=== PATIENT | female | born 1950 | race Caucasian/White ===

== ENCOUNTER 2018-05-17 13:05 | Inpatient (IN) | payer MEDICARE, MEDICAID, SELFPAY ==
[2018-05-17] VITALS (19 sets, daily range): BP systolic 72–125; BP diastolic 55–76; PULSE 45–69; RESP 13–17; TEMP 35.9–36.4; O2SAT 95–100; BMI 25.7; BMI 68.3
--- NOTE | 2018-05-17 13:42 | EKG12_ITS ---
Test Reason : OVERDOSE Blood Pressure : / mmHG Vent. Rate : 052 BPM Atrial Rate : 052 BPM P-R Int : 196 ms QRS Dur : 108 ms QT Int : 476 ms P-R-T Axes : 064 -17 008 degrees QTc Int : 442 ms Sinus bradycardia Otherwise normal ECG Confirmed by SHARMAINE ROBLES, KANDIS ([id number]), restaurant expeditor OPAL VILLEGAS ([id number]) on 05/19/2018 2:12:55 PM Referred By: Abner Gooden Confirmed By:KANDIS SCHMID MD
--- NOTE | 2018-05-17 13:52 | RAD_ITS ---
STUDY: X-RAY CHEST REASON FOR EXAM: Female, 68 years old. Overdose. Unresponsive. TECHNIQUE: Single AP portable view of the chest. COMPARISON: None. FINDINGS: There are monitoring devices. The lungs are clear and expanded. There is no demonstrated pleural abnormality. Normal size heart. Normal mediastinum and kat. Normal visualized pulmonary arteries. Normal visualized aortic arch and descending thoracic aorta. Normal visualized thoracic spine. There is right shoulder replacement. There is postoperative change in the upper abdomen. RAD/Chest 1 View (Portable) IMPRESSION: No acute cardiopulmonary disease. Electronically Signed: Narayan Zhong MD at 14:46 EST , Service support ,
[2018-05-17] MEDS: 0.9% Normal Saline 1,000 ML 1000 ML IV (13:55)
--- NOTE | 2018-05-17 13:58 | NURSING ---
NO OLD EKGS
[2018-05-17 14:00] LABS: Mucous, Urine 0 SEEN /hpf (<or=2+); Red Blood Cells-Urine 0 SEEN /hpf (0-5)
[2018-05-17] MEDS: Naloxone 2 MG/2 ML Syringe IV (14:02)
[2018-05-17 14:03] LABS: Color, Urine Yellow (Yellow); Glucose, Dipstick Normal (Normal); Ketone-Dipstick Negative (Negative); Leukocyte Esterase-Dipstick 25 /ul (Negative); Nitrite-Dipstick Positive (Negative); Occult Blood-Urine Negative /ul (Negative); Protein-Dipstick Negative (Negative); Specific Gravity, Urine 1.015 (1.002-1.030); Urine Bilirubin Dipstick Negative (Negative); Urine Clarity Sl. Cloudy (Clear); Urine Urobilinogen Normal (Normal)
[2018-05-17 14:04] LABS: Absolute Lymphocyte Count 2.69 X10^3/ul (0.83-4.51); Absolute Neutrophil Count 3.4 X10^3/uL (2.0-7.7); Basophil# 0.02 X10^3/uL; Basophil% 0.3 % (0-1); Eosinophil# 0.07 X10^3/uL; Eosinophils% 1.1 % (0-5); Hematocrit 36.7 % (37-47); Hemoglobin 11.5 g/dl (12.0-15.0); Lymphocyte # 2.69 X10^3/ul (4.0); Lymphocyte % 41.6 % (19-41); Mean Corp Hgb Conc 31.3 g/gl (32-36); Mean Corpuscular Hgb 28.9 pg (27.0-32.0); Mean Corpuscular Volume 92.2 fL (81-99); Mean Platelet Vol. 10.4 fl (6.2-12.0); Monocyte# 0.29 X10^3/uL; Monocyte% 4.5 % (0-10); Neutrophil # 3.39 X10^3/uL (2.7-7.7); Neutrophil % 52.3 % (47-70); Platelet Count 205 K/mm3 (150-450); RBC Distribution Width SD 50.8 fl (35.1-43.9); Red Blood Count 3.98 M/mm3 (4.2-5.4); White Blood Count 6.5 K/mm3 (4.4-11.0)
--- NOTE | 2018-05-17 14:04 | ED.RN ---
Addendum entered by Christine Flores 05/17/18 14:22: PT CONFIRMED SUICIDAL IDEATION UPON ARRIVAL IN ER. PT CURRENTLY DIFFICULT TO RESPOND TO PAINFUL STIMULI BUT RESPIRATORY IS INTACT. NURSING STAFF REMAINS AT BEDSIDE TO MONITOR IF PT WILL NEED TO BE INTUBATED. Original Note: PT CONFIRMED SUICIDAL IDEATION. PT IS DIFFICULT TO RESPOND TO PAINFUL STIMULI. MONITOR IS IN PLACE. PT IS BEING CLOSELY MONITORED IN THE EVENT SHE NEEDS TO BE INTUBATED. A SITTER IS NOT AT THE BEDSIDE AT THIS TIME D/T PTS LACK OF ABILITY TO HARM HERSELF.
[2018-05-17 14:06] LABS: POSITIVE COUNT NO; POSITIVE DIFFERENTIAL NO; POSITIVE MORPHOLOGY NO
[2018-05-17 14:11] LABS: Alcohol, Blood (Medical)-Serum < 3.0 mg/dL
[2018-05-17 14:16] LABS: Amphetamine Urine VISTA NEGATIVE (<1000 ng/mL); Barbiturate Urine VISTA NEGATIVE (< 200 ng/mL); Benzodiazepine Urine VISTA NEGATIVE (< 200 ng/mL); Cocaine Urine VISTA NEGATIVE (< 300 ng/mL); Ecstacy Urine VISTA NEGATIVE (< 500 ng/mL); Methadone Urine VISTA NEGATIVE (< 300 ng/mL); PCP Urine VISTA NEGATIVE (< 25 ng/mL); THC Urine VISTA NEGATIVE (< 50 ng/mL); Vista UDS pH Range 5
[2018-05-17 14:18] LABS: Bacteria 2+ /hpf (None Seen); Squamous Epithelial Cells - UA 0-5 SEEN /hpf (5-10); White Blood Cells 0-5 SEEN /hpf (0-5)
[2018-05-17 14:19] LABS: Anion Gap 6 (5-15); BUN 18 mg/dL (7-18); BUN/Creat Ratio 20.2 RATIO (10-20); Calcium,Total 8.3 mg/dL (8.5-10.1); Chloride 102 mmol/L (98-107); Creatinine, Serum 0.89 mg/dL (0.55-1.02); EST Glomerular Filtration Rate 67 mL/min (>60); Est Glom Filt Rate - Afr Amer 81 mL/min (>60); Estimated Creatinine Clearance 52.97 ml/min; Glucose 90 mg/dL (74-106); Potassium 2.7 mmol/L (3.5-5.1); Sodium Level 140 mmol/L (136-145)
--- NOTE | 2018-05-17 14:23 | ED.RN ---
Pt moved from room 20 to room 1 at 1315 due to lethargic response and concern of potential intubation. Christine Randolph in room with pt until decision to intubate determined by Dr Ross
--- NOTE | 2018-05-17 14:27 | ED.RN ---
PHYSICIAN AT BEDSIDE. DECISION TO INTUBATE. SITTER REQUIREMENT IS DISCONTINUED.
--- NOTE | 2018-05-17 14:33 | ED.RN ---
Suicide precautions d/c'd. Pt intubated.
[2018-05-17] MEDS: fentaNYL 100 MCG/2 ML Ampul 50 MCG IV (14:36)
--- NOTE | 2018-05-17 15:05 | RAD_ITS ---
STUDY: X-RAY CHEST REASON FOR EXAM: Female, 68 years old. Tube placement. TECHNIQUE: Single AP portable view of the chest. COMPARISON: Earlier the same day FINDINGS: Endotracheal tube, 4 cm above the niyah. The lungs are clear and expanded. There is no demonstrated pleural abnormality. Normal size heart. Normal mediastinum and kat. Normal visualized pulmonary arteries. Normal visualized aortic arch and descending thoracic aorta. Normal visualized thoracic spine. Stable right shoulder replacement. Postoperative changes in the upper abdomen. RAD/Chest 1 View (Portable) IMPRESSION: Endotracheal tube placement. No focal infiltrate. Electronically Signed: Narayan Zhong MD at 15:53 EST , Service support ,
--- NOTE | 2018-05-17 15:31 | ED.DCSUM_ITS ---
- ER Visit Summary Date of Service: 05/17/18 Chief Complaint: Overdose History of Present Illness: The patient is a 68 F who overdosed on Lyrica and her Klonopin. When she arrived via EMS she was somnolent but arousable and she told me she wanted to end her life. She told me she took the medication when it was dark outside and currently it is 1 in the afternoon. Her daughter apparently called EMS for a well check since she had not heard for him her mother in a while. Physical Examination: Patient is somnolent, initially she is arousable. When she is arousable she tells me that she took a handful of Lyrica and Klonopin. Slightly dry mucous membranes, no obvious facial deformity Pupils are 3-4 mm and reactive No C-spine tenderness supple neck. Regular rate and rhythm without any obvious murmurs Course lungs bilaterally speaking in full sentences without any obvious resp iratory distress Abdomen soft and nontender no guarding or rebound Moves all extremities without any difficulty or pain. Skin does not show any obvious rashes or lesions, no trauma. GCS is 11 initially. Emergency Department Course and Treatment: Patient did receive Narcan with no improvement. I am reluctant to give her flumazenil due to multi-substance ingestion and the possibility of withdrawal seizure. After an observation. Patient decompensated to where she had a GCS of 7. At that time I intubated her. She had no gag reflex and I did not need to use any sedation. Repeat x-rays unremarkable. She was hypokalemic which I started treatment in the emergency department. I called the hospitalist for admission to the intensive care unit. She will need psychiatric evaluation when she is extubated Disposition: Admit to hospital in critical condition Impression: Overdose multidrug Respiratory arrest Critical care time 30 minutes This note was generated with Dial2[employer] dictation software. It may contain incorrect words, spelling, and punctuation that were not noted in review of the chart bozenao r to signing ED Disposition - Plan for ED Patient: Chief Complaint: Overdose Referrals: Reynaldo Styles,Out of [Primary Care Provider] -
--- NOTE | 2018-05-17 15:49 | NURSING ---
ICU 8 DRUG OVERDOSE JODY
--- NOTE | 2018-05-17 15:51 | PCM.HP.STD ---
Problem List (1) Multiple drug overdose Status: Acute (2) Hypokalemia Status: Acute History of Present Illness Date of Admission: 05/17/18 Chief Complaint: Overdose on Lyrica, Klonopin. The patient is a 68 year old F who presents to the Emergency Room due to overdosing on Lyrica and Klonopin. Patient intubated at time of assessment and HPI provided by ER staff. Patient initially able to speak with staff and stated she wanted to end her life, overdosing on Lyrica and Klonopin. Her daughter was reported to call the squad when she had not heard from her mother. Patient intubated in the ER due to decreased responsiveness. Past Medical History Allergies No Known Allergies Allergy (Verified 05/17/18 13:15) Surgical History: hysterectomy, tonsillectomy, - - Bilateral total knee replacement, right rotator cuff repair, lysis of adhesions, hernia repair, gastric bypass, cholecystectomy, cardiac ablation, C5-C6 back fusion, C5/C6 neck fusion. Psychiatric History: Depression Smoking Status: Never smoker - *Family History Maternal History Items: - - Patient intubated, unable to obtain family history. Paternal History Items: - - Patient intubated, unable to obtain family history. Review of Systems Unable to obtain accurate/complete ROS d/t: Patient intubated. Unable to complete ROS. VTE Information - Inpt Only VTE Present on Admission: No VTE Mechan Device Prophylaxis: None VTE Pharm Prophylaxis ordered?: Yes Patient Problems: Active and Suspected Problems Multiple drug overdose (Acute) Hypokalemia (Acute) - Physical Exam General: - - Patient intubated. HEENT: Atraumatic, PERRLA, EOMI, Normocephalic Neck: Supple, No JVD, Negative Carotid Bruits Lungs: Clear to auscultation, Normal air movement Cardiovascular: Regular rate, Regular Rhythm, Normal S1, Normal S2, No murmurs Abdomen: Bowel Sounds Present, Soft, Non Tender, Non-Distended Extremities: No clubbing, No cyanosis, No edema, Capillary Refill Less than 3 Seconds Skin: No rashes, No breakdown Musculoskeletal: No Tenderness to Palpation of Joints or Extremities Neurological: Cranial nerves II-XII grossly intact Psych/Mental Status: - - Unable to assess. Vital Signs Temp Pulse Resp BP Pulse Ox 97.5 F L 46 L 14 95/69 100 05/17/18 13:07 05/17/18 15:41 05/17/18 15:41 05/17/18 15:41 05/17/18 15:41 Oxygen Delivery Method Mechanical Ventilator Weight: 150 lb Body Mass Index (BMI) 25.7 Laboratory Tests Past 24 Hrs 05/17/18 05/17/18 05/17/18 13:25 13:25 13:25 WBC 6.5 RBC 3.98 L Hgb 11.5 L Hct 36.7 L MCV 92.2 MCH 28.9 MCHC 31.3 L RDW 15.0 H RDW Differential 50.8 H Plt Count 205 MPV 10.4 Immature Gran % (Auto) 0.200 Neut % (Auto) 52.3 Lymph % (Auto) 41.6 H [place] % (Auto) 4.5 Eos % (Auto) 1.1 Baso % (Auto) 0.3 Absolute Neuts (auto) 3.4 Absolute Lymphs (auto) 2.69 Total Counted Not Reportable Sodium 140 Potassium 2.7 L* Chloride 102 Carbon Dioxide 32.0 Anion Gap 6 BUN 18 Creatinine 0.89 Estim Creat Clear Calc 52.97 Est GFR (MDRD) Af Amer 81 Est GFR (MDRD) Non-Af 67 BUN/Creatinine Ratio 20.2 H Glucose 90 Calcium 8.3 L Urine Color Urine Clarity Urine pH Ur Specific [place] Urine Protein Urine Glucose (UA) Urine Ketones Urine Occult Blood Urine Nitrite Urine Bilirubin Urine Urobilinogen Ur Leukocyte Esterase Urine RBC Urine WBC Ur Squamous Epith Cells Urine Bacteria Urine Mucus Urine Opiates Screen Urine Methadone Screen Ur Barbiturates Screen Ur Phencyclidine Scrn Ur Amphetamines Screen U Methamphetamin-MDMA U Benzodiazepines Scrn Urine Cocaine Screen U Cannabinoids Screen Ur Drug Screen Comment Ethyl Alcohol < 3.0 05/17/18 05/17/18 13:35 13:35 WBC RBC Hgb Hct MCV MCH MCHC RDW RDW Differential Plt Count MPV Immature Gran % (Auto) Neut % (Auto) Lymph % (Auto) [place] % (Auto) Eos % (Auto) Baso % (Auto) Absolute Neuts (auto) Absolute Lymphs (auto) Total Counted Sodium Potassium Chloride Carbon Dioxide Anion Gap BUN Creatinine Estim Creat Clear Calc Est GFR (MDRD) Af Amer Est GFR (MDRD) Non-Af BUN/Creatinine Ratio Glucose Calcium Urine Color Yellow Urine Clarity Sl. Cloudy Urine pH 5.0 Ur Specific [place] 1.015 Urine Protein Negative Urine Glucose (UA) Normal Urine Ketones Negative Urine Occult Blood Negative Urine Nitrite Positive H Urine Bilirubin Negative Urine Urobilinogen Normal Ur Leukocyte Esterase 25 H Urine RBC 0 SEEN Urine WBC 0-5 SEEN Ur Squamous Epith Cells 0-5 SEEN Urine Bacteria 2+ Urine Mucus 0 SEEN Urine Opiates Screen NEGATIVE Urine Methadone Screen NEGATIVE Ur Barbiturates Screen NEGATIVE Ur Phencyclidine Scrn NEGATIVE Ur Amphetamines Screen NEGATIVE U Methamphetamin-MDMA NEGATIVE U Benzodiazepines Scrn NEGATIVE Urine Cocaine Screen NEGATIVE U Cannabinoids Screen NEGATIVE Ur Drug Screen Comment Ethyl Alcohol Assessment/Plan All Active Problems Multiple drug overdose (Acute) Hypokalemia (Acute) 1. Acute respiratory failure due to multidrug overdose-tox screen negative. Patient admitted to overdosing on Lyrica and Klonopin on admission. Psychiatric/crisis consult when patient is stable. Chest x-ray without infiltrate. Patient currently intubated, stable at this time, on ketamine. 2. Hypokalemia-replaced per protocol. Trend BMP. 3. Hypotension, secondary to #1-stable at this time. Continue to monitor. 4. Hypertension 5. Chronic diastolic CHF-prior EF 54%. 6. Paroxysmal atrial fibrillation-status post ablation. 7. Depression/personality disorder-follows with counseling center. 8. Fibromyalgia 9. GERD 10. Hyperlipidemia 11. PAPA Past medical history of chronic medical conditions obtained from [facility], outside facility report. Patient's current medication list is unknown. DVT prophylaxis- Lovenox SC. This patient was seen by TAMMY Hayes under the supervision of Dr. Gooden.
--- NOTE | 2018-05-17 16:35 | ED.RN ---
cental line placed, pt to get xray and then to the floor.
--- NOTE | 2018-05-17 16:45 | RAD_ITS ---
STUDY: X-RAY CHEST REASON FOR EXAM: Female, 68 years old. Line placement TECHNIQUE: Single AP portable view of the chest. COMPARISON: 05/17/2018, 2:57 PM. FINDINGS: There is a new right IJ line that terminates in the upper SVC. No pneumothorax. Endotracheal tube is stable terminating approximately 5 cm above the niyah. No other changes or abnormalities since earlier today. Electronically Signed: Blake Jason MD at 17:30 EST , Service support , RAD/CXR for Line Placement
--- NOTE | 2018-05-17 17:45 | RAD_ITS ---
STUDY: X-RAY - ABDOMEN/PELVIS REASON FOR EXAM: Female, 68 years old. A NG tube placement. TECHNIQUE: Portable supine view. COMPARISON: None. FINDINGS: Normal visualized lung bases. Orogastric tube terminates in the left upper quadrant consistent with gastric placement. Side port is at the level of the GE junction. There is a nonobstructive bowel gas pattern. There is a rotatory scoliosis of the lumbar spine. Soft tissues and bony structures are otherwise unremarkable. RAD/Abdomen Single View (Portable) IMPRESSION: Orogastric tube in the stomach with side port at the GE junction. If this is to be used for feeding, tube should be advanced at least 5 cm. Electronically Signed: Fouzia Metz MD at 18:41 EST Tel , Service support ,
[2018-05-17] MEDS: 0.9% Normal Saline 1,000 ML 100 ML IV (17:46)
[2018-05-17 18:58] LABS: CPK Total, Creatine Kinase 67 U/L (26-192); Triglycerides 110 mg/dL
[2018-05-17] MEDS: 0.9% Normal Saline 1,000 ML 999 ML IV (19:00)
[2018-05-17 20:40] LABS: Magnesium 1.9 mg/dL (1.6-2.6); Phosphorus 5.3 mg/dL (2.5-4.9)
[2018-05-17] MEDS: Heparin Injection (Vial) 5,000 UNIT/ML VIAL 5000 UNIT SC (21:41)
[2018-05-17] MEDS: Chlorhexidine 15 ML PO (22:13)
[2018-05-18] VITALS (46 sets, daily range): BP systolic 78–140; BP diastolic 60–88; PULSE 52–68; RESP 13–18; TEMP 36.2–36.8; O2SAT 98–100
--- NOTE | 2018-05-18 00:03 | RAD_ITS ---
STUDY: X-RAY - ABDOMEN/PELVIS REASON FOR EXAM: Female, 68 years old. Repositioned orogastric tube. TECHNIQUE: Single AP view of the abdomen / pelvis. COMPARISON: Radiograph of the abdomen dated May 17, 2018. FINDINGS: Normal visualized lung bases. There is an unremarkable bowel gas pattern. The enteric tube tip is now pointing toward the gastroesophageal junction having been advanced since the previous study. An electronic device is visible overlying the right lower quadrant probably representing a neural stimulator. There is no obvious visceromegaly, mass, dilated bowel or pathologic calcifications. There are calcified phleboliths in the pelvis. There are degenerative changes of the lumbar spine. There are large enthesophytes arising from the anterior superior iliac crests. RAD/Abdomen Single View IMPRESSION: Repositioning of enteric tube with the tip pointing towards the gastroesophageal junction. This probably should be repositioned prior to feeding. Electronically Signed: Mariama Stern MD at 0:56 EST , Service support ,
--- NOTE | 2018-05-18 00:51 | NURSING ---
Spoke to poison control about intentional od and medications consumed. Poison control suggests to repeat EKG, add tylenol and ASA level and correct electrolytes as needed. Dr. Morin aware, orders received.
[2018-05-18 01:11] LABS: Bedside Glucose 59 mg/dL (70-110)
[2018-05-18 01:19] LABS: Acetaminophen (Tylenol) Level < 2.0 ug/mL (10.0-30.0); Salicylate < 1.7 mg/dL (2.8-20.0)
[2018-05-18] MEDS: 0.9% Normal Saline 1,000 ML 100 ML IV (01:32)
[2018-05-18] MEDS: 0.9% NaCl Peripheral Flush Adult/Peds IV ×2 (01:44→16:09)
[2018-05-18] MEDS: Dextrose 50%-Water 25 GM/50 ML DISP.SYRIN IV ×2 (01:45→06:28)
[2018-05-18 04:30] LABS: Absolute Lymphocyte Count 1.45 X10^3/ul (0.83-4.51); Basophil# 0.02 X10^3/uL; Basophil% 0.4 % (0-1); Eosinophil# 0.08 X10^3/uL; Eosinophils% 1.7 % (0-5); Hematocrit 32.1 % (37-47); Hemoglobin 10.5 g/dl (12.0-15.0); Lymphocyte # 1.45 X10^3/ul (4.0); Lymphocyte % 30.4 % (19-41); Mean Corp Hgb Conc 32.7 g/gl (32-36); Mean Corpuscular Hgb 29.9 pg (27.0-32.0); Mean Corpuscular Volume 91.5 fL (81-99); Monocyte# 0.22 X10^3/uL; Monocyte% 4.6 % (0-10); Neutrophil # 2.99 X10^3/uL (2.7-7.7); Neutrophil % 62.7 % (47-70); Platelet Count 163 K/mm3 (150-450); RBC Distribution Width CV 14.7 % (11.6-14.6); RBC Distribution Width SD 47.9 fl (35.1-43.9); Red Blood Count 3.51 M/mm3 (4.2-5.4); White Blood Count 4.8 K/mm3 (4.4-11.0)
[2018-05-18 04:37] LABS: POSITIVE COUNT NO; POSITIVE DIFFERENTIAL NO; POSITIVE MORPHOLOGY NO
[2018-05-18 04:47] LABS: Anion Gap 8 (5-15); BUN 12 mg/dL (7-18); BUN/Creat Ratio 19.7 RATIO (10-20); Calcium,Total 7.7 mg/dL (8.5-10.1); Chloride 110 mmol/L (98-107); Creatinine, Serum 0.61 mg/dL (0.55-1.02); EST Glomerular Filtration Rate 104 mL/min (>60); Est Glom Filt Rate - Afr Amer 126 mL/min (>60); Estimated Creatinine Clearance 47.14 ml/min; Glucose 68 mg/dL (74-106); Potassium 2.9 mmol/L (3.5-5.1); Sodium Level 145 mmol/L (136-145)
--- NOTE | 2018-05-18 05:55 | EKG12_ITS ---
Test Reason : AM EKG Blood Pressure : / mmHG Vent. Rate : 058 BPM Atrial Rate : 058 BPM P-R Int : 188 ms QRS Dur : 098 ms QT Int : 428 ms P-R-T Axes : 067 -05 046 degrees QTc Int : 420 ms Sinus bradycardia Otherwise normal ECG When compared with ECG of 17-MAY-2018 13:55, MANUAL COMPARISON REQUIRED, DATA IS UNCONFIRMED Confirmed by SHARMAINE ROBLES, KANDIS ([id number]), marketing editor OPAL VILLEGAS ([id number]) on 05/20/2018 4:12:11 PM Referred By: Abner Gooden Confirmed By:KANDIS SCHMID MD
[2018-05-18 06:11] LABS: Bedside Glucose 63 mg/dL (70-110)
--- NOTE | 2018-05-18 07:17 | PN_ITS ---
Patient Problems: Active and Suspected Problems Multiple drug overdose (Acute) Hypokalemia (Acute) Hypoglycemia (Acute) Subjective: Pt is a 68 YO female admitted with intentional OD of Lyrica and Klonopin. Intubated in the ER due to inability to protect the airway. Admitted to the ICU. All events of the past 24 hours have been reviewed. Ventilator - day #2, on Fentanyl and Propofol for sedation....became agitated this AM but she is still having apneic episodes Afebrile, BP stable, she is bradycardic but the HR is stable, 100% saturation on a 30% FIO2 LAB: no leukocytosis, HGB is 10.5 with a normal MCV, Potassium is still low at 2.9 despite supplementation UA is unremarkable CXR with R IJ in good position and no infiltrates, effusions or PVC Objective: General: Sedated and on mechanical ventilation HEENT: PERRLA, Atraumatic, normocephalic, no scleral icterus, no carotid bruits, no JVD Lungs: CTA, symmetric chest expansion, Heart: RRR, no MM, no gallop, no rub, normal S1, normal S2 Abdomen: Soft, nontender, nondistended, bowel sounds present, no guarding with palpation, no masses, no hepatosplenomegaly Extremities: No edema, no clubbing, no cyanosis, peripheral pulses normal Neuro: Moving all extremities, very somnolent but does arouse with stimulation Skin: Warm and dry, no wounds, no rashes, no jaundice Psych: she is chronically of Klonopin and Paxil for depression/anxiety Telemetry: NSR/SB - Physical Exam Vital Signs Temp Pulse Resp BP Pulse Ox 97.3 F L 56 L 14 96/71 100 05/18/18 02:00 05/18/18 06:15 05/18/18 06:15 05/18/18 06:00 05/18/18 06:15 Oxygen Delivery Method Mechanical Ventilator Weight: 150 lb 9.211 oz Body Mass Index (BMI) 25.7 Intake and Output for Last 24 Hours 05/16/18 05/17/18 05/18/18 23:59 23:59 23:59 Intake Total 1000 / 1000 1855 / 1855 Output Total 1200 / 1200 Balance 1000 / 1000 655 / 655 Laboratory Tests Past 24 Hrs 05/17/18 05/17/18 05/17/18 13:25 13:25 13:25 WBC 6.5 RBC 3.98 L Hgb 11.5 L Hct 36.7 L MCV 92.2 MCH 28.9 MCHC 31.3 L RDW 15.0 H RDW Differential 50.8 H Plt Count 205 MPV 10.4 Immature Gran % (Auto) 0.200 Neut % (Auto) 52.3 Lymph % (Auto) 41.6 H [place] % (Auto) 4.5 Eos % (Auto) 1.1 Baso % (Auto) 0.3 Absolute Neuts (auto) 3.4 Absolute Lymphs (auto) 2.69 Total Counted Not Reportable Sodium 140 Potassium 2.7 L* Chloride 102 Carbon Dioxide 32.0 Anion Gap 6 BUN 18 Creatinine 0.89 Estim Creat Clear Calc 52.97 Est GFR (MDRD) Af Amer 81 Est GFR (MDRD) Non-Af 67 BUN/Creatinine Ratio 20.2 H Glucose 90 Calcium 8.3 L Phosphorus Magnesium Total Creatine Kinase Triglycerides Urine Color Urine Clarity Urine pH Ur Specific [place] Urine Protein Urine Glucose (UA) Urine Ketones Urine Occult Blood Urine Nitrite Urine Bilirubin Urine Urobilinogen Ur Leukocyte Esterase Urine RBC Urine WBC Ur Squamous Epith Cells Urine Bacteria Urine Mucus Salicylates Urine Opiates Screen Urine Methadone Screen Acetaminophen Ur Barbiturates Screen Ur Phencyclidine Scrn Ur Amphetamines Screen U Methamphetamin-MDMA U Benzodiazepines Scrn Urine Cocaine Screen U Cannabinoids Screen Ur Drug Screen Comment Ethyl Alcohol < 3.0 05/17/18 05/17/18 05/17/18 13:25 13:35 13:35 WBC RBC Hgb Hct MCV MCH MCHC RDW RDW Differential Plt Count MPV Immature Gran % (Auto) Neut % (Auto) Lymph % (Auto) [place] % (Auto) Eos % (Auto) Baso % (Auto) Absolute Neuts (auto) Absolute Lymphs (auto) Total Counted Sodium Potassium Chloride Carbon Dioxide Anion Gap BUN Creatinine Estim Creat Clear Calc Est GFR (MDRD) Af Amer Est GFR (MDRD) Non-Af BUN/Creatinine Ratio Glucose Calcium Phosphorus 5.3 H Magnesium 1.9 Total Creatine Kinase Triglycerides Urine Color Yellow Urine Clarity Sl. Cloudy Urine pH 5.0 Ur Specific [place] 1.015 Urine Protein Negative Urine Glucose (UA) Normal Urine Ketones Negative Urine Occult Blood Negative Urine Nitrite Positive H Urine Bilirubin Negative Urine Urobilinogen Normal Ur Leukocyte Esterase 25 H Urine RBC 0 SEEN Urine WBC 0-5 SEEN Ur Squamous Epith Cells 0-5 SEEN Urine Bacteria 2+ Urine Mucus 0 SEEN Salicylates Urine Opiates Screen NEGATIVE Urine Methadone Screen NEGATIVE Acetaminophen Ur Barbiturates Screen NEGATIVE Ur Phencyclidine Scrn NEGATIVE Ur Amphetamines Screen NEGATIVE U Methamphetamin-MDMA NEGATIVE U Benzodiazepines Scrn NEGATIVE Urine Cocaine Screen NEGATIVE U Cannabinoids Screen NEGATIVE Ur Drug Screen Comment Ethyl Alcohol 05/17/18 05/17/18 05/18/18 13:42 13:56 04:18 WBC 4.8 RBC 3.51 L Hgb 10.5 L Hct 32.1 L MCV 91.5 MCH 29.9 MCHC 32.7 RDW 14.7 H RDW Differential 47.9 H Plt Count 163 MPV 10.0 Immature Gran % (Auto) 0.200 Neut % (Auto) 62.7 Lymph % (Auto) 30.4 [place] % (Auto) 4.6 Eos % (Auto) 1.7 Baso % (Auto) 0.4 Absolute Neuts (auto) 3.0 Absolute Lymphs (auto) 1.45 Total Counted Not Reportable Sodium Potassium Chloride Carbon Dioxide Anion Gap BUN Creatinine Estim Creat Clear Calc Est GFR (MDRD) Af Amer Est GFR (MDRD) Non-Af BUN/Creatinine Ratio Glucose Calcium Phosphorus Magnesium Total Creatine Kinase 67 Triglycerides 110 Urine Color Urine Clarity Urine pH Ur Specific [place] Urine Protein Urine Glucose (UA) Urine Ketones Urine Occult Blood Urine Nitrite Urine Bilirubin Urine Urobilinogen Ur Leukocyte Esterase Urine RBC Urine WBC Ur Squamous Epith Cells Urine Bacteria Urine Mucus Salicylates < 1.7 L Urine Opiates Screen Urine Methadone Screen Acetaminophen < 2.0 L Ur Barbiturates Screen Ur Phencyclidine Scrn Ur Amphetamines Screen U Methamphetamin-MDMA U Benzodiazepines Scrn Urine Cocaine Screen U Cannabinoids Screen Ur Drug Screen Comment Ethyl Alcohol 05/18/18 04:18 WBC RBC Hgb Hct MCV MCH MCHC RDW RDW Differential Plt Count MPV Immature Gran % (Auto) Neut % (Auto) Lymph % (Auto) [place] % (Auto) Eos % (Auto) Baso % (Auto) Absolute Neuts (auto) Absolute Lymphs (auto) Total Counted Sodium 145 Potassium 2.9 L Chloride 110 H Carbon Dioxide 27.0 Anion Gap 8 BUN 12 Creatinine 0.61 Estim Creat Clear Calc 47.14 Est GFR (MDRD) Af Amer 126 Est GFR (MDRD) Non-Af 104 BUN/Creatinine Ratio 19.7 Glucose 68 L Calcium 7.7 L Phosphorus Magnesium Total Creatine Kinase Triglycerides Urine Color Urine Clarity Urine pH Ur Specific [place] Urine Protein Urine Glucose (UA) Urine Ketones Urine Occult Blood Urine Nitrite Urine Bilirubin Urine Urobilinogen Ur Leukocyte Esterase Urine RBC Urine WBC Ur Squamous Epith Cells Urine Bacteria Urine Mucus Salicylates Urine Opiates Screen Urine Methadone Screen Acetaminophen Ur Barbiturates Screen Ur Phencyclidine Scrn Ur Amphetamines Screen U Methamphetamin-MDMA U Benzodiazepines Scrn Urine Cocaine Screen U Cannabinoids Screen Ur Drug Screen Comment Ethyl Alcohol POC Glucose 05/18/18 05/18/18 06:06 01:03 POC Glucose 63 L 59 L Medical Necessity - Tobacco Use Smoking Status: Never smoker Assessment/Plan All Active Problems Multiple drug overdose (Acute) Hypokalemia (Acute) Hypoglycemia (Acute) Impressions 1. Intentional overdose with Klonopin and Lyrica in a suicidal attempt 2. Acute respiratory failure secondary to drug overdose 3. Hypokalemia 4. History of anxiety/depression with suicide attempts in the past 5. Normochromic/normocytic anemia of unknown etiology 6. Hypoglycemia-unknown etiology Start Jevity tube feeds and continue to monitor blood sugars Supplement potassium and recheck this afternoon and in the a.m. Repeat chest x-ray if any elevation of temperature Continue sedation with propofol-spontaneous breathing trial in a.m. Consult crisis intervention when the patient is extubated, alert and able to converse Code Visit Inpatient E&M: 49496 Subs Hosp L3
--- NOTE | 2018-05-18 07:59 | PCM.CON.CC ---
Problem List (1) Hypoglycemia Status: Acute (2) Multiple drug overdose Status: Acute Qualifiers: Encounter type: initial encounter Injury intent: intentional self-harm Qualified Code(s): T50.902A - Poisoning by unspecified drugs, medicaments and biological substances, intentional self-harm, initial encounter (3) Hypokalemia Status: Acute Reason for Consult Date of Consultation: 05/18/18 Reason for Consultation: Respiratory failure History of Present Illness: The patient is a 68 year old F, with unclear history, who presented to [facility] on 05/17/2018 following an intentional overdose of Lyrica and Klonopin. Patient reportedly was found by EMS to be somnolent, but arousable and stated that she was trying to end her life. Patient had taken the medications when it was dark outside, but was found at approximately 1:00 in the afternoon. Patient's daughter had reportedly called EMS for a well check leading to the findings. In the emergency room, patient was given Narcan with no improvement. Patient was not given flumazenil secondary to concern for withdrawal seizure. Patient was noted to decrease to a GCS of 7 and was intubated. Patient did not require any sedation and had no gag reflex. Patient was transferred to the intensive care unit for further evaluation. While in the intensive care unit, patient has remained stable on ventilator therapy. Patient has had some issues with hypoglycemia requiring D50 supplementation. Patient has not required any dopamine or sedation as of this time and bradycardia is improving. No fever has been reported. No family is at the bedside to provide more history. Past Medical History Allergies No Known Allergies Allergy (Verified 05/17/18 13:15) Surgical History: hysterectomy, tonsillectomy, - - Bilateral total knee replacement, right rotator cuff repair, lysis of adhesions, hernia repair, gastric bypass, cholecystectomy, cardiac ablation, C5-C6 back fusion, C5/C6 neck fusion. Psychiatric History: Depression Smoking Status: Never smoker - *Family History Maternal History Items: - - Patient intubated, unable to obtain family history. Paternal History Items: - - Patient intubated, unable to obtain family history. Review of Systems Unable to obtain accurate/complete ROS d/t: Intubated and sedated Patient Problems: Active and Suspected Problems Multiple drug overdose (Acute) Hypokalemia (Acute) Hypoglycemia (Acute) Objective: Chest x-ray was personally reviewed showing endotracheal tube and central line in appropriate position. There were no infiltrates. Abdominal x-ray showed OG in appropriate position. - Physical Exam General: - - Intubated and sedated. RASS -3. Good ventilator synchrony noted. HEENT: Atraumatic, PERRLA, EOMI, Normocephalic, - - No scleral icterus or injection noted. Oral: Dry Mucosa Neck: Supple, No JVD, No Nodes, Trachea Midline Lungs: Clear to auscultation, Normal air movement, No rhonchi, No wheeze, No rales, - - Symmetric expansion. No dullness to percussion. Cardiovascular: Regular rate, Regular Rhythm, Normal S1, Normal S2, No murmurs, No rub noted, No Gallop Abdomen: Bowel Sounds Present, Soft, Non Tender, Non-Distended Extremities: No clubbing, No cyanosis, No edema, Capillary Refill Less than 3 Seconds Skin: No rashes, No breakdown Musculoskeletal: No Tenderness to Palpation of Joints or Extremities Lymphatic: No Cervical, Supraclavicular, or Inguinal Adenopathy Neurological: - - Positive corneal, pupillary and cough reflex. Response to stimulus with withdrawal and opens eyes, but falls asleep quickly. Psych/Mental Status: Flat Affect Vital Signs Temp Pulse Resp BP Pulse Ox 36.3 C L 61 17 119/77 100 05/18/18 02:00 05/18/18 07:41 05/18/18 07:00 05/18/18 07:00 05/18/18 07:00 Oxygen Delivery Method Mechanical Ventilator Weight: 68.3 kg Body Mass Index (BMI) 25.7 Intake and Output for Last 24 Hours 05/16/18 05/17/18 05/18/18 23:59 23:59 23:59 Intake Total 1000 / 1000 1855 / 1855 Output Total 1200 / 1200 Balance 1000 / 1000 655 / 655 Laboratory Tests Past 24 Hrs 05/17/18 05/17/18 05/17/18 13:25 13:25 13:25 WBC 6.5 RBC 3.98 L Hgb 11.5 L Hct 36.7 L MCV 92.2 MCH 28.9 MCHC 31.3 L RDW 15.0 H RDW Differential 50.8 H Plt Count 205 MPV 10.4 Immature Gran % (Auto) 0.200 Neut % (Auto) 52.3 Lymph % (Auto) 41.6 H [place] % (Auto) 4.5 Eos % (Auto) 1.1 Baso % (Auto) 0.3 Absolute Neuts (auto) 3.4 Absolute Lymphs (auto) 2.69 Total Counted Not Reportable Sodium 140 Potassium 2.7 L* Chloride 102 Carbon Dioxide 32.0 Anion Gap 6 BUN 18 Creatinine 0.89 Estim Creat Clear Calc 52.97 Est GFR (MDRD) Af Amer 81 Est GFR (MDRD) Non-Af 67 BUN/Creatinine Ratio 20.2 H Glucose 90 Calcium 8.3 L Phosphorus Magnesium Total Bilirubin Direct Bilirubin AST ALT Alkaline Phosphatase Total Creatine Kinase Total Protein Albumin Triglycerides Urine Color Urine Clarity Urine pH Ur Specific [place] Urine Protein Urine Glucose (UA) Urine Ketones Urine Occult Blood Urine Nitrite Urine Bilirubin Urine Urobilinogen Ur Leukocyte Esterase Urine RBC Urine WBC Ur Squamous Epith Cells Urine Bacteria Urine Mucus Salicylates Urine Opiates Screen Urine Methadone Screen Acetaminophen Ur Barbiturates Screen Ur Phencyclidine Scrn Ur Amphetamines Screen U Methamphetamin-MDMA U Benzodiazepines Scrn Urine Cocaine Screen U Cannabinoids Screen Ur Drug Screen Comment Ethyl Alcohol < 3.0 05/17/18 05/17/18 05/17/18 13:25 13:35 13:35 WBC RBC Hgb Hct MCV MCH MCHC RDW RDW Differential Plt Count MPV Immature Gran % (Auto) Neut % (Auto) Lymph % (Auto) [place] % (Auto) Eos % (Auto) Baso % (Auto) Absolute Neuts (auto) Absolute Lymphs (auto) Total Counted Sodium Potassium Chloride Carbon Dioxide Anion Gap BUN Creatinine Estim Creat Clear Calc Est GFR (MDRD) Af Amer Est GFR (MDRD) Non-Af BUN/Creatinine Ratio Glucose Calcium Phosphorus 5.3 H Magnesium 1.9 Total Bilirubin Direct Bilirubin AST ALT Alkaline Phosphatase Total Creatine Kinase Total Protein Albumin Triglycerides Urine Color Yellow Urine Clarity Sl. Cloudy Urine pH 5.0 Ur Specific [place] 1.015 Urine Protein Negative Urine Glucose (UA) Normal Urine Ketones Negative Urine Occult Blood Negative Urine Nitrite Positive H Urine Bilirubin Negative Urine Urobilinogen Normal Ur Leukocyte Esterase 25 H Urine RBC 0 SEEN Urine WBC 0-5 SEEN Ur Squamous Epith Cells 0-5 SEEN Urine Bacteria 2+ Urine Mucus 0 SEEN Salicylates Urine Opiates Screen NEGATIVE Urine Methadone Screen NEGATIVE Acetaminophen Ur Barbiturates Screen NEGATIVE Ur Phencyclidine Scrn NEGATIVE Ur Amphetamines Screen NEGATIVE U Methamphetamin-MDMA NEGATIVE U Benzodiazepines Scrn NEGATIVE Urine Cocaine Screen NEGATIVE U Cannabinoids Screen NEGATIVE Ur Drug Screen Comment Ethyl Alcohol 05/17/18 05/17/18 05/18/18 13:42 13:56 04:18 WBC 4.8 RBC 3.51 L Hgb 10.5 L Hct 32.1 L MCV 91.5 MCH 29.9 MCHC 32.7 RDW 14.7 H RDW Differential 47.9 H Plt Count 163 MPV 10.0 Immature Gran % (Auto) 0.200 Neut % (Auto) 62.7 Lymph % (Auto) 30.4 [place] % (Auto) 4.6 Eos % (Auto) 1.7 Baso % (Auto) 0.4 Absolute Neuts (auto) 3.0 Absolute Lymphs (auto) 1.45 Total Counted Not Reportable Sodium Potassium Chloride Carbon Dioxide Anion Gap BUN Creatinine Estim Creat Clear Calc Est GFR (MDRD) Af Amer Est GFR (MDRD) Non-Af BUN/Creatinine Ratio Glucose Calcium Phosphorus Magnesium Total Bilirubin Direct Bilirubin AST ALT Alkaline Phosphatase Total Creatine Kinase 67 Total Protein Albumin Triglycerides 110 Urine Color Urine Clarity Urine pH Ur Specific [place] Urine Protein Urine Glucose (UA) Urine Ketones Urine Occult Blood Urine Nitrite Urine Bilirubin Urine Urobilinogen Ur Leukocyte Esterase Urine RBC Urine WBC Ur Squamous Epith Cells Urine Bacteria Urine Mucus Salicylates < 1.7 L Urine Opiates Screen Urine Methadone Screen Acetaminophen < 2.0 L Ur Barbiturates Screen Ur Phencyclidine Scrn Ur Amphetamines Screen U Methamphetamin-MDMA U Benzodiazepines Scrn Urine Cocaine Screen U Cannabinoids Screen Ur Drug Screen Comment Ethyl Alcohol 05/18/18 05/18/18 04:18 04:18 WBC RBC Hgb Hct MCV MCH MCHC RDW RDW Differential Plt Count MPV Immature Gran % (Auto) Neut % (Auto) Lymph % (Auto) [place] % (Auto) Eos % (Auto) Baso % (Auto) Absolute Neuts (auto) Absolute Lymphs (auto) Total Counted Sodium 145 Potassium 2.9 L Chloride 110 H Carbon Dioxide 27.0 Anion Gap 8 BUN 12 Creatinine 0.61 Estim Creat Clear Calc 47.14 Est GFR (MDRD) Af Amer 126 Est GFR (MDRD) Non-Af 104 BUN/Creatinine Ratio 19.7 Glucose 68 L Calcium 7.7 L Phosphorus Magnesium Total Bilirubin Pending Direct Bilirubin Pending AST Pending ALT Pending Alkaline Phosphatase Pending Total Creatine Kinase Total Protein Pending Albumin Pending Triglycerides Urine Color Urine Clarity Urine pH Ur Specific [place] Urine Protein Urine Glucose (UA) Urine Ketones Urine Occult Blood Urine Nitrite Urine Bilirubin Urine Urobilinogen Ur Leukocyte Esterase Urine RBC Urine WBC Ur Squamous Epith Cells Urine Bacteria Urine Mucus Salicylates Urine Opiates Screen Urine Methadone Screen Acetaminophen Ur Barbiturates Screen Ur Phencyclidine Scrn Ur Amphetamines Screen U Methamphetamin-MDMA U Benzodiazepines Scrn Urine Cocaine Screen U Cannabinoids Screen Ur Drug Screen Comment Ethyl Alcohol POC Glucose 05/18/18 05/18/18 06:06 01:03 POC Glucose 63 L 59 L Clinical Impression(s) from Imaging Studies Chest X-Ray 05/17/18 13:52 IMPRESSION: No acute cardiopulmonary disease. Electronically Signed: Narayan Zhong MD at 14:46 EST , Service support , Chest X-Ray 05/17/18 15:05 IMPRESSION: Endotracheal tube placement. No focal infiltrate. Electronically Signed: Narayan Zhong MD at 15:53 EST , Service support , Chest X-Ray 05/17/18 16:45 KUB X-Ray 05/17/18 17:45 IMPRESSION: Orogastric tube in the stomach with side port at the GE junction. If this is to be used for feeding, tube should be advanced at least 5 cm. Electronically Signed: Fouzia Metz MD at 18:41 EST Tel , Service support , KUB X-Ray 05/18/18 00:03 IMPRESSION: Repositioning of enteric tube with the tip pointing towards the gastroesophageal junction. This probably should be repositioned prior to feeding. Electronically Signed: Mariama Stern MD at 0:56 EST , Service support , Assessment/Plan Active and Suspected Problems Multiple drug overdose (Acute) Hypokalemia (Acute) Hypoglycemia (Acute) RECOMMENDATIONS: 1. Attempt to contact family members for more history 2. Continue mechanical ventilation, SBT and SAT per protocol. 3. Initiate tube feeds 4. Monitor blood sugars every 2x2 5. Potassium repletion 6. Crisis evaluation upon extubation IMPRESSIONS: 1. Acute respiratory failure secondary to suicide attempt with Klonopin and Lyrica Patient is not been on any sedation since being intubated. Patient was noted to be apneic this morning on spontaneous breathing trial. We will continue with spontaneous awakening and breathing trials per protocol. Continue with mechanical ventilation for now. Attempt to avoid sedation to allow for neurologic assessments. Patient is not appropriate for crisis evaluation at this time 2. Bradycardia with hypotension Likely secondary to overdose. Patient's heart rate is improving. We will continue with symptomatic care. No need for dopamine therapy at this time. 3. Hypokalemia/hypoglycemia Unclear etiology. Patient reportedly had admitted to taking Lyrica and Klonopin therapy. Unclear if patient has access to oral hypoglycemics or long-acting subcutaneous insulin. Will attempt to obtain more information later today. Continue with frequent blood sugar checks. Will initiate tube feeds to provide some glycemic support. 4. Chronic diastolic CHF/fibromyalgia/hyperlipidemia/GERD/PAPA/proximal A. fib status post ablation Complicates care, management, recovery and prognosis. No medications from home available at this time. We will continue to monitor closely. TIME: 35 minutes critical care time spent addressing patient's acute respiratory failure, overdose, bradycardia, hypokalemia, review of all data and collaboration with care team (7:10 AM to 8:10 AM) Code Visit [id number]: [id number] Critical care first hour
--- NOTE | 2018-05-18 08:03 | CON.PCM_ITS ---
Problem List (1) Hypoglycemia Status: Acute (2) Multiple drug overdose Status: Acute Qualifiers: Encounter type: initial encounter Injury intent: intentional self-harm Qualified Code(s): T50.902A - Poisoning by unspecified drugs, medicaments and biological substances, intentional self-harm, initial encounter (3) Hypokalemia Status: Acute Reason for Consult Date of Consultation: 05/18/18 Reason for Consultation: Respiratory failure History of Present Illness: The patient is a 68 year old F, with unclear history, who presented to [facility] on 05/17/2018 following an intentional overdose of Lyrica and Klonopin. Patient reportedly was found by EMS to be somnolent, but arousable and stated that she was trying to end her life. Patient had taken the medications when it was dark outside, but was found at approximately 1:00 in the afternoon. Patient's daughter had reportedly called EMS for a well check leading to the findings. In the emergency room, patient was given Narcan with no improvement. Patient was not given flumazenil secondary to concern for withdrawal seizure. Patient was noted to decrease to a GCS of 7 and was intubated. Patient did not require any sedation and had no gag reflex. Patient was transferred to the intensive care unit for further evaluation. While in the intensive care unit, patient has remained stable on ventilator therapy. Patient has had some issues with hypoglycemia requiring D50 suppleme ntation. Patient has not required any dopamine or sedation as of this time and bradycardia is improving. No fever has been reported. No family is at the bedside to provide more history. Past Medical History Allergies No Known Allergies Allergy (Verified 05/17/18 13:15) Surgical History: hysterectomy, tonsillectomy, - - Bilateral total knee replacement, right rotator cuff repair, lysis of adhesions, hernia repair, gastric bypass, cholecystectomy, cardiac ablation, C5-C6 back fusion, C5/C6 neck fusion. Psychiatric History: Depression Smoking Status: Never smoker - *Family History Maternal History Items: - - Patient intubated, unable to obtain family history. Paternal History Items: - - Patient intubated, unable to obtain family history. Review of Systems Unable to obtain accurate/complete ROS d/t: Intubated and sedated Patient Problems: Active and Suspected Problems Multiple drug overdose (Acute) Hypokalemia (Acute) Hypoglycemia (Acute) Objective: Chest x-ray was personally reviewed showing endotracheal tube and central line in appropriate position. There were no infiltrates. Abdominal x-ray showed OG in appropriate position. - Physical Exam General: - - Intubated and sedated. RASS -3. Good ventilator synchrony noted. HEENT: Atraumatic, PERRLA, EOMI, Normocephalic, - - No scleral icterus or injection noted. Oral: Dry Mucosa Neck: Supple, No JVD, No Nodes, Trachea Midline Lungs: Clear to auscultation, Normal air movement, No rhonchi, No wheeze, No rales, - - Symmetric expansion. No dullness to percussion. Cardiovascular: Regular rate, Regular Rhythm, Normal S1, Normal S2, No murmurs, No rub noted, No Gallop Abdomen: Bowel Sounds Present, Soft, Non Tender, Non-Distended Extremities: No clubbing, No cyanosis, No edema, Capillary Refill Less than 3 Seconds Skin: No rashes, No breakdown Musculoskeletal: No Tenderness to Palpation of Joints or Extremities Lymphatic: No Cervical, Supraclavicular, or Inguinal Adenopathy Neurological: - - Positive corneal, pupillary and cough reflex. Response to stimulus with withdrawal and opens eyes, but falls asleep quickly. Psych/Mental Status: Flat Affect Vital Signs Temp Pulse Resp BP Pulse Ox 36.3 C L 61 17 119/77 100 05/18/18 02:00 05/18/18 07:41 05/18/18 07:00 05/18/18 07:00 05/18/18 07:00 Oxygen Delivery Method Mechanical Ventilator Weight: 68.3 kg Body Mass Index (BMI) 25.7 Intake and Output for Last 24 Hours 05/16/18 05/17/18 05/18/18 23:59 23:59 23:59 Intake Total 1000 / 1000 1855 / 1855 Output Total 1200 / 1200 Balance 1000 / 1000 655 / 655 Laboratory Tests Past 24 Hrs 05/17/18 05/17/18 05/17/18 13:25 13:25 13:25 WBC 6.5 RBC 3.98 L Hgb 11.5 L Hct 36.7 L MCV 92.2 MCH 28.9 MCHC 31.3 L RDW 15.0 H RDW Differential 50.8 H Plt Count 205 MPV 10.4 Immature Gran % (Auto) 0.200 Neut % (Auto) 52.3 Lymph % (Auto) 41.6 H [place] % (Auto) 4.5 Eos % (Auto) 1.1 Baso % (Auto) 0.3 Absolute Neuts (auto) 3.4 Absolute Lymphs (auto) 2.69 Total Counted Not Reportable Sodium 140 Potassium 2.7 L* Chloride 102 Carbon Dioxide 32.0 Anion Gap 6 BUN 18 Creatinine 0.89 Estim Creat Clear Calc 52.97 Est GFR (MDRD) Af Amer 81 Est GFR (MDRD) Non-Af 67 BUN/Creatinine Ratio 20.2 H Glucose 90 Calcium 8.3 L Phosphorus Magnesium Total Bilirubin Direct Bilirubin AST ALT Alkaline Phosphatase Total Creatine Kinase Total Protein Albumin Triglycerides Urine Color Urine Clarity Urine pH Ur Specific [place] Urine Protein Urine Glucose (UA) Urine Ketones Urine Occult Blood Urine Nitrite Urine Bilirubin Urine Urobilinogen Ur Leukocyte Esterase Urine RBC Urine WBC Ur Squamous Epith Cells Urine Bacteria Urine Mucus Salicylates Urine Opiates Screen Urine Methadone Screen Acetaminophen Ur Barbiturates Screen Ur Phencyclidine Scrn Ur Amphetamines Screen U Methamphetamin-MDMA U Benzodiazepines Scrn Urine Cocaine Screen U Cannabinoids Screen Ur Drug Screen Comment Ethyl Alcohol < 3.0 05/17/18 05/17/18 05/17/18 13:25 13:35 13:35 WBC RBC Hgb Hct MCV MCH MCHC RDW RDW Differential Plt Count MPV Immature Gran % (Auto) Neut % (Auto) Lymph % (Auto) [place] % (Auto) Eos % (Auto) Baso % (Auto) Absolute Neuts (auto) Absolute Lymphs (auto) Total Counted Sodium Potassium Chloride Carbon Dioxide Anion Gap BUN Creatinine Estim Creat Clear Calc Est GFR (MDRD) Af Amer Est GFR (MDRD) Non-Af BUN/Creatinine Ratio Glucose Calcium Phosphorus 5.3 H Magnesium 1.9 Total Bilirubin Direct Bilirubin AST ALT Alkaline Phosphatase Total Creatine Kinase Total Protein Albumin Triglycerides Urine Color Yellow Urine Clarity Sl. Cloudy Urine pH 5.0 Ur Specific [place] 1.015 Urine Protein Negative Urine Glucose (UA) Normal Urine Ketones Negative Urine Occult Blood Negative Urine Nitrite Positive H Urine Bilirubin Negative Urine Urobilinogen Normal Ur Leukocyte Esterase 25 H Urine RBC 0 SEEN Urine WBC 0-5 SEEN Ur Squamous Epith Cells 0-5 SEEN Urine Bacteria 2+ Urine Mucus 0 SEEN Salicylates Urine Opiates Screen NEGATIVE Urine Methadone Screen NEGATIVE Acetaminophen Ur Barbiturates Screen NEGATIVE Ur Phencyclidine Scrn NEGATIVE Ur Amphetamines Screen NEGATIVE U Methamphetamin-MDMA NEGATIVE U Benzodiazepines Scrn NEGATIVE Urine Cocaine Screen NEGATIVE U Cannabinoids Screen NEGATIVE Ur Drug Screen Comment Ethyl Alcohol 05/17/18 05/17/18 05/18/18 13:42 13:56 04:18 WBC 4.8 RBC 3.51 L Hgb 10.5 L Hct 32.1 L MCV 91.5 MCH 29.9 MCHC 32.7 RDW 14.7 H RDW Differential 47.9 H Plt Count 163 MPV 10.0 Immature Gran % (Auto) 0.200 Neut % (Auto) 62.7 Lymph % (Auto) 30.4 [place] % (Auto) 4.6 Eos % (Auto) 1.7 Baso % (Auto) 0.4 Absolute Neuts (auto) 3.0 Absolute Lymphs (auto) 1.45 Total Counted Not Reportable Sodium Potassium Chloride Carbon Dioxide Anion Gap BUN Creatinine Estim Creat Clear Calc Est GFR (MDRD) Af Amer Est GFR (MDRD) Non-Af BUN/Creatinine Ratio Glucose Calcium Phosphorus Magnesium Total Bilirubin Direct Bilirubin AST ALT Alkaline Phosphatase Total Creatine Kinase 67 Total Protein Albumin Triglycerides 110 Urine Color Urine Clarity Urine pH Ur Specific [place] Urine Protein Urine Glucose (UA) Urine Ketones Urine Occult Blood Urine Nitrite Urine Bilirubin Urine Urobilinogen Ur Leukocyte Esterase Urine RBC Urine WBC Ur Squamous Epith Cells Urine Bacteria Urine Mucus Salicylates < 1.7 L Urine Opiates Screen Urine Methadone Screen Acetaminophen < 2.0 L Ur Barbiturates Screen Ur Phencyclidine Scrn Ur Amphetamines Screen U Methamphetamin-MDMA U Benzodiazepines Scrn Urine Cocaine Screen U Cannabinoids Screen Ur Drug Screen Comment Ethyl Alcohol 05/18/18 05/18/18 04:18 04:18 WBC RBC Hgb Hct MCV MCH MCHC RDW RDW Differential Plt Count MPV Immature Gran % (Auto) Neut % (Auto) Lymph % (Auto) [place] % (Auto) Eos % (Auto) Baso % (Auto) Absolute Neuts (auto) Absolute Lymphs (auto) Total Counted Sodium 145 Potassium 2.9 L Chloride 110 H Carbon Dioxide 27.0 Anion Gap 8 BUN 12 Creatinine 0.61 Estim Creat Clear Calc 47.14 Est GFR (MDRD) Af Amer 126 Est GFR (MDRD) Non-Af 104 BUN/Creatinine Ratio 19.7 Glucose 68 L Calcium 7.7 L Phosphorus Magnesium Total Bilirubin Pending Direct Bilirubin Pending AST Pending ALT Pending Alkaline Phosphatase Pending Total Creatine Kinase Total Protein Pending Albumin Pending Triglycerides Urine Color Urine Clarity Urine pH Ur Specific [place] Urine Protein Urine Glucose (UA) Urine Ketones Urine Occult Blood Urine Nitrite Urine Bilirubin Urine Urobilinogen Ur Leukocyte Esterase Urine RBC Urine WBC Ur Squamous Epith Cells Urine Bacteria Urine Mucus Salicylates Urine Opiates Screen Urine Methadone Screen Acetaminophen Ur Barbiturates Screen Ur Phencyclidine Scrn Ur Amphetamines Screen U Methamphetamin-MDMA U Benzodiazepines Scrn Urine Cocaine Screen U Cannabinoids Screen Ur Drug Screen Comment Ethyl Alcohol POC Glucose 05/18/18 05/18/18 06:06 01:03 POC Glucose 63 L 59 L Clinical Impression(s) from Imaging Studies Chest X-Ray 05/17/18 13:52 IMPRESSION: No acute cardiopulmonary disease. Electronically Signed: Narayan Zhong MD at 14:46 EST , Service support , Chest X-Ray 05/17/18 15:05 IMPRESSION: Endotracheal tube placement. No focal infiltrate. Electronically Signed: Narayan Zhong MD at 15:53 EST , Service support , Chest X-Ray 05/17/18 16:45 KUB X-Ray 05/17/18 17:45 IMPRESSION: Orogastric tube in the stomach with side port at the GE junction. If this is to be used for feeding, tube should be advanced at least 5 cm. Electronically Signed: Fouzia Metz MD at 18:41 EST Tel , Service support , KUB X-Ray 05/18/18 00:03 IMPRESSION: Repositioning of enteric tube with the tip pointing towards the gastroesophageal junction. This probably should be repositioned prior to feeding. Electronically Signed: Mariama Stern MD at 0:56 EST , Service support , Assessment/Plan Active and Suspected Problems Multiple drug overdose (Acute) Hypokalemia (Acute) Hypoglycemia (Acute) RECOMMENDATIONS: 1. Attempt to contact family members for more history 2. Continue mechanical ventilation, SBT and SAT per protocol. 3. Initiate tube feeds 4. Monitor blood sugars every 2x2 5. Potassium repletion 6. Crisis evaluation upon extubation IMPRESSIONS: 1. Acute respiratory failure secondary to suicide attempt with Klonopin and Lyrica Patient is not been on any sedation since being intubated. Patient was noted to be apneic this morning on spontaneous breathing trial. We will continue with spontaneous awakening and breathing trials per protocol. Continue with mechanical ventilation for now. Attempt to avoid sedation to allow for neurologic assessments. Patient is not appropriate for crisis evaluation at this time 2. Bradycardia with hypotension Likely secondary to overdose. Patient's heart rate is improving. We will continue with symptomatic care. No need for dopamine therapy at this time. 3. Hypokalemia/hypoglycemia Unclear etiology. Patient reportedly had admitted to taking Lyrica and Klonopin therapy. Unclear if patient has access to oral hypoglycemics or long- acting subcutaneous insulin. Will attempt to obtain more information later today. Continue with frequent blood sugar checks. Will initiate tube feeds to provide some glycemic support. 4. Chronic diastolic CHF/fibromyalgia/hyperlipidemia/GERD/PAPA/proximal A. fib status post ablation Complicates care, management, recovery and prognosis. No medications from home available at this time. We will continue to monitor closely. TIME: 35 minutes critical care time spent addressing patient's acute respiratory failure, overdose, bradycardia, hypokalemia, review of all data and collaboration with care team (7:10 AM to 8:10 AM) Code Visit [id number]: [id number] Critical care first hour
[2018-05-18] MEDS: Propofol 10MG/Ml 1,000 MG/100 ML Bottle 2.049 MG CONT INF ×2 (08:17→20:00)
[2018-05-18 08:23] LABS: AST(SGOT) 20 U/L (15-37); Alanine Aminotransfer ALT/SGPT 15 U/L (13-56); Albumin, Serum 2.7 g/dL (3.2-5.0); Alkaline Phosphatase 83 U/L (45-117); Globulin 2.6 g/dL (2.2-4.2); Protein, Total 5.3 g/dL (6.4-8.2)
[2018-05-18 08:41] LABS: Bedside Glucose 61 mg/dL (70-110)
[2018-05-18] MEDS: Jevity 1.5 1,000 ML 50 ML GT (10:05)
[2018-05-18] MEDS: Chlorhexidine 15 ML PO ×2 (10:06→21:21)
[2018-05-18] MEDS: Famotidine 20 MG Tablet GT ×2 (10:06→21:21)
[2018-05-18] MEDS: CHLORHEXIDINE GLUC 2% CLOTH 1 EACH TOWELETTE TOPICAL (10:06)
[2018-05-18] MEDS: Heparin Injection (Vial) 5,000 UNIT/ML VIAL 5000 UNIT SC ×2 (10:07→21:21)
[2018-05-18 10:11] LABS: Bedside Glucose 72 mg/dL (70-110)
[2018-05-18 12:15] LABS: Bedside Glucose 71 mg/dL (70-110)
--- NOTE | 2018-05-18 15:35 | NURSING ---
Pt teaching deferred until pt no longer sedated on vent and able to participate in care
[2018-05-18 16:47] LABS: Potassium 3.5 mmol/L (3.5-5.1)
[2018-05-18 17:15] LABS: Bedside Glucose 80 mg/dL (70-110)
[2018-05-18 23:41] LABS: Bedside Glucose 81 mg/dL (70-110)
[2018-05-19] VITALS (36 sets, daily range): BP systolic 74–121; BP diastolic 50–82; PULSE 56–98; RESP 10–26; TEMP 36.6–37.2; O2SAT 94–100
[2018-05-19] MEDS: CHLORHEXIDINE GLUC 2% CLOTH 1 EACH TOWELETTE TOPICAL (03:55)
[2018-05-19 04:17] LABS: Hematocrit 33.3 % (37-47); Hemoglobin 11.2 g/dl (12.0-15.0); Mean Corp Hgb Conc 33.6 g/gl (32-36); Mean Corpuscular Hgb 30.4 pg (27.0-32.0); Mean Corpuscular Volume 90.5 fL (81-99); Mean Platelet Vol. 10.6 fl (6.2-12.0); Platelet Count 176 K/mm3 (150-450); RBC Distribution Width CV 14.9 % (11.6-14.6); Red Blood Count 3.68 M/mm3 (4.2-5.4); White Blood Count 5.9 K/mm3 (4.4-11.0)
[2018-05-19 04:19] LABS: Scan Indicated on CBC? Y/N NO
[2018-05-19 04:47] LABS: Anion Gap 11 (5-15); BUN 11 mg/dL (7-18); Calcium,Total 7.7 mg/dL (8.5-10.1); Chloride 106 mmol/L (98-107); Creatinine, Serum 0.74 mg/dL (0.55-1.02); EST Glomerular Filtration Rate 84 mL/min (>60); Est Glom Filt Rate - Afr Amer 101 mL/min (>60); Estimated Creatinine Clearance 47.14 ml/min; Glucose 109 mg/dL (74-106); Potassium 3.4 mmol/L (3.5-5.1); Sodium Level 143 mmol/L (136-145)
[2018-05-19 05:21] LABS: Bedside Glucose 94 mg/dL (70-110)
--- NOTE | 2018-05-19 07:31 | PN_ITS ---
Subjective: Patient did okay overnight. Small to moderate oral and small tracheal secretions were reported. Patient was initiated on propofol secondary to destini tation yesterday afternoon. During patient spontaneous breathing trial this morning, patient did have episodes of apnea. Blood sugars have remained stable after initiation of tube feeds General: - - RASS -2. Good ventilator synchrony. Appears older than stated age. HEENT: Atraumatic, PERRLA, EOMI, Normocephalic, - - No scleral icterus or injec tion noted. Oral: Moist Mucosa, No Gingival or Mucosal Lesions/ Ulcerations Neck: Supple, No JVD, No Nodes, Trachea Midline Lungs: Clear to auscultation, Normal air movement, No rhonchi, No wheeze, No rales Cardiovascular: Regular rate, Regular Rhythm, Normal S1, Normal S2, No murmurs, No rub noted, No Gallop Abdomen: Bowel Sounds Present, Soft, Non Tender, Non-Distended Extremities: No clubbing, No cyanosis, No edema, Capillary Refill Less than 3 Seconds Skin: No rashes, No breakdown Musculoskeletal: No Tenderness to Palpation of Joints or Extremities Lymphatic: No Cervical, Supraclavicular, or Inguinal Adenopathy Neurological: Cranial nerves II-XII grossly intact, Neuro grossly intact, Motor Exam 5/5 strength throughout Psych/Mental Status: Flat Affect Vital Signs Temp Pulse Resp BP Pulse Ox 36.8 C 61 13 94/69 98 05/19/18 04:00 05/19/18 07:00 05/19/18 07:00 05/19/18 07:00 05/19/18 07:00 Oxygen Delivery Method Mechanical Ventilator Weight: 68.7 kg Body Mass Index (BMI) 25.7 Intake and Output for Last 24 Hours 05/17/18 05/18/18 05/19/18 23:59 23:59 23:59 Intake Total 1000 / 1000 4019.4 / 4019.4 558.6 / 558.6 Output Total 3200 / 3200 925 / 925 Balance 1000 / 1000 819.4 / 819.4 -366.4 / -366.4 Labs (Last 48 Hours) 05/17/18 05/17/18 05/17/18 13:25 13:25 13:25 WBC 6.5 RBC 3.98 L Hgb 11.5 L Hct 36.7 L MCV 92.2 MCH 28.9 MCHC 31.3 L RDW 15.0 H RDW Differential 50.8 H Plt Count 205 MPV 10.4 Immature Gran % (Auto) 0.200 Neut % (Auto) 52.3 Lymph % (Auto) 41.6 H [place] % (Auto) 4.5 Eos % (Auto) 1.1 Baso % (Auto) 0.3 Absolute Neuts (auto) 3.4 Absolute Lymphs (auto) 2.69 Total Counted Not Reportable Sodium 140 Potassium 2.7 L* Chloride 102 Carbon Dioxide 32.0 Anion Gap 6 BUN 18 Creatinine 0.89 Estim Creat Clear Calc 52.97 Est GFR (MDRD) Af Amer 81 Est GFR (MDRD) Non-Af 67 BUN/Creatinine Ratio 20.2 H Glucose 90 Calcium 8.3 L Phosphorus Magnesium Total Bilirubin Direct Bilirubin AST ALT Alkaline Phosphatase Total Creatine Kinase Total Protein Albumin Globulin Triglycerides Urine Color Urine Clarity Urine pH Ur Specific [place] Urine Protein Urine Glucose (UA) Urine Ketones Urine Occult Blood Urine Nitrite Urine Bilirubin Urine Urobilinogen Ur Leukocyte Esterase Urine RBC Urine WBC Ur Squamous Epith Cells Urine Bacteria Urine Mucus Salicylates Urine Opiates Screen Urine Methadone Screen Acetaminophen Ur Barbiturates Screen Ur Phencyclidine Scrn Ur Amphetamines Screen U Methamphetamin-MDMA U Benzodiazepines Scrn Urine Cocaine Screen U Cannabinoids Screen Ur Drug Screen Comment Ethyl Alcohol < 3.0 POC Glucose 05/17/18 05/17/18 05/17/18 13:25 13:35 13:35 WBC RBC Hgb Hct MCV MCH MCHC RDW RDW Differential Plt Count MPV Immature Gran % (Auto) Neut % (Auto) Lymph % (Auto) [place] % (Auto) Eos % (Auto) Baso % (Auto) Absolute Neuts (auto) Absolute Lymphs (auto) Total Counted Sodium Potassium Chloride Carbon Dioxide Anion Gap BUN Creatinine Estim Creat Clear Calc Est GFR (MDRD) Af Amer Est GFR (MDRD) Non-Af BUN/Creatinine Ratio Glucose Calcium Phosphorus 5.3 H Magnesium 1.9 Total Bilirubin Direct Bilirubin AST ALT Alkaline Phosphatase Total Creatine Kinase Total Protein Albumin Globulin Triglycerides Urine Color Yellow Urine Clarity Sl. Cloudy Urine pH 5.0 Ur Specific [place] 1.015 Urine Protein Negative Urine Glucose (UA) Normal Urine Ketones Negative Urine Occult Blood Negative Urine Nitrite Positive H Urine Bilirubin Negative Urine Urobilinogen Normal Ur Leukocyte Esterase 25 H Urine RBC 0 SEEN Urine WBC 0-5 SEEN Ur Squamous Epith Cells 0-5 SEEN Urine Bacteria 2+ Urine Mucus 0 SEEN Salicylates Urine Opiates Screen NEGATIVE Urine Methadone Screen NEGATIVE Acetaminophen Ur Barbiturates Screen NEGATIVE Ur Phencyclidine Scrn NEGATIVE Ur Amphetamines Screen NEGATIVE U Methamphetamin-MDMA NEGATIVE U Benzodiazepines Scrn NEGATIVE Urine Cocaine Screen NEGATIVE U Cannabinoids Screen NEGATIVE Ur Drug Screen Comment Ethyl Alcohol POC Glucose 05/17/18 05/17/18 05/18/18 13:42 13:56 01:03 WBC RBC Hgb Hct MCV MCH MCHC RDW RDW Differential Plt Count MPV Immature Gran % (Auto) Neut % (Auto) Lymph % (Auto) [place] % (Auto) Eos % (Auto) Baso % (Auto) Absolute Neuts (auto) Absolute Lymphs (auto) Total Counted Sodium Potassium Chloride Carbon Dioxide Anion Gap BUN Creatinine Estim Creat Clear Calc Est GFR (MDRD) Af Amer Est GFR (MDRD) Non-Af BUN/Creatinine Ratio Glucose Calcium Phosphorus Magnesium Total Bilirubin Direct Bilirubin AST ALT Alkaline Phosphatase Total Creatine Kinase 67 Total Protein Albumin Globulin Triglycerides 110 Urine Color Urine Clarity Urine pH Ur Specific [place] Urine Protein Urine Glucose (UA) Urine Ketones Urine Occult Blood Urine Nitrite Urine Bilirubin Urine Urobilinogen Ur Leukocyte Esterase Urine RBC Urine WBC Ur Squamous Epith Cells Urine Bacteria Urine Mucus Salicylates < 1.7 L Urine Opiates Screen Urine Methadone Screen Acetaminophen < 2.0 L Ur Barbiturates Screen Ur Phencyclidine Scrn Ur Amphetamines Screen U Methamphetamin-MDMA U Benzodiazepines Scrn Urine Cocaine Screen U Cannabinoids Screen Ur Drug Screen Comment Ethyl Alcohol POC Glucose 59 L 05/18/18 05/18/18 05/18/18 04:18 04:18 04:18 WBC 4.8 RBC 3.51 L Hgb 10.5 L Hct 32.1 L MCV 91.5 MCH 29.9 MCHC 32.7 RDW 14.7 H RDW Differential 47.9 H Plt Count 163 MPV 10.0 Immature Gran % (Auto) 0.200 Neut % (Auto) 62.7 Lymph % (Auto) 30.4 [place] % (Auto) 4.6 Eos % (Auto) 1.7 Baso % (Auto) 0.4 Absolute Neuts (auto) 3.0 Absolute Lymphs (auto) 1.45 Total Counted Not Reportable Sodium 145 Potassium 2.9 L Chloride 110 H Carbon Dioxide 27.0 Anion Gap 8 BUN 12 Creatinine 0.61 Estim Creat Clear Calc 47.14 Est GFR (MDRD) Af Amer 126 Est GFR (MDRD) Non-Af 104 BUN/Creatinine Ratio 19.7 Glucose 68 L Calcium 7.7 L Phosphorus Magnesium Total Bilirubin 0.80 Direct Bilirubin 0.20 AST 20 ALT 15 Alkaline Phosphatase 83 Total Creatine Kinase Total Protein 5.3 L Albumin 2.7 L Globulin 2.6 Triglycerides Urine Color Urine Clarity Urine pH Ur Specific [place] Urine Protein Urine Glucose (UA) Urine Ketones Urine Occult Blood Urine Nitrite Urine Bilirubin Urine Urobilinogen Ur Leukocyte Esterase Urine RBC Urine WBC Ur Squamous Epith Cells Urine Bacteria Urine Mucus Salicylates Urine Opiates Screen Urine Methadone Screen Acetaminophen Ur Barbiturates Screen Ur Phencyclidine Scrn Ur Amphetamines Screen U Methamphetamin-MDMA U Benzodiazepines Scrn Urine Cocaine Screen U Cannabinoids Screen Ur Drug Screen Comment Ethyl Alcohol POC Glucose 05/18/18 05/18/18 05/18/18 06:06 08:07 10:05 WBC RBC Hgb Hct MCV MCH MCHC RDW RDW Differential Plt Count MPV Immature Gran % (Auto) Neut % (Auto) Lymph % (Auto) [place] % (Auto) Eos % (Auto) Baso % (Auto) Absolute Neuts (auto) Absolute Lymphs (auto) Total Counted Sodium Potassium Chloride Carbon Dioxide Anion Gap BUN Creatinine Estim Creat Clear Calc Est GFR (MDRD) Af Amer Est GFR (MDRD) Non-Af BUN/Creatinine Ratio Glucose Calcium Phosphorus Magnesium Total Bilirubin Direct Bilirubin AST ALT Alkaline Phosphatase Total Creatine Kinase Total Protein Albumin Globulin Triglycerides Urine Color Urine Clarity Urine pH Ur Specific [place] Urine Protein Urine Glucose (UA) Urine Ketones Urine Occult Blood Urine Nitrite Urine Bilirubin Urine Urobilinogen Ur Leukocyte Esterase Urine RBC Urine WBC Ur Squamous Epith Cells Urine Bacteria Urine Mucus Salicylates Urine Opiates Screen Urine Methadone Screen Acetaminophen Ur Barbiturates Screen Ur Phencyclidine Scrn Ur Amphetamines Screen U Methamphetamin-MDMA U Benzodiazepines Scrn Urine Cocaine Screen U Cannabinoids Screen Ur Drug Screen Comment Ethyl Alcohol POC Glucose 63 L 61 L 72 05/18/18 05/18/18 05/18/18 12:13 16:15 17:10 WBC RBC Hgb Hct MCV MCH MCHC RDW RDW Differential Plt Count MPV Immature Gran % (Auto) Neut % (Auto) Lymph % (Auto) [place] % (Auto) Eos % (Auto) Baso % (Auto) Absolute Neuts (auto) Absolute Lymphs (auto) Total Counted Sodium Potassium 3.5 Chloride Carbon Dioxide Anion Gap BUN Creatinine Estim Creat Clear Calc Est GFR (MDRD) Af Amer Est GFR (MDRD) Non-Af BUN/Creatinine Ratio Glucose Calcium Phosphorus Magnesium Total Bilirubin Direct Bilirubin AST ALT Alkaline Phosphatase Total Creatine Kinase Total Protein Albumin Globulin Triglycerides Urine Color Urine Clarity Urine pH Ur Specific [place] Urine Protein Urine Glucose (UA) Urine Ketones Urine Occult Blood Urine Nitrite Urine Bilirubin Urine Urobilinogen Ur Leukocyte Esterase Urine RBC Urine WBC Ur Squamous Epith Cells Urine Bacteria Urine Mucus Salicylates Urine Opiates Screen Urine Methadone Screen Acetaminophen Ur Barbiturates Screen Ur Phencyclidine Scrn Ur Amphetamines Screen U Methamphetamin-MDMA U Benzodiazepines Scrn Urine Cocaine Screen U Cannabinoids Screen Ur Drug Screen Comment Ethyl Alcohol POC Glucose 71 80 05/18/18 05/19/18 05/19/18 23:31 03:55 03:55 WBC 5.9 RBC 3.68 L Hgb 11.2 L Hct 33.3 L MCV 90.5 MCH 30.4 MCHC 33.6 RDW 14.9 H RDW Differential 48.0 H Plt Count 176 MPV 10.6 Immature Gran % (Auto) Neut % (Auto) Lymph % (Auto) [place] % (Auto) Eos % (Auto) Baso % (Auto) Absolute Neuts (auto) Absolute Lymphs (auto) Total Counted Sodium 143 Potassium 3.4 L Chloride 106 Carbon Dioxide 26.0 Anion Gap 11 BUN 11 Creatinine 0.74 Estim Creat Clear Calc 47.14 Est GFR (MDRD) Af Amer 101 Est GFR (MDRD) Non-Af 84 BUN/Creatinine Ratio 15.0 Glucose 109 H Calcium 7.7 L Phosphorus Magnesium Total Bilirubin Direct Bilirubin AST ALT Alkaline Phosphatase Total Creatine Kinase Total Protein Albumin Globulin Triglycerides Urine Color Urine Clarity Urine pH Ur Specific [place] Urine Protein Urine Glucose (UA) Urine Ketones Urine Occult Blood Urine Nitrite Urine Bilirubin Urine Urobilinogen Ur Leukocyte Esterase Urine RBC Urine WBC Ur Squamous Epith Cells Urine Bacteria Urine Mucus Salicylates Urine Opiates Screen Urine Methadone Screen Acetaminophen Ur Barbiturates Screen Ur Phencyclidine Scrn Ur Amphetamines Screen U Methamphetamin-MDMA U Benzodiazepines Scrn Urine Cocaine Screen U Cannabinoids Screen Ur Drug Screen Comment Ethyl Alcohol POC Glucose 81 05/19/18 05:15 WBC RBC Hgb Hct MCV MCH MCHC RDW RDW Differential Plt Count MPV Immature Gran % (Auto) Neut % (Auto) Lymph % (Auto) [place] % (Auto) Eos % (Auto) Baso % (Auto) Absolute Neuts (auto) Absolute Lymphs (auto) Total Counted Sodium Potassium Chloride Carbon Dioxide Anion Gap BUN Creatinine Estim Creat Clear Calc Est GFR (MDRD) Af Amer Est GFR (MDRD) Non-Af BUN/Creatinine Ratio Glucose Calcium Phosphorus Magnesium Total Bilirubin Direct Bilirubin AST ALT Alkaline Phosphatase Total Creatine Kinase Total Protein Albumin Globulin Triglycerides Urine Color Urine Clarity Urine pH Ur Specific [place] Urine Protein Urine Glucose (UA) Urine Ketones Urine Occult Blood Urine Nitrite Urine Bilirubin Urine Urobilinogen Ur Leukocyte Esterase Urine RBC Urine WBC Ur Squamous Epith Cells Urine Bacteria Urine Mucus Salicylates Urine Opiates Screen Urine Methadone Screen Acetaminophen Ur Barbiturates Screen Ur Phencyclidine Scrn Ur Amphetamines Screen U Methamphetamin-MDMA U Benzodiazepines Scrn Urine Cocaine Screen U Cannabinoids Screen Ur Drug Screen Comment Ethyl Alcohol POC Glucose 94 Medical Necessity - Tobacco Use Smoking Status: Never smoker Assessment/Plan All Active Problems Multiple drug overdose (Acute) Hypokalemia (Acute) Hypoglycemia (Acute) RECOMMENDATIONS: 1. Attempt to contact family members for more history 2. Continue mechanical ventilation, SBT and SAT later today. 3. Hold tube feeds 4. Continue monitor blood sugars every 6 hours 5. Potassium repletion 6. Crisis evaluation upon extubation IMPRESSIONS: 1. Acute respiratory failure secondary to suicide attempt with Klonopin and Lyrica Patient has been given propofol, but this was discontinued this morning. Patient did take an unknown amount of Klonopin and this could be sticking around. All sedation will be held. Will attempt spontaneous breathing trials through the day. Tube feeds will be held. Anticipate possible extubation later today. If apnea episodes continue through tomorrow morning, evaluation for central process may be necessary. 2. Bradycardia with hypotension RESOLVED> likely secondary to overdose. Patient's heart rate is improving. We will continue with symptomatic care. No need for dopamine therapy at this time. 3. Hypokalemia/hypoglycemia Unclear etiology. Patient reportedly had admitted to taking Lyrica and Klonopin therapy. Unclear if patient has access to oral hypoglycemics or long- acting subcutaneous insulin. Will attempt to obtain more information later today. Continue with frequent blood sugar checks. Will initiate tube feeds to provide some glycemic support. 4. Chronic diastolic CHF/fibromyalgia/hyperlipidemia/GERD/PAPA/proximal A. fib status post ablation Complicates care, management, recovery and prognosis. No medications from home available at this time. We will continue to monitor closely. TIME: 33 minutes critical care time spent addressing patient's acute respiratory failure, overdose, hypokalemia, review of all data and collaboration with care team (6:30 AM to 7:30 AM) Code Visit [id number]: [id number] Critical care first hour
[2018-05-19 09:05] LABS: Base Excess 6 mmol/L (-2 to +2); Bicarbonate 29.5 mmol/L (22-26); Blood Gas Specimen Type ART; FI02 30; Mode CPAP PS; O2 Delivery Device Vent; PEEP 5; PO2 70 mmHG (75-100); PS 5; SITE R Brachial; SO2 95 % (95-99); Time Given 852; Total Carbon Dioxide 31 mmol/L; pCO2 38.9 mmHg (35-45); pH 7.49 (7.35-7.45)
--- NOTE | 2018-05-19 10:02 | CASEMGMT ---
Pt is to be extubated today, as per physician, pt will be ready to speak w/crisis tomorrow. Referral will be made to crisis when appropriate. NERI Benavides, [employer]
[2018-05-19] MEDS: clonazePAM 0.5 MG Tablet PO ×3 (11:02→21:54)
[2018-05-19] MEDS: 0.9% NaCl Peripheral Flush Adult/Peds IV ×3 (11:02→20:25)
[2018-05-19] MEDS: Heparin Injection (Vial) 5,000 UNIT/ML VIAL 5000 UNIT SC ×2 (11:02→21:53)
[2018-05-19 11:16] LABS: Bedside Glucose 92 mg/dL (70-110)
--- NOTE | 2018-05-19 14:57 | PCM.PN.HOSP ---
Patient Problems: Active and Suspected Problems Multiple drug overdose (Acute) Hypokalemia (Acute) Hypoglycemia (Acute) Subjective: Patient seen and examined. She was admitted with a complaint of intentional overdose of Lyrica and Klonopin suicidal attempt. He was intubated in the ED and admitted in the ICU. Has no complaints. She was extubated today. She has a set up by half time of review. Patient was drowsy but responsive and answers questions. She denied having any suicidal or homicidal ideations at the time of review. She denied any headache or blurred vision, chest pain, shortness of breath, abdominal pain, diarrhea vomiting. Review of systems otherwise negative. Labs and vitals reviewed. She was noted to be hypotensive with blood pressure in the 80s systolic and map of 66. Vitals/I&O's: Vital Signs Temp Pulse Resp BP Pulse Ox 98.8 F 68 16 82/64 L 99 05/19/18 12:00 05/19/18 14:00 05/19/18 14:00 05/19/18 14:00 05/19/18 14:00 Oxygen Flow Rate (L/min) 2 Oxygen Delivery Method Room Air Weight: 151 lb 7.321 oz Body Mass Index (BMI) 25.7 Intake and Output for Last 24 Hours 05/17/18 05/18/18 05/19/18 23:59 23:59 23:59 Intake Total 1000 / 1000 4019.4 / 4019.4 558.6 / 558.6 Output Total 3200 / 3200 1825 / 1825 Balance 1000 / 1000 819.4 / 819.4 -1266.4 / -1266.4 General: Alert, Oriented x3, Cooperative, Lethargic HEENT: Atraumatic, PERRLA, EOMI, Normocephalic Oral: Moist Mucosa Neck: Supple, No JVD, Negative Carotid Bruits Lungs: Clear to auscultation, Normal air movement, No rhonchi, No wheeze, No rales Cardiovascular: Regular rate, Regular Rhythm, Normal S1, Normal S2, No murmurs Abdomen: Bowel Sounds Present, Soft, Non Tender, Non-Distended, No Hepato-splenomegaly Extremities: No clubbing, No cyanosis, No edema, Capillary Refill Less than 3 Seconds Skin: No rashes, No breakdown Musculoskeletal: No Tenderness to Palpation of Joints or Extremities Lymphatic: No Cervical, Supraclavicular, or Inguinal Adenopathy Neurological: Cranial nerves II-XII grossly intact, Neuro grossly intact, Motor Exam 5/5 strength throughout Psych/Mental Status: Flat Affect, Alert and oriented to time, place, person, mood and affect Laboratory Results 05/18/18 16:15: Potassium 3.5 05/18/18 17:10: POC Glucose 80 05/18/18 23:31: POC Glucose 81 05/19/18 03:55: WBC 5.9, RBC 3.68 L, Hgb 11.2 L, Hct 33.3 L, MCV 90.5, MCH 30.4, MCHC 33.6, RDW 14.9 H, RDW Differential 48.0 H, Plt Count 176, MPV 10.6 05/19/18 03:55: Sodium 143, Potassium 3.4 L, Chloride 106, Carbon Dioxide 26.0, Anion Gap 11, BUN 11, Creatinine 0.74, Estim Creat Clear Calc 47.14, Est GFR (MDRD) Af Amer 101, Est GFR (MDRD) Non-Af 84, BUN/Creatinine Ratio 15.0, Glucose 109 H, Calcium 7.7 L 05/19/18 05:15: POC Glucose 94 05/19/18 09:01: Specimen Type ART, Sample Site R Brachial, pH 7.49 H, Bicarbonate Actual 29.5 H, POC Total CO2 31, Base Excess 6 H, O2 Saturation 95, O2 % 30, ABG pCO2 38.9, ABG pO2 70 L, Bony Test NA, O2 Delivery Device Vent, Vent Mode CPAP PS, POC PEEP 5, POC Pressure Suppt 5, Blood Gas Notified Whom ICU , Blood Gas Notified Time 852 05/19/18 11:07: POC Glucose 92 Diagnostic Data Chest X-Ray 05/17/18 16:45 KUB X-Ray 05/18/18 00:03 IMPRESSION: Repositioning of enteric tube with the tip pointing towards the gastroesophageal junction. This probably should be repositioned prior to feeding. Electronically Signed: Mariama Stern MD at 0:56 EST , Service support , Current Medications Chlorhexidine Gluconate () 1 each TOPICAL DAILY [facility] Last Admin: 05/19/18 03:55 Dose: 1 each Clonazepam (Klonopin) 0.5 mg PO TID [facility] Last Admin: 05/19/18 13:56 Dose: 0.5 mg Dextrose (D50w Syringe) 0 gm IV X1 PRN; Protocol PRN Reason: Hypoglycemia Last Admin: 05/18/18 06:28 Dose: 12.5 gm Glucagon () 1 mg IM .X1 PRN PRN Reason: Hypoglycemia Heparin Sodium (Porcine) (Heparin Na) 5,000 unit SC Q12 [facility]IONA Last Admin: 05/19/18 11:02 Dose: 5,000 unit Sodium Chloride () 250 mls @ 15 mls/hr IV .[id number] PRN PRN Reason: SALINE FLUSH Sodium Chloride () 5 - 30 ml IV UD PRN PRN Reason: SALINE FLUSH Last Admin: 05/19/18 13:57 Dose: 10 ml Sodium Chloride () 10 - 40 ml IV UD PRN PRN Reason: MULTILUMEN/HICMAN CATH FLUSH Last Admin: 05/19/18 03:55 Dose: 20 ml Medical Necessity - Tobacco Use Smoking Status: Never smoker Assessment/Plan All Active Problems Multiple drug overdose (Acute) Hypokalemia (Acute) Hypoglycemia (Acute) 1. Suicidal attempt after intentional overdose of Klonopin and Lyrica was intubated on admission to protect her airway; now successfully extubated to room air denies any suicidal or homicidal ideation now off sedatives. due to low BP, will await improvement in BP to consult Crises intervention 2. Acute hypoxic respiratory failure due to drug overdose Resolved. Now successfully extubated. On room air. Off Sedatives. 3. Hypokalemia: K was 2.7 on admission. K is 3.4 today. Will replace per monitor 4. Pseudohypocalcemia: calcium is 7.7 today; corrected calcium is 8.7, which is WNL. WIll monitor 5. History of anxiety and depression: Has had previous suicidal attempts in the past. Klonopin and Lyrica currently on hold DVT prophylaxis; heparin Disposition: to consult crisis evaluation once patient's blood pressure has improved. Code Visit Inpatient E&M: [id number] [facility] L[facility]
--- NOTE | 2018-05-19 15:06 | PN_ITS ---
Patient Problems: Active and Suspected Problems Multiple drug overdose (Acute) Hypokalemia (Acute) Hypoglycemia (Acute) Subjective: Patient seen and examined. She was admitted with a complaint of intentional overdose of Lyrica and Klonopin suicidal attempt. He was intubated in the ED and admitted in the ICU. Has no complaints. She was extubated today. She has a set up by half time of review. Patient was drowsy but responsive and answers questions. She denied having any suicidal or homicidal ideations at the time of review. She denied any headache or blurred vision, chest pain, shortness of breath, abdominal pain, diarrhea vomiting. Review of systems otherwise negative. Labs and vitals reviewed. She was noted to be hypotensive with blood pressure in the 80s systolic and map of 66. Vitals/I&O's: Vital Signs Temp Pulse Resp BP Pulse Ox 98.8 F 68 16 82/64 L 99 05/19/18 12:00 05/19/18 14:00 05/19/18 14:00 05/19/18 14:00 05/19/18 14:00 Oxygen Flow Rate (L/min) 2 Oxygen Delivery Method Room Air Weight: 151 lb 7.321 oz Body Mass Index (BMI) 25.7 Intake and Output for Last 24 Hours 05/17/18 05/18/18 05/19/18 23:59 23:59 23:59 Intake Total 1000 / 1000 4019.4 / 4019.4 558.6 / 558.6 Output Total 3200 / 3200 1825 / 1825 Balance 1000 / 1000 819.4 / 819.4 -1266.4 / -1266.4 General: Alert, Oriented x3, Cooperative, Lethargic HEENT: Atraumatic, PERRLA, EOMI, Normocephalic Oral: Moist Mucosa Neck: Supple, No JVD, Negative Carotid Bruits Lungs: Clear to auscultation, Normal air movement, No rhonchi, No wheeze, No rales Cardiovascular: Regular rate, Regular Rhythm, Normal S1, Normal S2, No murmurs Abdomen: Bowel Sounds Present, Soft, Non Tender, Non-Distended, No Hepato- splenomegaly Extremities: No clubbing, No cyanosis, No edema, Capillary Refill Less than 3 Seconds Skin: No rashes, No breakdown Musculoskeletal: No Tenderness to Palpation of Joints or Extremities Lymphatic: No Cervical, Supraclavicular, or Inguinal Adenopathy Neurological: Cranial nerves II-XII grossly intact, Neuro grossly intact, Motor Exam 5/5 strength throughout Psych/Mental Status: Flat Affect, Alert and oriented to time, place, person, mood and affect Laboratory Results 05/18/18 16:15: Potassium 3.5 05/18/18 17:10: POC Glucose 80 05/18/18 23:31: POC Glucose 81 05/19/18 03:55: WBC 5.9, RBC 3.68 L, Hgb 11.2 L, Hct 33.3 L, MCV 90.5, MCH 30.4, MCHC 33.6, RDW 14.9 H, RDW Differential 48.0 H, Plt Count 176, MPV 10.6 05/19/18 03:55: Sodium 143, Potassium 3.4 L, Chloride 106, Carbon Dioxide 26.0, Anion Gap 11, BUN 11, Creatinine 0.74, Estim Creat Clear Calc 47.14, Est GFR (MDRD) Af Amer 101, Est GFR (MDRD) Non-Af 84, BUN/Creatinine Ratio 15.0, Glucose 109 H, Calcium 7.7 L 05/19/18 05:15: POC Glucose 94 05/19/18 09:01: Specimen Type ART, Sample Site R Brachial, pH 7.49 H, Bicarbonate Actual 29.5 H, POC Total CO2 31, Base Excess 6 H, O2 Saturation 95, O2 % 30, ABG pCO2 38.9, ABG pO2 70 L, Bony Test NA, O2 Delivery Device Vent, Vent Mode CPAP PS, POC PEEP 5, POC Pressure Suppt 5, Blood Gas Notified Whom ICU , Blood Gas Notified Time 852 05/19/18 11:07: POC Glucose 92 Diagnostic Data Chest X-Ray 05/17/18 16:45 KUB X-Ray 05/18/18 00:03 IMPRESSION: Repositioning of enteric tube with the tip pointing towards the gastroesophageal junction. This probably should be repositioned prior to feeding. Electronically Signed: Mariama Stern MD at 0:56 EST , Service support , Current Medications Chlorhexidine Gluconate () 1 each TOPICAL DAILY [facility] Last Admin: 05/19/18 03:55 Dose: 1 each Clonazepam (Klonopin) 0.5 mg PO TID [facility] Last Admin: 05/19/18 13:56 Dose: 0.5 mg Dextrose (D50w Syringe) 0 gm IV X1 PRN; Protocol PRN Reason: Hypoglycemia Last Admin: 05/18/18 06:28 Dose: 12.5 gm Glucagon () 1 mg IM .X1 PRN PRN Reason: Hypoglycemia Heparin Sodium (Porcine) (Heparin Na) 5,000 unit SC Q12 [facility]IONA Last Admin: 05/19/18 11:02 Dose: 5,000 unit Sodium Chloride () 250 mls @ 15 mls/hr IV .[id number] PRN PRN Reason: SALINE FLUSH Sodium Chloride () 5 - 30 ml IV UD PRN PRN Reason: SALINE FLUSH Last Admin: 05/19/18 13:57 Dose: 10 ml Sodium Chloride () 10 - 40 ml IV UD PRN PRN Reason: MULTILUMEN/HICMAN CATH FLUSH Last Admin: 05/19/18 03:55 Dose: 20 ml Medical Necessity - Tobacco Use Smoking Status: Never smoker Assessment/Plan All Active Problems Multiple drug overdose (Acute) Hypokalemia (Acute) Hypoglycemia (Acute) 1. Suicidal attempt after intentional overdose of Klonopin and Lyrica * was intubated on admission to protect her airway; now successfully extubated to room air * denies any suicidal or homicidal ideation now * off sedatives. * due to low BP, will await improvement in BP to consult Crises intervention * 2. Acute hypoxic respiratory failure due to drug overdose * Resolved. Now successfully extubated. On room air. * Off Sedatives. * 3. Hypokalemia: K was 2.7 on admission. K is 3.4 today. Will replace per monitor 4. Pseudohypocalcemia: calcium is 7.7 today; corrected calcium is 8.7, which is WNL. WIll monitor 5. History of anxiety and depression: Has had previous suicidal attempts in the past. Klonopin and Lyrica currently on hold DVT prophylaxis; heparin Disposition: to consult crisis evaluation once patient's blood pressure has improved. Code Visit Inpatient E&M: 67904 Subs Hosp L3
--- NOTE | 2018-05-19 17:09 | CHAPLAIN ---
Type of Pastoral Visit _x__ Initial Visit ___ Follow-up Visit ___ On-call Visit ___ General Patient Visit ___ Spiritual Assessment ___ Family Conference ___ Bereavement ___ Rapid Response ___ Code Blue ___ Other (describe below) Pastoral Care Referral From _x__ Patient ___ Family _x__ Nurse ___ Physician ___ Bus And Trolley Dispatcher ___ Study Abroad Coordinator ___ Other (describe below) Sacrament/Intervention _x__ Active listening ___ Anointing ___ Episcopalian ___ Bereavement ___ Communion ___ Beth exploration ___ _x__ Life review ___ Prayer ___ Reconciliation ___ Sacrament of Sick _x__ Supportive presence ___ Wedding ___ Other (describe below) Pastoral Comments patient was very active talker and it was difficult to direct the conversation to her needs, coping mechanisms, support, and place of calm and peace; pt evidently has very little ongoing family or good support; pt has a boyfriend that he not reliable according to her story;
[2018-05-19 17:10] LABS: Bedside Glucose 81 mg/dL (70-110)
--- NOTE | 2018-05-19 20:53 | NURSING ---
Poison control called to get update on pt condition. They are closing the report due to pt being medically stable.
[2018-05-19 21:55] LABS: Bedside Glucose 92 mg/dL (70-110)
[2018-05-20] VITALS (17 sets, daily range): BP systolic 72–99; BP diastolic 48–67; PULSE 59–81; RESP 13–24; TEMP 36.1–36.9; O2SAT 96–100
--- NOTE | 2018-05-20 01:14 | NURSING ---
Advised the patient the need remove the urinary catheter. Pt refused stating, No, no, because then I'd have to get up all the time.
[2018-05-20] MEDS: 0.9% NaCl Peripheral Flush Adult/Peds IV (04:24)
[2018-05-20 04:40] LABS: Basophil# 0.01 X10^3/uL; Basophil% 0.2 % (0-1); Eosinophil# 0.17 X10^3/uL; Eosinophils% 2.9 % (0-5); Hematocrit 31.4 % (37-47); Hemoglobin 10.2 g/dl (12.0-15.0); Lymphocyte % 40.7 % (19-41); Mean Corp Hgb Conc 32.5 g/gl (32-36); Mean Corpuscular Hgb 29.4 pg (27.0-32.0); Mean Corpuscular Volume 90.5 fL (81-99); Mean Platelet Vol. 10.3 fl (6.2-12.0); Monocyte# 0.36 X10^3/uL; Monocyte% 6.1 % (0-10); Neutrophil # 2.96 X10^3/uL (2.7-7.7); Neutrophil % 50.1 % (47-70); Platelet Count 149 K/mm3 (150-450); RBC Distribution Width SD 49.4 fl (35.1-43.9); Red Blood Count 3.47 M/mm3 (4.2-5.4); White Blood Count 5.9 K/mm3 (4.4-11.0)
[2018-05-20 04:58] LABS: POSITIVE COUNT NO; POSITIVE DIFFERENTIAL NO; POSITIVE MORPHOLOGY NO
[2018-05-20 05:08] LABS: Anion Gap 11 (5-15); BUN 14 mg/dL (7-18); BUN/Creat Ratio 18.1 RATIO (10-20); Calcium,Total 7.4 mg/dL (8.5-10.1); Chloride 107 mmol/L (98-107); Creatinine, Serum 0.77 mg/dL (0.55-1.02); EST Glomerular Filtration Rate 79 mL/min (>60); Est Glom Filt Rate - Afr Amer 96 mL/min (>60); Estimated Creatinine Clearance 47.14 ml/min; Glucose 90 mg/dL (74-106); Potassium 3.1 mmol/L (3.5-5.1); Sodium Level 144 mmol/L (136-145)
[2018-05-20] MEDS: clonazePAM 0.5 MG Tablet PO (05:54)
[2018-05-20] MEDS: CHLORHEXIDINE GLUC 2% CLOTH 1 EACH TOWELETTE TOPICAL (05:54)
--- NOTE | 2018-05-20 07:01 | PN_ITS ---
Subjective: Patient did okay overnight. She was noted to be hypotensive and did receive a 500 cc bolus. However, patient has been reportedly mentating at her baseline throughout despite systolic blood pressures in the 80s and 90s. Patient is tolerating room air without complication. Patient did ask if she was going to be evaluated by crisis. Patient states April is a bad month for me because my mother and father were both buried in this month. I think I am fine. General: Alert, Oriented x3, Cooperative, No apparent distress, - - Speaking in full sentences. HEENT: Atraumatic, PERRLA, EOMI, Normocephalic, - - No scleral icterus or injection noted. Oral: Moist Mucosa, No Gingival or Mucosal Lesions/ Ulcerations Neck: Supple, No JVD, No Nodes, Trachea Midline Lungs: No rhonchi, No wheeze, No rales, Diminished, - - Symmetric expansion. No dullness to percussion. Cardiovascular: Regular rate, Regular Rhythm, Normal S1, Normal S2, No murmurs, No rub noted, No Gallop Abdomen: Bowel Sounds Present, Soft, Non Tender, Non-Distended Extremities: No clubbing, No cyanosis, No edema, Capillary Refill Less than 3 Seconds Skin: No rashes, No breakdown Musculoskeletal: No Tenderness to Palpation of Joints or Extremities Lymphatic: No Cervical, Supraclavicular, or Inguinal Adenopathy Neurological: Cranial nerves II-XII grossly intact, Neuro grossly intact, Motor Exam 5/5 strength throughout Psych/Mental Status: Alert and oriented to time, place, person, mood and affect Vital Signs Temp Pulse Resp BP Pulse Ox 36.1 C L 60 13 88/60 L 98 05/20/18 04:00 05/20/18 06:00 05/20/18 06:00 05/20/18 06:00 05/20/18 06:00 Oxygen Flow Rate (L/min) 2 Oxygen Delivery Method Room Air Weight: 71.5 kg Body Mass Index (BMI) 25.7 Intake and Output for Last 24 Hours 05/18/18 05/19/18 05/20/18 23:59 23:59 23:59 Intake Total 4019.4 / 4019.4 1158.6 / 1158.6 1220 / 1220 Output Total 3200 / 3200 2475 / 2475 800 / 800 Balance 819.4 / 819.4 -1316.4 / -1316.4 420 / 420 Labs (Last 48 Hours) 05/18/18 05/18/18 05/18/18 04:18 08:07 10:05 WBC RBC Hgb Hct MCV MCH MCHC RDW RDW Differential Plt Count MPV Immature Gran % (Auto) Neut % (Auto) Lymph % (Auto) [place] % (Auto) Eos % (Auto) Baso % (Auto) Absolute Neuts (auto) Absolute Lymphs (auto) Total Counted Specimen Type Sample Site pH Bicarbonate Actual POC Total CO2 Base Excess O2 Saturation O2 % ABG pCO2 ABG pO2 Bony Test O2 Delivery Device Vent Mode POC PEEP POC Pressure Suppt Blood Gas Notified Whom Blood Gas Notified Time Sodium Potassium Chloride Carbon Dioxide Anion Gap BUN Creatinine Estim Creat Clear Calc Est GFR (MDRD) Af Amer Est GFR (MDRD) Non-Af BUN/Creatinine Ratio Glucose Calcium Total Bilirubin 0.80 Direct Bilirubin 0.20 AST 20 ALT 15 Alkaline Phosphatase 83 Total Protein 5.3 L Albumin 2.7 L Globulin 2.6 POC Glucose 61 L 72 05/18/18 05/18/18 05/18/18 12:13 16:15 17:10 WBC RBC Hgb Hct MCV MCH MCHC RDW RDW Differential Plt Count MPV Immature Gran % (Auto) Neut % (Auto) Lymph % (Auto) [place] % (Auto) Eos % (Auto) Baso % (Auto) Absolute Neuts (auto) Absolute Lymphs (auto) Total Counted Specimen Type Sample Site pH Bicarbonate Actual POC Total CO2 Base Excess O2 Saturation O2 % ABG pCO2 ABG pO2 Bony Test O2 Delivery Device Vent Mode POC PEEP POC Pressure Suppt Blood Gas Notified Whom Blood Gas Notified Time Sodium Potassium 3.5 Chloride Carbon Dioxide Anion Gap BUN Creatinine Estim Creat Clear Calc Est GFR (MDRD) Af Amer Est GFR (MDRD) Non-Af BUN/Creatinine Ratio Glucose Calcium Total Bilirubin Direct Bilirubin AST ALT Alkaline Phosphatase Total Protein Albumin Globulin POC Glucose 71 80 05/18/18 05/19/18 05/19/18 23:31 03:55 03:55 WBC 5.9 RBC 3.68 L Hgb 11.2 L Hct 33.3 L MCV 90.5 MCH 30.4 MCHC 33.6 RDW 14.9 H RDW Differential 48.0 H Plt Count 176 MPV 10.6 Immature Gran % (Auto) Neut % (Auto) Lymph % (Auto) [place] % (Auto) Eos % (Auto) Baso % (Auto) Absolute Neuts (auto) Absolute Lymphs (auto) Total Counted Specimen Type Sample Site pH Bicarbonate Actual POC Total CO2 Base Excess O2 Saturation O2 % ABG pCO2 ABG pO2 Bony Test O2 Delivery Device Vent Mode POC PEEP POC Pressure Suppt Blood Gas Notified Whom Blood Gas Notified Time Sodium 143 Potassium 3.4 L Chloride 106 Carbon Dioxide 26.0 Anion Gap 11 BUN 11 Creatinine 0.74 Estim Creat Clear Calc 47.14 Est GFR (MDRD) Af Amer 101 Est GFR (MDRD) Non-Af 84 BUN/Creatinine Ratio 15.0 Glucose 109 H Calcium 7.7 L Total Bilirubin Direct Bilirubin AST ALT Alkaline Phosphatase Total Protein Albumin Globulin POC Glucose 81 05/19/18 05/19/18 05/19/18 05:15 09:01 11:07 WBC RBC Hgb Hct MCV MCH MCHC RDW RDW Differential Plt Count MPV Immature Gran % (Auto) Neut % (Auto) Lymph % (Auto) [place] % (Auto) Eos % (Auto) Baso % (Auto) Absolute Neuts (auto) Absolute Lymphs (auto) Total Counted Specimen Type ART Sample Site R Brachial pH 7.49 H Bicarbonate Actual 29.5 H POC Total CO2 31 Base Excess 6 H O2 Saturation 95 O2 % 30 ABG pCO2 38.9 ABG pO2 70 L Bony Test NA O2 Delivery Device Vent Vent Mode CPAP PS POC PEEP 5 POC Pressure Suppt 5 Blood Gas Notified Whom ICU MD Blood Gas Notified Time 852 Sodium Potassium Chloride Carbon Dioxide Anion Gap BUN Creatinine Estim Creat Clear Calc Est GFR (MDRD) Af Amer Est GFR (MDRD) Non-Af BUN/Creatinine Ratio Glucose Calcium Total Bilirubin Direct Bilirubin AST ALT Alkaline Phosphatase Total Protein Albumin Globulin POC Glucose 94 92 05/19/18 05/19/18 05/20/18 17:05 21:49 04:25 WBC 5.9 RBC 3.47 L Hgb 10.2 L Hct 31.4 L MCV 90.5 MCH 29.4 MCHC 32.5 RDW 15.0 H RDW Differential 49.4 H Plt Count 149 L MPV 10.3 Immature Gran % (Auto) 0.000 Neut % (Auto) 50.1 Lymph % (Auto) 40.7 [place] % (Auto) 6.1 Eos % (Auto) 2.9 Baso % (Auto) 0.2 Absolute Neuts (auto) 3.0 Absolute Lymphs (auto) 2.40 Total Counted Not Reportable Specimen Type Sample Site pH Bicarbonate Actual POC Total CO2 Base Excess O2 Saturation O2 % ABG pCO2 ABG pO2 Bony Test O2 Delivery Device Vent Mode POC PEEP POC Pressure Suppt Blood Gas Notified Whom Blood Gas Notified Time Sodium Potassium Chloride Carbon Dioxide Anion Gap BUN Creatinine Estim Creat Clear Calc Est GFR (MDRD) Af Amer Est GFR (MDRD) Non-Af BUN/Creatinine Ratio Glucose Calcium Total Bilirubin Direct Bilirubin AST ALT Alkaline Phosphatase Total Protein Albumin Globulin POC Glucose 81 92 05/20/18 04:25 WBC RBC Hgb Hct MCV MCH MCHC RDW RDW Differential Plt Count MPV Immature Gran % (Auto) Neut % (Auto) Lymph % (Auto) [place] % (Auto) Eos % (Auto) Baso % (Auto) Absolute Neuts (auto) Absolute Lymphs (auto) Total Counted Specimen Type Sample Site pH Bicarbonate Actual POC Total CO2 Base Excess O2 Saturation O2 % ABG pCO2 ABG pO2 Bony Test O2 Delivery Device Vent Mode POC PEEP POC Pressure Suppt Blood Gas Notified Whom Blood Gas Notified Time Sodium 144 Potassium 3.1 L Chloride 107 Carbon Dioxide 26.0 Anion Gap 11 BUN 14 Creatinine 0.77 Estim Creat Clear Calc 47.14 Est GFR (MDRD) Af Amer 96 Est GFR (MDRD) Non-Af 79 BUN/Creatinine Ratio 18.1 Glucose 90 Calcium 7.4 L Total Bilirubin Direct Bilirubin AST ALT Alkaline Phosphatase Total Protein Albumin Globulin POC Glucose Medical Necessity - Tobacco Use Smoking Status: Never smoker Assessment/Plan All Active Problems Multiple drug overdose (Acute) Hypokalemia (Acute) Hypoglycemia (Acute) RECOMMENDATIONS: 1. Await crisis evaluation 2. Potassium supplementation 3. Continue p.o. diet 4. Okay to leave the intensive care unit from my perspective IMPRESSIONS: 1. Acute respiratory failure secondary to suicide attempt with Klonopin and Lyrica Patient was able to be successfully liberated from the ventilator yesterday. Patient has done well on room air otherwise. Blood pressures are slightly low, but patient continues to mentate well. No significant bradycardia has been reported leading to decreased blood pressures. Patient does not appear to have suffered any aspiration events as no fever or leukocytosis has been noted. 2. Bradycardia with hypotension RESOLVED> likely secondary to overdose. Patient's heart rate is improving. We will continue with symptomatic care. No need for dopamine therapy at this time. 3. Hypokalemia/hypoglycemia Unclear etiology. Patient reportedly had admitted to taking Lyrica and Klonopin therapy. Patient reports that she has been hypokalemic at baseline. Patient does take potassium on a daily basis per her report. Patient will be given IV and p.o. supplementation today. This should not preclude psychiatric placement if recommended by crisis. 4. Chronic diastolic CHF/fibromyalgia/hyperlipidemia/GERD/PAPA/proximal A. fib status post ablation Complicates care, management, recovery and prognosis. No medications from home available at this time. We will continue to monitor closely. Code Visit Inpatient E&M: 61761 Subs Hosp L2
[2018-05-20 13:00] LABS: ALB/GLOB Ratio 0.9 RATIO (0.9-2.4); AST(SGOT) 17 U/L (15-37); Alanine Aminotransfer ALT/SGPT 15 U/L (13-56); Albumin, Serum 2.6 g/dL (3.2-5.0); Alkaline Phosphatase 85 U/L (45-117); Globulin 2.9 g/dL (2.2-4.2); Protein, Total 5.5 g/dL (6.4-8.2)
--- NOTE | 2018-05-22 15:20 | PCM.DC.SUM ---
Discharge Date and Diagnosis Date of Admission: 05/17/18 Date of Discharge: 05/20/18 - Primary Discharge Diagnosis #1 suicide attempt with overdose of Klonopin and Lyrica #2 acute hypoxic respiratory failure secondary to overdose of Klonopin and Lyrica (intentional) #3 hypokalemia #4 anxiety and depression Hospital Course and Treatment Operations: None Procedures: None Summary of Care Provided: The patient is a 68 year old F was seen in the emergency room at [facility] after being brought in after it was found she took an intentional overdose of Klonopin and Lyrica. Patient had an argument with her boyfriend. Shortly after arrival to the emergency room, patient was intubated for airway protection and respiratory failure, she was transferred to ICU and was seen by pulmonary medicine. Potassium replacement was administered due to hypokalemia. Patient was subsequently extubated and seen by crisis, she was pink slipped to a psychiatric facility at her time of discharge from the hospital on 05/20/18. On 05/20/18, patient was seen and examined: On examination she appeared in good health and spirits. Vital signs as documented. Skin warm and dry and without overt rashes. Neck without JVD. Lungs clear. Heart exam notable for regular rhythm, normal sounds and absence of murmurs, rubs or gallops. Abdomen unremarkable and without evidence of organomegaly, masses, or abdominal aortic enlargement. Extremities nonedematous. Neuro: Cranial nerves II through XII are grossly intact, no focal motor deficits were noted. Psych: Patient was alert, she did not appear to be anxious or agitated. On 05/20/18, patient was discharged to an inpatient psychiatric facility for further care in stable condition. - Physical Exam Vital Signs Temp Pulse Resp BP Pulse Ox 98.4 F 65 19 H 94/60 97 05/20/18 16:00 05/20/18 16:00 05/20/18 16:00 05/20/18 16:00 05/20/18 16:00 Oxygen Flow Rate (L/min) 2 Oxygen Delivery Method Room Air Weight: 71.5 kg Body Mass Index (BMI) 25.7 Intake and Output for Last 24 Hours 05/20/18 05/21/18 05/22/18 23:59 23:59 23:59 Intake Total 1220 / 1220 Output Total 1350 / 1350 Balance -130 / -130 Home Medications: Medications to take at Discharge Albuterol IH (ProAir) [Proair Hfa (SP)Vent Pts] 2 puff INHALATION Q4H PRN PRN 05/20/18 Celecoxib 1 capsule PO DAILY 05/20/18 Cetirizine HCl [Zyrtec] 10 mg PO DAILY 05/20/18 Cholecalciferol (Vitamin D3) [Vitamin D3] 2,000 unit PO DAILY 05/20/18 Clonazepam 0.5 mg PO TID PRN PRN 05/20/18 Cyanocobalamin/Cobamamide [Vitamin B-12 5,000 Mcg Tab Sl] 1 each SL QWEEK 05/20/18 Cyclosporine [Restasis] 1 drop EACH EYE BID 05/20/18 Desonide 0.05% [Desowen 0.05% Cream] 1 applic TOPICAL TID 05/20/18 Diclofenac Sodium [Voltaren] 4 gm TOPICAL 4X/DAY 05/20/18 Fluticasone 0.05% [Flonase Nasal [place]] 1 spray NASAL QHS 05/20/18 Furosemide [Lasix] 80 mg PO DAILY 05/20/18 Ipratropium Ralph 0.06% [ATROVENT NASAL SPRAY (g)] 1 spray NASAL DAILY 05/20/18 Montelukast [Singulair] 10 mg PO DAILY 05/20/18 Multivitamin [Multiple Vitamins] 1 each PO DAILY 05/20/18 Nitroglycerin 1 tablet SL PRN PRN 05/20/18 Omeprazole 40 mg PO DAILY 05/20/18 Ondansetron [Zofran Odt] 4 mg PO Q8H PRN PRN 05/20/18 Paroxetine HCl [Paxil] 20 mg PO DAILY 05/20/18 Potassium Chloride 20 meq PO BID 05/20/18 Pregabalin [Lyrica] 200 mg PO BID 05/20/18 Ropinirole HCl [Requip] 3 mg PO BID 05/20/18 Topiramate [Topamax] 12.5 mg PO BID 05/20/18 Vit B1 [id number] 1 tablet PO DAILY 05/20/18 Primary Care Physician: [facility] Doctor,Out of [Primary Care Provider] - Disposition: Psych Hospital or Unit Minutes spent on discharge:: 32 Patient Condition:: Stable Medical Necessity - Tobacco Use Smoking Status: Never smoker Meaningful Use Info Meaningful Use Diagnoses (Choose all that apply): None applicable Code Visit Inpatient E&M: 42678 Disch Hosp
--- NOTE | 2018-05-22 15:25 | DS.PCM_ITS ---
Discharge Date and Diagnosis Date of Admission: 05/17/18 Date of Discharge: 05/20/18 - Primary Discharge Diagnosis #1 suicide attempt with overdose of Klonopin and Lyrica #2 acute hypoxic respiratory failure secondary to overdose of Klonopin and Lyrica (intentional) #3 hypokalemia #4 anxiety and depression Hospital Course and Treatment Operations: None Procedures: None Summary of Care Provided: The patient is a 68 year old F was seen in the emergency room at [facility] after being brought in after it was found she took an intentional overdose of Klonopin and Lyrica. Patient had an argument with her boyfriend. Shortly after arrival to the emergency room, patient was intubated for airway protection and respiratory failure, she was transferred to ICU and was seen by pulmonary medicine. Potassium replacement was administered due to hypokalemia. Patient was subsequently extubated and seen by crisis, she was pink slipped to a psychiatric facility at her time of discharge from the hospital on 05/20/18. On 05/20/18, patient was seen and examined: On examination she appeared in good health and spirits. Vital signs as documented. Skin warm and dry and without ov ert rashes. Neck without JVD. Lungs clear. Heart exam notable for regular rhythm, normal sounds and absence of murmurs, rubs or gallops. Abdomen unremarkable and without evidence of organomegaly, masses, or abdominal aortic enlargement. Extremities nonedematous. Neuro: Cranial nerves II through XII are grossly intact, no focal motor deficits were noted. Psych: Patient was alert, she did not appear to be anxious or agitated. On 05/20/18, patient was discharged to an inpatient psychiatric facility for further care in stable condition. - Physical Exam Vital Signs Temp Pulse Resp BP Pulse Ox 98.4 F 65 19 H 94/60 97 05/20/18 16:00 05/20/18 16:00 05/20/18 16:00 05/20/18 16:00 05/20/18 16:00 Oxygen Flow Rate (L/min) 2 Oxygen Delivery Method Room Air Weight: 71.5 kg Body Mass Index (BMI) 25.7 Intake and Output for Last 24 Hours 05/20/18 05/21/18 05/22/18 23:59 23:59 23:59 Intake Total 1220 / 1220 Output Total 1350 / 1350 Balance -130 / -130 Home Medications: Medications to take at Discharge Albuterol IH (ProAir) [Proair Hfa (SP)Vent Pts] 2 puff INHALATION Q4H PRN PRN 05/20/18 Celecoxib 1 capsule PO DAILY 05/20/18 Cetirizine HCl [Zyrtec] 10 mg PO DAILY 05/20/18 Cholecalciferol (Vitamin D3) [Vitamin D3] 2,000 unit PO DAILY 05/20/18 Clonazepam 0.5 mg PO TID PRN PRN 05/20/18 Cyanocobalamin/Cobamamide [Vitamin B-12 5,000 Mcg Tab Sl] 1 each SL QWEEK 05/20/18 Cyclosporine [Restasis] 1 drop EACH EYE BID 05/20/18 Desonide 0.05% [[place]owen 0.05% Cream] 1 applic TOPICAL TID 05/20/18 Diclofenac Sodium [Voltaren] 4 gm TOPICAL 4X/DAY 05/20/18 Fluticasone 0.05% [Flonase Nasal [place]] 1 spray NASAL QHS 05/20/18 Furosemide [Lasix] 80 mg PO DAILY 05/20/18 Ipratropium [place] 0.06% [ATROVENT NASAL SPRAY (g)] 1 spray NASAL DAILY 05/20/18 Montelukast [Singulair] 10 mg PO DAILY 05/20/18 Multivitamin [Multiple Vitamins] 1 each PO DAILY 05/20/18 Nitroglycerin 1 tablet SL PRN PRN 05/20/18 Omeprazole 40 mg PO DAILY 05/20/18 Ondansetron [Zofran Odt] 4 mg PO Q8H PRN PRN 05/20/18 Paroxetine HCl [Paxil] 20 mg PO DAILY 05/20/18 Potassium Chloride 20 meq PO BID 05/20/18 Pregabalin [Lyrica] 200 mg PO BID 05/20/18 Ropinirole HCl [Requip] 3 mg PO BID 05/20/18 Topiramate [Topamax] 12.5 mg PO BID 05/20/18 Vit B1 [id number] 1 tablet PO DAILY 05/20/18 Primary Care Physician: [facility] Doctor,Out of [Primary Care Provider] - Disposition: Psych Hospital or Unit Minutes spent on discharge:: 32 Patient Condition:: Stable Medical Necessity - Tobacco Use Smoking Status: Never smoker Meaningful Use Info Meaningful Use Diagnoses (Choose all that apply): None applicable Code Visit Inpatient E&M: 43861 Disch Hosp
== END 2018-05-20 19:20 | DRG 917 ==
LOC: ED 16:31 → ICU 16:34
PROVIDERS: Family Medicine; Internal Medicine; Internal Medicine Critical Care Medicine; Student in an Organized Health Care Education/Training Program; Admitting Provider Internal Medicine; Emergency Provider Emergency Medicine; Referring Provider Internal Medicine; Visit Provider Internal Medicine
DX: T42.4X2A Poisoning by benzodiazepines, intentional self-harm, initial encounter (principal); J96.01 Acute respiratory failure with hypoxia; I50.32 Chronic diastolic (congestive) heart failure; T42.6X2A Poisoning by other antiepileptic and sedative-hypnotic drugs, intentional self-harm, initial encounter; R40.2433 Glasgow coma scale score 3-8, at hospital admission; E87.6 Hypokalemia; E78.5 Hyperlipidemia, unspecified; I48.0 Paroxysmal atrial fibrillation; M79.7 Fibromyalgia; K21.9 Gastro-esophageal reflux disease without esophagitis; I11.0 Hypertensive heart disease with heart failure; G47.33 Obstructive sleep apnea (adult) (pediatric); E16.2 Hypoglycemia, unspecified; D64.9 Anemia, unspecified; Z91.5 Personal history of self-harm; I95.9 Hypotension, unspecified
CPT/HCPCS: 31500; 31720; 36600; 51702; 71045; 74018; 80048; 80076; 80307; 80320; 80329; 81001; 82040; 82247; 82550; 82803; 82962; 83735; 84075; 84100; 84132; 84156; 84450; 84460; 84478; 85025; 85027; 93005; 94002; 94003; 94660; 95831; 97110; 97161; 97165; 97530; 97802; 99251; 99284; J7030; J7040; J7050; A4216; G0463; G0480; J3490

== ENCOUNTER 2018-06-04 22:12 | Emergency (ER) | payer MEDICARE, MEDICAID, SELFPAY ==
[2018-05-17 16:58] VITALS: BMI 25.7
[2018-06-04 22:14] VITALS: BP 134/87; PULSE 80; RESP 16; TEMP 36.2; O2SAT 99; BMI 25.1
--- NOTE | 2018-06-04 22:52 | ED.DCSUM_ITS ---
- ER Visit Summary Date of Service: 06/04/18 Chief Complaint: Depression History of Present Illness: The patient is a 68 F presents by police for evaluation of depression symptoms. Patient states has been arguments with her boyfriend for the past few weeks. Today had another argument. She states he would not leave the apartment and told him if he does not leave she would do something. Please was called by her significant other when he got home. Please arrive per pink slip she initially would not open the door however later would. Reported when she was asked if she is going herself she states she does not do it tonight she would do in the morning. However she states she said this because her some other would not leave. She denies any current suicidal or homicidal ideations. There was reported overdose little over 2 weeks ago, records noted is on May 17 from intentional use. She was sent to [facility] for 9 days. She states her Klonopin was stopped, she had a new prescription for which she has not filled. She was discharged a week ago. She has appointment with her psychiatrist Dr. Ferrer on the . Denies alcohol, tobacco, or illicit drug use. Physical Examination: General: Alert and oriented ?3, no acute distress HEENT: Normocephalic, atraumatic. Moist mucosa membranes Neck: supple, nontender. Cardiovascular: Regular rate and rhythm, no murmurs Respiratory: Normal breath sounds, symmetric, no distress Abdomen: Soft, nontender, nondistended Extremities: Nontender, no edema, pulses intact ?4 Neuro: no focal neurological deficits. Psych: Flat affect. Denies any current suicidal or homicidal ideations. Test Results: White count 7.6. Hemoglobin 0.7. Potassium 3.1. Creatinine 0.69. Alcohol 7, tox screen negative Emergency Department Course and Treatment: Patient currently cooperative. Medical clearance labs obtained normal except for potassium 3.1. She is on a diuretic. On potassium replacement at home. Additional potassium given the ED. Given situation with intentional overdose 3 weeks ago and recently being discharged from psych facility will have evaluation by mental health counselor. 0230: Patient seen by [facility]. She was evaluated by same person post her overdose. Patient remains cooperative. No specific plans. Safety contract discussed. She will have a follow-up appointment tomorrow with the facility. Patient agrees with plan. Patient instructed can return at any time for reevaluation. Treatment Plan: [] Disposition: Discharge Impression: 1. Suicidal ideations 2. Hypokalemia This note was generated with [employer] dictation software. It may contain incorrect words, spelling, and punctuation that were not noted in review of the chart prior to signing ED Disposition - Plan for ED Patient: Disposition: Home or Assisted Living Chief Complaint: Depression Diagnosis: Suicidal ideation, Hypokalemia Instructions: ED Contract, No Harm Referrals: [facility],Out of [NON-STAFF] - Additional Instructions: Follow-up with counseling center as planned.
[2018-06-04 23:20] LABS: Absolute Lymphocyte Count 2.32 X10^3/ul (0.83-4.51); Absolute Neutrophil Count 4.8 X10^3/uL (2.0-7.7); Basophil# 0.02 X10^3/uL; Basophil% 0.3 % (0-1); Eosinophils% 1.3 % (0-5); Hematocrit 36.3 % (37-47); Hemoglobin 11.7 g/dl (12.0-15.0); Lymphocyte # 2.32 X10^3/ul (4.0); Lymphocyte % 30.6 % (19-41); Mean Corp Hgb Conc 32.2 g/gl (32-36); Mean Corpuscular Hgb 29.8 pg (27.0-32.0); Mean Corpuscular Volume 92.6 fL (81-99); Mean Platelet Vol. 10.3 fl (6.2-12.0); Monocyte# 0.34 X10^3/uL; Monocyte% 4.5 % (0-10); Neutrophil # 4.79 X10^3/uL (2.7-7.7); POSITIVE COUNT NO; POSITIVE DIFFERENTIAL NO; POSITIVE MORPHOLOGY NO; Platelet Count 272 K/mm3 (150-450); RBC Distribution Width CV 14.6 % (11.6-14.6); RBC Distribution Width SD 47.9 fl (35.1-43.9); Red Blood Count 3.92 M/mm3 (4.2-5.4); White Blood Count 7.6 K/mm3 (4.4-11.0)
[2018-06-04 23:34] LABS: BUN 15 mg/dL (7-18); Creatinine, Serum 0.69 mg/dL (0.55-1.02); EST Glomerular Filtration Rate 90 mL/min (>60); Estimated Creatinine Clearance 45.16 ml/min; Glucose 84 mg/dL (74-106)
[2018-06-04 23:35] LABS: Anion Gap 8 (5-15); BUN/Creat Ratio 21.7 RATIO (10-20); Calcium,Total 8.6 mg/dL (8.5-10.1); Chloride 107 mmol/L (98-107); Est Glom Filt Rate - Afr Amer 109 mL/min (>60); Potassium 3.1 mmol/L (3.5-5.1); Sodium Level 145 mmol/L (136-145)
--- NOTE | 2018-06-04 23:39 | ED.RN ---
SITTER AT BEDSIDE
[2018-06-05 01:24] LABS: Amphetamine Urine VISTA NEGATIVE (<1000 ng/mL); Barbiturate Urine VISTA NEGATIVE (< 200 ng/mL); Benzodiazepine Urine VISTA NEGATIVE (< 200 ng/mL); Cocaine Urine VISTA NEGATIVE (< 300 ng/mL); Ecstacy Urine VISTA NEGATIVE (< 500 ng/mL); Methadone Urine VISTA NEGATIVE (< 300 ng/mL); PCP Urine VISTA NEGATIVE (< 25 ng/mL); THC Urine VISTA NEGATIVE (< 50 ng/mL); Vista UDS pH Range 6
--- NOTE | 2018-06-05 01:52 | ED.RN ---
ESTELLE FROM [facility] ALREADY HERE IN HOSPITAL. SHE IS HERE TO SEE THIS PT NOW.
[2018-06-05 02:08] VITALS: BP 109/53; PULSE 72; RESP 20; O2SAT 97
--- OUTSIDE RECORDS SUMMARY | 2018-07-21 22:59 | XMS RPT_ITS ---
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 Thompson MD Cosigner Signature (If Indicated): Date CC: No Primary Care Physician URINE DRUG SCREEN Collected: 06/20/2018 Status: F Source: JESUS (VISTA) 11:00 PM [facility] REPOSITORY TYPE CODE TESTS RESULT OUT OF RANGE REFERENCE UNITS LAB L505.0075 TO BE Normal CONFIRMED Result Comment: CONFIRMATORY TESTING FOR ALL POSITIVE URINE DRUG SCREEN RESULTS WILL ONLY BE SENT OUT UPON PHYSICIAN ORDER. VISTA Urine Drug Screen methods provide only preliminary analytical test results. A more specific alternate chemical method must be used in order to obtain a confirmed analytical result. Gas chromatography/mass spectrometery (GC/MS) is the preferred confirmatory method. Clinical consideration and professional judgement should be applied to any drug of abuse test result, particularly when preliminary positive results are used. URINE TCA TESTING MUST BE ORDERED SEPARATELY. USE TEST MNEMONIC: [facility] LAB L505.5005 VISTA UDS PH 5 Normal LAB L505.5015 <1000 ng/mL AMPHETAMINES Normal NEGATIVE LAB L505.5025 < 200 ng/mL BARBITIURATES Normal NEGATIVE LAB L505.5035 < 200 ng/mL BENZODIAZIPINE Normal NEGATIVE LAB L505.5045 < 300 ng/mL COCAINE Normal NEGATIVE LAB L505.5055 < 500 ng/mL ECSTACY Normal NEGATIVE LAB L505.5065 < 300 ng/mL METHADONE Normal NEGATIVE LAB L505.5075 < 300 ng/mL OPIATES Normal NEGATIVE LAB L505.5085 < 25 ng/mL PCP Normal NEGATIVE LAB L505.5095 < 50 ng/mL THC Normal NEGATIVE Performed By: #### L505.5000 #### [facility] [address] [place], [address] BASIC METABOLIC Collected: 06/20/2018 Status: F Source: [facility] PROFILE (BMP) 9:50 PM [facility] REPOSITORY TYPE CODE TESTS RESULT OUT OF RANGE REFERENCE UNITS LAB L501.0100 74-106 mg/dL High GLU 108 Result Comment: Fasting Glucose result from 100 to 125 mg/dL suggests IMPAIRED HOMEOSTASIS per A.D.A. criteria. Please note revised GLUCOSE reference range effective 2017. LAB L501.1000 7-18 mg/dL High BUN 19 LAB L501.1100 0.55-1.02 mg/dL Normal CREAT,SERUM 0.93 Result Comment: The validity of the calculated GFR AND GFRAA in patients over 70 years has not been determined. Clinical correlation is essential. LAB L501.1110 >60 mL/min Normal EST GFR 64 Result Comment: Non- GFR Calc LAB L501.1115 >60 mL/min Normal EST GFR - AA 77 Result Comment: GFR Calc LAB L501.1255 ml/min Normal Estimated CRCL 48.56 LAB L501.1300 10-20 RATIO High BUN/CRE 20.3 LAB L501.2200 8.5-10 mg/dL Normal .1 CA 8.5 LAB L501.5300 136-14 mmol/L Normal 5 NA 140 LAB L501.5600 3.5-5. mmol/L Normal 1 K 3.7 LAB L501.5900 98-107 mmol/L Normal CL 105 LAB L501.6100 21.0-3 mmol/L Normal 2.0 CO2 27.0 LAB L501.6200 5-15 Normal GAP 8 Performed By: #### L500.2500 #### [facility] [place], [address] CBC W/DIFF, AUTOMATED Collected: 06/20/2018 Status: F Source: [facility] 9:50 PM [facility] REPOSITORY TYPE CODE TESTS RESULT OUT OF RANGE REFERENCE UNITS LAB L100.1000 4.4-11.0 K/mm3 Normal WBC 7.3 LAB L100.1200 4.2-5.4 M/mm3 Low RBC 4.07 LAB L100.1300 12.0-15.0 g/dl Normal HGB 12.0 LAB L100.1400 37-47 % Low HCT 36.7 LAB L100.1500 81-99 fL Normal MCV 90.2 LAB L100.1600 27.0-32.0 pg Normal MCH 29.5 LAB L100.1700 32-36 g/gl Normal MCHC 32.7 LAB L100.1810 11.6-14.6 % Normal RDW CV 14.3 LAB L100.1820 35.1-43.9 fl High RDW SD 46.4 LAB L100.1900 150-450 K/mm3 Normal PLT 222 LAB L100.2000 6.2-12.0 fl Normal MPV 10.5 LAB L100.2100 47-70 % Normal NEUT% 67.9 LAB L100.2200 19-41 % Normal LY% 24.6 LAB L100.2300 0-10 % Normal MONO% 5.1 LAB L100.2400 0-5 % Normal EO% 1.7 LAB L100.2500 0-1 % Normal BASO% 0.6 LAB L100.2550 0.0-0.9 % Normal IM GRAN % 0.100 Result Comment: IG% - Immature Granulocytes (promyelocytes, myelocytes and metamyelocytes) > 1% indicates that a LEFT SHIFT is Present. LAB L100.2620 2.0-7.7 X10 3/uL Normal Absolute Neut 4.9 LAB L100.2720 0.83-4.51 X10 3/ul Normal Absolute Lymph 1.79 Performed By: #### L100.0100 #### [facility] [address] [place], [address] ALCOHOL, BLOOD Collected: 06/20/2018 Status: F Source: [facility] (MEDICAL)-SERUM 9:50 PM [facility] REPOSITORY TYPE CODE TESTS RESULT OUT OF RANGE REFERENCE UNITS LAB L501.9100 mg/dL Normal SERUM < 3.0 ETOH Result Comment: The serum:whole blood ethanol ratio is approximately 1.14 and varies slightly with hematocrit. Medical Alcohol reference interval and critical value in non-tolerant individuals; 50 - 100 Impairment 100 Intoxication 100 - 250 Severe Poisoning 250 - 400 Deep/possible fatal coma Performed By: #### L501.9100 #### [facility] [address] [facility] [place], [address] EMERGENCY DEPARTMENT Observed: 06/18/2018 Status: F Source: [facility] SUMMARY 10:32 PM [facility] REPOSITORY [facility] Medical Records Department [address] [place] [address] Emergency Department Summary 06/18/18 2230 MR#: [id number] Acct: [id number] Name: HOA SÁNCHEZ Rep #: [id number] : 1950 68 From: Matthew Gomez MD PCP: Care Physician, No Primary Status: REG ER - ER Visit Summary Date of Service: 06/18/18 Chief Complaint: Fall History of Present Illness: The patient is a 68 F who presents after a fall. She states that she fell asleep because she has been up for 36 hours. She fell and hit her head. She claims of head, face, neck and back pain. She has a history of chronic neck and back pain. She is supposed to take Lyrica but she does not take it at home. Was brought in by EMS on a backboard and c-collar but she self extricated from both of these apparatuses Physical Examination: Vital signs are reviewed. HEENT exam reveals a right eyebrow hematoma. Her neck is nontender. She self extricated from the c-collar. Heart is regular rate and rhythm. Lungs are clear bilaterally. Abdomen soft nontender. Extremities reveal no edema or trauma. Neurologic exam is at baseline. GCS 15. Test Results: CAT scan of the head and cervical spine revealed no acute findings Emergency Department Course and Treatment: Patient was given Tylenol. She is complaining of right shoulder and low back pain. These areas had no tenderness. I do not feel she requires x-rays. She will continue to follow-up with her PCP Treatment Plan: [] Disposition: Discharge Impression: Facial contusion, neck pain This note was generated with T[employer] Ideas dictation software. It may contain incorrect words, spelling, and punctuation that were not noted in review of the chart prior to signing ED Disposition - Plan for ED Patient: Chief Complaint: Fall Referrals: Care Physician,No Primary [Primary Care Provider] - What to do if you have Problems For any increased pain, shortness of breath, bleeding, nausea or vomiting, chest pain, or any unexpected problems, contact your Primary Care Provider. Call [facility] ([phone]) or report to the closest Emergency Room. Call 911 if necessary. 06/18/182231 <Electronically signed by Matthew Gomez MD> Date Matthew Gomez MD Cosigner Signature (If Indicated): Date CC: No Primary Care Physician DISCHARGE INSTRUCTION Observed: 06/18/2018 Status: F Source: JESUS 10:32 PM [facility] REPOSITORY [facility] Medical Records Department [address] [facility] [place] [address] Discharge Instruction 06/18/182231 MR#: [id number] Acct: [id number] Name: ADAMHOA JUÁREZ Ayden Rep #: [id number] : 1950 68 From: Matthew Gomez MD PCP: Lucrecia Physician, No Primary Status: REG ER ED Disposition - Plan for ED Patient: Disposition: Home or Assisted Living Chief Complaint: Fall Instructions: ED Mechanical Fall Referrals: Care Physician,No Primary [Primary Care Provider] - What to do if you have Problems For any increased pain, shortness of breath, bleeding, nausea or vomiting, chest pain, or any unexpected problems, contact your Primary Care Provider. Call [facility] ([phone]) or report to the closest Emergency Room. Call 911 if necessary. 06/18/182231 <Electronically signed by Matthew Gomez MD> Date Matthew Gomez MD Cosigner Signature (If Indicated): Date CC: No Primary Care Physician BRAIN/HEAD WITHOUT Observed: 06/18/2018 Status: F Source: JESUS CONTRAST 9:20 PM [facility] REPOSITORY [facility] Imaging Services [address] [place] [address] Brain/Head without Contrast MR#: [id number] Acct: [id number] Name: HOA SÁNCHEZ Rep #: [id number] : 1950 F 68 From: Cayla Em MD PCP: Care Physician, No Primary Status: REG ER Study: Brain/Head without Contrast Date of Exam: 06/18/18 Exam# [id number] Ordering Dr: Matthew Gomez MD STUDY: CT BRAIN WITHOUT CONTRAST REASON FOR EXAM: Female, 68 years old. Fall. RADIATION DOSAGE (If Supplied By Facility): CTDIvol = ( 44.99 ) mGy, DLP = ( 762.36 ) mGycm TECHNIQUE: Transaxial CT imaging of the brain was performed without administration of intravenous contrast material. Individualized dose optimization techniques were used for this CT. COMPARISON: None. FINDINGS: Normal soft tissue structures. There is hyperostosis frontalis internus. Normal size ventricles and extra-axial spaces for the patient's age. Normal white matter tracts of the cerebral hemispheres. There are small punctate calcifications of the basal ganglia which are seen in the aging brain as a normal variant. Normal brainstem. There is mild cerebellar atrophy. There is no intracranial hemorrhage. There are no findings of an acute ischemic infarction. Normal visualized paranasal sinuses. CT/Brain/Head without Contrast IMPRESSION: No acute intracranial process. Electronically Signed: Cayla Em MD at 22:13 EST Tel , Service support , CC: No Primary Care Physician; Matthew Gomez MD Cart Driver: Signed SPINE CERVICAL Observed: 06/18/2018 Status: F Source: [facility] WITHOUT CONTRAS 9:20 PM [facility] REPOSITORY [facility] Imaging Services [address] [place] [address] Spine Cervical without Contras MR#: [id number] Acct: [id number] Name: HOA SÁNCHEZ Rep #: [id number] : 1950 F 68 From: Seth Daniel DO PCP: Care Physician, No Primary Status: REG ER Study: Spine Cervical without Contras Date of Exam: 06/18/18 Exam# [id number] Ordering Dr: Matthew Gomez MD STUDY: CT CERVICAL SPINE WITHOUT CONTRAST REASON FOR EXAM: Female, 68 years old. Fall. Loss of consciousness. RADIATION DOSAGE (If Supplied By Facility): CTDIvol = ( 18.70 ) mGy, DLP = ( 351.38 ) mGycm TECHNIQUE: High resolution transaxial imaging was performed without contrast material. Sagittal and coronal images were reconstructed. Individualized dose optimization techniques were used for this CT. COMPARISON: None FINDINGS: Normal craniovertebral junction. There are degenerative changes of the anterior atlantoaxial articulation. Normal odontoid process. There is straightening of the normal cervical lordosis. There is anterior fusion of C5-C6. The plate and screws are intact. C2-3: Normal endplates. Normal disc height and morphology. Normal central canal and intervertebral neuroforamina. C3-4: Normal endplates. Normal disc height and morphology. Normal central canal and intervertebral neuroforamina. C4-5: Normal endplates. Normal disc height and morphology. Normal central canal and intervertebral neuroforamina. C5-6: There is fusion of the disc space. There are mild degenerative changes of the facet joints. Normal central canal. There is mild narrowing of the intervertebral neuroforamina. C6-7: There is marked loss of disc height with endplate spondylosis. There is facet and uncovertebral joint degenerative change Normal central canal. There is narrowing of the intervertebral neuroforamina. C7-T1: There is loss of disc height with minimal anterolisthesis of C7 on T1. There is no facet joint subluxation. There is mild facet degenerative changes. Normal central canal and intervertebral neuroforamina. Normal visualized soft tissue structures. Normal lung apices. CT/Spine Cervical without Contras IMPRESSION: 1. Anterior fusion of C5-6. 2. Degenerative changes at C6-7. 3. No acute fracture or subluxation. Electronically Signed: Seth Daniel DO at 22:25 EST Tel [phone], Service support , CC: No Primary Care Physician; Matthew Gomez MD Cart Driver: Signed EMERGENCY DEPARTMENT Observed: 06/05/2018 Status: F Source: [facility] SUMMARY 2:37 AM [facility] REPOSITORY [facility] Medical Records Department [address] [place] [address] Emergency Department Summary 06/04/18 2250 MR#: [id number] Acct: [id number] Name: HOA SÁNCHEZ Rep #: [id number] : 1950 68 From: Fermín Cassidy PCP: Care Physician, No Primary Status: REG ER - ER Visit Summary Date of Service: 06/04/18 Chief Complaint: Depression History of Present Illness: The patient is a 68 F presents by police for evaluation of depression symptoms. Patient states has been arguments with her boyfriend for the past few weeks. Today had another argument. She states he would not leave the apartment and told him if he does not leave she would do something. Please was called by her significant other when he got home. Please arrive per pink slip she initially would not open the door however later would. Reported when she was asked if she is going herself she states she does not do it tonight she would do in the morning. However she states she said this because her some other would not leave. She denies any current suicidal or homicidal ideations. There was reported overdose little over 2 weeks ago, records noted is on May 17 from intentional use. She was sent to [facility] for 9 days. She states her Klonopin was stopped, she had a new prescription for which she has not filled. She was discharged a week ago. She has appointment with her psychiatrist Dr. Ferrer on the . Denies alcohol, tobacco, or illicit drug use. Physical Examination: General: Alert and oriented 3, no acute distress HEENT: Normocephalic, atraumatic. Moist mucosa membranes Neck: supple, nontender. Cardiovascular: Regular rate and rhythm, no murmurs Respiratory: Normal breath sounds, symmetric, no distress Abdomen: Soft, nontender, nondistended Extremities: Nontender, no edema, pulses intact 4 Neuro: no focal neurological deficits. Psych: Flat affect. Denies any current suicidal or homicidal ideations. Test Results: White count 7.6. Hemoglobin 0.7. Potassium 3.1. Creatinine 0.69. Alcohol 7, tox screen negative Emergency Department Course and Treatment: Patient currently cooperative. Medical clearance labs obtained normal except for potassium 3.1. She is on a diuretic. On potassium replacement at home. Additional potassium given the ED. Given situation with intentional overdose 3 weeks ago and recently being discharged from psych facility will have evaluation by mental health counselor. 0230: Patient seen by [facility]. She was evaluated by same person post her overdose. Patient remains cooperative. No specific plans. Safety contract discussed. She will have a follow-up appointment tomorrow with the facility. Patient agrees with plan. Patient instructed can return at any time for reevaluation. Treatment Plan: [] Disposition: Discharge Impression: 1. Suicidal ideations 2. Hypokalemia This note was generated with NIMBOXXation software. It may contain incorrect words, spelling, and punctuation that were not noted in review of the chart prior to signing ED Disposition - Plan for ED Patient: Disposition: Home or Assisted Living Chief Complaint: Depression Diagnosis: Suicidal ideation, Hypokalemia Instructions: ED Contract, No Harm Referrals: Town Doctor,Out of [NON-STAFF] - Additional Instructions: Follow-up with counseling center as planned. What to do if you have Problems For any increased pain, shortness of breath, bleeding, nausea or vomiting, chest pain, or any unexpected problems, contact your Primary Care Provider. Call [facility] ([phone]) or report to the closest Emergency Room. Call 911 if necessary. 06/05/18 0237 <Electronically signed by Fermín Cassidy> Date Fermín Cassidy Cosigner Signature (If Indicated): Date CC: No Primary Care Physician URINE DRUG SCREEN Collected: 06/05/2018 Status: F Source: JESUS (VISTA) 1:02 AM [facility] REPOSITORY TYPE CODE TESTS RESULT OUT OF RANGE REFERENCE UNITS LAB L505.0075 TO BE Normal CONFIRMED Result Comment: CONFIRMATORY TESTING FOR ALL POSITIVE URINE DRUG SCREEN RESULTS WILL ONLY BE SENT OUT UPON PHYSICIAN ORDER. VISTA Urine Drug Screen methods provide only preliminary analytical test results. A more specific alternate chemical method must be used in order to obtain a confirmed analytical result. Gas chromatography/mass spectrometery (GC/MS) is the preferred confirmatory method. Clinical consideration and professional judgement should be applied to any drug of abuse test result, particularly when preliminary positive results are used. URINE TCA TESTING MUST BE ORDERED SEPARATELY. USE TEST MNEMONIC: [facility] LAB L505.5005 VISTA UDS PH 6 Normal LAB L505.5015 <1000 ng/mL AMPHETAMINES Normal NEGATIVE LAB L505.5025 < 200 ng/mL BARBITIURATES Normal NEGATIVE LAB L505.5035 < 200 ng/mL BENZODIAZIPINE Normal NEGATIVE LAB L505.5045 < 300 ng/mL COCAINE Normal NEGATIVE LAB L505.5055 < 500 ng/mL ECSTACY Normal NEGATIVE LAB L505.5065 < 300 ng/mL METHADONE Normal NEGATIVE LAB L505.5075 < 300 ng/mL OPIATES Normal NEGATIVE LAB L505.5085 < 25 ng/mL PCP Normal NEGATIVE LAB L505.5095 < 50 ng/mL THC Normal NEGATIVE Performed By: #### L505.5000 #### [facility] [address] [place], [place], [id number] CBC W/DIFF, AUTOMATED Collected: 06/04/2018 Status: F Source: [place] 11:08 PM [facility] REPOSITORY TYPE CODE TESTS RESULT OUT OF RANGE REFERENCE UNITS LAB L100.1000 4.4-11.0 K/mm3 Normal WBC 7.6 LAB L100.1200 4.2-5.4 M/mm3 Low RBC 3.92 LAB L100.1300 12.0-15.0 g/dl Low HGB 11.7 LAB L100.1400 37-47 % Low HCT 36.3 LAB L100.1500 81-99 fL Normal MCV 92.6 LAB L100.1600 27.0-32.0 pg Normal MCH 29.8 LAB L100.1700 32-36 g/gl Normal MCHC 32.2 LAB L100.1810 11.6-14.6 % Normal RDW CV 14.6 LAB L100.1820 35.1-43.9 fl High RDW SD 47.9 LAB L100.1900 150-450 K/mm3 Normal PLT 272 LAB L100.2000 6.2-12.0 fl Normal MPV 10.3 LAB L100.2100 47-70 % Normal NEUT% 63.0 LAB L100.2200 19-41 % Normal LY% 30.6 LAB L100.2300 0-10 % Normal MONO% 4.5 LAB L100.2400 0-5 % Normal EO% 1.3 LAB L100.2500 0-1 % Normal BASO% 0.3 LAB L100.2550 0.0-0.9 % Normal IM GRAN % 0.300 Result Comment: IG% - Immature Granulocytes (promyelocytes, myelocytes and metamyelocytes) > 1% indicates that a LEFT SHIFT is Present. LAB L100.2620 2.0-7.7 X10 3/uL Normal Absolute Neut 4.8 LAB L100.2720 0.83-4.51 X10 3/ul Normal Absolute Lymph 2.32 Performed By: #### L100.0100 #### [facility] [address] [place], [place], [address] BASIC METABOLIC Collected: 06/04/2018 Status: F Source: [facility]ESUS PROFILE (BMP) 11:08 PM [facility] REPOSITORY TYPE CODE TESTS RESULT OUT OF RANGE REFERENCE UNITS LAB L501.0100 74-106 mg/dL Normal GLU 84 Result Comment: Please note revised GLUCOSE reference range effective 2017. LAB L501.1000 7-18 mg/dL Normal BUN 15 LAB L501.1100 0.55-1.02 mg/dL Normal CREAT,SERUM 0.69 Result Comment: The validity of the calculated GFR AND GFRAA in patients over 70 years has not been determined. Clinical correlation is essential. LAB L501.1110 >60 mL/min Normal EST GFR 90 Result Comment: Non- GFR Calc LAB L501.1115 >60 mL/min Normal EST GFR - AA 109 Result Comment: GFR Calc LAB L501.1255 ml/min Normal Estimated CRCL 45.16 LAB L501.1300 10-20 RATIO High BUN/CRE 21.7 LAB L501.2200 8.5-10 mg/dL Normal .1 CA 8.6 LAB L501.5300 136-14 mmol/L Normal 5 NA 145 LAB L501.5600 3.5-5. mmol/L Low 1 K 3.1 Result Comment: Slight Hemolysis, Result may be falsely increased. LAB L501.5900 98-107 mmol/L Normal CL 107 LAB L501.6100 21.0-32.0 mmol/L Normal CO2 30.0 LAB L501.6200 5-15 Normal 8 GAP Performed By: #### L500.2500 #### [facility] [address] [place], [address] ALCOHOL, BLOOD Collected: 06/04/2018 Status: F Source: JESUS (MEDICAL)-SERUM 11:08 PM [facility] REPOSITORY TYPE CODE TESTS RESULT OUT OF RANGE REFERENCE UNITS LAB L501.9100 mg/dL Normal SERUM 7.0 ETOH Result Comment: The serum:whole blood ethanol ratio is approximately 1.14 and varies slightly with hematocrit. Medical Alcohol reference interval and critical value in non-tolerant individuals; 50 - 100 Impairment 100 Intoxication 100 - 250 Severe Poisoning 250 - 400 Deep/possible fatal coma Performed By: #### L501.9100 #### [facility] [address] [place], [address] AMMONIA Collected: 05/29/2018 Status: F Source: [facility] 5:30 AM [facility] REPOSITORY TYPE CODE TESTS RESULT OUT OF REFERENCE UNITS RANGE LAB NH3 11-51 umol/L Ammonia 33 BASIC METABOLIC PANEL Collected: 05/29/2018 Status: F Source: [facility] 5:30 AM [facility] REPOSITORY TYPE CODE TESTS RESULT OUT OF REFERENCE UNITS RANGE LAB NA 132-144 mEq/L Sodium 141 LAB K 3.5-5.1 mEq/L Low Potassium 3.2 LAB CL 98-107 mEq/L Chloride 100 LAB CO2 22-29 mEq/L CO2 27 LAB AGAP 7-13 mEq/L Anion High alert Gap 14 LAB GLU 74-109 mg/dL Glucose 79 LAB BUN 8-23 mg/dL BUN 21 LAB CREA 0.50-0.90 mg/dL Creatinine 0.71 LAB GFR >60 GFR >60.0 Result Comment: >60 mL/min/1.73m2 EGFR, calc. for ages 18 and older using the MDRD formula (not corrected for weight), is valid for stable renal function. LAB GFRAA >60 eGFR >60.0 Result Comment: >60 mL/min/1.73m2 EGFR, calc. for ages 18 and older using the MDRD formula (not corrected for weight), is valid for stable renal function. LAB CA 8.6-10.2 mg/dL Calcium 9.1 VALPROIC ACID Collected: 05/29/2018 Status: F Source: [facility] 5:30 AM [facility] REPOSITORY TYPE CODE TESTS RESULT OUT OF REFERENCE UNITS RANGE LAB VALP 50.0-100.0 ug/mL Low Valproic Acid 24.4 BASIC METABOLIC PANEL Collected: 05/27/2018 Status: F Source: [facility] 5:40 AM [facility] REPOSITORY TYPE CODE TESTS RESULT OUT OF REFERENCE UNITS RANGE LAB NA 132-144 mEq/L Sodium 139 LAB K 3.5-5.1 mEq/L Low Potassium 3.4 LAB CL 98-107 mEq/L Low Chloride 96 LAB CO2 22-29 mEq/L CO2 High alert 31 LAB AGAP 7-13 mEq/L Anion Gap 12 LAB GLU 74-109 mg/dL Glucose 79 LAB BUN 8-23 mg/dL BUN 18 LAB CREA 0.50-0.90 mg/dL Creatinine 0.63 LAB GFR >60 GFR >60.0 Result Comment: >60 mL/min/1.73m2 EGFR, calc. for ages 18 and older using the MDRD formula (not corrected for weight), is valid for stable renal function. LAB GFRAA >60 eGFR >60.0 Result Comment: >60 mL/min/1.73m2 EGFR, calc. for ages 18 and older using the MDRD formula (not corrected for weight), is valid for stable renal function. LAB CA 8.6-10.2 mg/dL Calcium 9.0 12 LEAD ELECTROCARDIOGRAM Observed: 05/23/2018 Status: F Source: [place] 9:25 AM [facility] REPOSITORY [facility] Cardiovascular Services [address] [place] [id number] 12 Lead EKG 05/18/18 0428 MR#: [id number] Acct: [id number] Name: HOA SÁNCHEZ Rep #: [id number] : 1950 68 From: Isidro Kerns MD Attending Dr: Garo Gooden DO Status: DIS IN Ordering Dr: Mariama Morin Date: 05/18/18 Location: ICU Sex: F C Admitted: 05/17/18 Test Reason : AM EKG Blood Pressure : / mmHG Vent. Rate : 058 BPM Atrial Rate : 058 BPM P-R Int : 188 ms QRS Dur : 098 ms QT Int : 428 ms P-R-T Axes : 067 -05 046 degrees QTc Int : 420 ms Sinus bradycardia Otherwise normal ECG When compared with ECG of 17-MAY-2018 13:55, MANUAL COMPARISON REQUIRED, DATA IS UNCONFIRMED Confirmed by ISIDRO KERNS MD ([id number]), television news video editor OPAL VILLEGAS ([id number]) on 05/20/2018 4:12:11 PM Referred By: Garo Gooden Confirmed By:ISIDRO KERNS MD 05/20/18 1612 Date Isidro Kerns MD CC: Mariama Morin; Garo Gooden DO; OUT OF TOWN DOCTOR Signed 12 LEAD ELECTROCARDIOGRAM Observed: 05/23/2018 Status: F Source: [facility] 9:22 AM [facility] REPOSITORY [facility] Cardiovascular Services [address] [place] [address] 12 Lead EKG 05/17/18 1355 MR#: [id number] Acct: [id number] Name: ANABELHOA Rep #: [id number] : 1950 68 From: Isidro Kerns MD Attending Dr: Garo Gooden DO Status: DIS IN Ordering Dr: Vick Ross MD Date: 05/17/18 Location: ICU Sex: F C Admitted: 05/17/18 Test Reason : OVERDOSE Blood Pressure : / mmHG Vent. Rate : 052 BPM Atrial Rate : 052 BPM P-R Int : 196 ms QRS Dur : 108 ms QT Int : 476 ms P-R-T Axes : 064 -17 008 degrees QTc Int : 442 ms Sinus bradycardia Otherwise normal ECG Confirmed by SAUMYA ROBLES, ISIDRO ([id number]), television news video editor OPAL VILLEGAS ([id number]) on 05/19/2018 2:12:55 PM Referred By: Garo Gooden Confirmed By:ISIDRO KERNS MD 05/19/18 1412 Date Isidro Kerns MD CC: Garo Gooden DO; OUT OF TOWN DOCTOR; Vick Ross MD Signed DISCHARGE SUMMARY Observed: 05/22/2018 Status: F Source: JES[facility] 3:25 PM [facility] REPOSITORY [facility] Medical Records Department [address] [place] [address] Discharge Summary 05/22/18 1520 MR#: [id number] Acct: [id number] Name: HOA SÁNCHEZ Rep #: [id number] : 1950 68 From: Garo Gooden DO PCP: OUT OF TOWN DOCTOR Status: DIS IN Y Location: ICU ICU08-1 Discharge Date and Diagnosis Date of Admission: 05/17/18 Date of Discharge: 05/20/18 - Primary Discharge Diagnosis #1 suicide attempt with overdose of Klonopin and Lyrica #2 acute hypoxic respiratory failure secondary to overdose of Klonopin and Lyrica (intentional) #3 hypokalemia #4 anxiety and depression Hospital Course and Treatment Operations: None Procedures: None Summary of Care Provided: The patient is a 68 year old F was seen in the emergency room at [facility] after being brought in after it was found she took an intentional overdose of Klonopin and Lyrica. Patient had an argument with her boyfriend. Shortly after arrival to the emergency room, patient was intubated for airway protection and respiratory failure, she was transferred to ICU and was seen by pulmonary medicine. Potassium replacement was administered due to hypokalemia. Patient was subsequently extubated and seen by crisis, she was pink slipped to a psychiatric facility at her time of discharge from the hospital on 05/20/18. On 05/20/18, patient was seen and examined: On examination she appeared in good health and spirits. Vital signs as documented. Skin warm and dry and without overt rashes. Neck without JVD. Lungs clear. Heart exam notable for regular rhythm, normal sounds and absence of murmurs, rubs or gallops. Abdomen unremarkable and without evidence of organomegaly, masses, or abdominal aortic enlargement. Extremities nonedematous. Neuro: Cranial nerves II through XII are grossly intact, no focal motor deficits were noted. Psych: Patient was alert, she did not appear to be anxious or agitated. On 05/20/18, patient was discharged to an inpatient psychiatric facility for further care in stable condition. - Physical Exam Vital Signs Temp Pulse Resp BP Pulse Ox 98.4 F 65 19 H 94/60 97 05/20/18 16:00 05/20/18 16:00 05/20/18 16:00 05/20/18 16:00 05/20/18 16:00 Oxygen Flow Rate (L/min) 2 Oxygen Delivery Method Room Air Weight: 71.5 kg Body Mass Index (BMI) 25.7 Intake and Output for Last 24 Hours Intake Total 1220 / 1220 Output Total 1350 / 1350 Balance -130 / -130 Home Medications: Medications to take at Discharge Albuterol IH (ProAir) [Proair Hfa (SP)Vent Pts] 2 puff INHALATION Q4H PRN PRN 05/20/18 Celecoxib 1 capsule PO DAILY 05/20/18 Cetirizine HCl [Zyrtec] 10 mg PO DAILY 05/20/18 Cholecalciferol (Vitamin D3) [Vitamin D3] 2,000 unit PO DAILY 05/20/18 Clonazepam 0.5 mg PO TID PRN PRN 05/20/18 Cyanocobalamin/Cobamamide [Vitamin B-12 5,000 Mcg Tab Sl] 1 each SL QWEEK 05/20/18 Cyclosporine [Restasis] 1 drop EACH EYE BID 05/20/18 Desonide 0.05% [Desowen 0.05% Cream] 1 applic TOPICAL TID 05/20/18 Diclofenac Sodium [Voltaren] 4 gm TOPICAL 4X/DAY 05/20/18 Fluticasone 0.05% [Flonase Nasal [place]] 1 spray NASAL QHS 05/20/18 Furosemide [Lasix] 80 mg PO DAILY 05/20/18 Ipratropium [place] 0.06% [ATROVENT NASAL SPRAY (g)] 1 spray NASAL DAILY 05/20/18 Montelukast [Singulair] 10 mg PO DAILY 05/20/18 Multivitamin [Multiple Vitamins] 1 each PO DAILY 05/20/18 Nitroglycerin 1 tablet SL PRN PRN 05/20/18 Omeprazole 40 mg PO DAILY 05/20/18 Ondansetron [Zofran Odt] 4 mg PO Q8H PRN PRN 05/20/18 Paroxetine HCl [Paxil] 20 mg PO DAILY 05/20/18 Potassium Chloride 20 meq PO BID 05/20/18 Pregabalin [Lyrica] 200 mg PO BID 05/20/18 Ropinirole HCl [Requip] 3 mg PO BID 05/20/18 Topiramate [Topamax] 12.5 mg PO BID 05/20/18 Vit B1 [id number] 1 tablet PO DAILY 05/20/18 Primary Care Physician: Reynaldo Doctor,Out of [Primary Care Provider] - Disposition: Psych Hospital or Unit Minutes spent on discharge:: 32 Patient Condition:: Stable Medical Necessity - Tobacco Use Smoking Status: Never smoker Meaningful Use Info Meaningful Use Diagnoses (Choose all that apply): None applicable Code Visit Inpatient E AND M: 33858 Disch Hosp 05/22/18 1525 <Electronically signed by Garo Gooden DO> Date Garo Gooden DO Cosigner Signature (if applicable): Date CC: Garo Gooden DO; OUT OF TOWN DOCTOR Signed BASIC METABOLIC PANEL Collected: 05/22/2018 Status: F Source: [facility] 5:35 AM [facility] REPOSITORY TYPE CODE TESTS RESULT OUT OF REFERENCE UNITS RANGE LAB NA 132-144 mEq/L Sodium 142 LAB K 3.5-5.1 mEq/L Potassium 4.5 LAB CL 98-107 mEq/L Chloride 107 LAB CO2 22-29 mEq/L CO2 24 LAB AGAP 7-13 mEq/L Anion Gap 11 LAB GLU 74-109 mg/dL Glucose 88 LAB BUN 8-23 mg/dL BUN 15 LAB CREA 0.50-0.90 mg/dL Creatinine 0.57 LAB GFR >60 GFR >60.0 Result Comment: >60 mL/min/1.73m2 EGFR, calc. for ages 18 and older using the MDRD formula (not corrected for weight), is valid for stable renal function. LAB GFRAA >60 eGFR >60.0 Result Comment: >60 mL/min/1.73m2 EGFR, calc. for ages 18 and older using the MDRD formula (not corrected for weight), is valid for stable renal function. LAB CA 8.6-10.2 mg/dL Calcium 8.8 TSH W/OUT REFLEX Collected: 05/22/2018 Status: F Source: [facility] 5:35 AM [facility] REPOSITORY TYPE CODE TESTS RESULT OUT OF REFERENCE UNITS RANGE LAB TSH 0.270-4.20 uIU/mL TSH w/out 0.960 Reflex VITAMIN B12 Collected: 05/22/2018 Status: F Source: [facility] 5:35 AM [facility] REPOSITORY TYPE CODE TESTS RESULT OUT OF REFERENCE UNITS RANGE LAB B12 232-1245 pg/mL Vitamin B12 472 VITAMIN D Collected: 05/22/2018 Status: F [facility] 5:35 AM [facility] REPOSITORY TYPE CODE TESTS RESULT OUT OF REFERENCE UNITS RANGE LAB VITD 30.0-100.0 ng/mL Low VITAMIN D 26.6 Result Comment: (20-30 ng/mL) Insufficiency This assay accurately quantifies the sum of vitamin D3, 25- Hydroxy and vitamin D2, 25-Hyroxy. CBC WITH PLATELET NO Collected: 05/22/2018 Status: F Source: [facility] 5:[address] [facility] REPOSITORY TYPE CODE TESTS RESULT OUT OF REFERENCE UNITS RANGE LAB WBCIR 4.8-10.8 K/uL WBC 5.3 LAB RBC 4.20-5.40 M/uL Low RBC 3.58 LAB HGB 12.0-16.0 g/dL Low Hemoglobin 11.0 LAB HCT 37.0-47.0 % Low Hematocrit 32.8 LAB MCV 82.0-100.0 fL MCV 91.7 LAB MCH 27.0-31.3 pg MCH 30.8 LAB MCHC 33.0-37.0 % MCHC 33.6 LAB RDW 11.5-14.5 % RDW High alert 15.0 LAB PLT 130-400 K/uL Platelet Count 150 CBC W/DIFF, AUTOMATED Collected: 05/20/2018 Status: F Source: [facility] 4:25 AM [facility] REPOSITORY TYPE CODE TESTS RESULT OUT OF RANGE REFERENCE UNITS LAB L100.1000 4.4-11.0 K/mm3 Normal WBC 5.9 LAB L100.1200 4.2-5.4 M/mm3 Low RBC 3.47 LAB L100.1300 12.0-15.0 g/dl Low HGB 10.2 LAB L100.1400 37-47 % Low HCT 31.4 LAB L100.1500 81-99 fL Normal MCV 90.5 LAB L100.1600 27.0-32.0 pg Normal MCH 29.4 LAB L100.1700 32-36 g/gl Normal MCHC 32.5 LAB L100.1810 11.6-14.6 % High RDW CV 15.0 LAB L100.1820 35.1-43.9 fl High RDW SD 49.4 LAB L100.1900 150-450 K/mm3 Low PLT 149 LAB L100.2000 6.2-12.0 fl Normal MPV 10.3 LAB L100.2100 47-70 % Normal NEUT% 50.1 LAB L100.2200 19-41 % Normal LY% 40.7 LAB L100.2300 0-10 % Normal MONO% 6.1 LAB L100.2400 0-5 % Normal EO% 2.9 LAB L100.2500 0-1 % Normal BASO% 0.2 LAB L100.2550 0.0-0.9 % Normal IM GRAN % 0.000 Result Comment: IG% - Immature Granulocytes (promyelocytes, myelocytes and metamyelocytes) > 1% indicates that a LEFT SHIFT is Present. LAB L100.2620 2.0-7.7 X10 3/uL Normal Absolute Neut 3.0 LAB L100.2720 0.83-4.51 X10 3/ul Normal Absolute Lymph 2.40 Performed By: #### L100.0100 #### [facility] [address] [place], [address] BASIC METABOLIC Collected: 05/20/2018 Status: F Source: [facility] PROFILE ([facility]) 4:25 AM [facility] REPOSITORY TYPE CODE TESTS RESULT OUT OF RANGE REFERENCE UNITS LAB L501.0100 74-106 mg/dL Normal GLU 90 Result Comment: Please note revised GLUCOSE reference range effective 2017. LAB L501.1000 7-18 mg/dL Normal BUN 14 LAB L501.1100 0.55-1.02 mg/dL Normal CREAT,SERUM 0.77 Result Comment: The validity of the calculated GFR AND GFRAA in patients over 70 years has not been determined. Clinical correlation is essential. LAB L501.1110 >60 mL/min Normal EST GFR 79 Result Comment: Non- GFR Calc LAB L501.1115 >60 mL/min Normal EST GFR - AA 96 Result Comment: GFR Calc LAB L501.1255 ml/min Normal Estimated CRCL 47.14 LAB L501.1300 10-20 RATIO Normal BUN/CRE 18.1 LAB L501.2200 8.5-10 mg/dL Low .1 CA 7.4 LAB L501.5300 136-14 mmol/L Normal 5 NA 144 LAB L501.5600 3.5-5. mmol/L Low 1 K 3.1 LAB L501.5900 98-107 mmol/L Normal CL 107 LAB L501.6100 21.0-3 mmol/L Normal 2.0 CO2 26.0 LAB L501.6200 5-15 Normal GAP 11 Performed By: #### L500.2500 #### [facility] [address] [place], [place], [address] PROTEIN, TOTAL Collected: 05/20/2018 Status: F Source: [facility] 4:25 AM [facility] REPOSITORY TYPE CODE TESTS RESULT OUT OF RANGE REFERENCE UNITS LAB L501.1500 6.4-8.2 g/dL Low T PROT 5.5 LAB L501.1950 2.2-4.2 g/dL Normal GLOB 2.9 LAB L501.2000 0.9-2.4 RATIO Normal A/G 0.9 Performed By: #### L001.0705, L501.1800, L501.4100, L501.4305, L501.4405, L501.4600 #### [facility] [address] [place], [place], [address] ALBUMIN, SERUM Collected: 05/20/2018 Status: F Source: [place] 4:25 AM [facility] REPOSITORY TYPE CODE TESTS RESULT OUT OF RANGE REFERENCE UNITS LAB L501.1800 3.2-5.0 g/dL Low ALB 2.6 Performed By: #### L001.0705, L501.1800, L501.4100, L501.4305, L501.4405, L501.4600 #### [facility] [address] [place], [address] AST(SGOT) Collected: 05/20/2018 Status: F Source: [facility] 4:25 AM [facility] REPOSITORY TYPE CODE TESTS RESULT OUT OF RANGE REFERENCE UNITS LAB L501.4100 15-37 U/L Normal AST 17 Performed By: #### L001.0705, L501.1800, L501.4100, L501.4305, L501.4405, L501.4600 #### [facility] [address] [place], [address] ALKALINE PHOSPHATASE Collected: 05/20/2018 Status: F Source: [facility] 4:25 AM [facility] REPOSITORY TYPE CODE TESTS RESULT OUT OF RANGE REFERENCE UNITS LAB L501.4305 45-117 U/L Normal ALK P 85 Performed By: #### L001.0705, L501.1800, L501.4100, L501.4305, L501.4405, L501.4600 #### [facility] [address] [place], [address] ALANINE AMINOTRANSFERAS Collected: 05/20/2018 Status: F Source: [facility] ([facility]) 4:25 AM [facility] REPOSITORY TYPE CODE TESTS RESULT OUT OF RANGE REFERENCE UNITS LAB L501.4405 13-56 U/L Normal ALT 15 Performed By: #### L001.0705, L501.1800, L501.4100, L501.4305, L501.4405, L501.4600 #### [facility] [place], [address] TOTAL BILIRUBIN Collected: 05/20/2018 Status: F Source: [facility] 4:25 AM [facility] REPOSITORY TYPE CODE TESTS RESULT OUT OF RANGE REFERENCE UNITS LAB L501.4600 0.20-1.00 mg/dL Normal T BILI 0.30 Performed By: #### L001.0705, L501.1800, L501.4100, L501.4305, L501.4405, L501.4600 #### [facility] [place], [address] BEDSIDE GLUCOSE Collected: 05/19/2018 Status: F Source: [facility] 9:49 PM [facility] REPOSITORY TYPE CODE TESTS RESULT OUT OF RANGE REFERENCE UNITS LAB L501.080 70-110 mg/dL Normal BEDSIDE GLU 92 Result Comment: MANAGEMENT OF PATIENT CARE PER NURSING PROTOCOL Performed By: #### L501.080 #### [facility] Laboratory Point of Care [address] [place] [address] BEDSIDE GLUCOSE Collected: 05/19/2018 Status: F Source: [facility] 5:05 PM [facility] REPOSITORY TYPE CODE TESTS RESULT OUT OF RANGE REFERENCE UNITS LAB L501.080 70-110 mg/dL Normal BEDSIDE GLU 81 Result Comment: MANAGEMENT OF PATIENT CARE PER NURSING PROTOCOL Performed By: #### L501.080 #### [facility] Point of Care [address] [place] [address] BEDSIDE GLUCOSE Collected: 05/19/2018 Status: F Source: [facility] 11:07 AM [facility] REPOSITORY TYPE CODE TESTS RESULT OUT OF RANGE REFERENCE UNITS LAB L501.080 70-110 mg/dL Normal BEDSIDE GLU 92 Result Comment: MANAGEMENT OF PATIENT CARE PER NURSING PROTOCOL Performed By: #### L501.080 #### [facility] Point of Care [address] [place] [address] BLOOD GASES BY CPS Collected: 05/19/2018 Status: F Source: [facility] 9:01 AM [facility] REPOSITORY TYPE CODE TESTS RESULT OUT OF RANGE REFERENCE UNITS LAB L9000.9990 Normal BLD GAS TYPE ART LAB L9001.1000 R Normal SITE Brachial LAB L9001.1010 NA Normal CANDACE TEST LAB L9001.1048 Normal Mode CPAP PS LAB L9001.1050 O2 Normal Delivery Dev Vent LAB L9001.1074 30 Normal FI02 LAB L9001.1076 5 Normal PEEP LAB L9001.1078 PS 5 Normal LAB L9001.1104 Normal Results To ICU LAB L9001.1105 Normal Time Given 852 LAB L9001.1110 7.35-7.45 High pH - I-STAT 7.49 LAB L9001.1210 35-45 mmHg Normal pCO2 - ISTAT 38.9 LAB L9001.1310 75-100 mmHG Low 70 PO2 I-STAT LAB L9001.2300 22-26 mmol/L High HCO3 ISTAT 29.5 LAB L9001.2400 -2 to +2 mmol/L High BE 6 ISTAT LAB L9001.2415 mmol/L 31 Normal TOTAL CO2 ISTAT LAB L9001.2425 95-99 % 95 Normal SO2 ISTAT Performed By: #### L9000.0800 #### [facility] Point of Care [address] [place] [address] CONSULTATION Observed: 05/19/2018 Status: F Source: [facility] 5:37 AM [facility] REPOSITORY [facility] Medical Records Department [address] [place] [address] Consultation 05/18/18 0759 MR#: [id number] Acct: [id number] Name: HOA SÁNCHEZ Rep #: [id number] : 1950 68 From: Shaq Vee MD PCP: OUT OF TOWN DOCTOR Status: ADM IN Y Location: ICU ICU08-1 Problem List (1) Hypoglycemia Status: Acute (2) Multiple drug overdose Status: Acute Qualifiers: Encounter type: initial encounter Injury intent: intentional self-harm Qualified Code(s): T50.902A - Poisoning by unspecified drugs, medicaments and biological substances, intentional self-harm, initial encounter (3) Hypokalemia Status: Acute Reason for Consult Date of Consultation: 05/18/18 Reason for Consultation: Respiratory failure History of Present Illness: The patient is a 68 year old F, with unclear history, who presented to [facility] on 05/17/2018 following an intentional overdose of Lyrica and Klonopin. Patient reportedly was found by EMS to be somnolent, but arousable and stated that she was trying to end her life. Patient had taken the medications when it was dark outside, but was found at approximately 1:00 in the afternoon. Patient's daughter had reportedly called EMS for a well check leading to the findings. In the emergency room, patient was given Narcan with no improvement. Patient was not given flumazenil secondary to concern for withdrawal seizure. Patient was noted to decrease to a GCS of 7 and was intubated. Patient did not require any sedation and had no gag reflex. Patient was transferred to the intensive care unit for further evaluation. While in the intensive care unit, patient has remained stable on ventilator therapy. Patient has had some issues with hypoglycemia requiring D50 supplementation. Patient has not required any dopamine or sedation as of this time and bradycardia is improving. No fever has been reported. No family is at the bedside to provide more history. Past Medical History Allergies No Known Allergies Allergy (Verified 05/17/18 13:15) Surgical History: hysterectomy, tonsillectomy, - - Bilateral total knee replacement, right rotator cuff repair, lysis of adhesions, hernia repair, gastric bypass, cholecystectomy, cardiac ablation, C5-C6 back fusion, C5/C6 neck fusion. Psychiatric History: Depression Smoking Status: Never smoker - *Family History Maternal History Items: - - Patient intubated, unable to obtain family history. Paternal History Items: - - Patient intubated, unable to obtain family history. Review of Systems Unable to obtain accurate/complete ROS d/t: Intubated and sedated Patient Problems: Active and Suspected Problems Multiple drug overdose (Acute) Hypokalemia (Acute) Hypoglycemia (Acute) Objective: Chest x-ray was personally reviewed showing endotracheal tube and central line in appropriate position. There were no infiltrates. Abdominal x-ray showed OG in appropriate position. - Physical Exam General: - - Intubated and sedated. RASS -3. Good ventilator synchrony noted. HEENT: Atraumatic, PERRLA, EOMI, Normocephalic, - - No scleral icterus or injection noted. Oral: Dry Mucosa Neck: Supple, No JVD, No Nodes, Trachea Midline Lungs: Clear to auscultation, Normal air movement, No rhonchi, No wheeze, No rales, - - Symmetric expansion. No dullness to percussion. Cardiovascular: Regular rate, Regular Rhythm, Normal S1, Normal S2, No murmurs, No rub noted, No Gallop Abdomen: Bowel Sounds Present, Soft, Non Tender, Non-Distended Extremities: No clubbing, No cyanosis, No edema, Capillary Refill Less than 3 Seconds Skin: No rashes, No breakdown Musculoskeletal: No Tenderness to Palpation of Joints or Extremities Lymphatic: No Cervical, Supraclavicular, or Inguinal Adenopathy Neurological: - - Positive corneal, pupillary and cough reflex. Response to stimulus with withdrawal and opens eyes, but falls asleep quickly. Psych/Mental Status: Flat Affect Vital Signs Temp Pulse Resp BP Pulse Ox 36.3 C L 61 17 119/77 100 05/18/18 02:00 05/18/18 07:41 05/18/18 07:00 05/18/18 07:00 05/18/18 07:00 Oxygen Delivery Method Mechanical Ventilator Weight: 68.3 kg Body Mass Index (BMI) 25.7 Intake and Output for Last 24 Hours Intake Total 1000 / 1000 1855 / 1855 Output Total 1200 / 1200 Balance 1000 / 1000 655 / 655 Laboratory Tests Past 24 Hrs WBC 6.5 WBC RBC Hgb Hct MCV MCH WBC RBC Hgb Hct MCV MCH MCHC RDW RDW Differential POC Glucose POC Glucose 63 L 59 L Clinical Impression(s) from Imaging Studies Chest X-Ray 05/17/18 13:52 IMPRESSION: No acute cardiopulmonary disease. Electronically Signed: Narayan Zhong MD at 14:46 EST , Service support , Chest X-Ray 05/17/18 15:05 IMPRESSION: Endotracheal tube placement. No focal infiltrate. Electronically Signed: Narayan Zhong MD at 15:53 EST , Service support , Chest X-Ray 05/17/18 16:45 KUB X-Ray 05/17/18 17:45 IMPRESSION: Orogastric tube in the stomach with side port at the GE junction. If this is to be used for feeding, tube should be advanced at least 5 cm. Electronically Signed: Ayaz Metz MD at 18:41 EST Tel , Service support , KUB X-Ray 05/18/18 00:03 IMPRESSION: Repositioning of enteric tube with the tip pointing towards the gastroesophageal junction. This probably should be repositioned prior to feeding. Electronically Signed: Mariama Mcgrath MD at 0:56 EST , Service support , Assessment/Plan Active and Suspected Problems Multiple drug overdose (Acute) Hypokalemia (Acute) Hypoglycemia (Acute) RECOMMENDATIONS: 1. Attempt to contact family members for more history 2. Continue mechanical ventilation, SBT and SAT per protocol. 3. Initiate tube feeds 4. Monitor blood sugars every 2x2 5. Potassium repletion 6. Crisis evaluation upon extubation IMPRESSIONS: 1. Acute respiratory failure secondary to suicide attempt with Klonopin and Lyrica Patient is not been on any sedation since being intubated. Patient was noted to be apneic this morning on spontaneous breathing trial. We will continue with spontaneous awakening and breathing trials per protocol. Continue with mechanical ventilation for now. Attempt to avoid sedation to allow for neurologic assessments. Patient is not appropriate for crisis evaluation at this time 2. Bradycardia with hypotension Likely secondary to overdose. Patient's heart rate is improving. We will continue with symptomatic care. No need for dopamine therapy at this time. 3. Hypokalemia/hypoglycemia Unclear etiology. Patient reportedly had admitted to taking Lyrica and Klonopin therapy. Unclear if patient has access to oral hypoglycemics or long- acting subcutaneous insulin. Will attempt to obtain more information later today. Continue with frequent blood sugar checks. Will initiate tube feeds to provide some glycemic support. 4. Chronic diastolic CHF/fibromyalgia/hyperlipidemia/GERD/PAPA/proximal A. fib status post ablation Complicates care, management, recovery and prognosis. No medications from home available at this time. We will continue to monitor closely. TIME: 35 minutes critical care time spent addressing patient's acute respiratory failure, overdose, bradycardia, hypokalemia, review of all data and collaboration with care team (7:10 AM to 8:10 AM) Code Visit 9xxxx: [id number] Critical care first hour 05/19/18 0537 <Electronically signed by Shaq Vee MD> Date Shaq Vee MD Cosigner Signature (if applicable): Date CC: Carlos A Hoang D.O.; Garo Gooden DO; OUT OF TOWN DOCTOR Signed BEDSIDE GLUCOSE Collected: 05/19/2018 Status: F Source: [facility] 5:15 AM [facility] REPOSITORY TYPE CODE TESTS RESULT OUT OF RANGE REFERENCE UNITS LAB L501.080 70-110 mg/dL Normal BEDSIDE GLU 94 Result Comment: MANAGEMENT OF PATIENT CARE PER NURSING PROTOCOL Performed By: #### L501.080 #### [facility] Point of Care [address], [place] [address] CBC-COMPLETE BLOOD CNT Collected: 05/19/2018 Status: F Source: [facility] NO DIFF 3:55 AM [facility] REPOSITORY TYPE CODE TESTS RESULT OUT OF RANGE REFERENCE UNITS LAB L100.1000 4.4-11.0 K/mm3 Normal WBC 5.9 LAB L100.1200 4.2-5.4 M/mm3 Low RBC 3.68 LAB L100.1300 12.0-15.0 g/dl Low HGB 11.2 LAB L100.1400 37-47 % Low HCT 33.3 LAB L100.1500 81-99 fL Normal MCV 90.5 LAB L100.1600 27.0-32.0 pg Normal MCH 30.4 LAB L100.1700 32-36 g/gl Normal MCHC 33.6 LAB L100.1810 11.6-14.6 % High RDW CV 14.9 LAB L100.1820 35.1-43.9 fl High RDW SD 48.0 LAB L100.1900 150-450 K/mm3 Normal PLT 176 LAB L100.2000 6.2-12.0 fl Normal MPV 10.6 Performed By: #### L100.0500, L500.2500 #### [facility] [address] [place], [place], [address] BASIC METABOLIC Collected: 05/19/2018 Status: F Source: [facility] PROFILE (BMP) 3:55 AM [facility] REPOSITORY TYPE CODE TESTS RESULT OUT OF RANGE REFERENCE UNITS LAB L501.0100 74-106 mg/dL High GLU 109 Result Comment: Fasting Glucose result from 100 to 125 mg/dL suggests IMPAIRED HOMEOSTASIS per A.D.A. criteria. Please note revised GLUCOSE reference range effective 2017. LAB L501.1000 7-18 mg/dL Normal BUN 11 LAB L501.1100 0.55-1.02 mg/dL Normal CREAT,SERUM 0.74 Result Comment: The validity of the calculated GFR AND GFRAA in patients over 70 years has not been determined. Clinical correlation is essential. LAB L501.1110 >60 mL/min Normal EST GFR 84 Result Comment: Non- GFR Calc LAB L501.1115 >60 mL/min Normal EST GFR - AA 101 Result Comment: GFR Calc LAB L501.1255 ml/min Normal Estimated CRCL 47.14 LAB L501.1300 10-20 RATIO Normal BUN/CRE 15.0 LAB L501.2200 8.5-10 mg/dL Low .1 CA 7.7 LAB L501.5300 136-14 mmol/L Normal 5 NA 143 LAB L501.5600 3.5-5. mmol/L Low 1 K 3.4 LAB L501.5900 98-107 mmol/L Normal CL 106 LAB L501.6100 21.0-3 mmol/L Normal 2.0 CO2 26.0 LAB L501.6200 5-15 Normal GAP 11 Performed By: #### L100.0500, L500.2500 #### [facility] [address] [place], [address] BEDSIDE GLUCOSE Collected: 05/18/2018 Status: F Source: JESUS 11:31 PM [facility] REPOSITORY TYPE CODE TESTS RESULT OUT OF RANGE REFERENCE UNITS LAB L501.080 70-110 mg/dL Normal BEDSIDE GLU 81 Result Comment: MANAGEMENT OF PATIENT CARE PER NURSING PROTOCOL Performed By: #### L501.080 #### [facility] Point of Care [address] [place] [address] BEDSIDE GLUCOSE Collected: 05/18/2018 Status: F Source: JESUS 5:10 PM [facility] REPOSITORY TYPE CODE TESTS RESULT OUT OF RANGE REFERENCE UNITS LAB L501.080 70-110 mg/dL Normal BEDSIDE GLU 80 Result Comment: MANAGEMENT OF PATIENT CARE PER NURSING PROTOCOL Performed By: #### L501.080 #### [facility] Point of Care [address] [place] [address] POTASSIUM Collected: 05/18/2018 Status: F Source: JESUS 4:15 PM [facility] REPOSITORY TYPE CODE TESTS RESULT OUT OF RANGE REFERENCE UNITS LAB L501.5600 3.5-5.1 mmol/L Normal K 3.5 Performed By: #### L501.5600 #### [facility] [address] [place], [address] BEDSIDE GLUCOSE Collected: 05/18/2018 Status: F Source: JESUS 12:13 PM [facility] REPOSITORY TYPE CODE TESTS RESULT OUT OF RANGE REFERENCE UNITS LAB L501.080 70-110 mg/dL Normal BEDSIDE GLU 71 Result Comment: MANAGEMENT OF PATIENT CARE PER NURSING PROTOCOL Performed By: #### L501.080 #### [facility] Point of Care [address] [place] [address] BEDSIDE GLUCOSE Collected: 05/18/2018 Status: F Source: JESUS 10:05 AM [facility] REPOSITORY TYPE CODE TESTS RESULT OUT OF RANGE REFERENCE UNITS LAB L501.080 70-110 mg/dL Normal BEDSIDE GLU 72 Result Comment: MANAGEMENT OF PATIENT CARE PER NURSING PROTOCOL Performed By: #### L501.080 #### [facility] Point of Care [address] [place] [address] BEDSIDE GLUCOSE Collected: 05/18/2018 Status: F Source: JESUS 8:07 AM [facility] REPOSITORY TYPE CODE TESTS RESULT OUT OF REFERENCE UNITS RANGE LAB L501.080 70-110 mg/dL Low BEDSIDE GLU 61 Result Comment: MANAGEMENT OF PATIENT CARE PER NURSING PROTOCOL Performed By: #### L501.080 #### [facility] Point of Care [address] [place] [address] BEDSIDE GLUCOSE Collected: 05/18/2018 Status: F Source: JESUS 6:06 AM [facility] REPOSITORY TYPE CODE TESTS RESULT OUT OF REFERENCE UNITS RANGE LAB L501.080 70-110 mg/dL Low BEDSIDE GLU 63 Result Comment: MANAGEMENT OF PATIENT CARE PER NURSING PROTOCOL Performed By: #### L501.080 #### [facility] Point of Care [address] [place] [address] CBC W/DIFF, AUTOMATED Collected: 05/18/2018 Status: F Source: JESUS 4:18 AM [facility] REPOSITORY TYPE CODE TESTS RESULT OUT OF RANGE REFERENCE UNITS LAB L100.1000 4.4-11.0 K/mm3 Normal WBC 4.8 LAB L100.1200 4.2-5.4 M/mm3 Low RBC 3.51 LAB L100.1300 12.0-15.0 g/dl Low HGB 10.5 LAB L100.1400 37-47 % Low HCT 32.1 LAB L100.1500 81-99 fL Normal MCV 91.5 LAB L100.1600 27.0-32.0 pg Normal MCH 29.9 LAB L100.1700 32-36 g/gl Normal MCHC 32.7 LAB L100.1810 11.6-14.6 % High RDW CV 14.7 LAB L100.1820 35.1-43.9 fl High RDW SD 47.9 LAB L100.1900 150-450 K/mm3 Normal PLT 163 LAB L100.2000 6.2-12.0 fl Normal MPV 10.0 LAB L100.2100 47-70 % Normal NEUT% 62.7 LAB L100.2200 19-41 % Normal LY% 30.4 LAB L100.2300 0-10 % Normal MONO% 4.6 LAB L100.2400 0-5 % Normal EO% 1.7 LAB L100.2500 0-1 % Normal BASO% 0.4 LAB L100.2550 0.0-0.9 % Normal IM GRAN % 0.200 Result Comment: IG% - Immature Granulocytes (promyelocytes, myelocytes and metamyelocytes) > 1% indicates that a LEFT SHIFT is Present. LAB L100.2620 2.0-7.7 X10 3/uL Normal Absolute Neut 3.0 LAB L100.2720 0.83-4.51 X10 3/ul Normal Absolute Lymph 1.45 Performed By: #### L100.0100 #### [facility] [address] [place] [address]. [place], [place], [address] BASIC METABOLIC Collected: 05/18/2018 Status: F Source: [place] PROFILE (BMP) 4:18 AM [facility] REPOSITORY TYPE CODE TESTS RESULT OUT OF RANGE REFERENCE UNITS LAB L501.0100 74-106 mg/dL Low GLU 68 Result Comment: Please note revised GLUCOSE reference range effective 2017. LAB L501.1000 7-18 mg/dL Normal BUN 12 LAB L501.1100 0.55-1.02 mg/dL Normal CREAT,SERUM 0.61 Result Comment: The validity of the calculated GFR AND GFRAA in patients over 70 years has not been determined. Clinical correlation is essential. LAB L501.1110 >60 mL/min Normal EST GFR 104 Result Comment: Non- GFR Calc LAB L501.1115 >60 mL/min Normal EST GFR - AA 126 Result Comment: GFR Calc LAB L501.1255 ml/min Normal Estimated CRCL 47.14 LAB L501.1300 10-20 RATIO Normal BUN/CRE 19.7 LAB L501.2200 8.5-10 mg/dL Low .1 CA 7.7 LAB L501.5300 136-14 mmol/L Normal 5 NA 145 LAB L501.5600 3.5-5. mmol/L Low 1 K 2.9 LAB L501.5900 98-107 mmol/L High CL 110 LAB L501.6100 21.0-3 mmol/L Normal 2.0 CO2 27.0 LAB L501.6200 5-15 Normal GAP 8 Performed By: #### L500.2500 #### [facility] [address] [place], [address] LIVER PROFILE Collected: 05/18/2018 Status: F Source: JESUS 4:18 AM [facility] REPOSITORY Order Comment: Comments: can use the AM blood draw TYPE CODE TESTS RESULT OUT OF RANGE REFERENCE UNITS LAB L501.1500 6.4-8.2 g/dL Low T PROT 5.3 LAB L501.1800 3.2-5.0 g/dL Low ALB 2.7 LAB L501.1950 2.2-4.2 g/dL Normal GLOB 2.6 LAB L501.4100 15-37 U/L Normal AST 20 LAB L501.4305 45-117 U/L Normal ALK P 83 LAB L501.4405 13-56 U/L Normal ALT 15 LAB L501.4600 0.20-1.00 mg/dL Normal T BILI 0.80 LAB L501.4700 0.00-0.30 mg/dL Normal D BILI 0.20 Performed By: #### L500.3400 #### [facility] [address] [place], [address] BEDSIDE GLUCOSE Collected: 05/18/2018 Status: F Source: JESUS 1:03 AM [facility] REPOSITORY TYPE CODE TESTS RESULT OUT OF REFERENCE UNITS RANGE LAB L501.080 70-110 mg/dL Low BEDSIDE GLU 59 Result Comment: MANAGEMENT OF PATIENT CARE PER NURSING PROTOCOL Performed By: #### L501.080 #### [facility] Point of Care [address] [place] [address] ABDOMEN SINGLE VIEW Observed: 05/17/2018 Status: F Source: [place] 11:52 PM [facility] REPOSITORY [facility] Imaging Services [address] [place] [address] Abdomen Single View MR#: [id number] Acct: [id number] Name: HOA SÁNCHEZ Rep #: [id number] : 1950 F 68 From: Mariama Mcgrath MD PCP: OUT OF TOWN DOCTOR Status: ADM IN Study: Abdomen Single View Date of Exam: 05/18/18 Exam# [id number] Ordering Dr: Mariama Morin STUDY: X-RAY - ABDOMEN/PELVIS REASON FOR EXAM: Female, 68 years old. Repositioned orogastric tube. TECHNIQUE: Single AP view of the abdomen / pelvis. COMPARISON: Radiograph of the abdomen dated May 17, 2018. FINDINGS: Normal visualized lung bases. There is an unremarkable bowel gas pattern. The enteric tube tip is now pointing toward the gastroesophageal junction having been advanced since the previous study. An electronic device is visible overlying the right lower quadrant probably representing a neural stimulator. There is no obvious visceromegaly, mass, dilated bowel or pathologic calcifications. There are calcified phleboliths in the pelvis. There are degenerative changes of the lumbar spine. There are large enthesophytes arising from the anterior superior iliac crests. RAD/Abdomen Single View IMPRESSION: Repositioning of enteric tube with the tip pointing towards the gastroesophageal junction. This probably should be repositioned prior to feeding. Electronically Signed: Mariama Mcgrath MD at 0:56 EST , Service support , CC: Mariaam Morin; OUT OF TOWN DOCTOR Cart Driver: Signed HISTORY AND PHYSICAL Observed: 05/17/2018 Status: F Source: [place] EXAM 6:51 PM [facility] REPOSITORY [facility] Medical Records Department [address] [place] [address] History and Physical 05/17/18 1551 MR#: [id number] Acct: [id number] Name: HOA SÁNCHEZ Rep #: [id number] : 1950 68 From: Alexa Shepherd [employer]C PCP: OUT OF TOWN DOCTOR Status: ADM IN Y Location: ICU ICU08-1 ADDENDUM by Garo Gooden DO on 05/17/18 at 1851 Code Visit Patient was seen and examined independently of Alexa Shepherd today, she came to the emergency room at [facility] after she stated she took a large amount of Klonopin and Lyrica. According to the emergency room physician, patient told him that she took a handful of Klonopin and Lyrica because she got into an argument with her boyfriend. At the time of my examination, patient was comatose and somnolent, she responded to painful stimuli and woke up for short periods of time only to go back to sleep. Labs were obtained in the emergency room, white blood cell count was normal, patient's chemistry was remarkable for a potassium of 2.7, UA showed 2+ bacteria and 0-5 WBCs. Patient's mental status did not improve during the time she was in the emergency room and she ultimately had to be intubated for airway protection. Physical exam: On examination she appeared sedated on the ventilator. Vital signs as documented. Skin warm and dry and without overt rashes. Neck without JVD. Lungs clear. Heart exam notable for regular rhythm, normal sounds and absence of murmurs, rubs or gallops. Abdomen unremarkable and without evidence of organomegaly, masses, or abdominal aortic enlargement. Extremities nonedematous. Neuro: Before the patient was medicated and intubated, she responded to deep painful stimuli and some verbal stimuli only to fall asleep. Patient will be transferred to ICU, I talked with critical care about her admission, the emergency room physician informed me that prior to her transfer to ICU, patient's blood pressure declined and he placed her on IV dopamine and he place a central line in the patient. I have reviewed Alexa Shepherd's history and physical and medical plan of care and with the above additions concur. Inpatient E AND M: 28929 Init Hosp L3 05/17/181850 <Electronically signed by Garo Gooden DO> Date Garo Gooden DO cc: [employer] Alexaansley Shepherd; Garo Gooden DO; OUT OF TOWN DOCTOR * Signed Problem List (1) Multiple drug overdose Status: Acute (2) Hypokalemia Status: Acute History of Present Illness Date of Admission: 05/17/18 Chief Complaint: Overdose on Lyrica, Klonopin. The patient is a 68 year old F who presents to the Emergency Room due to overdosing on Lyrica and Klonopin. Patient intubated at time of assessment and HPI provided by ER staff. Patient initially able to speak with staff and stated she wanted to end her life, overdosing on Lyrica and Klonopin. Her daughter was reported to call the squad when she had not heard from her mother. Patient intubated in the ER due to decreased responsiveness. Past Medical History Allergies No Known Allergies Allergy (Verified 05/17/18 13:15) Surgical History: hysterectomy, tonsillectomy, - - Bilateral total knee replacement, right rotator cuff repair, lysis of adhesions, hernia repair, gastric bypass, cholecystectomy, cardiac ablation, C5-C6 back fusion, C5/C6 neck fusion. Psychiatric History: Depression Smoking Status: Never smoker - *Family History Maternal History Items: - - Patient intubated, unable to obtain family history. Paternal History Items: - - Patient intubated, unable to obtain family history. Review of Systems Unable to obtain accurate/complete ROS d/t: Patient intubated. Unable to complete ROS. VTE Information - Inpt Only VTE Present on Admission: No VTE Mechan Device Prophylaxis: None VTE Pharm Prophylaxis ordered?: Yes Patient Problems: Active and Suspected Problems Multiple drug overdose (Acute) Hypokalemia (Acute) - Physical Exam General: - - Patient intubated. HEENT: Atraumatic, PERRLA, EOMI, Normocephalic Neck: Supple, No JVD, Negative Carotid Bruits Lungs: Clear to auscultation, Normal air movement Cardiovascular: Regular rate, Regular Rhythm, Normal S1, Normal S2, No murmurs Abdomen: Bowel Sounds Present, Soft, Non Tender, Non-Distended Extremities: No clubbing, No cyanosis, No edema, Capillary Refill Less than 3 Seconds Skin: No rashes, No breakdown Musculoskeletal: No Tenderness to Palpation of Joints or Extremities Neurological: Cranial nerves II-XII grossly intact Psych/Mental Status: - - Unable to assess. Vital Signs Temp Pulse Resp BP Pulse Ox 97.5 F L 46 L 14 95/69 100 05/17/18 13:07 05/17/18 15:41 05/17/18 15:41 05/17/18 15:41 05/17/18 15:41 Oxygen Delivery Method Mechanical Ventilator Weight: 150 lb Body Mass Index (BMI) 25.7 Laboratory Tests Past 24 Hrs WBC RBC Hgb Hct MCV MCH MCHC RDW RDW Differential Plt Count MPV Immature Gran % (Auto) Neut % (Auto) Assessment/Plan All Active Problems Multiple drug overdose (Acute) Hypokalemia (Acute) 1. Acute respiratory failure due to multidrug overdose-tox screen negative. Patient admitted to overdosing on Lyrica and Klonopin on admission. Psychiatric/crisis consult when patient is stable. Chest x-ray without infiltrate. Patient currently intubated, stable at this time, on ketamine. 2. Hypokalemia-replaced per protocol. Trend BMP. 3. Hypotension, secondary to #1-stable at this time. Continue to monitor. 4. Hypertension 5. Chronic diastolic CHF-prior EF 54%. 6. Paroxysmal atrial fibrillation-status post ablation. 7. Depression/personality disorder-follows with counseling center. 8. Fibromyalgia 9. GERD 10. Hyperlipidemia 11. PAPA Past medical history of chronic medical conditions obtained from [facility], outside facility report. Patient's current medication list is unknown. DVT prophylaxis- Lovenox SC. This patient was seen by TAMMY Hayes under the supervision of Dr. Gooden. 05/17/18 8665 <Electronically signed by Alexa MUNOZ> Date Alexa Shepherd [employer] 05/17/18 1839<Electronically signed by Garo Gooden DO> Cosigner Signature: Date (if applicable) Garo Gooden DO CC: [employer] Alexa Shepherd; Garo Gooden DO; OUT OF TOWN DOCTOR Signed ABDOMEN SINGLE VIEW Observed: 05/17/2018 Status: F Source: JESUS (PORTABLE) 5:40 PM [facility] REPOSITORY [facility] Imaging Services [address] [place] [address] [place] [address] Abdomen Single View (Portable) MR#: [id number] Acct: [id number] Name: HOA SÁNCHEZ Rep #: [id number] : 1950 F 68 From: Ayaz Metz MD PCP: OUT OF TOWN DOCTOR Status: ADM IN Study: Abdomen Single View (Portable) Date of Exam: 05/17/18 Exam# [id number] Ordering Dr: Garo Gooden DO STUDY: X-RAY - ABDOMEN/PELVIS REASON FOR EXAM: Female, 68 years old. A NG tube placement. TECHNIQUE: Portable supine view. COMPARISON: None. FINDINGS: Normal visualized lung bases. Orogastric tube terminates in the left upper quadrant consistent with gastric placement. Side port is at the level of the GE junction. There is a nonobstructive bowel gas pattern. There is a rotatory scoliosis of the lumbar spine. Soft tissues and bony structures are otherwise unremarkable. RAD/Abdomen Single View (Portable) IMPRESSION: Orogastric tube in the stomach with side port at the GE junction. If this is to be used for feeding, tube should be advanced at least 5 cm. Electronically Signed: Ayaz Metz MD at 18:41 EST Tel , Service support , CC: Garo Gooden DO; OUT OF TOWN DOCTOR Cart Driver: Signed EMERGENCY DEPARTMENT Observed: 05/17/2018 Status: F Source: [place] SUMMARY 5:37 PM [facility] REPOSITORY [facility] Medical Records Department [address] [place] [address] Emergency Department Summary 05/17/18 1530 MR#: [id number] Acct: [id number] Name: HOA SÁNCHEZ Rep #: [id number] : 1950 68 From: Vick Ross MD PCP: OUT OF TOWN DOCTOR Status: ADM IN - ER Visit Summary Date of Service: 05/17/18 Chief Complaint: Overdose History of Present Illness: The patient is a 68 F who overdosed on Lyrica and her Klonopin. When she arrived via EMS she was somnolent but arousable and she told me she wanted to end her life. She told me she took the medication when it was dark outside and currently it is 1 in the afternoon. Her daughter apparently called EMS for a well check since she had not heard for him her mother in a while. Physical Examination: Patient is somnolent, initially she is arousable. When she is arousable she tells me that she took a handful of Lyrica and Klonopin. Slightly dry mucous membranes, no obvious facial deformity Pupils are 3-4 mm and reactive No C-spine tenderness supple neck. Regular rate and rhythm without any obvious murmurs Course lungs bilaterally speaking in full sentences without any obvious respiratory distress Abdomen soft and nontender no guarding or rebound Moves all extremities without any difficulty or pain. Skin does not show any obvious rashes or lesions, no trauma. GCS is 11 initially. Emergency Department Course and Treatment: Patient did receive Narcan with no improvement. I am reluctant to give her flumazenil due to multi-substance ingestion and the possibility of withdrawal seizure. After an observation. Patient decompensated to where she had a GCS of 7. At that time I intubated her. She had no gag reflex and I did not need to use any sedation. Repeat x-rays unremarkable. She was hypokalemic which I started treatment in the emergency department. I called the hospitalist for admission to the intensive care unit. She will need psychiatric evaluation when she is extubated Disposition: Admit to hospital in critical condition Impression: Overdose multidrug Respiratory arrest Critical care time 30 minutes This note was generated with [employer] dictation software. It may contain incorrect words, spelling, and punctuation that were not noted in review of the chart prior to signing ED Disposition - Plan for ED Patient: Chief Complaint: Overdose Referrals: [facility] Doctor,Out of [Primary Care Provider] - What to do if you have Problems For any increased pain, shortness of breath, bleeding, nausea or vomiting, chest pain, or any unexpected problems, contact your Primary Care Provider. Call [facility] ([phone]) or report to the closest Emergency Room. Call 911 if necessary. 05/17/18 1737 <Electronically signed by Vick Ross MD> Date Vick Ross MD Cosigner Signature (If Indicated): Date CC: OUT OF TOWN DOCTOR CXR FOR LINE PLACEMENT Observed: 05/17/2018 Status: F Source: [place] 4:41 PM [facility] REPOSITORY [facility] Imaging Services [address] [place] [address] CXR for Line Placement MR#: [id number] Acct: [id number] Name: HOA SÁNCHEZ Rep #: [id number] : 1950 F 68 From: Blake Jason MD PCP: OUT OF [facility] DOCTOR Status: ADM IN Study: CXR for Line Placement Date of Exam: 05/17/18 Exam# [id number] Ordering Dr: Vick Ross MD STUDY: X-RAY CHEST REASON FOR EXAM: Female, 68 years old. Line placement TECHNIQUE: Single AP portable view of the chest. COMPARISON: 05/17/2018, 2:57 PM. FINDINGS: There is a new right IJ line that terminates in the upper SVC. No pneumothorax. Endotracheal tube is stable terminating approximately 5 cm above the niyah. No other changes or abnormalities since earlier today. Electronically Signed: Blake Jason MD at 17:30 EST , Service support , RAD/CXR for Line Placement CC: OUT OF TOWN DOCTOR; Vick Ross MD Cart Driver: Signed CHEST 1 VIEW Observed: 05/17/2018 Status: F Source: [place] (PORTABLE) 2:37 PM [facility] REPOSITORY [facility] Imaging Services [address] [place] [address] Chest 1 View (Portable) MR#: [id number] Acct: [id number] Name: HOA SÁNCHEZ Rep #: [id number] : 1950 F 68 From: Narayan Zhong MD PCP: OUT OF TOWN DOCTOR Status: REG ER Study: Chest 1 View (Portable) Date of Exam: 05/17/18 Exam# [id number] Ordering Dr: Vick Ross MD STUDY: X-RAY CHEST REASON FOR EXAM: Female, 68 years old. Tube placement. TECHNIQUE: Single AP portable view of the chest. COMPARISON: Earlier the same day FINDINGS: Endotracheal tube, 4 cm above the niyah. The lungs are clear and expanded. There is no demonstrated pleural abnormality. Normal size heart. Normal mediastinum and kat. Normal visualized pulmonary arteries. Normal visualized aortic arch and descending thoracic aorta. Normal visualized thoracic spine. Stable right shoulder replacement. Postoperative changes in the upper abdomen. RAD/Chest 1 View (Portable) IMPRESSION: Endotracheal tube placement. No focal infiltrate. Electronically Signed: Narayan Zhong MD at 15:53 EST , Service support , CC: OUT OF TOWN DOCTOR; Vick Ross MD Cart Driver: Signed CPK TOTAL, CREATINE Collected: 05/17/2018 Status: F Source: [place] KINASE 1:56 PM [facility] REPOSITORY Order Comment: Comments: DC when propofol is d/c'd Comments: DC when propofol is d/c'd TYPE CODE TESTS RESULT OUT OF RANGE REFERENCE UNITS LAB L501.3620 26-192 U/L Normal CPK TOTAL 68 Performed By: #### L501.3620, L501.5000 #### [facility] [address] [facility] [place], [place], [address] TRIGLYCERIDES Collected: 05/17/2018 Status: F Source: [place]ES[place] 1:56 PM [facility] REPOSITORY Order Comment: Comments: DC when propofol is d/c'd Comments: DC when propofol is d/c'd TYPE CODE TESTS RESULT OUT OF RANGE REFERENCE UNITS LAB L501.5000 mg/dL Normal TRIG 110 Result Comment: The drugs N-Acetylcysteine and Metamizole may falsely depress this assay. Serum Triglycerides Reference Interval Normal <150 mg/dL Borderline high 150 - 199 mg/dL High 200 - 499 mg/dL Very High > or = 500 mg/dL Performed By: #### L501.3620, L501.5000 #### [facility] [address] [place], [address] CHEST 1 VIEW Observed: 05/17/2018 Status: F Source: JES[place] (PORTABLE) 1:43 PM [facility] REPOSITORY [facility] Imaging Services [address] [place] [address] Chest 1 View (Portable) MR#: [id number] Acct: [id number] Name: HOA SÁNCHEZ Rep #: [id number] : 1950 F 68 From: Narayan Zhong MD PCP: OUT OF [facility] DOCTOR Status: PRE ER Study: Chest 1 View (Portable) Date of Exam: 05/17/18 Exam# [id number] Ordering Dr: Vick Ross MD STUDY: X-RAY CHEST REASON FOR EXAM: Female, 68 years old. Overdose. Unresponsive. TECHNIQUE: Single AP portable view of the chest. COMPARISON: None. FINDINGS: There are monitoring devices. The lungs are clear and expanded. There is no demonstrated pleural abnormality. Normal size heart. Normal mediastinum and kat. Normal visualized pulmonary arteries. Normal visualized aortic arch and descending thoracic aorta. Normal visualized thoracic spine. There is right shoulder replacement. There is postoperative change in the upper abdomen. RAD/Chest 1 View (Portable) IMPRESSION: No acute cardiopulmonary disease. Electronically Signed: Narayan Zhong MD at 14:46 EST , Service support , CC: OUT OF TOWN DOCTOR; Vick Ross MD Cart Driver: Signed SALICYLATE Collected: 05/17/2018 Status: F Source: [place]ES[place] 1:42 PM [facility] REPOSITORY TYPE CODE TESTS RESULT OUT OF REFERENCE UNITS RANGE LAB L501.8300 2.8-20.0 mg/dL Low SALICYLATE < 1.7 Performed By: #### L501.8300, L501.8400 #### [facility] [address] [place], [place], [id number] ACETAMINOPHEN (TYLENOL) Collected: 05/17/2018 Status: F Source: JESUS LEVEL 1:42 PM [facility] REPOSITORY TYPE CODE TESTS RESULT OUT OF REFERENCE UNITS RANGE LAB L501.8400 10.0-30.0 ug/mL ACETAMINOPHEN Low < 2.0 Performed By: #### L501.8300, L501.8400 #### [facility] [address] [place], [place], [id number] URINE DRUG SCREEN Collected: 05/17/2018 Status: F Source: JESUS (VISTA) 1:35 PM [facility] REPOSITORY TYPE CODE TESTS RESULT OUT OF RANGE REFERENCE UNITS LAB L505.0075 TO BE Normal CONFIRMED Result Comment: CONFIRMATORY TESTING FOR ALL POSITIVE URINE DRUG SCREEN RESULTS WILL ONLY BE SENT OUT UPON PHYSICIAN ORDER. VISTA Urine Drug Screen methods provide only preliminary analytical test results. A more specific alternate chemical method must be used in order to obtain a confirmed analytical result. Gas chromatography/mass spectrometery (GC/MS) is the preferred confirmatory method. Clinical consideration and professional judgement should be applied to any drug of abuse test result, particularly when preliminary positive results are used. URINE TCA TESTING MUST BE ORDERED SEPARATELY. USE TEST MNEMONIC: [facility] LAB L505.5005 VISTA UDS PH 5 Normal LAB L505.5015 <1000 ng/mL AMPHETAMINES Normal NEGATIVE LAB L505.5025 < 200 ng/mL BARBITIURATES Normal NEGATIVE LAB L505.5035 < 200 ng/mL BENZODIAZIPINE Normal NEGATIVE LAB L505.5045 < 300 ng/mL COCAINE Normal NEGATIVE LAB L505.5055 < 500 ng/mL ECSTACY Normal NEGATIVE LAB L505.5065 < 300 ng/mL METHADONE Normal NEGATIVE LAB L505.5075 < 300 ng/mL OPIATES Normal NEGATIVE LAB L505.5085 < 25 ng/mL PCP Normal NEGATIVE LAB L505.5095 < 50 ng/mL THC Normal NEGATIVE Performed By: #### L505.5000 #### [facility] [address] [place], [address] URINALYSIS, COMPLETE Collected: 05/17/2018 Status: F Source: GAYLORD 1:35 PM [facility] REPOSITORY Order Comment: Order Date: 05/17/18 Has pt arrived? Y How was Urine Obtained? CLEAN CATCH TYPE CODE TESTS RESULT OUT OF RANGE REFERENCE UNITS LAB L400.3000 Yellow COLOR Normal Yellow LAB L400.3050 Clear Normal CLARITY Sl. Cloudy LAB L400.3200 Normal mg/dl Normal GLUCOSE, UR Normal LAB L400.3300 Negative mg/dL Normal BILIRUBIN URINE Negative LAB L400.3400 Negative mg/dl Normal KETONE UR Negative LAB L400.3465 1.002-1.030 Normal SP.GR. DIPSTX 1.015 LAB L400.3550 5.0 - 8.0 pH UR Normal 5.0 LAB L400.3600 Negative mg/dl PROT Normal DIPSTX Negative LAB L400.3700 Normal mg/dl Normal UROBILI Normal LAB L400.3750 Negative High NITRITE UR Positive LAB L400.3780 Negative /ul Normal OCCULT BLOOD-UR Negative LAB L400.3800 Negative /ul High LEUK 25 ESTERASE LAB L400.4050 0-5 /hpf WBC Normal 0-5 SEEN LAB L400.4100 0-5 /hpf 0 Normal RBC-UA SEEN LAB L400.4150 5-10 /hpf SQUAM Normal EPI 0-5 SEEN LAB L400.4300 None Seen /hpf 2+ Normal BACTERIA LAB L400.4350 <or=2+ /hpf 0 Normal MUCUS, URINE SEEN Performed By: #### L400.0001 #### [facility] [address] [place], [place], [address] CBC W/DIFF, AUTOMATED Collected: 05/17/2018 Status: F Source: [place] 1:25 PM [facility] REPOSITORY TYPE CODE TESTS RESULT OUT OF RANGE REFERENCE UNITS LAB L100.1000 4.4-11.0 K/mm3 Normal WBC 6.5 LAB L100.1200 4.2-5.4 M/mm3 Low RBC 3.98 LAB L100.1300 12.0-15.0 g/dl Low HGB 11.5 LAB L100.1400 37-47 % Low HCT 36.7 LAB L100.1500 81-99 fL Normal MCV 92.2 LAB L100.1600 27.0-32.0 pg Normal MCH 28.9 LAB L100.1700 32-36 g/gl Low MCHC 31.3 LAB L100.1810 11.6-14.6 % High RDW CV 15.0 LAB L100.1820 35.1-43.9 fl High RDW SD 50.8 LAB L100.1900 150-450 K/mm3 Normal PLT 205 LAB L100.2000 6.2-12.0 fl Normal MPV 10.4 LAB L100.2100 47-70 % Normal NEUT% 52.3 LAB L100.2200 19-41 % High LY% 41.6 LAB L100.2300 0-10 % Normal MONO% 4.5 LAB L100.2400 0-5 % Normal EO% 1.1 LAB L100.2500 0-1 % Normal BASO% 0.3 LAB L100.2550 0.0-0.9 % Normal IM GRAN % 0.200 Result Comment: IG% - Immature Granulocytes (promyelocytes, myelocytes and metamyelocytes) > 1% indicates that a LEFT SHIFT is Present. LAB L100.2620 2.0-7.7 X10 3/uL Normal Absolute Neut 3.4 LAB L100.2720 0.83-4.51 X10 3/ul Normal Absolute Lymph 2.69 Performed By: #### L100.0100 #### [facility] [address] [place], [place], [address] ALCOHOL, BLOOD Collected: 05/17/2018 Status: F Source: GAYLORD (MEDICAL)-SERUM 1:25 PM [facility] REPOSITORY TYPE CODE TESTS RESULT OUT OF RANGE REFERENCE UNITS LAB L501.9100 mg/dL Normal SERUM < 3.0 ETOH Result Comment: The serum:whole blood ethanol ratio is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 of breath or difficulty breathing with exercise, at rest, or when lying flat in bed. Shortness of breath occurs when fluid backs up into the lungs (congestion) or when your body does not have enough oxygen-rich blood to let you go on with your activity or exercise without a rest period. Even though you think of breathing as a lung problem, your heart condition can cause periods of shortness of breath. In some cases, symptoms may cause you to wake up suddenly at night, disrupting your normal sleep patterns. ? A dry, hacking cough or wheezing ? Swollen ankles, legs and abdomen, and weight gain. Less blood to the kidneys causes you to retain fluid and water, resulting in edema (swelling) and water weight gain. ? Need to urinate while resting at night. [place] causes more blood to get to the kidneys when you are lying down. ? Tiredness (fatigue) and weakness during exercise or activities occur because the heart is not pumping enough oxygen-rich blood to major organs and muscles. ? Dizziness, confusion, difficulty concentrating or fainting may occur because the heart is not pumping enough oxygen-rich blood to the brain. ? Rapid or irregular heartbeats (palpitations): When the heart muscle does not pump well, the heartbeat speeds up to help the heart get enough oxygen-rich blood to major organs and muscles, or the heartbeat may become abnormal. Other symptoms include a feeling of fullness (bloating) in your stomach, loss of appetite or nausea. If you have heart failure, you may have one or all of these symptoms. Sometimes, people with heart failure do not have any symptoms. What are the types of heart failure? Systolic left ventricular dysfunction (or systolic heart failure) occurs when the muscle in the heart?s left ventricle doesn?t contract with enough force, so less oxygen-rich blood is pumped throughout the body. Heart failure with preserved left ventricular function (diastolic heart failure) occurs when the heart contracts normally, but the ventricles do not relax properly or are stiff, and less blood enters the heart during normal filling. Your ejection fraction (EF) is used to measure how well your heart pumps with each beat to determine the level of systolic dysfunction. Data obtained on an echocardiogram (ECG or EKG) can tell us if you have heart failure with diastolic dysfunction. Left ventricular ejection fraction (LVEF) is the measurement of how much blood is being pumped out of the left ventricle of the heart (the main pumping chamber) with each contraction. Right ventricular ejection fraction (RVEF) is the measurement of how much blood is being pumped out of the right side of the heart to the lungs for oxygen. In most cases, the term ejection fraction refers to LVEF. EF % Pumping Ability of the Heart 55% to 70% Normal 36% to 54% Below normal 35% to 40% Moderately below normal <35% Severely below normal; may be at risk of life-threatening irregular heartbeats or uncoordinated contraction of heart muscle What do the numbers mean? Ejection fraction is usually expressed as a percentage. A normal heart pumps a little more than half the heart?s blood volume with each beat. A normal LVEF ranges from 55% to 70%. An LVEF of 65, for example, means that 65% of the total amount of blood in the left ventricle is pumped out with each heartbeat. The LVEF may be lower when the heart muscle has become damaged due to a heart attack, heart muscle disease (cardiomyopathy) or other causes. A reduced EF may confirm a diagnosis of systolic heart failure. In diastolic failure, the EF is normal, since the heart pumps normally. Often, the heart is also enlarged. An EF of less than 35% increases the risk of life-threatening irregular heartbeats that can cause sudden cardiac arrest (loss of heart function) and sudden cardiac . An implantable cardioverter defibrillator (ICD) may be recommended. Patients who develop severe, advanced heart failure may benefit from special treatments, such as cardiac transplantation or a ventricular assist device (VAD). If your quality of life is very poor or your doctor has told you that your condition is very severe, please ask about other treatments. Your EF can go up and down, based on your heart condition and the therapies that have been prescribed. How is EF measured? Your EF can be measured in your doctor?s office during tests such as: ? Ultrasound of the heart (echocardiography) ? Magnetic resonance imaging (MRI) scan of the heart ? Nuclear medicine scan (multiple gated acquisition [MUGA]) of the heart; also called a nuclear stress test Why it?s important to know your EF If you have a heart condition, it is important for you and your doctor to know your EF. Your EF can help your doctor determine the best course of treatment for you and the effectiveness of the therapies that have been prescribed. You should have your EF measured when you are first diagnosed with a heart condition, and again as needed, based on changes in your condition. Ask your doctor how often you should have your EF checked. What causes heart failure? Heart failure is caused by many things that damage the heart muscle, including: ? Coronary artery disease (also called coronary atherosclerosis) ? a disease of the arteries that supply blood and oxygen to the heart. Coronary artery disease occurs when the normal lining of the arteries breaks down, the [place] of the arteries thicken, and deposits of fat and plaque block the flow of blood through the arteries. The arteries that supply blood to the heart become very narrowed and the heart can no longer respond to increased activity. Extra strain on the heart may result in chest pain (angina pectoris) and other symptoms of heart disease. ? Heart attack ? occurs when a coronary artery becomes blocked, stopping the flow of blood to the heart muscle and damaging it. All or part of the heart muscle becomes cut off from its supply of oxygen. A heart attack can damage the heart muscle, resulting in a scarred area which does not function. ? Cardiomyopathy ? damage to the heart muscle from causes other than artery or blood flow problems. Causes include viruses, alcohol or drug abuse and genetics. ? Heart defects present at ? Diabetes ? High blood pressure (hypertension) ?Blood pressure is the force of blood pushing against blood vessel mach[place]. High blood pressure means the pressure in the arteries is above the normal range. ? Arrhythmia (abnormal heart rhythms) ? Kidney disease ? Obesity (being overweight) ? Medications ? some chemotherapy agents Heart failure often occurs when several diseases or conditions are present at once. How is heart failure treated? Together, you and your doctor or nurse will discuss your treatment options. Your doctor or nurse will determine which treatment methods are right for you. More information about heart failure treatments and management is included later in this notebook. Treatment is a team effort Heart failure management is a team effort, and you are the lew player on the team. Your heart doctor or nurse will prescribe your medications and manage other medical problems. Other team members, including nurses, dietitians, pharmacists, exercise specialists and social workers, will help you achieve success. Most important, it is up to YOU to take your medications, make dietary changes, live a healthy lifestyle, keep your follow-up appointments and be an active member of the team. How common is heart failure? Heart failure affects an estimated 5.7 million Americans, and about 670,000 people are diagnosed with heart failure each year. Heart failure is the leading cause of hospitalization in people over age 65. Women and heart failure Heart failure affects about 2.5 million women in the [place]. Women tend to develop heart failure with preserved left ventricular function and with a more normal EF than men. Heart failure in women is often linked to high blood pressure, coronary artery disease, valve disease and diabetes. The signs and symptoms of heart failure are the same among men and women, but women tend to experience lower exercise ability and shortness of breath than do men. Women also have ankle swelling more frequently. In general, women with heart failure live longer than men with heart failure. What is the outlook? With the right care, heart failure will not stop you from doing the things you enjoy. Your prognosis, or outlook for the future, will depend on how well your heart muscle is working, your symptoms and how well you respond to and follow your treatment plan. Patients with a long-term illness, such as heart failure, should talk to their doctor and their family about their desires for extended medical care. An ?advance?directive??or ?living will? is one way to let everyone know your wishes. A living will includes your desires about the use of medical treatments to prolong your life. This document is prepared while you are well, in case you are unable to make these decisions at a later time. Stages of Heart Failure In 2001, the [place] [employer] (AHA) and [place] [employer] (ACC) developed the ?Stages of Heart Failure.? These stages will help you understand that heart failure is a chronic condition that worsens over time. The stages will also help you understand why a new medication was added to your treatment plan and may help you understand why lifestyle changes and other treatments are needed. The stages classified by the AHA and ACC are different from the [place] [employer] ([place]HA) clinical classifications of heart failure that rank patients as class I-II-III-IV, according to the degree of symptoms or functional limits. Ask your health care provider what stage of heart failure you are in. Check the information below to see if your therapy matches what the AHA and ACC recommend. Note that you cannot go backward in stage, only forward. The table below outlines a basic plan of care that may or may not apply to you. Ask your doctor or nurse to explain the therapies that are listed if you do not understand why you are not receiving them. Refer to other parts of this notebook to learn more about specific medications, diet, and exercise. Definition of Stage A People at high risk of developing heart failure (pre heart failure), including people with: ? Hypertension ? Diabetes ? Coronary artery disease ? Metabolic syndrome ? History of alcohol abuse ? History of rheumatic fever ? Family history of cardiomyopathy ? History of taking drugs that can damage heart muscle, e.g., some anticancer agents Usual treatments for Stage A ? Exercise regularly ? Quit smoking ? Treat hypertension (medication and low-sodium diet) ? Treat lipid disorders (cholesterol) ? Discontinue alcohol or illegal drug use ? An angiotensin converting enzyme inhibitor (DAVID-I) or an angiotensin II receptor elly (ARB) is prescribed if you have coronary artery disease, or if you have diabetes, high blood pressure, or other vascular or cardiac conditions ? A beta-elly may be prescribed if you have high blood pressure Definition of Stage B People diagnosed with systolic left ventricular dysfunction but who have never had symptoms of heart failure (pre heart failure), including people with: ? Prior heart attack ? Valve disease ? Cardiomyopathy The diagnosis is usually made when an ejection fraction of less than 40% is found during an echocardiogram test. Usual treatments for Stage B ? Treatment methods for Stage A apply ? All people should take an angiotensin converting enzyme inhibitor (DAVID-I) or angiotensin II receptor elly (ARB) ? A beta -elly and an aldosterone antagonist (eplerenone) should be prescribed after a heart attack to minimize the risk of the heart muscle enlarging and pumping poorly ? Surgery or interventional options for coronary artery blockage, heart attack, and valve repair or replacement (as appropriate) should be discussed Definition of Stage C Patients with known systolic heart failure and current or prior symptoms. The most common symptoms include: ? Shortness of breath ? Fatigue ? Reduced ability to exercise Usual Treatments for Stage C ? Treatment methods above for Stage A and Stage B apply ? An angiotensin converting enzyme inhibitor (DAVID-I) or angiotensin II receptor elly and a beta-elly will be prescribed to help the heart muscle pump with less work ? An aldosterone antagonist may be prescribed when symptoms remain present with other therapies ? Hydralazine/nitrate combination may be prescribed if symptoms persist ? Diuretics (water pills) and digoxin may be prescribed if symptoms persist ? Restrict dietary sodium (salt) to 2,000 mg per day ? Monitor weight daily and report a change of 4 pounds above or below ?dry? weight ? Restrict fluids (as appropriate) ? Cardiac resynchronization therapy (biventricular pacemaker) may be recommended ? Implantable cardiac defibrillator (ICD) therapy may be recommended Definition of Stage D Patients with systolic heart failure and presence of advanced symptoms after receiving optimum medical care. Usual treatments for Stage D ? Treatment methods for Stages A, B AND C apply ? Patients should be evaluated to determine if the following treatments are available options: heart transplant, ventricular assist devices, surgery options, continuous infusion of intravenous inotropic drugs, end-of-life (palliative or hospice) care, or research therapies References ? [place] [employer]. Heart Failure. www.heart.org Accessed 10/10/2011 ? [place] [employer]. CardioSmart: Heart Failure. cardiosmart.org Accessed 10/10/2011 ? National Heart Lung and Blood [place]. What is Heart Failure? www.nhlbi.nih.gov Accessed 10/10/2011 Can't find the health information you?re looking for? ? Ask a Health Educator, Live! ? Know someone who could use this information?...send them this link. This information is provided by the [facility] and is not intended to replace the medical advice of your doctor or health care provider. Please consult your health care provider for advice about a specific medical condition. This document was last reviewed on: 2011?#8116 ? Copyright 9440-9063 The [place]. All rights reserved This information is provided by the [facility] and is not intended to replace the medical advice of your doctor or health care provider. Please consult your health care provider for advice about a specific medical condition. For additional health information, please contact the [facility] Information at the [facility] or toll-free extension [phone]. If you prefer, you may visit [email or web address] or [email or web address]. This document was last reviewed on: 2011 index#8116 Referring Provider: SELF [[id number]] Allergies As of Date: 04/16/2018 Noted Allergy Reaction VICODIN (HYDROCODONE-ACETAMINOPHE*12/26/2016 14 - Other: See Comments Comments: Passed out Shortness of breath. 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 Take as necessary for leg swelling/shortness of breath, or wt gain > 3 lbs in a dayDisp: 90 tabletRfl: 3 ECHO [[id number]] Order #: [id number]: 1 FUTURE NT PRO BNP [SQNTBNP] Order #: [id number] FUTURE Prescriptions as of 04/16/2018 Sig: FUROSEMIDE 80 MG TABLET Take 1 tablet by mouth once d* VOLTAREN 1 % TOPICAL GEL Apply 4 g to affected area fo* CELECOXIB 200 MG CAPSULE Take 1 capsule by mouth once * PREGABALIN 200 MG CAPSULE Take 1 capsule by mouth twice* POTASSIUM CHLORIDE ER 10 MEQ * Take 2 tablets by mouth twice* CETIRIZINE 10 MG TABLET Take 1 tablet by mouth once d* IPRATROPIUM BROMIDE 0.03 % NA* Use 1 [place] in the nose once * TOPIRAMATE 50 MG TABLET Take 1/4 a tablet by mouth tw* NITROGLYCERIN 0.4 MG SUBLINGU* Dissolve 1 tablet under the t* MONTELUKAST 10 MG TABLET Take 1 tablet by mouth once d* ALBUTEROL SULFATE HFA 90 MCG/* inhale 2 puffs by mouth every* CYCLOSPORINE 0.05 % EYE DROPS* Use 1 Drop in both eyes every* CHOLECALCIFEROL (VITAMIN D3) * Take 1 capsule by mouth once * [id number]-* Take 1 tablet by mouth once d* CYANOCOBALAMIN (B12)-COBAMAMI* Dissolve 1 tablet under the t* ROPINIROLE 3 MG TABLET Take 1 tablet by mouth twice * MULTIVITAMIN TABLET Take 1 tablet by mouth once d* ONDANSETRON HCL 4 MG TABLET Take 1 tablet by mouth every * CLONAZEPAM 0.5 MG TABLET Take 0.5 mg by mouth twice da* DESONIDE 0.05 % TOPICAL CREAM Apply 1 application to affect* OMEPRAZOLE 40 MG CAPSULE,MARCELLE* Take 40 mg by mouth once chris* FLUTICASONE 50 MCG/ACTUATION * Use 1 [place] in each nostril d* Problem List As Of Date 04/16/2018 Noted Resolved PAPA (obstructive sleep apnea) [G47.33] INVALID FOR* Uncomplicated asthma [J45.909] INVALID FOR*11/10/2017 Moderate persistent asthma without complication*INVALID FOR* Vocal cord dysfunction [J38.3] INVALID FOR*11/10/2017 Non morbid obesity [E66.9] INVALID FOR*11/10/2017 Allergic rhinitis due to pollen [J30.1] INVALID FOR*11/10/2017 Allergic rhinitis due to house dust mite [J30.8*INVALID FOR*11/10/2017 Allergic rhinitis due to animal hair and dander*INVALID FOR* Allergic conjunctivitis [H10.10] INVALID FOR*11/10/2017 Diastolic heart failure (HCC) [I50.30] 09/20/2017 Pain of right upper arm [M79.621] INVALID FOR*11/10/2017 Rotator cuff syndrome [M75.100] INVALID FOR* Paroxysmal A-fib (HCC) [I48.0] 09/20/2017 More... CHF (congestive heart failure) (HCC) [I50.9] 09/20/2017 More... Benign paroxysmal positional vertigo [H81.10] Chest pain [R07.9] 11/10/2017 More... Chronic diastolic CHF (congestive heart failure*INVALID FOR*09/20/2017 Prolapsed cervical intervertebral disc [M50.20] OA (osteoarthritis) of knee [M17.10] More... Fibromyalgia [M79.7] More... Complete tear of right rotator cuff [M75.121] INVALID FOR* Abnormal EKG [R94.31] INVALID FOR*11/10/2017 Hypokalemia [E87.6] INVALID FOR*08/08/2017 Primary localized osteoarthrosis of right shoul*INVALID FOR* Postmenopausal [Z78.0] INVALID FOR*11/10/2017 Osteoporosis screening [Z13.820] INVALID FOR*11/10/2017 Hypokalemia [E87.6] INVALID FOR*11/10/2017 Non-cardiac chest pain [R07.89] 11/10/2017 More... CHF (congestive heart failure) (HCC) [I50.9] 11/10/2017 More... UTI (urinary tract infection) [N39.0] INVALID FOR* Syncope [R55] INVALID FOR* Hypotension [I95.9] INVALID FOR*11/10/2017 HTN (hypertension) [I10] INVALID FOR* Obesity, Class I, BMI 30-34.9 [E66.9] INVALID FOR* Status post reverse total shoulder replacement,*INVALID FOR* Acute midline low back pain without sciatica [M*INVALID FOR* Gastric bypass status for obesity [Z98.84] INVALID FOR* Other instructions from your clinician: Understanding Heart Failure What are the symptoms of heart failure? You may not have any symptoms of heart failure, or the symptoms may be mild to severe. Symptoms can be constant, or can come and go. Symptoms are due to the changes that occur in your heart and body and include: ? Shortness of breath or difficulty breathing with exercise, at rest, or when lying flat in bed. Shortness of breath occurs when fluid backs up into the lungs (congestion) or when your body does not have enough oxygen-rich blood to let you go on with your activity or exercise without a rest period. Even though you think of breathing as a lung problem, your heart condition can cause periods of shortness of breath. In some cases, symptoms may cause you to wake up suddenly at night, disrupting your normal sleep patterns. ? A dry, hacking cough or wheezing ? Swollen ankles, legs and abdomen, and weight gain. Less blood to the kidneys causes you to retain fluid and water, resulting in edema (swelling) and water weight gain. ? Need to urinate while resting at night. [place] causes more blood to get to the kidneys when you are lying down. ? Tiredness (fatigue) and weakness during exercise or activities occur because the heart is not pumping enough oxygen-rich blood to major organs and muscles. ? Dizziness, confusion, difficulty concentrating or fainting may occur because the heart is not pumping enough oxygen-rich blood to the brain. ? Rapid or irregular heartbeats (palpitations): When the heart muscle does not pump well, the heartbeat speeds up to help the heart get enough oxygen-rich blood to major organs and muscles, or the heartbeat may become abnormal. Other symptoms include a feeling of fullness (bloating) in your stomach, loss of appetite or nausea. If you have heart failure, you may have one or all of these symptoms. Sometimes, people with heart failure do not have any symptoms. What are the types of heart failure? Systolic left ventricular dysfunction (or systolic heart failure) occurs when the muscle in the heart?s left ventricle doesn?t contract with enough force, so less oxygen-rich blood is pumped throughout the body. Heart failure with preserved left ventricular function (diastolic heart failure) occurs when the heart contracts normally, but the ventricles do not relax properly or are stiff, and less blood enters the heart during normal filling. Your ejection fraction (EF) is used to measure how well your heart pumps with each beat to determine the level of systolic dysfunction. Data obtained on an echocardiogram (ECG or EKG) can tell us if you have heart failure with diastolic dysfunction. Left ventricular ejection fraction (LVEF) is the measurement of how much blood is being pumped out of the left ventricle of the heart (the main pumping chamber) with each contraction. Right ventricular ejection fraction (RVEF) is the measurement of how much blood is being pumped out of the right side of the heart to the lungs for oxygen. In most cases, the term ejection fraction refers to LVEF. EF % Pumping Ability of the Heart 55% to 70% Normal 36% to 54% Below normal 35% to 40% Moderately below normal <35% Severely below normal; may be at risk of life-threatening irregular heartbeats or uncoordinated contraction of heart muscle What do the numbers mean? Ejection fraction is usually expressed as a percentage. A normal heart pumps a little more than half the heart?s blood volume with each beat. A normal LVEF ranges from 55% to 70%. An LVEF of 65, for example, means that 65% of the total amount of blood in the left ventricle is pumped out with each heartbeat. The LVEF may be lower when the heart muscle has become damaged due to a heart attack, heart muscle disease (cardiomyopathy) or other causes. A reduced EF may confirm a diagnosis of systolic heart failure. In diastolic failure, the EF is normal, since the heart pumps normally. Often, the heart is also enlarged. An EF of less than 35% increases the risk of life-threatening irregular heartbeats that can cause sudden cardiac arrest (loss of heart function) and sudden cardiac . An implantable cardioverter defibrillator (ICD) may be recommended. Patients who develop severe, advanced heart failure may benefit from special treatments, such as cardiac transplantation or a ventricular assist device (VAD). If your quality of life is very poor or your doctor has told you that your condition is very severe, please ask about other treatments. Your EF can go up and down, based on your heart condition and the therapies that have been prescribed. How is EF measured? Your EF can be measured in your doctor?s office during tests such as: ? Ultrasound of the heart (echocardiography) ? Magnetic resonance imaging (MRI) scan of the heart ? Nuclear medicine scan (multiple gated acquisition [MUGA]) of the heart; also called a nuclear stress test Why it?s important to know your EF If you have a heart condition, it is important for you and your doctor to know your EF. Your EF can help your doctor determine the best course of treatment for you and the effectiveness of the therapies that have been prescribed. You should have your EF measured when you are first diagnosed with a heart condition, and again as needed, based on changes in your condition. Ask your doctor how often you should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 Take 1 capsule by mouth once * [id number]-* Take 1 tablet by mouth once d* Patient not taking: Reported on 12/19/2017 FERROUS SULFATE 325 MG (65 MG* Take 1 tablet by mouth daily * CYANOCOBALAMIN (B12)-COBAMAMI* Dissolve 1 tablet under the t* ROPINIROLE 3 MG TABLET Take 1 tablet by mouth twice * MULTIVITAMIN TABLET Take 1 tablet by mouth once d* ONDANSETRON HCL 4 MG TABLET Take 1 tablet by mouth every * EPIPEN 2-AZIZA 0.3 MG/0.3 ML IN* Inject 0.3 mg intramuscularly* CLONAZEPAM 0.5 MG TABLET Take 0.5 mg by mouth twice da* PRISTIQ 50 MG TABLET,EXTENDED* Take 50 mg by mouth once chris* NEBULIZER AND COMPRESSOR 1 Device as needed. Use as di* DESONIDE 0.05 % TOPICAL CREAM Apply 1 application to affect* OMEPRAZOLE 40 MG CAPSULE,MARCELLE* Take 40 mg by mouth once chris* FLUTICASONE 50 MCG/ACTUATION * Use 1 Aquebogue in each nostril d* Problem List As Of Date 01/03/2018 Noted Resolved PAPA (obstructive sleep apnea) [G47.33] INVALID FOR* Uncomplicated asthma [J45.909] INVALID FOR*11/10/2017 Moderate persistent asthma without complication*INVALID FOR* Vocal cord dysfunction [J38.3] INVALID FOR*11/10/2017 Non morbid obesity [E66.9] INVALID FOR*11/10/2017 Allergic rhinitis due to pollen [J30.1] INVALID FOR*11/10/2017 Allergic rhinitis due to house dust mite [J30.8*INVALID FOR*11/10/2017 Allergic rhinitis due to animal hair and dander*INVALID FOR* Allergic conjunctivitis [H10.10] INVALID FOR*11/10/2017 Diastolic heart failure (HCC) [I50.30] 09/20/2017 Pain of right upper arm [M79.621] INVALID FOR*11/10/2017 Rotator cuff syndrome [M75.100] INVALID FOR* Paroxysmal A-fib (HCC) [I48.0] 09/20/2017 More... CHF (congestive heart failure) (HCC) [I50.9] 09/20/2017 More... Benign paroxysmal positional vertigo [H81.10] Chest pain [R07.9] 11/10/2017 More... Chronic diastolic CHF (congestive heart failure*INVALID FOR*09/20/2017 Prolapsed cervical intervertebral disc [M50.20] OA (osteoarthritis) of knee [M17.10] More... Fibromyalgia [M79.7] More... Complete tear of right rotator cuff [M75.121] INVALID FOR* Abnormal EKG [R94.31] INVALID FOR*11/10/2017 Hypokalemia [E87.6] INVALID FOR*08/08/2017 Primary localized osteoarthrosis of right shoul*INVALID FOR* Postmenopausal [Z78.0] INVALID FOR*11/10/2017 Osteoporosis screening [Z13.820] INVALID FOR*11/10/2017 Hypokalemia [E87.6] INVALID FOR*11/10/2017 Non-cardiac chest pain [R07.89] 11/10/2017 More... CHF (congestive heart failure) (HCC) [I50.9] 11/10/2017 More... UTI (urinary tract infection) [N39.0] INVALID FOR* Syncope [R55] INVALID FOR* Hypotension [I95.9] INVALID FOR*11/10/2017 HTN (hypertension) [I10] INVALID FOR* Obesity, Class I, BMI 30-34.9 [E66.9] INVALID FOR* Status post reverse total shoulder replacement,*INVALID FOR* Prescriptions ordered this encounter Disp Refills Start End PREGABALIN 200 MG CAPSULE 180 * 0 01/06/2018 04/06/2018 Class: Call Rx Route: ORAL Sig: Take 1 capsule by mouth twice daily for 90 days. Medications Discontinued During This Encounter LYRICA 200 mg capsule 180 * 1 06/29/2016 01/06/2018 Class: Print RX Sig: take 1 capsule by mouth twice a day Disc: Reason for discontinue is not on file. Encounter Status:Closed by GAEL BISHOP MD on 01/06/18 PROGRESS Observed: 12/27/2017 Status: COMPLETED Source: [place] 12:17 PM CLINIC OTHER CAMPUS REPOSITORY HNO ID: [id number] Author: Kat Quispe Service: (none) Author Type: Physician Type: Progress Notes Filed: 01/21/2018 4:34 PM Note Text: Hoa Sánchez returns after [facility]. She is doing well with the shoulder but has had some medical issues lately that have required treatment. She had a fall recently and is worried about the implant. 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 PLAN: - Overall she is happy with her progress. I think she is heading for a good result, but this will take some time due to her recent rotator cuff surgery in proximity to the arthroplasty. - Continue unrestricted use of the shoulder - Return in 6 months for one-year visit - NSAIDs and Tylenol were recommended for pain relief. Mediation was not prescribed today, and instead the patient was advised to obtain a prescription from the primary care physician or to purchase [id number] medication. The patient was advised that anti-inflammatory medications have associated risks, benefits and complications. Explanation of the risks, benefits, complications and alternative treatment were provided. The risks that were explained included but were not limited to: 1. GI disturbance as serious as GI bleed and 2. Liver damage 3. Kidney damages including renal failure. 4. Heart problems such as myocardial infarction; increase blood pressure, even stroke The patient was also told that if any unusual symptoms develop, that the medication should be stopped immediately and that their primary care physician as well as our office should be notified. If they take anti-inflammatory medication residential, they understand the need for medication monitoring through their primary care physician. The patient was advised to read and review the product insert and if they have any questions to contact us. Kat Quispe MD Shoulder AND Elbow Surgeon Department of Orthopaedic Surgery [facility] OBSOLETE Observed: 12/27/2017 Status: COMPLETED Source: [place] 12:[address] [facility] OTHER CAMPUS REPOSITORY Refill (AGCARDPOB) ANABELHOA ([id number]) 1950 F [facility] Date Time Provider Department 12/27/17 LEWABDOULAYE ArevaloMARTINEZABBIE RAMEY During your visit today, we recorded the following information about you: Alexa Addison LPN 12/27/2017 1:54 PM Signed Pharmacy electronically requesting refills as follows: Refused Prescriptions Disp Refills cetirizine (ZYRTEC) 10 mg tablet [Pharmacy Med Name: CETIRIZINE HCL 10 MG TABLET] 30 tablet 2 Sig: take 1 tablet by mouth at bedtime BELEM: No Refused By: ALEXA ADDISON Reason for Refusal: A Refill not appropriate Reason for Refusal Comment: Non-cardiac, please contact PCP for refill. Please review and advise. Alexa Addison LPN Allergies As of Date: 12/27/2017 Noted Allergy Reaction VICODIN (HYDROCODONE-ACETAMINOPHE*12/26/2016 14 - Other: See Comments Comments: Passed out Shortness of breath. Date Reviewed: 12/19/2017 Reviewed by: Perla Deshpande - Fully Assessed Reason for Visit: Refill Request [94] Prescriptions as of 12/27/2017 Sig: FUROSEMIDE 80 MG TABLET Take 1 tablet by mouth once d* PROMETHAZINE 25 MG TABLET Take 1 tablet by mouth every * CETIRIZINE 10 MG TABLET Take 1 tablet by mouth once d* DOCUSATE SODIUM 100 MG CAPSULE Take 1 capsule by mouth twice* IPRATROPIUM BROMIDE 0.03 % NA* Use 1 Aquebogue in the nose once * TOPIRAMATE 50 MG TABLET Take 1/4 a tablet by mouth tw* MECLIZINE 12.5 MG TABLET Take 1 tablet by mouth twice * POTASSIUM CHLORIDE ER 20 MEQ * Take 1 tablet by mouth twice * RANOLAZINE ER 500 MG TABLET,E* Take 1 tablet by mouth twice * THIAMINE HCL (VITAMIN B1) 250* Take 250 mg by mouth once yenifer* CHOLESTYRAMINE (WITH SUGAR) 4* Take 1 Packet by mouth twice * NITROGLYCERIN 0.4 MG SUBLINGU* Dissolve 1 tablet under the t* MONTELUKAST 10 MG TABLET Take 1 tablet by mouth once d* BUDESONIDE-FORMOTEROL HFA 160* Inhale 2 Puffs as instructed * ALBUTEROL SULFATE HFA 90 MCG/* inhale 2 puffs by mouth every* DICLOFENAC 1 % TOPICAL GEL Apply 2 g to affected area fo* CYCLOSPORINE 0.05 % EYE DROPS* Use 1 Drop in both eyes every* CHOLECALCIFEROL (VITAMIN D3) * Take 1 capsule by mouth once * [id number]-* Take 1 tablet by mouth once d* Patient not taking: Reported on 12/19/2017 FERROUS SULFATE 325 MG (65 MG* Take 1 tablet by mouth daily * CYANOCOBALAMIN (B12)-COBAMAMI* Dissolve 1 tablet under the t* ROPINIROLE 3 MG TABLET Take 1 tablet by mouth twice * MULTIVITAMIN TABLET Take 1 tablet by mouth once d* LYRICA 200 MG CAPSULE take 1 capsule by mouth twice* ONDANSETRON HCL 4 MG TABLET Take 1 tablet by mouth every * EPIPEN 2-AZIZA 0.3 MG/0.3 ML IN* Inject 0.3 mg intramuscularly* CLONAZEPAM 0.5 MG TABLET Take 0.5 mg by mouth twice da* PRISTIQ 50 MG TABLET,EXTENDED* Take 50 mg by mouth once chris* NEBULIZER AND COMPRESSOR 1 Device as needed. Use as di* DESONIDE 0.05 % TOPICAL CREAM Apply 1 application to affect* OMEPRAZOLE 40 MG CAPSULE,MARCELLE* Take 40 mg by mouth once chris* FLUTICASONE 50 MCG/ACTUATION * Use 1 Aquebogue in each nostril d* Problem List As Of Date 12/27/2017 Noted Resolved PAPA (obstructive sleep apnea) [G47.33] INVALID FOR* Uncomplicated asthma [J45.909] INVALID FOR*11/10/2017 Moderate persistent asthma without complication*INVALID FOR* Vocal cord dysfunction [J38.3] INVALID FOR*11/10/2017 Non morbid obesity [E66.9] INVALID FOR*11/10/2017 Allergic rhinitis due to pollen [J30.1] INVALID FOR*11/10/2017 Allergic rhinitis due to house dust mite [J30.8*INVALID FOR*11/10/2017 Allergic rhinitis due to animal hair and dander*INVALID FOR* Allergic conjunctivitis [H10.10] INVALID FOR*11/10/2017 Diastolic heart failure (HCC) [I50.30] 09/20/2017 Pain of right upper arm [M79.621] INVALID FOR*11/10/2017 Rotator cuff syndrome [M75.100] INVALID FOR* Paroxysmal A-fib (HCC) [I48.0] 09/20/2017 More... CHF (congestive heart failure) (HCC) [I50.9] 09/20/2017 More... Benign paroxysmal positional vertigo [H81.10] Chest pain [R07.9] 11/10/2017 More... Chronic diastolic CHF (congestive heart failure*INVALID FOR*09/20/2017 Prolapsed cervical intervertebral disc [M50.20] OA (osteoarthritis) of knee [M17.10] More... Fibromyalgia [M79.7] More... Complete tear of right rotator cuff [M75.121] INVALID FOR* Abnormal EKG [R94.31] INVALID FOR*11/10/2017 Hypokalemia [E87.6] INVALID FOR*08/08/2017 Primary localized osteoarthrosis of right shoul*INVALID FOR* Postmenopausal [Z78.0] INVALID FOR*11/10/2017 Osteoporosis screening [Z13.820] INVALID FOR*11/10/2017 Hypokalemia [E87.6] INVALID FOR*11/10/2017 Non-cardiac chest pain [R07.89] 11/10/2017 More... CHF (congestive heart failure) (HCC) [I50.9] 11/10/2017 More... UTI (urinary tract infection) [N39.0] INVALID FOR* Syncope [R55] INVALID FOR* Hypotension [I95.9] INVALID FOR*11/10/2017 HTN (hypertension) [I10] INVALID FOR* Obesity, Class I, BMI 30-34.9 [E66.9] INVALID FOR* Status post reverse total shoulder replacement,*INVALID FOR* Encounter Status:Closed by ALEXA ADDISON on 12/27/17 OBSOLETE Observed: 12/27/2017 Status: COMPLETED Source: [place] 12:00 AM CLINIC OTHER CAMPUS REPOSITORY Refill (AGCARDPOB) HOA SÁNCHEZ ([id number]) 1950 F [place] Date Time Provider Department 12/27/17 MARTINEZ BISHOP During your visit today, we recorded the following information about you: Alexa Addison LPN 12/27/2017 1:18 PM Signed Pharmacy electronically requesting refills as follows: Pending Prescriptions Disp Refills POTASSIUM CHLORIDE ER 10 MEQ TABLET,EXTENDED RELEASE(PART/CRYST) 180 tablet 3 Sig: Take 2 tablets by mouth twice daily. BELEM: No Last seen in the office on 09/24/2017. Follow up scheduled for 04/14/2018. Please review and advise. Alexa Addison LPN Allergies As of Date: 12/27/2017 Noted Allergy Reaction VICODIN (HYDROCODONE-ACETAMINOPHE*12/26/2016 14 - Other: See Comments Comments: Passed out Shortness of breath. Date Reviewed: 12/19/2017 Reviewed by: Perla Deshpande - Fully Assessed Reason for Visit: Refill Request [94] Order(s):potassium chloride ER (K-DUR, KLOR-CON) 10 mEq tabletTake 2 tablets by mouth twice daily.Disp: 180 tabletRfl: 3 Prescriptions as of 12/27/2017 Sig: POTASSIUM CHLORIDE ER 10 MEQ * Take 2 tablets by mouth twice* FUROSEMIDE 80 MG TABLET Take 1 tablet by mouth once d* PROMETHAZINE 25 MG TABLET Take 1 tablet by mouth every * CETIRIZINE 10 MG TABLET Take 1 tablet by mouth once d* DOCUSATE SODIUM 100 MG CAPSULE Take 1 capsule by mouth twice* IPRATROPIUM BROMIDE 0.03 % NA* Use 1 Aquebogue in the nose once * TOPIRAMATE 50 MG TABLET Take 1/4 a tablet by mouth tw* MECLIZINE 12.5 MG TABLET Take 1 tablet by mouth twice * POTASSIUM CHLORIDE ER 20 MEQ * Take 1 tablet by mouth twice * RANOLAZINE ER 500 MG TABLET,E* Take 1 tablet by mouth twice * THIAMINE HCL (VITAMIN B1) 250* Take 250 mg by mouth once yenifer* CHOLESTYRAMINE (WITH SUGAR) 4* Take 1 Packet by mouth twice * NITROGLYCERIN 0.4 MG SUBLINGU* Dissolve 1 tablet under the t* MONTELUKAST 10 MG TABLET Take 1 tablet by mouth once d* BUDESONIDE-FORMOTEROL HFA 160* Inhale 2 Puffs as instructed * ALBUTEROL SULFATE HFA 90 MCG/* inhale 2 puffs by mouth every* DICLOFENAC 1 % TOPICAL GEL Apply 2 g to affected area fo* CYCLOSPORINE 0.05 % EYE DROPS* Use 1 Drop in both eyes every* CHOLECALCIFEROL (VITAMIN D3) * Take 1 capsule by mouth once * [id number]-* Take 1 tablet by mouth once d* Patient not taking: Reported on 12/19/2017 FERROUS SULFATE 325 MG (65 MG* Take 1 tablet by mouth daily * CYANOCOBALAMIN (B12)-COBAMAMI* Dissolve 1 tablet under the t* ROPINIROLE 3 MG TABLET Take 1 tablet by mouth twice * MULTIVITAMIN TABLET Take 1 tablet by mouth once d* LYRICA 200 MG CAPSULE take 1 capsule by mouth twice* ONDANSETRON HCL 4 MG TABLET Take 1 tablet by mouth every * EPIPEN 2-AZIZA 0.3 MG/0.3 ML IN* Inject 0.3 mg intramuscularly* CLONAZEPAM 0.5 MG TABLET Take 0.5 mg by mouth twice da* PRISTIQ 50 MG TABLET,EXTENDED* Take 50 mg by mouth once chris* NEBULIZER AND COMPRESSOR 1 Device as needed. Use as di* DESONIDE 0.05 % TOPICAL CREAM Apply 1 application to affect* OMEPRAZOLE 40 MG CAPSULE,MARCELLE* Take 40 mg by mouth once chris* FLUTICASONE 50 MCG/ACTUATION * Use 1 Aquebogue in each nostril d* Problem List As Of Date 12/27/2017 Noted Resolved PAPA (obstructive sleep apnea) [G47.33] INVALID FOR* Uncomplicated asthma [J45.909] INVALID FOR*11/10/2017 Moderate persistent asthma without complication*INVALID FOR* Vocal cord dysfunction [J38.3] INVALID FOR*11/10/2017 Non morbid obesity [E66.9] INVALID FOR*11/10/2017 Allergic rhinitis due to pollen [J30.1] INVALID FOR*11/10/2017 Allergic rhinitis due to house dust mite [J30.8*INVALID FOR*11/10/2017 Allergic rhinitis due to animal hair and dander*INVALID FOR* Allergic conjunctivitis [H10.10] INVALID FOR*11/10/2017 Diastolic heart failure (HCC) [I50.30] 09/20/2017 Pain of right upper arm [M79.621] INVALID FOR*11/10/2017 Rotator cuff syndrome [M75.100] INVALID FOR* Paroxysmal A-fib (HCC) [I48.0] 09/20/2017 More... CHF (congestive heart failure) (HCC) [I50.9] 09/20/2017 More... Benign paroxysmal positional vertigo [H81.10] Chest pain [R07.9] 11/10/2017 More... Chronic diastolic CHF (congestive heart failure*INVALID FOR*09/20/2017 Prolapsed cervical intervertebral disc [M50.20] OA (osteoarthritis) of knee [M17.10] More... Fibromyalgia [M79.7] More... Complete tear of right rotator cuff [M75.121] INVALID FOR* Abnormal EKG [R94.31] INVALID FOR*11/10/2017 Hypokalemia [E87.6] INVALID FOR*08/08/2017 Primary localized osteoarthrosis of right shoul*INVALID FOR* Postmenopausal [Z78.0] INVALID FOR*11/10/2017 Osteoporosis screening [Z13.820] INVALID FOR*11/10/2017 Hypokalemia [E87.6] INVALID FOR*11/10/2017 Non-cardiac chest pain [R07.89] 11/10/2017 More... CHF (congestive heart failure) (HCC) [I50.9] 11/10/2017 More... UTI (urinary tract infection) [N39.0] INVALID FOR* Syncope [R55] INVALID FOR* Hypotension [I95.9] INVALID FOR*11/10/2017 HTN (hypertension) [I10] INVALID FOR* Obesity, Class I, BMI 30-34.9 [E66.9] INVALID FOR* Status post reverse total shoulder replacement,*INVALID FOR* Prescriptions ordered this encounter Disp Refills Start End POTASSIUM CHLORIDE ER 10 MEQ TABLET,* 180 * 3 12/28/2017 Route: ORAL Sig: Take 2 tablets by mouth twice daily. Encounter Status:Closed by MARTINEZ BISHOP on 12/28/17 OBSOLETE Observed: 12/25/2017 Status: COMPLETED Source: [place] 12:00 AM CLINIC OTHER [place] REPOSITORY Refill (AGCARDPOB) ANABELHOA M ([id number]) 1950 F [facility] Date Time Provider Department 12/25/17 MARTINEZ BISHOP AGCARDPOB During your visit today, we recorded the following information about you: Samantha Zamora CMA 12/26/2017 8:29 AM Signed Pharmacy electronically requesting refills as follows: Pending Prescriptions Disp Refills FUROSEMIDE 80 MG TABLET 90 tablet 3 Sig: Take 1 tablet by mouth once daily. BELEM: No Please review and advise. Samantha Zamora CMA Allergies As of Date: 12/25/2017 Noted Allergy Reaction VICODIN (HYDROCODONE-ACETAMINOPHE*12/26/2016 14 - Other: See Comments Comments: Passed out Shortness of breath. Date Reviewed: 12/19/2017 Reviewed by: Perla Deshpande - Fully Assessed Reason for Visit: Refill Request [94] Order(s):furosemide (LASIX) 80 mg tabletTake 1 tablet by mouth once daily.Disp: 90 tabletRfl: 3 Prescriptions as of 12/25/2017 Sig: FUROSEMIDE 80 MG TABLET Take 1 tablet by mouth once d* PROMETHAZINE 25 MG TABLET Take 1 tablet by mouth every * CETIRIZINE 10 MG TABLET Take 1 tablet by mouth once d* DOCUSATE SODIUM 100 MG CAPSULE Take 1 capsule by mouth twice* IPRATROPIUM BROMIDE 0.03 % NA* Use 1 [place]quebogue in the nose once * TOPIRAMATE 50 MG TABLET Take 1/4 a tablet by mouth tw* MECLIZINE 12.5 MG TABLET Take 1 tablet by mouth twice * POTASSIUM CHLORIDE ER 20 MEQ * Take 1 tablet by mouth twice * RANOLAZINE ER 500 MG TABLET,E* Take 1 tablet by mouth twice * THIAMINE HCL (VITAMIN B1) 250* Take 250 mg by mouth once eynifer* CHOLESTYRAMINE (WITH SUGAR) 4* Take 1 Packet by mouth twice * NITROGLYCERIN 0.4 MG SUBLINGU* Dissolve 1 tablet under the t* MONTELUKAST 10 MG TABLET Take 1 tablet by mouth once d* BUDESONIDE-FORMOTEROL HFA 160* Inhale 2 Puffs as instructed * ALBUTEROL SULFATE HFA 90 MCG/* inhale 2 puffs by mouth every* DICLOFENAC 1 % TOPICAL GEL Apply 2 g to affected area fo* CYCLOSPORINE 0.05 % EYE DROPS* Use 1 Drop in both eyes every* CHOLECALCIFEROL (VITAMIN D3) * Take 1 capsule by mouth once * [id number]-* Take 1 tablet by mouth once d* Patient not taking: Reported on 12/19/2017 FERROUS SULFATE 325 MG (65 MG* Take 1 tablet by mouth daily * CYANOCOBALAMIN (B12)-COBAMAMI* Dissolve 1 tablet under the t* ROPINIROLE 3 MG TABLET Take 1 tablet by mouth twice * MULTIVITAMIN TABLET Take 1 tablet by mouth once d* LYRICA 200 MG CAPSULE take 1 capsule by mouth twice* ONDANSETRON HCL 4 MG TABLET Take 1 tablet by mouth every * EPIPEN 2-AZIZA 0.3 MG/0.3 ML IN* Inject 0.3 mg intramuscularly* CLONAZEPAM 0.5 MG TABLET Take 0.5 mg by mouth twice da* PRISTIQ 50 MG TABLET,EXTENDED* Take 50 mg by mouth once chris* NEBULIZER AND COMPRESSOR 1 Device as needed. Use as di* DESONIDE 0.05 % TOPICAL CREAM Apply 1 application to affect* OMEPRAZOLE 40 MG CAPSULE,MARCELLE* Take 40 mg by mouth once chris* FLUTICASONE 50 MCG/ACTUATION * Use 1 [place] in each nostril d* Problem List As Of Date 12/25/2017 Noted Resolved PAPA (obstructive sleep apnea) [G47.33] INVALID FOR* Uncomplicated asthma [J45.909] INVALID FOR*11/10/2017 Moderate persistent asthma without complication*INVALID FOR* Vocal cord dysfunction [J38.3] INVALID FOR*11/10/2017 Non morbid obesity [E66.9] INVALID FOR*11/10/2017 Allergic rhinitis due to pollen [J30.1] INVALID FOR*11/10/2017 Allergic rhinitis due to house dust mite [J30.8*INVALID FOR*11/10/2017 Allergic rhinitis due to animal hair and dander*INVALID FOR* Allergic conjunctivitis [H10.10] INVALID FOR*11/10/2017 Diastolic heart failure (HCC) [I50.30] 09/20/2017 Pain of right upper arm [M79.621] INVALID FOR*11/10/2017 Rotator cuff syndrome [M75.100] INVALID FOR* Paroxysmal A-fib (HCC) [I48.0] 09/20/2017 More... CHF (congestive heart failure) (HCC) [I50.9] 09/20/2017 More... Benign paroxysmal positional vertigo [H81.10] Chest pain [R07.9] 11/10/2017 More... Chronic diastolic CHF (congestive heart failure*INVALID FOR*09/20/2017 Prolapsed cervical intervertebral disc [M50.20] OA (osteoarthritis) of knee [M17.10] More... Fibromyalgia [M79.7] More... Complete tear of right rotator cuff [M75.121] INVALID FOR* Abnormal EKG [R94.31] INVALID FOR*11/10/2017 Hypokalemia [E87.6] INVALID FOR*08/08/2017 Primary localized osteoarthrosis of right shoul*INVALID FOR* Postmenopausal [Z78.0] INVALID FOR*11/10/2017 Osteoporosis screening [Z13.820] INVALID FOR*11/10/2017 Hypokalemia [E87.6] INVALID FOR*11/10/2017 Non-cardiac chest pain [R07.89] 11/10/2017 More... CHF (congestive heart failure) (HCC) [I50.9] 11/10/2017 More... UTI (urinary tract infection) [N39.0] INVALID FOR* Syncope [R55] INVALID FOR* Hypotension [I95.9] INVALID FOR*11/10/2017 HTN (hypertension) [I10] INVALID FOR* Obesity, Class I, BMI 30-34.9 [E66.9] INVALID FOR* Status post reverse total shoulder replacement,*INVALID FOR* Prescriptions ordered this encounter Disp Refills Start End FUROSEMIDE 80 MG TABLET 90 t* 3 12/26/2017 Route: ORAL Sig: Take 1 tablet by mouth once daily. Encounter Status:Closed by MARTINEZ BISHOP on 12/26/17 PROGRESS Observed: 12/19/2017 Status: COMPLETED Source: [place] 2:53 PM CLINIC OTHER [place] REPOSITORY HNO ID: [id number] Author: Perla Deshpande Service: (none) Author Type: Avionics Systems Technician Type: Progress Notes Filed: 01/21/2018 4:34 PM Note Text: Review of Systems: Ears, Nose, Throat: yes Cardiac/High Blood Pressure: yes Lungs (Asthma, Infection): yes Stomach/Digestion: yes Bladder/Bowel Problems: no Hematologic/Bleeding Problems: no Diabetes: no Cancer: no Musculoskeletal: yes Neurological: no Psychiatric Problems: yes VAS Pain Score: On a scale of 0 to 10, 10 being the worst pain imaginable and 0 being no pain, how severe is your pain? 01/31 CNOV Observed: 12/19/2017 Status: COMPLETED Source: [place] 2:[address] [facility] OTHER [place] REPOSITORY Office Visit (AGPOB1) HOA SÁNCHEZ ([id number]) 1950 [facility] Date Time Provider Department 12/19/17 2:45 PM KAT QUISPE AGPOB1 During your visit today, we recorded the following information about you: Respiration Weight Height 16/minute 84.4 kg 1.6 m Perla Deshpande MA 01/21/2018 4:34 PM Signed Review of Systems: Ears, Nose, Throat: yes Cardiac/High Blood Pressure: yes Lungs (Asthma, Infection): yes Stomach/Digestion: yes Bladder/Bowel Problems: no Hematologic/Bleeding Problems: no Diabetes: no Cancer: no Musculoskeletal: yes Neurological: no Psychiatric Problems: yes VAS Pain Score: On a scale of 0 to 10, 10 being the worst pain imaginable and 0 being no pain, how severe is your pain? 01/31 Kat Quispe MD 01/21/2018 4:34 PM Signed Hoa Sánchez returns after [facility]. She is doing well with the shoulder but has had some medical issues lately that have required treatment. She had a fall recently and is worried about the implant. 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 PLAN: - Overall she is happy with her progress. I think she is heading for a good result, but this will take some time due to her recent rotator cuff surgery in proximity to the arthroplasty. - Continue unrestricted use of the shoulder - Return in 6 months for one-year visit - NSAIDs and Tylenol were recommended for pain relief. Mediation was not prescribed today, and instead the patient was advised to obtain a prescription from the primary care physician or to purchase [id number] medication. The patient was advised that anti-inflammatory medications have associated risks, benefits and complications. Explanation of the risks, benefits, complications and alternative treatment were provided. The risks that were explained included but were not limited to: 1. GI disturbance as serious as GI bleed and 2. Liver damage 3. Kidney damages including renal failure. 4. Heart problems such as myocardial infarction; increase blood pressure, even stroke The patient was also told that if any unusual symptoms develop, that the medication should be stopped immediately and that their primary care physician as well as our office should be notified. If they take anti-inflammatory medication residential, they understand the need for medication monitoring through their primary care physician. The patient was advised to read and review the product insert and if they have any questions to contact us. Kat Quispe MD Shoulder AND Elbow Surgeon Department of Orthopaedic Surgery [facility] Referring Provider: SELF [200] Allergies As of Date: 12/19/2017 Noted Allergy Reaction VICODIN (HYDROCODONE-ACETAMINOPHE*12/26/2016 14 - Other: See Comments Comments: Passed out Shortness of breath. 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] Order(s):XR SHOULDER GENERAL 3V OR MORE AP/TRUE AP/OTHER RT [9282074] Order #: [id number] CONSULT TO PHYSICAL THERAPY [9002] Order #: [id number]: 1 Prescriptions as of 12/19/2017 Sig: PROMETHAZINE 25 MG TABLET Take 1 tablet by mouth every * CETIRIZINE 10 MG TABLET Take 1 tablet by mouth once d* DOCUSATE SODIUM 100 MG CAPSULE Take 1 capsule by mouth twice* TOPIRAMATE 50 MG TABLET Take 1/4 a tablet by mouth tw* MECLIZINE 12.5 MG TABLET Take 1 tablet by mouth twice * POTASSIUM CHLORIDE ER 20 MEQ * Take 1 tablet by mouth twice * RANOLAZINE ER 500 MG TABLET,E* Take 1 tablet by mouth twice * THIAMINE HCL (VITAMIN B1) 250* Take 250 mg by mouth once yenifer* NITROGLYCERIN 0.4 MG SUBLINGU* Dissolve 1 tablet under the t* MONTELUKAST 10 MG TABLET Take 1 tablet by mouth once d* DICLOFENAC 1 % TOPICAL GEL Apply 2 g to affected area fo* CYCLOSPORINE 0.05 % EYE DROPS* Use 1 Drop in both eyes every* CHOLECALCIFEROL (VITAMIN D3) * Take 1 capsule by mouth once * CYANOCOBALAMIN (B12)-COBAMAMI* Dissolve 1 tablet under the t* ROPINIROLE 3 MG TABLET Take 1 tablet by mouth twice * MULTIVITAMIN TABLET Take 1 tablet by mouth once d* X LYRICA 200 MG CAPSULE take 1 capsule by mouth twice* ONDANSETRON HCL 4 MG TABLET Take 1 tablet by mouth every * CLONAZEPAM 0.5 MG TABLET Take 0.5 mg by mouth twice da* PRISTIQ 50 MG TABLET,EXTENDED* Take 50 mg by mouth once chris* NEBULIZER AND COMPRESSOR 1 Device as needed. Use as di* DESONIDE 0.05 % TOPICAL CREAM Apply 1 application to affect* OMEPRAZOLE 40 MG CAPSULE,MARCELLE* Take 40 mg by mouth once chris* FLUTICASONE 50 MCG/ACTUATION * Use 1 [place] in each nostril d* IPRATROPIUM BROMIDE 0.03 % NA* Use 1 [place] in the nose once * CHOLESTYRAMINE (WITH SUGAR) 4* Take 1 Packet by mouth twice * BUDESONIDE-FORMOTEROL HFA 160* Inhale 2 Puffs as instructed * ALBUTEROL SULFATE HFA 90 MCG/* inhale 2 puffs by mouth every* [id number]-* Take 1 tablet by mouth once d* Patient not taking: Reported on 12/19/2017 FERROUS SULFATE 325 MG (65 MG* Take 1 tablet by mouth daily * EPIPEN 2-AZIZA 0.3 MG/0.3 ML IN* Inject 0.3 mg intramuscularly* Problem List As Of Date 12/19/2017 Noted Resolved PAPA (obstructive sleep apnea) [G47.33] INVALID FOR* Uncomplicated asthma [J45.909] INVALID FOR*11/10/2017 Moderate persistent asthma without complication*INVALID FOR* Vocal cord dysfunction [J38.3] INVALID FOR*11/10/2017 Non morbid obesity [E66.9] INVALID FOR*11/10/2017 Allergic rhinitis due to pollen [J30.1] INVALID FOR*11/10/2017 Allergic rhinitis due to house dust mite [J30.8*INVALID FOR*11/10/2017 Allergic rhinitis due to animal hair and dander*INVALID FOR* Allergic conjunctivitis [H10.10] INVALID FOR*11/10/2017 Diastolic heart failure (HCC) [I50.30] 09/20/2017 Pain of right upper arm [M79.621] INVALID FOR*11/10/2017 Rotator cuff syndrome [M75.100] INVALID FOR* Paroxysmal A-fib (HCC) [I48.0] 09/20/2017 More... CHF (congestive heart failure) (HCC) [I50.9] 09/20/2017 More... Benign paroxysmal positional vertigo [H81.10] Chest pain [R07.9] 11/10/2017 More... Chronic diastolic CHF (congestive heart failure*INVALID FOR*09/20/2017 Prolapsed cervical intervertebral disc [M50.20] OA (osteoarthritis) of knee [M17.10] More... Fibromyalgia [M79.7] More... Complete tear of right rotator cuff [M75.121] INVALID FOR* Abnormal EKG [R94.31] INVALID FOR*11/10/2017 Hypokalemia [E87.6] INVALID FOR*08/08/2017 Primary localized osteoarthrosis of right shoul*INVALID FOR* Postmenopausal [Z78.0] INVALID FOR*11/10/2017 Osteoporosis screening [Z13.820] INVALID FOR*11/10/2017 Hypokalemia [E87.6] INVALID FOR*11/10/2017 Non-cardiac chest pain [R07.89] 11/10/2017 More... CHF (congestive heart failure) (HCC) [I50.9] 11/10/2017 More... UTI (urinary tract infection) [N39.0] INVALID FOR* Syncope [R55] INVALID FOR* Hypotension [I95.9] INVALID FOR*11/10/2017 HTN (hypertension) [I10] INVALID FOR* Obesity, Class I, BMI 30-34.9 [E66.9] INVALID FOR* Status post reverse total shoulder replacement,*INVALID FOR* Encounter Status:Closed by KAT QUISPE MD on 01/21/18 HEMOGLOBIN A1C Collected: 11/15/2017 Status: F Source: [employer] 10:54 AM SYSTEM REPOSITORY TYPE CODE TESTS RESULT OUT OF RANGE REFERENCE UNITS LAB A1C2 4.0-5.7 % Normal Hemoglobin A1C 5.7 Result Comment: --HgbA1C levels may not be accurate in patients who have renal disease, received recent blood transfusions, are anemic, or who have dyshemoglobinemia. LAB EAG2 mg/dL Estimated Avg Glucose 117 Performed By: #### HA1C2 #### [employer] [address] [place] [id number] HEMOGRAM W/ AUTODIFF Collected: 11/14/2017 Status: F Source: [employer] 4:19 AM SYSTEM REPOSITORY TYPE CODE TESTS RESULT OUT OF REFERENCE UNITS RANGE LAB IWBC 3.6-10.7 10*3/uL WBC Normal 8.3 LAB RBC 3.80-5.20 10*6/uL Low RBC 3.38 LAB HGB 11.7-16.0 g/dL Low Hemoglobin 10.3 LAB HCT 35.0-47.0 % Low Hematocrit 30.4 LAB MCV 79.0-98.0 fL MCV Normal 89.8 LAB MCH 26.0-34.0 pg MCH Normal 30.6 LAB MCHC 32.0-36.0 % MCHC Normal 34.0 LAB RDW 11.5-14.5 % RDW High 15.2 LAB PLT 140-440 10*3/uL Platelet Normal 147 LAB MPV 7.4-10.4 fL MPV Normal 9.0 LAB GRAN% 40.0-80.0 % Granulocytes Normal 62.0 LAB LYMP% 20.0-40.0 % Lymphocytes Normal 30.7 LAB MONO% 2.0-10.0 % Monocytes Normal 6.0 LAB EOS% 1.0-6.0 % Low Eosinophils 0.9 LAB BAS% 0.0-2.0 % Basophils Normal 0.4 LAB ANC 1.8-7.0 10*3/uL Abs Normal Neutrophile Cnt 5.2 LAB ALC 1.0-4.3 10*3/uL Abs Lymph Cnt Normal 2.6 LAB AMC 0.0-0.8 10*3/uL Abs Monocyte Normal Cnt 0.5 LAB AEC 0.0-0.5 10*3/uL Abs Eosin Cnt Normal 0.1 LAB ABC 0.0-0.2 10*3/uL Abs Baso Cnt Normal 0.0 Performed By: #### HEMDF, CMP3M #### [employer] [address] [place] [phone] COMP PANEL WITH MG Collected: 11/14/2017 Status: F Source: [employer] 4:19 AM SYSTEM REPOSITORY TYPE CODE TESTS RESULT OUT OF RANGE REFERENCE UNITS LAB NA3 137-145 mmol/L Sodium Normal 142 LAB K3 3.5-5.1 mmol/L Normal Potassium 3.6 LAB CL3 98-107 mmol/L High Chloride 109 LAB CO23 22-30 mmol/L Carbon Normal Dioxide 27 LAB ANIN3 NA Anion Gap 7 LAB GLUC3 70-100 mg/dL Glucose Normal 91 LAB BUN3 7-20 mg/dL Urea Normal Nitrogen 9 LAB CRET3 0.52-1.25 mg/dL Normal Creatinine 0.64 LAB GF3BR >60 mL/min eGFR > 60.0 LAB GF3WR >60 mL/min eGFR OTHER > 60.0 Result Comment: Source- MDRD equation with creatinine calibration to IDMS(NKDEP) eGFR not recommended for drug dose adjustment LAB CA3 8.4-10.2 mg/dL Calcium Normal 8.4 LAB ALB3 3.5-5.0 g/dL Low Albumin, Serum 2.9 LAB TP3 6.3-8.2 g/dL Low Total Protein 5.6 LAB BILT3 0.2-1.3 mg/dL Normal Bilirubin,Total 1.1 LAB ALKP3 38-126 U/L Alkaline Normal Phosphatase 59 LAB ALT3 13-69 U/L ALT (SGPT) Normal 23 LAB AST3 15-46 U/L AST (SGOT) Normal 39 Performed By: #### HEMDF, CMP3M #### [facility] [employer] [address] [address] ARTERIAL BLOOD GASES Collected: 11/13/2017 Status: F Source: [employer] 3:38 AM SYSTEM REPOSITORY TYPE CODE TESTS RESULT OUT OF RANGE REFERENCE UNITS LAB HGBG ScreenOnly g/dL Hemoglobin 11.9 LAB PHG 7.350-7.450 NA High pH 7.484 LAB PCO2 35.0-45.0 mm[Hg] Low pCO2 32.6 LAB PO2 80.0-100.0 mm[Hg] High pO2 206.5 LAB HCO3 21.0-25.0 mmol/L HCO3 Normal 24.0 LAB TCO2 23.0-27.0 mmol/L TCO2 Normal 25.0 LAB SBE -3.0-3.0 mmol/L Std Base Normal Excess 1.0 LAB O2SAT 95.0-100.0 % O2 Normal Saturation 99.2 LAB FIO2 NA FIO2 No data Performed By: #### ABG #### [facility] [employer] [address] [phone] PROTHROMBIN TIME Collected: 11/13/2017 Status: F Source: [employer] 1:47 AM SYSTEM REPOSITORY TYPE CODE TESTS RESULT OUT OF REFERENCE UNITS RANGE LAB PROTM 9.0-12.0 s Prothrombin Normal Time 11.1 Result Comment: . LAB INR 0.9-1.1 NA Normal INR 1.1 Result Comment: Recommended Anticoagulant Therapy: SEE BELOW ----- INR of 2.0 - 3.0 : - Prophylaxis of Venous Thrombosis (high-risk surgery) - Treatment of Venous Thrombosis - Treatment of Pulmonary Embolism (Includes tissue heart valves, Acute Myocardial Infarction to prevent systemic embolism, Valvular Heart Disease, and Atrial Fibrillation) ----- INR of 2.5 - 3.5 : - Mechanical Prosthetic Valves (high risk) - If oral anticoagulant therapy is used to prevent Myocardial Infarction Performed By: #### PT, ICA, HEMDF, CMP3M, MG3, PHOS3 #### [facility] [address] [place] [address] [place] [address] CALCIUM,IONIZED Collected: 11/13/2017 Status: F Source: [employer] 1:47 AM SYSTEM REPOSITORY TYPE CODE TESTS RESULT OUT OF RANGE REFERENCE UNITS LAB ICAL 4.30-5.20 mg/dL Low Ionized 3.50 Ca,Measured LAB PHICA 7.31-7.46 NA Normal pH, Ionized 7.44 Calcium Performed By: #### PT, ICA, HEMDF, CMP3M, MG3, PHOS3 #### [facility] [address] [address] HEMOGRAM W/ AUTODIFF Collected: 11/13/2017 Status: F Source: [employer] 1:47 AM SYSTEM REPOSITORY TYPE CODE TESTS RESULT OUT OF REFERENCE UNITS RANGE LAB IWBC 3.6-10.7 10*3/uL WBC Normal 7.9 LAB RBC 3.80-5.20 10*6/uL Low RBC 3.79 LAB HGB 11.7-16.0 g/dL Low Hemoglobin 11.3 LAB HCT 35.0-47.0 % Low Hematocrit 33.7 LAB MCV 79.0-98.0 fL MCV Normal 89.0 LAB MCH 26.0-34.0 pg MCH Normal 29.9 LAB MCHC 32.0-36.0 % MCHC Normal 33.7 LAB RDW 11.5-14.5 % RDW High 15.8 LAB PLT 140-440 10*3/uL Platelet Normal 185 LAB MPV 7.4-10.4 fL MPV Normal 8.6 LAB GRAN% 40.0-80.0 % Granulocytes Normal 78.1 LAB LYMP% 20.0-40.0 % Low Lymphocytes 14.3 LAB MONO% 2.0-10.0 % Monocytes Normal 7.4 LAB EOS% 1.0-6.0 % Low Eosinophils 0.0 LAB BAS% 0.0-2.0 % Basophils Normal 0.2 LAB ANC 1.8-7.0 10*3/uL Abs Normal Neutrophile Cnt 6.2 LAB ALC 1.0-4.3 10*3/uL Abs Lymph Cnt Normal 1.1 LAB AMC 0.0-0.8 10*3/uL Abs Monocyte Normal Cnt 0.6 LAB AEC 0.0-0.5 10*3/uL Abs Eosin Cnt Normal 0.0 LAB ABC 0.0-0.2 10*3/uL Abs Baso Cnt Normal 0.0 Performed By: #### PT, ICA, HEMDF, CMP3M, MG3, PHOS3 #### [employer] [address] [phone] COMP PANEL WITH MG Collected: 11/13/2017 Status: F Source: [employer] [facility] 1:47 AM SYSTEM REPOSITORY TYPE CODE TESTS RESULT OUT OF RANGE REFERENCE UNITS LAB NA3 137-145 mmol/L Sodium Normal 144 LAB K3 3.5-5.1 mmol/L Normal Potassium 4.3 LAB CL3 98-107 mmol/L High Chloride 110 LAB CO23 22-30 mmol/L Carbon Normal Dioxide 26 LAB ANIN3 NA Anion Gap 9 LAB GLUC3 70-100 mg/dL High Glucose 122 LAB BUN3 7-20 mg/dL Urea Normal Nitrogen 9 LAB CRET3 0.52-1.25 mg/dL Normal Creatinine 0.88 LAB GF3BR >60 mL/min eGFR > 60.0 LAB GF3WR >60 mL/min eGFR OTHER > 60.0 Result Comment: Source- MDRD equation with creatinine calibration to IDMS(NKDEP) eGFR not recommended for drug dose adjustment LAB CA3 8.4-10.2 mg/dL Low Calcium 7.9 LAB ALB3 3.5-5.0 g/dL Low Albumin, Serum 3.2 LAB TP3 6.3-8.2 g/dL Low Total Protein 6.0 LAB BILT3 0.2-1.3 mg/dL Normal Bilirubin,Total 0.7 LAB ALKP3 38-126 U/L Alkaline Normal Phosphatase 69 LAB ALT3 13-69 U/L ALT (SGPT) Normal 19 LAB AST3 15-46 U/L AST (SGOT) Normal 19 Performed By: #### PT, ICA, HEMDF, CMP3M, MG3, PHOS3 #### [employer] [address] [phone] MAGNESIUM Collected: 11/13/2017 Status: F Source: [employer] 1:47 AM SYSTEM REPOSITORY TYPE CODE TESTS RESULT OUT OF RANGE REFERENCE UNITS LAB MG3 1.6-2.3 mg/dL Normal Magnesium 1.7 Performed By: #### PT, ICA, HEMDF, CMP3M, MG3, PHOS3 #### [employer] [facility] [address] [place] [address] PHOSPHORUS Collected: 11/13/2017 Status: F Source: [employer] 1:47 AM SYSTEM REPOSITORY TYPE CODE TESTS RESULT OUT OF RANGE REFERENCE UNITS LAB PHOS3 2.5-4.5 mg/dL Normal Phosphorus 4.1 Performed By: #### PT, ICA, HEMDF, CMP3M, MG3, PHOS3 #### [employer] [address] [place] [address] OBSOLETE Observed: 11/13/2017 Status: COMPLETED Source: [place] 12:00 AM CLINIC OTHER CAMPUS REPOSITORY Refill (AGCARDPOB) HOA SÁNCHEZ ([id number]) 1950 F T Date Time Provider Department 11/13/17 MARTINEZ BISHOP AGCARDPOB During your visit today, we recorded the following information about you: Allergies As of Date: 11/13/2017 Noted Allergy Reaction VICODIN (HYDROCODONE-ACETAMINOPHE*12/26/2016 14 - Other: See Comments Comments: Passed out Shortness of breath. Date Reviewed: 11/08/2017 Reviewed by: Sylwia (Rn) ERIKA Anderson - Fully Assessed Reason for Visit: Refill Request [94] Prescriptions as of 11/13/2017 Sig: SULFAMETHOXAZOLE 800 MG-TRIME* Take 1 tablet by mouth every * PROMETHAZINE 25 MG TABLET Take 1 tablet by mouth every * CETIRIZINE 10 MG TABLET Take 1 tablet by mouth once d* DOCUSATE SODIUM 100 MG CAPSULE Take 1 capsule by mouth twice* IPRATROPIUM BROMIDE 0.03 % NA* Use 1 [place] in the nose once * TOPIRAMATE 50 MG TABLET Take 1/4 a tablet by mouth tw* MECLIZINE 12.5 MG TABLET Take 1 tablet by mouth twice * POTASSIUM CHLORIDE ER 20 MEQ * Take 1 tablet by mouth twice * RANOLAZINE ER 500 MG TABLET,E* Take 1 tablet by mouth twice * THIAMINE HCL (VITAMIN B1) 250* Take 250 mg by mouth once yenifer* CHOLESTYRAMINE (WITH SUGAR) 4* Take 1 Packet by mouth twice * NITROGLYCERIN 0.4 MG SUBLINGU* Dissolve 1 tablet under the t* MONTELUKAST 10 MG TABLET Take 1 tablet by mouth once d* BUDESONIDE-FORMOTEROL HFA 160* Inhale 2 Puffs as instructed * ALBUTEROL SULFATE HFA 90 MCG/* inhale 2 puffs by mouth every* DICLOFENAC 1 % TOPICAL GEL Apply 2 g to affected area fo* CYCLOSPORINE 0.05 % EYE DROPS* Use 1 Drop in both eyes every* CHOLECALCIFEROL (VITAMIN D3) * Take 1 capsule by mouth once * [id number]-* Take 1 tablet by mouth once d* FERROUS SULFATE 325 MG (65 MG* Take 1 tablet by mouth daily * CYANOCOBALAMIN (B12)-COBAMAMI* Dissolve 1 tablet under the t* ROPINIROLE 3 MG TABLET Take 1 tablet by mouth twice * MULTIVITAMIN TABLET Take 1 tablet by mouth once d* LYRICA 200 MG CAPSULE take 1 capsule by mouth twice* ONDANSETRON HCL 4 MG TABLET Take 1 tablet by mouth every * EPIPEN 2-AZIZA 0.3 MG/0.3 ML IN* Inject 0.3 mg intramuscularly* CLONAZEPAM 0.5 MG TABLET Take 0.5 mg by mouth twice da* PRISTIQ 50 MG TABLET,EXTENDED* Take 50 mg by mouth once chris* NEBULIZER AND COMPRESSOR 1 Device as needed. Use as di* DESONIDE 0.05 % TOPICAL CREAM Apply 1 application to affect* OMEPRAZOLE 40 MG CAPSULE,MARCELLE* Take 40 mg by mouth once chris* FLUTICASONE 50 MCG/ACTUATION * Use 1 [place] in each nostril d* Problem List As Of Date 11/13/2017 Noted Resolved PAPA (obstructive sleep apnea) [G47.33] INVALID FOR* Uncomplicated asthma [J45.909] INVALID FOR*11/10/2017 Moderate persistent asthma without complication*INVALID FOR* Vocal cord dysfunction [J38.3] INVALID FOR*11/10/2017 Non morbid obesity [E66.9] INVALID FOR*11/10/2017 Allergic rhinitis due to pollen [J30.1] INVALID FOR*11/10/2017 Allergic rhinitis due to house dust mite [J30.8*INVALID FOR*11/10/2017 Allergic rhinitis due to animal hair and dander*INVALID FOR* Allergic conjunctivitis [H10.10] INVALID FOR*11/10/2017 Diastolic heart failure (HCC) [I50.30] 09/20/2017 Pain of right upper arm [M79.621] INVALID FOR*11/10/2017 Rotator cuff syndrome [M75.100] INVALID FOR* Paroxysmal A-fib (HCC) [I48.0] 09/20/2017 More... CHF (congestive heart failure) (HCC) [I50.9] 09/20/2017 More... Benign paroxysmal positional vertigo [H81.10] Chest pain [R07.9] 11/10/2017 More... Chronic diastolic CHF (congestive heart failure*INVALID FOR*09/20/2017 Prolapsed cervical intervertebral disc [M50.20] OA (osteoarthritis) of knee [M17.10] More... Fibromyalgia [M79.7] More... Complete tear of right rotator cuff [M75.121] INVALID FOR* Abnormal EKG [R94.31] INVALID FOR*11/10/2017 Hypokalemia [E87.6] INVALID FOR*08/08/2017 Primary localized osteoarthrosis of right shoul*INVALID FOR* Postmenopausal [Z78.0] INVALID FOR*11/10/2017 Osteoporosis screening [Z13.820] INVALID FOR*11/10/2017 Hypokalemia [E87.6] INVALID FOR*11/10/2017 Non-cardiac chest pain [R07.89] 11/10/2017 More... CHF (congestive heart failure) (HCC) [I50.9] 11/10/2017 More... UTI (urinary tract infection) [N39.0] INVALID FOR* Syncope [R55] INVALID FOR* Hypotension [I95.9] INVALID FOR*11/10/2017 HTN (hypertension) [I10] INVALID FOR* Obesity, Class I, BMI 30-34.9 [E66.9] INVALID FOR* Encounter Status:Closed by TRAM ADAMES on 11/19/17 CR ABDOMEN AP Observed: 11/12/2017 Status: F Source: [employer] 2:06 PM SYSTEM REPOSITORY Patient Name: HOA SÁNCHEZ Diagnostic Radiology Exam Date/Time 11/12/2017 13:04:34 EDT Exam CR Abdomen AP Ordering Physician Duncan BROWN. [facility] Accession Number [id number] CPT4 Codes 95948 () Reason For Exam OG placement Report Indication: OG tube placement Findings and impression: Abdomen single view shows OG tube with the tip under left hemidiaphragm pointing laterally. No free air. Increased gas within bowel. Please confirm function clinically. Report Dictated on Final Dictated: 11/12/2017 2:06 pm Dictating Physician: MD MENDEZ JOHN Signed Date and Time: 11/12/2017 2:06 pm Signed by: MD MENDEZ JOHN Transcribed Date and Time: 11/12/2017 2:06 CR CHEST PORTABLE Observed: 11/12/2017 Status: F Source: [facility] [employer] Management System 9:46 AM SYSTEM REPOSITORY Patient Name: HOA SÁNCHEZ Diagnostic Radiology Exam Date/Time 11/12/2017 07:55:00 EDT Exam CR Chest Portable Ordering Physician MD SHERRIE, [facility] Accession Number [id number] CPT4 Codes 48402 () Reason For Exam ETT placement Report EXAM TYPE: RADIOLOGIC EXAMINATION, CHEST, SINGLE VIEW FRONTAL (CXR SINGLE VIEW) EXAM DATE AND TIME: 11/12/2017 7:55 AM EDT INDICATION: Respiratory distress COMPARISON: 11/12/2017 O2 10 TECHNIQUE: A single frontal view of the thorax was obtained and reviewed. Special views: None. IMPRESSION: 1. Lines/Tubes/Devices/Hardware: Endotracheal tube has been pulled back and the tip is 3 cm above the niyah. Right jugular catheter stable. NG tube tip is above the GE junction by several centimeters.. Please confirm function of catheters. 2. Lungs: No consolidation or pulmonary edema. 3. Pleura: No definite effusion. No definite pneumothorax. 4. Heart and mediastinum: Normal cardiomediastinal contours. 5. Upper abdomen: No acute process seen. Report Dictated on Final Dictated: 11/12/2017 9:46 am Dictating Physician: MD MENDEZ JOHN Signed Date and Time: 11/12/2017 9:47 am Signed by: MD MENDEZ JOHN Transcribed Date and Time: 11/12/2017 9:46 CR CHEST PORTABLE Observed: 11/12/2017 Status: F Source: [employer] 2:42 AM SYSTEM REPOSITORY Patient Name: HOA SÁNCHEZ Diagnostic Radiology Exam Date/Time 11/12/2017 02:14:15 EDT Exam CR Chest Portable Ordering Physician MD BOWER LISA MARIE Accession Number [id number] CPT4 Codes 47125 () Reason For Exam tube placement Report CHEST - PORTABLE: CLINICAL INDICATION: STIR distress TECHNIQUE: Portable AP COMPARISON: 20 minutes prior FINDINGS: Life support devices: New endotracheal tube is noted with its tip extending 2 cm into the right mainstem bronchus. Right jugular venous catheter is again noted with its tip in the region of the superior vena cava Heart/Mediastinum: Unchanged Lungs/Pleura: No new consolidation or atelectasis. Costophrenic angles are sharp. IMPRESSION: Endotracheal tube with its tip in the right mainstem bronchus that should be pullback approximately 3 cm. Report Dictated on Workstation: [id number] Final Dictating Physician: MD CALDERA JEFFREY Signed Date and Time: 11/12/2017 2:43 am Signed by: MD CALDERA JEFFREY Transcribed Date and Time: 11/12/2017 2:44 CR CHEST PORTABLE Observed: 11/12/2017 Status: F Source: [employer] 2:40 AM SYSTEM REPOSITORY Patient Name: HOA SÁNCHEZ Diagnostic Radiology Exam Date/Time 11/12/2017 01:43:14 EDT Exam CR Chest Portable Ordering Physician MD BOWER LISA MARIE Accession Number [id number] CPT4 Codes 32320 () Reason For Exam line placement Report CHEST - PORTABLE: CLINICAL INDICATION: Central venous catheter placement TECHNIQUE: Portable AP COMPARISON: One hour ago FINDINGS: Life support devices: New right jugular venous catheter is noted with its tip in the upper portion of the superior vena cava Heart/Mediastinum: Unchanged Lungs/Pleura: No pneumothorax is noted. No new consolidation or atelectasis. Costophrenic angles are sharp. IMPRESSION: Right jugular venous catheter in adequate position without pneumothorax. Report Dictated on Workstation: [id number] Final Dictating Physician: MD CALDERA JEFFREY Signed Date and Time: 11/12/2017 2:41 am Signed by: MD CALDERA JEFFREY Transcribed Date and Time: 11/12/2017 2:42 URINALYSIS,MACRO Collected: 11/12/2017 Status: F Source: [employer] 2:13 AM SYSTEM REPOSITORY TYPE CODE TESTS RESULT OUT OF REFERENCE UNITS RANGE LAB APPUR Clear NA Appearance CLEAR LAB COLUR Lt. Yellow NA Color YELLOW LAB USG 1.005-1.030 NA Specific Normal [place],Urine 1.025 LAB UPH 5.0-8.0 NA pH,Urine Normal 5.5 LAB ULUK Negative NA Leukocytes TRACE LAB UNIT Negative NA Nitrites NEGATIVE LAB UPRO Negative mg/dL Total Protein,Urine NEGATIVE LAB UGLU Negative mg/dL Glucose,Urine NEGATIVE LAB UKET Negative mg/dL Ketone,Urine NEGATIVE LAB UURO 0-1 mg/dL Urobilinogen 0.2 LAB UBIL Negative NA Bilirubin,Ur NEGATIVE LAB UBLD Negative {RBC}/uL Occult Blood,Ur NEGATIVE Performed By: #### UAMAC, UAMIC, DRGA4 #### [employer] [facility] [address] [place] [address] URINALYSIS,MICROSCOPIC Collected: Status: F Source: [facility] 11/12/2017 2:13 AM HEALTH SYSTEM REPOSITORY TYPE CODE TESTS RESULT OUT OF REFERENCE UNITS RANGE LAB VOLUR NA Volume,Urine 12 ml LAB WBCU 0-5 /[HPF] WBC,Urine 6 - 10 LAB RBCU 0-2 /[HPF] RBC,Urine 0 - 2 LAB EPIU 3-5 /[HPF] Epithelial Cells 11 - 25 LAB MORE Negative NA Bacteria Many (51-100) LAB MUC Negative NA Mucous Threads Many Performed By: #### UAMAC, UAMIC, DRGA4 #### [employer] [facility] [address] [place] [address] DRUGS OF ABUSE Collected: 11/12/2017 Status: F Source: [employer] 2:13 AM SYSTEM REPOSITORY TYPE CODE TESTS RESULT OUT OF REFERENCE UNITS RANGE LAB AMP3 NA Amphetamines, Ur NEG LAB BARB3 NA Barbiturates, Ur NEG LAB BENZ3 NA Benzodiazepines, Ur NEG LAB COC3 NA Cocaine, Ur NEG LAB METH3 NA Methadone, Ur NEG LAB OPI3 NA Opiates, Ur NEG LAB OXY3 NA Oxycodone/[place] NEG ne,Ur LAB PCP3 NA Phencyclidine (PCP), Ur NEG Result Comment: The expected value for all of the drugs listed above is Negative. The following drugs or drug groups have been screened for by Immunoassay at the following thresholds: Amphetamine class (1000 ng/mL), Barbiturates (200 ng/mL), Benzodiazepines (200 ng/mL), Cocaine (300 ng/mL), Methadone (300 ng/mL), Opiates (300 ng/mL), Oxycodone (100 ng/mL), and PCP (25 ng/mL). NOTE: These results are for medical treatment only. Analysis performed using non-forensic procedures. Performed By: #### UAMAC, UAMIC, DRGA4 #### [facility] [address] [place] [address] HEMOGRAM W/ AUTODIFF Collected: 11/12/2017 Status: F Source: [employer] 12:41 AM SYSTEM REPOSITORY TYPE CODE TESTS RESULT OUT OF REFERENCE UNITS RANGE LAB IWBC 3.6-10.7 10*3/uL WBC Normal 6.0 LAB RBC 3.80-5.20 10*6/uL RBC Normal 3.96 LAB HGB 11.7-16.0 g/dL Low Hemoglobin 11.5 LAB HCT 35.0-47.0 % Hematocrit Normal 35.3 LAB MCV 79.0-98.0 fL MCV Normal 89.2 LAB MCH 26.0-34.0 pg MCH Normal 29.1 LAB MCHC 32.0-36.0 % MCHC Normal 32.6 LAB RDW 11.5-14.5 % RDW High 15.5 LAB PLT 140-440 10*3/uL Platelet Normal 203 LAB MPV 7.4-10.4 fL MPV Normal 8.8 LAB GRAN% 40.0-80.0 % Granulocytes Normal 54.6 LAB LYMP% 20.0-40.0 % Lymphocytes Normal 36.2 LAB MONO% 2.0-10.0 % Monocytes Normal 5.9 LAB EOS% 1.0-6.0 % Eosinophils Normal 2.6 LAB BAS% 0.0-2.0 % Basophils Normal 0.7 LAB ANC 1.8-7.0 10*3/uL Abs Normal Neutrophile Cnt 3.3 LAB ALC 1.0-4.3 10*3/uL Abs Lymph Cnt Normal 2.2 LAB AMC 0.0-0.8 10*3/uL Abs Monocyte Normal Cnt 0.4 LAB AEC 0.0-0.5 10*3/uL Abs Eosin Cnt Normal 0.2 LAB ABC 0.0-0.2 10*3/uL Abs Baso Cnt Normal 0.0 Performed By: #### HEMDF, CMP3, ETOH4, SAL33, ACET4 #### [employer] [facility] [address] [place] [address] COMP METABOLIC PANEL Collected: 11/12/2017 Status: F Source: [employer] 12:33 AM SYSTEM REPOSITORY TYPE CODE TESTS RESULT OUT OF RANGE REFERENCE UNITS LAB NA3 135-145 mmol/L High Sodium 146 LAB K3 3.5-5.1 mmol/L Normal Potassium 3.5 LAB CL3 98-109 mmol/L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 budesonide-formoterol (SYMBICORT) 160-4.5 mcg/actuation inhaler Inhale 2 Puffs as instructed twice daily. meclizine (ANTIVERT) 12.5 mg tab Take 1 tablet by mouth twice daily. mirtazapine orally disintegrating (REMERON SOLTAB) 15 mg disintegrating tablet Take 15 mg by mouth daily at bedtime. traMADol (ULTRAM) 50 mg tablet Take 50 mg by mouth every 6 hours as needed for Pain. vit B1 [id number] mg tab Take 1 tablet by mouth once daily. ferrous sulfate 325 mg (65 mg iron) tablet Take 1 tablet by mouth daily with breakfast. Nebulizer and Compressor For Neb rasheed 1 Device as needed. Use as directed. SPIRIVA WITH HANDIHALER 18 mcg inhalation capsule Inhale 18 mcg as instructed once daily. desonide (TRIDESILON) 0.05 % cream Apply 1 application to affected area as needed. REVIEW OF SYSTEMS: GENERAL: Negative for:Weight loss and Weight gain HEENT: Negative for:Nosebleeds RESPIRATORY: Negative for:Shortness of breath GASTROINTESTINAL: Negative for:Blood in stool MUSCULOSKELETAL: Negtive for: Muscle or joint pain, stiffness, Joint swelling SKIN: No rash HEMATOLOGICAL/LYMPHATIC: Negative for: Easy bruising and Easy bleeding CARDIOVASCULAR: As stated in HPI. 10 system review negative except as stated in HPI PHYSICAL EXAMINATION: BP 123/82 Pulse 57 Temp (Src) 98.2 (Oral) Resp 18 Ht 5' 3 (1.60m) Wt 186 lb 14.4 oz (84.8kg) SpO2 97% BMI 33.12 kg/(m2). General: Well appearing, appears stated age and in no acute distress.There is bruising noted on her right eye as well as right forehead. Psych: Normal Affect Eyes: No subconjunctival hemorrhage Skin: No rash, bruising Oropharynx: Mucous membranes normal Neck: no jugular venous distention, no carotid bruits. Lymph: No cervical lymphadenopathy Lungs: Clear to auscultation bilaterally, no wheezing or rhonchi. Heart: S1, S2 normal, no murmur Extremities: No peripheral edema Neuro: Grossly nonfocal LABS Recent Labs 11/09/17 0535 11/08/17 0727 CK -- 115 WBC 5.60 7.59 RBC 3.73* 3.85* HB 11.1* 11.3 HCT 36.4 35.5 MCV 97.6* 92.2 MCH 29.8 29.4 MCHC 30.5* 31.8 PLT 180* 201 MPV 11.2 10.9 GLUC 79 103* BUN 8 10 CREAT 0.75 0.88 NA 139 142 K 4.3 3.7 CHLOR 112* 109* CO2 23 27 TPROT 6.2* 6.4 ALB 2.8* 3.2* CA 8.5 8.3* ALKPHOS 83 85 TBILI 0.6 0.5 AST 18 17 ALT 16 17 PTSEC -- 9.7 APTT -- 21.1* INR -- 0.89 Triglyceride 170 03/16/2015 HDL Cholesterol 45 03/16/2015 LDL Calculated 74 03/16/2015 EK lead EKG on 11/06/17 shows sinus bradycardia. ME and QT intervals are normal. There are no ST segment changes suggestive of ischemia or infarction. Reviewed her EKGs for the last couple of years. She has had normal sinus rhythm as well as sinus bradycardia and multiple other EKGs. Telemetry also shows sinus bradycardia. None of her heart rates are lower than 40 bpm. There are no sinus pauses noted. Echocardiogram 08/07/2017 SEE FINDINGS BELOW FOR DETAILS Final Impressions: Right Ventricle Normal right ventricular size and systolic function. Vena Cava The inferior vena cava is normal in size and collapses (>50%) with inspiration. General comments No significant valvular abnormalities. Left Ventricle Normal left ventricular size and systolic function. No regional wall motion abnormalities. LVEF is 60% by visual estimation. Normal left ventricular wall thickness. Normal diastolic function by Doppler interrogation. carrie electronically signed on 08/07/2017 11:29:32 AM with status of Final Impression/Recommendations This is a 67-year-old female with history of paroxysmal atrial fibrillation status post ablation more than a decade ago, hypertension, obstructive sleep apnea who is presenting after a syncopal episode and a fall. 67 year old female with Afib on anticoagulation, HTN, CHF, PAPA, presenting with syncopal episode. ? 1. Syncope. 2. Possible NSVT on telemetry. Suspect orthostatic hypotension however not orthostatic per chart review. I do not suspect valvular disease since echocardiogram was normal recently in July 2017. Also do not recommend repeating another echocardiogram. As far as arrhythmias are concerned, I reviewed her telemetry and did not find any NSVT. I suspect that some of the artifact may have been interpreted as nonsustained ventricular tachycardia. Conduction abnormalities such as AV block or sinus disorder disease can be suspected. Again sinus bradycardia was noted on telemetry however it has been present on EKGs in past. I agree with getting an outpatient ambulatory monitor to look for that. It was already ordered prior to her recent admission and patient can pick it up after discharge. ? 3. Sinus bradycardia. Will discontinue metoprolol 12.5 mg by mouth twice a day. 4. History of chronic diastolic heart failure. I do not suspect the patient has?diastolic heart failure. She has had normal NT proBNP in past and had normal diastolic function on echo recently. 5. History of paroxysmal atrial fibrillation status post ablation. Currently not in atrial fibrillation. Not on anticoagulation since 2005. Thank you for allowing me to participate in the care of this patient. Please don't hesitate to contact me if there are any questions regarding the care of our mutual patient. Art Espinoza MD Cardiovascular Medicine November 10, 2017 Pager: [phone] HEMOGRAM/DIFF Collected: 11/10/2017 Status: F Source: [facility] 9:20 AM HEALTH SYSTEM REPOSITORY TYPE CODE TESTS RESULT OUT OF REFERENCE UNITS RANGE LAB WBC(LOINC) 3.98-10.04 thou/cmm WBC 6.73 LAB RBC(LOINC) 3.93-5.22 mil/cmm RBC 4.09 LAB HGB(LOINC) 11.2-15.7 g/dL Hgb 12.1 LAB HCT(LOINC) 34.1-44.9 % Hct 38.4 LAB MCV(LOINC) 79.4-94.8 fl MCV 93.9 LAB MCH(LOINC) 25.6-32.2 pg MCH 29.6 LAB MCHC(LOINC 31.6-34.8 % ) Low MCHC 31.5 LAB RDW(LOINC) 11.7-14.4 % RDW High 15.3 LAB RDWSD(LOIN 36.4-46.3 fl C) RDW SD High 53.0 LAB PLT(LOINC) 182-369 thou/cmm Platelet 216 LAB MPV(LOINC) 9.4-12.3 fl MPV 11.2 LAB SEG(LOINC) % Seg Neutrophil 55.0 LAB IGRE(LOINC % ) Immature Grans 0.30 LAB LYMPH(LOIN % C) Lymphocyte 37.6 LAB MNO(LOINC) % Monocyte 4.0 LAB EOSIN(LOIN % C) Eosinophil 2.8 LAB BASO(LOINC % ) Basophil 0.3 LAB SEGN(LOINC 1.56-6.13 thou/cmm ) Abs. Neut 3.70 LAB IGAB(LOINC 0.00-0.05 thou/cmm ) Abs Immature Grans 0.02 LAB LYMN(LOINC 1.18-3.74 thou/cmm ) Abs. Lymph 2.53 LAB MONON(LOIN 0.27-0.70 thou/cmm C) Abs. [place] 0.27 LAB EOSN(LOINC 0.00-0.31 thou/cmm ) Abs. Eosin 0.19 LAB BASON(LOIN 0.01-0.08 thou/cmm C) Abs. Baso 0.02 Performed By: #### CBCD1 #### [facility] [address] [place], [place] [address] LIPASE BLOOD Collected: 11/10/2017 Status: F Source: [facility] 9:20 AM HEALTH SYSTEM REPOSITORY TYPE CODE TESTS RESULT OUT OF REFERENCE UNITS RANGE LAB LIP(LOINC) 73-393 U/L Lipase Blood 119 Performed By: #### LIP #### [facility] [address] [place] [address] COMPREHENSIVE PANEL Collected: 11/10/2017 Status: F Source: [facility] 9:20 AM HEALTH SYSTEM REPOSITORY TYPE CODE TESTS RESULT OUT OF REFERENCE UNITS RANGE LAB NA(LOINC) 136-145 mEq/L Sodium Blood 140 LAB K(LOINC) 3.5-5.1 mEq/L Potassium Blood 3.7 LAB CL(LOINC) 98-107 mEq/L Chloride High Blood 109 LAB CO2(LOINC) 21-32 mEq/L CO2 Blood 26 LAB GLU(LOINC) 70-99 mg/dL Glucose High Blood 156 LAB BUN(LOINC) 7-18 mg/dL BUN Blood 9 LAB CREA(LOINC 0.51-0.95 mg/dL ) Creatinine Blood 0.77 LAB CA(LOINC) 8.5-10.1 mg/dL Low Calcium Blood 8.4 LAB ALB(LOINC) 3.4-5.0 g/dL Low Albumin Blood 3.2 LAB TP(LOINC) 6.4-8.2 g/dL Total Protein 6.8 LAB AST(LOINC) 9-37 U/L AST-SGOT Blood 16 LAB ALT(LOINC) 12-78 U/L ALT-SGPT Blood 17 LAB ALKP(LOINC 46-116 U/L ) Alk Phosphatase 88 LAB BILIT(LOIN 0.2-1.0 mg/dL C) Total Bilirubin 0.6 LAB ANGAP(LOIN 8-16 C) Anion Gap 9 Performed By: #### P14 #### [facility] [address] [place] [address] MDRD GFR Collected: 11/10/2017 Status: F Source: [facility] 9:20 AM HEALTH SYSTEM REPOSITORY TYPE CODE TESTS RESULT OUT OF RANGE REFERENCE UNITS LAB GFRFN(LOINC >60mL/min/1.73m ) 2 eGFR >60 Result Comment: If the patient is , multiply the result by 1.210. Performed By: #### GFR #### [facility] [address] [place] [address] PROTIME Collected: 11/10/2017 Status: F Source: [facility] 9:20 AM HEALTH SYSTEM REPOSITORY TYPE CODE TESTS RESULT OUT OF REFERENCE UNITS RANGE LAB PTI(LOINC) 9.3-11.9 sec Prothrombin Time 9.9 LAB INR(LOINC) INR 0.92 Result Comment: Standard Therapy 2.0-3.0 High Dose 2.5-3.5 Performed By: #### PT #### [facility] [address] [place] [address] ACTIVATED PTT Collected: 11/10/2017 Status: F Source: [facility] 9:20 AM HEALTH SYSTEM REPOSITORY TYPE CODE TESTS RESULT OUT OF REFERENCE UNITS RANGE LAB APTT(LOINC 22.0-34.0 sec ) Activated PTT 24.8 Performed By: #### APTT #### [facility] [address] [place] [address] NURSING PROG Observed: 11/10/2017 Status: COMPLETED Source: [place] 8:41 AM [facility] REPOSITORY HNO ID: [id number] Author: Mehnaz (Rn) ERIKA Orta Service: (none) Author Type: Registered Nurse Type: Nursing Progress Note Filed: 11/10/2017 8:42 AM Note Text: Dr Romano notified pt requesting cream for groin, abdomen folds bilaterally and under right breast. States she uses desonide cream at home; awaiting orders PROGRESS Observed: 11/10/2017 Status: COMPLETED Source: [place] 8:[address] [facility] OTHER [place] REPOSITORY HNO ID: [id number] Author: Gladys Romano Service: Hospital Medicine Author Type: Physician Type: Progress Notes Filed: 11/10/2017 8:52 AM Note Text: DEPARTMENT OF HOSPITAL MEDICINE PROGRESS NOTE SERVICE DATE: 11/10/2017 SERVICE TIME: 8:15 AM Hospital Medicine/Primary Attending: Gladys Romano MD NIGHT AND WEEKEND COVERAGE: From 7am - 7pm, please call [phone] After 7pm, please call cross cover pager #[phone] Subjective INTERVAL HPI: Patient notes still has general body pain. Notes bump on head still present. No further syncopal episodes or chest pain, SOB or palpitations. 24 hour telemetry revealed 2 episodes of nonsustained VT. MEDICATIONS: Reviewed Objective PHYSICAL EXAM: BP 123/82 Pulse 57 Temp (Src) 98.2 (Oral) Resp 18 Ht 5' 3 (1.60m) Wt 186 lb 14.4 oz (84.8kg) SpO2 97% BMI 33.12 kg/(m2). Physical Exam Performed GENERAL: Healthy, alert, no distress, cooperative, Smiling SKIN: Skin color, texture, turgor normal. No rashes or lesions. CARDIAC: Normal S1 and S2; no rubs, murmurs, or gallops LUNGS: Lungs clear to auscultation. Good diaphragmatic excursion. ABDOMEN: Abdomen soft, non-tender. BS normal. No masses or organomegaly. EXTREMITIES: Extremities normal. No deformities, edema, clubbing or skin discoloration. PULSES: 2+ radial, 2+ carotid : not examined/not indicated. Lines, Drains, and Airways Line Peripheral 11/08/17 0727 Assessment Short Left Antecubital 18 Gauge 2 days Peripheral 11/08/17 1158 Admission to Hospital Short Left 20 Gauge 1 day Reviewed lines, drains, AND airways. Need to be continued while inpatient DATA: Diagnostic tests reviewed for today's visit: Most recent labs and imaging results. Recent Labs 11/09/17 0535 WBC 5.60 HB 11.1* HCT 36.4 PLT 180* NA 139 K 4.3 CHLOR 112* CO2 23 CREAT 0.75 BUN 8 GLUC 79 TPROT 6.2* ALB 2.8* CA 8.5 ALKPHOS 83 TBILI 0.6 AST 18 ALT 16 Assessment/Plan 67 year old female with Afib on anticoagulation, HTN, CHF, PAPA, presenting with syncopal episode. ? Syncope - patient had ECHO in 07/2017 which showed no valvular abnormalities and normal left ventricular function. 24 hour tape with 2 episodes of nonsustained VT. - continuous telemetry - orthostatics negative - cardiology (Dr. Moreno) review appreicated UTI - oral antibiotics - afebrile, wbc normal ? CHF- euvolemic. Most recent ECHO is normal. ? HTN - patient not orthostatic. Cont medications ? Afib- rate controlled. Cont medications. DVT ppx- enoxaparin Dispo- home Medication and Non-Pharmacologic VTE Prophylaxis/Anticoagulants Anticoagulant AND Antiplatelet Medications Start Dose Route Frequency Ordered Stop 11/08/17 1600 enoxaparin 40 mg injection (LOVENOX) (Medical At Risk ) 40 mg SUBCUTANEOUS DAILY 11/08/17 1535 -- 11/08/17 1545 pneumatic compression stockings (fl,oh) VTE Prophylaxis: VTE prophylaxis appropriate Disposition: Home Plan of care discussed with: Patient SIGNATURE: Gladys Romano MD PATIENT NAME: Hoa Sánchez DATE: November 10, 2017 TIME: 8:15 AM PAGER/CONTACT #: [phone] etx [id number] NURSING PROG Observed: 11/09/2017 Status: COMPLETED Source: [place] 4:38 PM CLINIC OTHER [place] REPOSITORY HNO ID: [id number] Author: Mehnaz (Rn) ERIKA Orta Service: (none) Author Type: Registered Nurse Type: Nursing Progress Note Filed: 11/09/2017 4:40 PM Note Text: Dr Romano notfieid pt requesting to take off telemetry states she needs to leave it on she has consulted cardiology. Also notified pt still requesting gel for neuropathy, states she will order something for patient. PROGRESS Observed: 11/09/2017 Status: COMPLETED Source: [place] 11:49 AM CLINIC OTHER CAMPUS REPOSITORY HNO ID: [id number] Author: Gladys Romano Service: Hospital Medicine Author Type: Physician Type: Progress Notes Filed: 11/09/2017 12:15 PM Note Text: INPATIENT PROGRESS NOTE SERVICE DATE: 11/09/2017 SERVICE TIME: 1155 PRIMARY SERVICE: Sound Subjective CHIEF COMPLAINT: syncope INTERVAL HPI: Patient notes she has whole body pain. Still feels dizzy on standing. Does not feel dizzy at rest. Denies CP, SOB, palpitations. Patient notes she would like to go home. Current hospital medications: enoxaparin 40 mg injection (LOVENOX) 40 mg SUBCUTANEOUS DAILY 0.9% NaCl 3-5 mL 3-5 mL INTRAVENOUS q 12 H ondansetron 4 mg tab(s) (ZOFRAN) 4 mg ORAL q 6 H PRN ondansetron (PF) 4 mg injection (ZOFRAN) 4 mg INTRAVENOUS q 6 H PRN docusate sodium 100 mg cap(s) (COLACE) 100 mg ORAL BID PRN ibuprofen 600 mg tab(s) (MOTRIN) 600 mg ORAL QID PRN clonazePAM 0.5 mg tab(s) (KlonoPIN) 0.5 mg ORAL BID PRN cetirizine 10 mg tab(s) (ZyrTEC) 10 mg ORAL AT BEDTIME rOPINIRole 3 mg tab(s) (REQUIP) 3 mg ORAL BID metoprolol tartrate (short acting) 12.5 mg tab(s) (LOPRESSOR) 12.5 mg ORAL BID montelukast 10 mg tab(s) (SINGULAIR) 10 mg ORAL AT BEDTIME cycloSPORINE 0.05 % 1 Drop (RESTASIS) 1 Drop BOTH EYES q 12 H potassium chloride 40 mEq tablet (K-TAB) 40 mEq ORAL DAILY cholecalciferol 2,000 Units tab(s) (VITAMIN D3) 2,000 Units ORAL DAILY pantoprazole DR 40 mg tab(s) (PROTONIX) 40 mg ORAL DAILY (6 AM) ferrous sulfate 325 mg tab(s) 325 mg ORAL DAILY Objective PHYSICAL EXAM: BP 127/76 Pulse 59 Temp (Src) 97.9 (Oral) Resp 18 Ht 5' 3 (1.60m) Wt 183 lb (83.0kg) SpO2 96% BMI 32.43 kg/(m2). Physical Exam Performed GENERAL: Healthy, alert, no distress, cooperative, Smiling SKIN: Skin color, texture, turgor normal. No rashes or lesions. HEENT: PERRL, EOMI, and normal dentition JVD: No jugulovenous distention, No carotid bruits, Carotid pulse normal contour CARDIAC: Normal S1 and S2; no rubs, murmurs, or gallops LUNGS: Lungs clear to auscultation. Good diaphragmatic excursion. ABDOMEN: Abdomen soft, non-tender. BS normal. No masses or organomegaly. EXTREMITIES: Extremities normal. No deformities, edema, clubbing or skin discoloration. NEURO: Grossly normal cognition, motor function, and cranial nerves III-XII PULSES: 2+ radial, 2+ carotid : not examined/not indicated. DATA: Diagnostic tests reviewed for today's visit: Recent Labs 11/09/17 0535 WBC 5.60 HB 11.1* HCT 36.4 PLT 180* NA 139 K 4.3 CHLOR 112* CO2 23 CREAT 0.75 BUN 8 GLUC 79 TPROT 6.2* ALB 2.8* CA 8.5 ALKPHOS 83 TBILI 0.6 [address] head: No acute intracranial findings. ? Right frontal scalp hematoma. CT cervical spine: No acute findings radiographically. Assessment/Plan 67 year old female with Afib on anticoagulation, HTN, CHF, PAPA, presenting with syncopal episode. Syncope - patient had ECHO in 07/2017 which showed no valvular abnormalities and normal left ventricular function. - continuous telemetry - orthostatics negative - cardiology consult (patient know to Dr. Moreno) UTI - cont antibiotics - afebrile, wbc normal CHF- euvolemic. Most recent ECHO is normal. HTN - patient not orthostatic. Cont medications Afib- rate controlled. Cont medications. Medication and Non-Pharmacologic VTE Prophylaxis/Anticoagulants Anticoagulant AND Antiplatelet Medications Start Dose Route Frequency Ordered Stop 11/08/17 1600 enoxaparin 40 mg injection (LOVENOX) (Medical At Risk ) 40 mg SUBCUTANEOUS DAILY 11/08/17 1535 -- 11/08/17 1545 pneumatic compression stockings (de,de) VTE Prophylaxis: VTE prophylaxis appropriate SIGNATURE: Gladys Romano MD PATIENT NAME: Hoa Sánchez DATE: November 09, 2017 TIME: 11:49 AM PAGER: [phone] NURSING PROG Observed: 11/09/2017 Status: COMPLETED Source: [place] 10:03 AM CLINIC OTHER CAMPUS REPOSITORY HNO ID: [id number] Author: Mehnaz (Rn) ERIKA Orta Service: (none) Author Type: Registered Nurse Type: Nursing Progress Note Filed: 11/09/2017 4:40 PM Note Text: Dr Romano text paged pts orthostatic vital signs and notified pt requesting voltaren gel for neuropathy; awaiting orders HEMOGRAM Collected: 11/09/2017 Status: F Source: [facility] 5:35 AM HEALTH SYSTEM REPOSITORY TYPE CODE TESTS RESULT OUT OF REFERENCE UNITS RANGE LAB WBC(LOINC) 3.98-10.04 thou/cmm WBC 5.60 LAB RBC(LOINC) 3.93-5.22 mil/cmm Low RBC 3.73 LAB HGB(LOINC) 11.2-15.7 g/dL Low Hgb 11.1 LAB HCT(LOINC) 34.1-44.9 % Hct 36.4 LAB MCV(LOINC) 79.4-94.8 fl High MCV 97.6 LAB MCH(LOINC) 25.6-32.2 pg MCH 29.8 LAB MCHC(LOINC) 31.6-34.8 % Low MCHC 30.5 LAB RDW(LOINC) 11.7-14.4 % High RDW 15.5 LAB RDWSD(LOINC 36.4-46.3 fl ) High RDW SD 55.8 LAB PLT(LOINC) 182-369 thou/cmm Low Platelet 180 LAB MPV(LOINC) 9.4-12.3 fl MPV 11.2 Performed By: #### CBC1 #### [address] [address] COMPREHENSIVE PANEL Collected: 11/09/2017 Status: F Source: [facility] 5:35 AM HEALTH SYSTEM REPOSITORY TYPE CODE TESTS RESULT OUT OF REFERENCE UNITS RANGE LAB NA(LOINC) 136-145 mEq/L Sodium Blood 139 LAB K(LOINC) 3.5-5.1 mEq/L Potassium Blood 4.3 LAB CL(LOINC) 98-107 mEq/L Chloride High Blood 112 LAB CO2(LOINC) 21-32 mEq/L CO2 Blood 23 LAB GLU(LOINC) 70-99 mg/dL Glucose Blood 79 LAB BUN(LOINC) 7-18 mg/dL BUN Blood 8 LAB CREA(LOINC 0.51-0.95 mg/dL ) Creatinine Blood 0.75 LAB CA(LOINC) 8.5-10.1 mg/dL Calcium Blood 8.5 LAB ALB(LOINC) 3.4-5.0 g/dL Low Albumin Blood 2.8 LAB TP(LOINC) 6.4-8.2 g/dL Low Total Protein 6.2 LAB AST(LOINC) 9-37 U/L AST-SGOT Blood 18 LAB ALT(LOINC) 12-78 U/L ALT-SGPT Blood 16 LAB ALKP(LOINC 46-116 U/L ) Alk Phosphatase 83 LAB BILIT(LOIN 0.2-1.0 mg/dL C) Total Bilirubin 0.6 LAB ANGAP(LOIN 8-16 C) Anion Gap 8 Performed By: #### P14 #### [facility] [address] [place], [place] [address] MDRD GFR Collected: 11/09/2017 Status: F Source: [facility] 5:35 AM HEALTH SYSTEM REPOSITORY TYPE CODE TESTS RESULT OUT OF RANGE REFERENCE UNITS LAB GFRFN(LOINC >60mL/min/1.73m ) 2 eGFR >60 Result Comment: If the patient is , multiply the result by 1.210. Performed By: #### GFR #### [facility] [address] [place], [place] [address] PLAN OF CARE Observed: 11/08/2017 Status: COMPLETED Source: [place] 2:39 PM CLINIC OTHER CAMPUS REPOSITORY HNO ID: [id number] Author: Victor Hugo Neal (Stove Bottom Worker) Service: (none) Author Type: Merchandising Stock Associate Type: Plan of Care Filed: 11/08/2017 2:40 PM Note Text: MEDICATION HISTORY Patient Name:Raoul Sánchez : 1950 Source of history:Patient: Reliability of source: Appears reliable, clearly identified: Medication name, Medication dose, Medication route and Medication frequency and Pharmacy records: [facility] ([phone]) Medication Nonadherence Identified: No barriers noted The above information represents the best possible medication history: Yes Additional comments: N/A Allergies: ALLERGIES Allergen Reactions - Vicodin [Hydrocodon* Other: See Comments Passed out Shortness of breath. 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 11/07/2017 Yes ranolazine SR (RANEXA) 1,000 mg Tb12 Take 500 mg by mouth twice daily. Yes Thiamine HCl 250 mg tablet Take 250 mg by mouth once daily. 11/07/2017 Yes Ferrous Sulfate (HIGH POTENCY IRON) 27 mg iron tab Take 1 tablet by mouth once daily. 11/07/2017 Yes furosemide (LASIX) 80 mg tablet Take 0.5 tablets by mouth as needed (for wt gain >3 lbs in a day.). Past Week Yes nitroglycerin sublingual (NITROQUICK) 0.4 mg SL tablet Dissolve 1 tablet under the tongue as needed for Chest Pain. If no pain relief call 911. Yes montelukast (SINGULAIR) 10 mg tablet Take 1 tablet by mouth once daily. 11/07/2017 Yes albuterol HFA (PROAIR HFA) 90 mcg/actuation inhaler inhale 2 puffs by mouth every 4 hours if needed Yes diclofenac sodium (VOLTAREN) 1 % topical gel Apply 2 g to affected area four times daily. 10/09/2017 Yes cycloSPORINE (RESTASIS) 0.05 % ophthalmic emulsion Use 1 Drop in both eyes every 12 hours. 10/09/2017 Yes Cholecalciferol, Vitamin D3, 2,000 unit cap Take 1 capsule by mouth once daily. 11/07/2017 Yes promethazine (PHENERGAN) 25 mg tablet Take 25 mg by mouth every 8 hours as needed for Nausea/Vomiting. Yes metoprolol tartrate, short acting, (LOPRESSOR) 25 mg tablet take 1/2 tablet by mouth twice a day 11/07/2017 Yes Ipratropium [place]mar (ATROVENT) 0.03 % nasal spray Use 1 [place] in the nose once daily. 10/18/2017 Yes Cyanocobalamin-Cobamamide (B-12 PLUS) 5,000-100 mcg subl Dissolve 1 tablet under the tongue once each week. 11/07/2017 Yes rOPINIRole Hydrochloride (REQUIP) 3 mg tablet Take 1 tablet by mouth twice daily. 11/07/2017 Yes topiramate (TOPAMAX) 50 mg tablet Take 1 tablet by mouth twice daily. Patient taking differently: Pt. splits into 1/4 tab. Takes 1/4 tab BID. 11/07/2017 Yes cetirizine (ZYRTEC) 10 mg tablet Take 1 tablet by mouth daily at bedtime. 11/07/2017 Yes multivitamin tablet Take 1 tablet by mouth once daily. 11/07/2017 Yes LYRICA 200 mg capsule take 1 capsule by mouth twice a day 11/07/2017 Yes ondansetron (ZOFRAN) 4 mg tablet Take 1 tablet by mouth every 8 hours as needed for Nausea/Vomiting. 09/08/2017 Yes EPIPEN 2-AZIZA 0.3 mg/0.3 mL auto-injector Inject 0.3 mg intramuscularly as directed. Yes clonazePAM (KLONOPIN) 0.5 mg tablet Take 0.5 mg by mouth twice daily as needed. 11/07/2017 Yes PRISTIQ 50 mg 24 hr tablet Take 50 mg by mouth once daily. 11/07/2017 Yes Omeprazole 40 mg capsule Take 40 mg by mouth once daily. 11/06/2017 Yes fluticasone (FLONASE) 50 mcg/actuation nasal spray Use 1 [place] in each nostril daily at bedtime. 10/18/2017 Yes metOLAzone (ZAROXOLYN) 5 mg tablet Take 5 mg by mouth. Wed and Sat. cholestyramine (QUESTRAN) 4 gram packet Take 1 Packet by mouth twice daily with meals. amoxicillin (POLYMOX, AMOXIL) 500 mg capsule Take 500 mg by mouth as directed. 11/06/2017 Docusate Sodium (DOK) 100 mg tab Take by mouth twice daily. For 15 days. cephALEXin (KEFLEX) 500 mg capsule Take 1 capsule by mouth four times daily for 5 days. budesonide-formoterol (SYMBICORT) 160-4.5 mcg/actuation inhaler Inhale 2 Puffs as instructed twice daily. meclizine (ANTIVERT) 12.5 mg tab Take 1 tablet by mouth twice daily. mirtazapine orally disintegrating (REMERON SOLTAB) 15 mg disintegrating tablet Take 15 mg by mouth daily at bedtime. traMADol (ULTRAM) 50 mg tablet Take 50 mg by mouth every 6 hours as needed for Pain. vit B1 kg-[id number] 62-80-95-5-250 mg tab Take 1 tablet by mouth once daily. ferrous sulfate 325 mg (65 mg iron) tablet Take 1 tablet by mouth daily with breakfast. Nebulizer and Compressor For Neb rasheed 1 Device as needed. Use as directed. SPIRIVA WITH HANDIHALER 18 mcg inhalation capsule Inhale 18 mcg as instructed once daily. desonide (TRIDESILON) 0.05 % cream Apply 1 application to affected area as needed. 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 Pt says she was doing laundry in the apartment complex,this morning and felt dizzy. Initially she did not fall but as she continued to do it she fell over her cart, hit her head and passed out. She remebers how she fell but doesnot remember what happened after till she was seen by her nieghbour. No post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 diastolic dysfunction. Left ventricular ejection fraction (LVEF) is the measurement of how much blood is being pumped out of the left ventricle of the heart (the main pumping chamber) with each contraction. Right ventricular ejection fraction (RVEF) is the measurement of how much blood is being pumped out of the right side of the heart to the lungs for oxygen. In most cases, the term ANDquot;ejection fractionANDquot; refers to LVEF. EF % Pumping Ability of the Heart 55% to 70% Normal 36% to 54% Below normal 35% to 40% Moderately below normal ANDlt;35% Severely below normal; may be at risk of life-threatening irregular heartbeats or uncoordinated contraction of heart muscle What do the numbers mean? Ejection fraction is usually expressed as a percentage. A normal heart pumps a little more than half the heart?s blood volume with each beat. A normal LVEF ranges from 55% to 70%. An LVEF of 65, for example, means that 65% of the total amount of blood in the left ventricle is pumped out with each heartbeat. The LVEF may be lower when the heart muscle has become damaged due to a heart attack, heart muscle disease (cardiomyopathy) or other causes. A reduced EF may confirm a diagnosis of systolic heart failure. In diastolic failure, the EF is normal, since the heart pumps normally. Often, the heart is also enlarged. An EF of less than 35% increases the risk of life-threatening irregular heartbeats that can cause sudden cardiac arrest (loss of heart function) and sudden cardiac . An implantable cardioverter defibrillator (ICD) may be recommended. Patients who develop severe, advanced heart failure may benefit from special treatments, such as cardiac transplantation or a ventricular assist device (VAD). If your quality of life is very poor or your doctor has told you that your condition is very severe, please ask about other treatments. Your EF can go up and down, based on your heart condition and the therapies that have been prescribed. How is EF measured? Your EF can be measured in your doctor?s office during tests such as: ? Ultrasound of the heart (echocardiography) ? Magnetic resonance imaging (MRI) scan of the heart ? Nuclear medicine scan (multiple gated acquisition [MUGA]) of the heart; also called a nuclear stress test Why it?s important to know your EF If you have a heart condition, it is important for you and your doctor to know your EF. Your EF can help your doctor determine the best course of treatment for you and the effectiveness of the therapies that have been prescribed. You should have your EF measured when you are first diagnosed with a heart condition, and again as needed, based on changes in your condition. Ask your doctor how often you should have your EF checked. What causes heart failure? Heart failure is caused by many things that damage the heart muscle, including: ? Coronary artery disease (also called coronary atherosclerosis) ? a disease of the arteries that supply blood and oxygen to the heart. Coronary artery disease occurs when the normal lining of the arteries breaks down, the [place] of the arteries thicken, and deposits of fat and plaque block the flow of blood through the arteries. The arteries that supply blood to the heart become very narrowed and the heart can no longer respond to increased activity. Extra strain on the heart may result in chest pain (angina pectoris) and other symptoms of heart disease. ? Heart attack ? occurs when a coronary artery becomes blocked, stopping the flow of blood to the heart muscle and damaging it. All or part of the heart muscle becomes cut off from its supply of oxygen. A heart attack can damage the heart muscle, resulting in a scarred area which does not function. ? Cardiomyopathy ? damage to the heart muscle from causes other than artery or blood flow problems. Causes include viruses, alcohol or drug abuse and genetics. ? Heart defects present at ? Diabetes ? High blood pressure (hypertension) ?Blood pressure is the force of blood pushing against blood vessel [place]. High blood pressure means the pressure in the arteries is above the normal range. ? Arrhythmia (abnormal heart rhythms) ? Kidney disease ? Obesity (being overweight) ? Medications ? some chemotherapy agents Heart failure often occurs when several diseases or conditions are present at once. How is heart failure treated? Together, you and your doctor or nurse will discuss your treatment options. Your doctor or nurse will determine which treatment methods are right for you. More information about heart failure treatments and management is included later in this notebook. Treatment is a team effort Heart failure management is a team effort, and you are the lew player on the team. Your heart doctor or nurse will prescribe your medications and manage other medical problems. Other team members, including nurses, dietitians, pharmacists, exercise specialists and social workers, will help you achieve success. Most important, it is up to YOU to take your medications, make dietary changes, live a healthy lifestyle, keep your follow-up appointments and be an active member of the team. How common is heart failure? Heart failure affects an estimated 5.7 million Americans, and about 670,000 people are diagnosed with heart failure each year. Heart failure is the leading cause of hospitalization in people over age 65. Women and heart failure Heart failure affects about 2.5 million women in the [place]. Women tend to develop heart failure with preserved left ventricular function and with a more normal EF than men. Heart failure in women is often linked to high blood pressure, coronary artery disease, valve disease and diabetes. The signs and symptoms of heart failure are the same among men and women, but women tend to experience lower exercise ability and shortness of breath than do men. Women also have ankle swelling more frequently. In general, women with heart failure live longer than men with heart failure. What is the outlook? With the right care, heart failure will not stop you from doing the things you enjoy. Your prognosis, or outlook for the future, will depend on how well your heart muscle is working, your symptoms and how well you respond to and follow your treatment plan. Patients with a long-term illness, such as heart failure, should talk to their doctor and their family about their desires for extended medical care. An ?advance?directive??or ?living will? is one way to let everyone know your wishes. A living will includes your desires about the use of medical treatments to prolong your life. This document is prepared while you are well, in case you are unable to make these decisions at a later time. Stages of Heart Failure In 2001, the [place] [employer] (AHA) and [place] [employer] (ACC) developed the ?Stages of Heart Failure.? These stages will help you understand that heart failure is a chronic condition that worsens over time. The stages will also help you understand why a new medication was added to your treatment plan and may help you understand why lifestyle changes and other treatments are needed. The stages classified by the AHA and ACC are different from the [place] [employer] ([place]HA) clinical classifications of heart failure that rank patients as class I-II-III-IV, according to the degree of symptoms or functional limits. Ask your health care provider what stage of heart failure you are in. Check the information below to see if your therapy matches what the AHA and ACC recommend. Note that you cannot go backward in stage, only forward. The table below outlines a basic plan of care that may or may not apply to you. Ask your doctor or nurse to explain the therapies that are listed if you do not understand why you are not receiving them. Refer to other parts of this notebook to learn more about specific medications, diet, and exercise. Definition of Stage A People at high risk of developing heart failure (pre heart failure), including people with: ? Hypertension ? Diabetes ? Coronary artery disease ? Metabolic syndrome ? History of alcohol abuse ? History of rheumatic fever ? Family history of cardiomyopathy ? History of taking drugs that can damage heart muscle, e.g., some anticancer agents Usual treatments for Stage A ? Exercise regularly ? Quit smoking ? Treat hypertension (medication and low-sodium diet) ? Treat lipid disorders (cholesterol) ? Discontinue alcohol or illegal drug use ? An angiotensin converting enzyme inhibitor (DAVID-I) or an angiotensin II receptor elly (ARB) is prescribed if you have coronary artery disease, or if you have diabetes, high blood pressure, or other vascular or cardiac conditions ? A beta-elly may be prescribed if you have high blood pressure Definition of Stage B People diagnosed with systolic left ventricular dysfunction but who have never had symptoms of heart failure (pre heart failure), including people with: ? Prior heart attack ? Valve disease ? Cardiomyopathy The diagnosis is usually made when an ejection fraction of less than 40% is found during an echocardiogram test. Usual treatments for Stage B ? Treatment methods for Stage A apply ? All people should take an angiotensin converting enzyme inhibitor (DAVID-I) or angiotensin II receptor elly (ARB) ? A beta -elly and an aldosterone antagonist (eplerenone) should be prescribed after a heart attack to minimize the risk of the heart muscle enlarging and pumping poorly ? Surgery or interventional options for coronary artery blockage, heart attack, and valve repair or replacement (as appropriate) should be discussed Definition of Stage C Patients with known systolic heart failure and current or prior symptoms. The most common symptoms include: ? Shortness of breath ? Fatigue ? Reduced ability to exercise Usual Treatments for Stage C ? Treatment methods above for Stage A and Stage B apply ? An angiotensin converting enzyme inhibitor (DAVID-I) or angiotensin II receptor elly and a beta-elly will be prescribed to help the heart muscle pump with less work ? An aldosterone antagonist may be prescribed when symptoms remain present with other therapies ? Hydralazine/nitrate combination may be prescribed if symptoms persist ? Diuretics (water pills) and digoxin may be prescribed if symptoms persist ? Restrict dietary sodium (salt) to 2,000 mg per day ? Monitor weight daily and report a change of 4 pounds above or below ?dry? weight ? Restrict fluids (as appropriate) ? Cardiac resynchronization therapy (biventricular pacemaker) may be recommended ? Implantable cardiac defibrillator (ICD) therapy may be recommended Definition of Stage D Patients with systolic heart failure and presence of advanced symptoms after receiving optimum medical care. Usual treatments for Stage D ? Treatment methods for Stages A, B ANDamp; C apply ? Patients should be evaluated to determine if the following treatments are available options: heart transplant, ventricular assist devices, surgery options, continuous infusion of intravenous inotropic drugs, end-of-life (palliative or hospice) care, or research therapies References ? [place] [employer]. Heart Failure. www.heart.org Accessed 10/10/2011 ? [place] [employer]. CardioSmart: Heart Failure. cardiosmart.org Accessed 10/10/2011 ? National Heart Lung and Blood [place]. What is Heart Failure? www.nhlbi.nih.gov Accessed 10/10/2011 Can't find the health information you?re looking for? ? Ask a Health Educator, Live! ? Know someone who could use this information?...send them this link. This information is provided by the [facility] and is not intended to replace the medical advice of your doctor or health care provider. Please consult your health care provider for advice about a specific medical condition. This document was last reviewed on: 2011?#8116 ? Copyright 4726-1415 The [place]. All rights reserved This information is provided by the [facility] and is not intended to replace the medical advice of your doctor or health care provider. Please consult your health care provider for advice about a specific medical condition. For additional health information, please contact the Center for Consumer Health Information at the [facility] or toll-free extension [phone]. If you prefer, you may visit [email or web address] or [email or web address]. This document was last reviewed on: 2011 index#7598 Referring Provider: SELF [[id number]] Allergies As of Date: 09/24/2017 Noted Allergy Reaction VICODIN (HYDROCODONE-ACETAMINOPHE*12/26/2016 14 - Other: See Comments Comments: Passed out Shortness of breath. Date Reviewed: 09/24/2017 Reviewed by: Martinez Bishop - Fully Assessed Reason for Visit: CARD Follow Up 6 Month [1231] Primary Visit Diagnosis:Hypokalemia [E87.6] Other Visit Diagnoses:Prolapsed cervical intervertebral disc [M50.20] Primary osteoarthritis of both knees [M17.0] Moderate persistent asthma without complication [J45.40] PAPA (obstructive sleep apnea) [G47.33] Non-cardiac chest pain [R07.89] Chronic diastolic congestive heart failure (HCC) [I50.32] Order(s):furosemide (LASIX) 80 mg tabletTake 0.5 tablets by mouth as needed (for wt gain >3 lbs in a day.).Disp: Rfl: nitroglycerin sublingual (NITROQUICK) 0.4 mg SL tabletDissolve 1 tablet under the tongue as needed for Chest Pain. If no pain relief call 911.Disp: 30 tabletRfl: 0 Prescriptions as of 09/24/2017 Sig: FUROSEMIDE 80 MG TABLET Take 0.5 tablets by mouth as * NITROGLYCERIN 0.4 MG SUBLINGU* Dissolve 1 tablet under the t* POTASSIUM CHLORIDE ER 10 MEQ * Take 10 mEq by mouth once yenifer* MONTELUKAST 10 MG TABLET Take 1 tablet by mouth once d* BUDESONIDE-FORMOTEROL HFA 160* Inhale 2 Puffs as instructed * ALBUTEROL SULFATE HFA 90 MCG/* inhale 2 puffs by mouth every* POTASSIUM CHLORIDE ER 20 MEQ * Take 2 tablets by mouth twice* MECLIZINE 12.5 MG TABLET Take 1 tablet by mouth twice * DICLOFENAC 1 % TOPICAL GEL Apply 2 g to affected area fo* CYCLOSPORINE 0.05 % EYE DROPS* Use 1 Drop in both eyes every* CHOLECALCIFEROL (VITAMIN D3) * Take 1 capsule by mouth once * MIRTAZAPINE 15 MG DISINTEGRAT* Take 15 mg by mouth daily at * TRAMADOL 50 MG TABLET Take 50 mg by mouth every 6 h* PROMETHAZINE 25 MG TABLET Take 25 mg by mouth every 8 h* METOPROLOL TARTRATE 25 MG TAB* take 1/2 tablet by mouth twic* IPRATROPIUM BROMIDE 0.03 % NA* Use 1 [place] in the nose once * [id number]-* Take 1 tablet by mouth once d* FERROUS SULFATE 325 MG (65 MG* Take 1 tablet by mouth daily * CYANOCOBALAMIN (B12)-COBAMAMI* Dissolve 1 tablet under the t* ROPINIROLE 3 MG TABLET Take 1 tablet by mouth twice * TOPIRAMATE 50 MG TABLET Take 1 tablet by mouth twice * CETIRIZINE 10 MG TABLET Take 1 tablet by mouth daily * MULTIVITAMIN TABLET Take 1 tablet by mouth once d* LYRICA 200 MG CAPSULE take 1 capsule by mouth twice* ONDANSETRON HCL 4 MG TABLET Take 1 tablet by mouth every * EPIPEN 2-AZIZA 0.3 MG/0.3 ML IN* Inject 0.3 mg intramuscularly* CLONAZEPAM 0.5 MG TABLET Take 0.5 mg by mouth twice da* PRISTIQ 50 MG TABLET,EXTENDED* Take 50 mg by mouth once chris* NEBULIZER AND COMPRESSOR 1 Device as needed. Use as di* SPIRIVA WITH HANDIHALER 18 MC* Inhale 18 mcg as instructed o* DESONIDE 0.05 % TOPICAL CREAM Apply 1 application to affect* OMEPRAZOLE 40 MG CAPSULE,MARCELLE* Take 40 mg by mouth once chris* FLUTICASONE 50 MCG/ACTUATION * Use 1 [place] in each nostril d* Medication notes this encounter FUROSEMIDE 80 MG TABLET >> Samantha Zamora CMA 09/24/2017 8:44 AM >> SAMANTHA ZAMORA CMA [place] Sep 24, 2017 8:44 AM Not taking >> Samantha Zamora CMA 09/24/2017 8:44 AM >> SAMANTHA ZAMORA CMA Sep 24, 2017 8:44 AM Problem List As Of Date 09/24/2017 Noted Resolved PAPA (obstructive sleep apnea) [G47.33] INVALID FOR* Uncomplicated asthma [J45.909] INVALID FOR* Moderate persistent asthma without complication*INVALID FOR* Vocal cord dysfunction [J38.3] INVALID FOR* Non morbid obesity [E66.9] INVALID FOR* Allergic rhinitis due to pollen [J30.1] INVALID FOR* Allergic rhinitis due to house dust mite [J30.8*INVALID FOR* Allergic rhinitis due to animal hair and dander*INVALID FOR* Allergic conjunctivitis [H10.10] INVALID FOR* Diastolic heart failure (HCC) [I50.30] 09/20/2017 Pain of right upper arm [M79.621] INVALID FOR* Rotator cuff syndrome [M75.100] INVALID FOR* Paroxysmal A-fib (HCC) [I48.0] 09/20/2017 More... CHF (congestive heart failure) (HCC) [I50.9] 09/20/2017 More... Benign paroxysmal positional vertigo [H81.10] Chest pain [R07.9] More... Chronic diastolic CHF (congestive heart failure*INVALID FOR*09/20/2017 Prolapsed cervical intervertebral disc [M50.20] OA (osteoarthritis) of knee [M17.10] More... Fibromyalgia [M79.7] More... Complete tear of right rotator cuff [M75.121] INVALID FOR* Abnormal EKG [R94.31] INVALID FOR* Hypokalemia [E87.6] INVALID FOR*08/08/2017 Primary localized osteoarthrosis of right shoul*INVALID FOR* Postmenopausal [Z78.0] INVALID FOR* Osteoporosis screening [Z13.820] INVALID FOR* Hypokalemia [E87.6] INVALID FOR* Non-cardiac chest pain [R07.89] More... CHF (congestive heart failure) (HCC) [I50.9] More... Other instructions from your clinician: Understanding Heart Failure What are the symptoms of heart failure? You may not have any symptoms of heart failure, or the symptoms may be mild to severe. Symptoms can be constant, or can come and go. Symptoms are due to the changes that occur in your heart and body and include: ? Shortness of breath or difficulty breathing with exercise, at rest, or when lying flat in bed. Shortness of breath occurs when fluid backs up into the lungs (congestion) or when your body does not have enough oxygen-rich blood to let you go on with your activity or exercise without a rest period. Even though you think of breathing as a lung problem, your heart condition can cause periods of shortness of breath. In some cases, symptoms may cause you to wake up suddenly at night, disrupting your normal sleep patterns. ? A dry, hacking cough or wheezing ? Swollen ankles, legs and abdomen, and weight gain. Less blood to the kidneys causes you to retain fluid and water, resulting in edema (swelling) and water weight gain. ? Need to urinate while resting at night. [place] causes more blood to get to the kidneys when you are lying down. ? Tiredness (fatigue) and weakness during exercise or activities occur because the heart is not pumping enough oxygen-rich blood to major organs and muscles. ? Dizziness, confusion, difficulty concentrating or fainting may occur because the heart is not pumping enough oxygen-rich blood to the brain. ? Rapid or irregular heartbeats (palpitations): When the heart muscle does not pump well, the heartbeat speeds up to help the heart get enough oxygen-rich blood to major organs and muscles, or the heartbeat may become abnormal. Other symptoms include a feeling of fullness (bloating) in your stomach, loss of appetite or nausea. If you have heart failure, you may have one or all of these symptoms. Sometimes, people with heart failure do not have any symptoms. What are the types of heart failure? Systolic left ventricular dysfunction (or systolic heart failure) occurs when the muscle in the heart?s left ventricle doesn?t contract with enough force, so less oxygen-rich blood is pumped throughout the body. Heart failure with preserved left ventricular function (diastolic heart failure) occurs when the heart contracts normally, but the ventricles do not relax properly or are stiff, and less blood enters the heart during normal filling. Your ejection fraction (EF) is used to measure how well your heart pumps with each beat to determine the level of systolic dysfunction. Data obtained on an echocardiogram (ECG or EKG) can tell us if you have heart failure with diastolic dysfunction. Left ventricular ejection fraction (LVEF) is the measurement of how much blood is being pumped out of the left ventricle of the heart (the main pumping chamber) with each contraction. Right ventricular ejection fraction (RVEF) is the measurement of how much blood is being pumped out of the right side of the heart to the lungs for oxygen. In most cases, the term ejection fraction refers to LVEF. EF % Pumping Ability of the Heart 55% to 70% Normal 36% to 54% Below normal 35% to 40% Moderately below normal <35% Severely below normal; may be at risk of life-threatening irregular heartbeats or uncoordinated contraction of heart muscle What do the numbers mean? Ejection fraction is usually expressed as a percentage. A normal heart pumps a little more than half the heart?s blood volume with each beat. A normal LVEF ranges from 55% to 70%. An LVEF of 65, for example, means that 65% of the total amount of blood in the left ventricle is pumped out with each heartbeat. The LVEF may be lower when the heart muscle has become damaged due to a heart attack, heart muscle disease (cardiomyopathy) or other causes. A reduced EF may confirm a diagnosis of systolic heart failure. In diastolic failure, the EF is normal, since the heart pumps normally. Often, the heart is also enlarged. An EF of less than 35% increases the risk of life-threatening irregular heartbeats that can cause sudden cardiac arrest (loss of heart function) and sudden cardiac . An implantable cardioverter defibrillator (ICD) may be recommended. Patients who develop severe, advanced heart failure may benefit from special treatments, such as cardiac transplantation or a ventricular assist device (VAD). If your quality of life is very poor or your doctor has told you that your condition is very severe, please ask about other treatments. Your EF can go up and down, based on your heart condition and the therapies that have been prescribed. How is EF measured? Your EF can be measured in your doctor?s office during tests such as: ? Ultrasound of the heart (echocardiography) ? Magnetic resonance imaging (MRI) scan of the heart ? Nuclear medicine scan (multiple gated acquisition [MUGA]) of the heart; also called a nuclear stress test Why it?s important to know your EF If you have a heart condition, it is important for you and your doctor to know your EF. Your EF can help your doctor determine the best course of treatment for you and the effectiveness of the therapies that have been prescribed. You should have your EF measured when you are first diagnosed with a heart condition, and again as needed, based on changes in your condition. Ask your doctor how often you should have your EF checked. What causes heart failure? Heart failure is caused by many things that damage the heart muscle, including: ? Coronary artery disease (also called coronary atherosclerosis) ? a disease of the arteries that supply blood and oxygen to the heart. Coronary artery disease occurs when the normal lining of the arteries breaks down, the [place] of the arteries thicken, and deposits of fat and plaque block the flow of blood through the arteries. The arteries that supply blood to the heart become very narrowed and the heart can no longer respond to increased activity. Extra strain on the heart may result in chest pain (angina pectoris) and other symptoms of heart disease. ? Heart attack ? occurs when a coronary artery becomes blocked, stopping the flow of blood to the heart muscle and damaging it. All or part of the heart muscle becomes cut off from its supply of oxygen. A heart attack can damage the heart muscle, resulting in a scarred area which does not function. ? Cardiomyopathy ? damage to the heart muscle from causes other than artery or blood flow problems. Causes include viruses, alcohol or drug abuse and genetics. ? Heart defects present at ? Diabetes ? High blood pressure (hypertension) ?Blood pressure is the force of blood pushing against blood vessel [place]. High blood pressure means the pressure in the arteries is above the normal range. ? Arrhythmia (abnormal heart rhythms) ? Kidney disease ? Obesity (being overweight) ? Medications ? some chemotherapy agents Heart failure often occurs when several diseases or conditions are present at once. How is heart failure treated? Together, you and your doctor or nurse will discuss your treatment options. Your doctor or nurse will determine which treatment methods are right for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 Osteoporotic Fracture: clinical spine, forearm, hip or shoulder. GENERAL RECOMMENDATIONS FOR PREVENTION OF BONE LOSS: 1. 1200 mg - 1500 mg calcium per day if no history of renal calculi for adults 50 years and over. 2. 800 - 1000 International Units of vitamin D3 per day if no history of renal calculi for adults 50 years and over. 3. Weight bearing exercise 4. Advise against smoking and recommend smoking cessation if appropriate. 5. Avoid excessive use of caffeine, soft drinks, and alcoholic beverages. The National Osteoporosis Foundation recommends that treatment be considered for patients with T-scores of -2 or lower (-1 or lower if patient at high risk for accelerated bone loss). POTASSIUM Collected: 08/28/2017 Status: F Source: [employer] 12:41 PM SYSTEM REPOSITORY TYPE CODE TESTS RESULT OUT OF REFERENCE UNITS RANGE LAB K3 3.5-5.1 mmol/L Potassium 4.1 Performed By: #### K3 #### The performing lab is in the report. SOCIAL WORK Observed: 08/23/2017 Status: COMPLETED Source: [place] 5:00 PM CLINIC OTHER CAMPUS REPOSITORY O ID: [id number] Author: Javier Quintero (Sw) Service: Social Work Author Type: [employer]'S [employer] Clothing Salesperson Type: Social Work Filed: 08/23/2017 6:25 PM Note Text: SOCIAL WORK CONSULT NOTE SERVICE DATE: 08/23/2017 SERVICE TIME: 5:00 PM Referred by: Nurse Reason for visit: Transportation - Medicaid Transportation Living Arrangement: Home Lives With: Unknown Financial Resources: Retired Primary Contact: Extended Emergency Contact Information Primary Emergency Contact: Brigitte Carl Relation: Other Supportive: Yes Other Important Patient Contacts: None Health Insurance: Medicare, Medicaid, [facility] Hoa Sánchez is a 67 year old female who reports that she has [facility] Medicaid and [employer] services. Social work called [facility] who reports that the pt has no hospital transport home. Social work met the pt and the pt called her window caser at [facility] who reports that the hospital can bill [place] for a Taxi ride home. Social work called [employer] to see about how this can be set up. [employer] set up the voucher and will charge [facility] for the ride home. Social work set the ride up at 6:30 and the RN's was made aware of this. The pt had no other concerns at this time. Outcome/Recommendations: Transportation Time spent (minutes): 45 SIGNATURE: JACKSON Frank PATIENT NAME: Hoa Sánchez DATE: August 23, 2017 TIME: 6:20 PM PAGER/CONTACT#: [phone] PT ED Observed: 08/23/2017 Status: COMPLETED Source: [place] 3:51 PM CLINIC OTHER CAMPUS REPOSITORY O ID: [id number] Author: Oc Ghosh (Pharmacist) Service: Pharmacy Author Type: Pharmacist Type: Patient Education Filed: 08/23/2017 3:52 PM Note Text: DISCHARGE MEDICATION REVIEW AND COUNSELING BY PHARMACY Patient Name: Hoa Sánchez Account #: Data Unavailable Admission Date: 08/21/2017 Date of Contact: August 23, 2017 Time of Contact: 3:51 PM LEARNERS Persons Present: Patient Primary Learner: Patient Medication list was reviewed by a Pharmacist for drug interactions or drug related problems:Yes The patient was counseled on the medication(s) listed below and was given the opportunity to ask questions regarding indication, dosage, side effects and drug interactions READINESS TO LEARN COGNITIVE ABILITY:Alert and oriented MOTIVATION TO LEARN:Interested FAMILY SUPPORT:Unable to assess - Family not present INSTRUCTION PROVIDED TO:Patient PATIENT LEARNS BEST BY:Multiple Methods FACTORS AFFECTING LEARNING:None PHYSICAL LIMITATIONS AFFECTING LEARNING:None LEARNING RESPONSE PATIENT / FAMILY RESPONSE:Verbalizes understanding of: Accurate knowledge of prescribed medication prior to discharge. The correct action to take if medication dose is missed. The side effects associated with the medication that warrant a call to the physician. OC GHOSH, PHARMACIST August 23, 2017 3:51 PM Medication List CHANGE how you take these medications potassium chloride ER 20 mEq tablet Commonly known as: K-DUR, KLOR-CON Take 2 tablets by mouth twice daily. What changed: - medication strength - when to take this CONTINUE taking these medications B-12 PLUS 5,000-100 mcg Subl Generic drug: Cyanocobalamin-Cobamamide cetirizine 10 mg tablet Commonly known as: ZyrTEC Take 1 tablet by mouth daily at bedtime. Cholecalciferol (Vitamin D3) 2,000 unit Cap Take 1 capsule by mouth once daily. clonazePAM 0.5 mg tablet Commonly known as: KlonoPIN cycloSPORINE 0.05 % ophthalmic emulsion Commonly known as: RESTASIS Use 1 Drop in both eyes every 12 hours. desonide 0.05 % cream Commonly known as: TRIDESILON diclofenac sodium 1 % topical gel Commonly known as: VOLTAREN Apply 2 g to affected area four times daily. EPIPEN 2-AZIZA 0.3 mg/0.3 mL auto-injector Generic drug: EPINEPHrine ferrous sulfate 325 mg (65 mg iron) tablet Take 1 tablet by mouth daily with breakfast. fluticasone 50 mcg/actuation nasal spray Commonly known as: FLONASE Use 1 [place] in each nostril daily at bedtime. Ipratropium [place] 0.03 % nasal spray Commonly known as: ATROVENT Use 1 [place] in the nose once daily. LYRICA 200 mg capsule Generic drug: Pregabalin take 1 capsule by mouth twice a day meclizine 12.5 mg Tab Commonly known as: ANTIVERT Take 1 tablet by mouth twice daily. metoprolol tartrate (short acting) 25 mg tablet Commonly known as: LOPRESSOR take 1/2 tablet by mouth twice a day mirtazapine orally disintegrating 15 mg disintegrating tablet Commonly known as: REMERON SOLTAB montelukast 10 mg tablet Commonly known as: SINGULAIR take 1 tablet by mouth once daily multivitamin tablet Nebulizer and Compressor For Neb Rasheed 1 Device as needed. Use as directed. nitroglycerin sublingual 0.4 mg SL tablet Commonly known as: NITROQUICK Dissolve 1 tablet under the tongue as needed for Chest Pain. If no pain relief call 911. Omeprazole 40 mg capsule ondansetron 4 mg tablet Commonly known as: ZOFRAN Take 1 tablet by mouth every 8 hours as needed for Nausea/Vomiting. PRISTIQ 50 mg 24 hr tablet Generic drug: desvenlafaxine ER PROAIR HFA 90 mcg/actuation inhaler Generic drug: albuterol HFA inhale 2 puffs by mouth every 4 hours if needed promethazine 25 mg tablet Commonly known as: PHENERGAN rOPINIRole Hydrochloride 3 mg tablet Commonly known as: REQUIP Take 1 tablet by mouth twice daily. SPIRIVA WITH HANDIHALER 18 mcg inhalation capsule Generic drug: tiotropium SYMBICORT 160-4.5 mcg/actuation inhaler Generic drug: budesonide-formoterol inhale 2 puffs by mouth twice a day SYSTANE (PROPYLENE GLYCOL) 0.4-0.3 % ophthalmic solution Generic drug: PEG 400-propylene glycol topiramate 50 mg tablet Commonly known as: TOPAMAX Take 1 tablet by mouth twice daily. traMADol 50 mg tablet Commonly known as: ULTRAM vit B1 [id number] mg Tab Take 1 tablet by mouth once daily. Where to Get Your Medications Information about where to get these medications is not yet available ! Ask your nurse or doctor about these medications - potassium chloride ER 20 mEq tablet CNDS Observed: 08/23/2017 Status: COMPLETED Source: [place] 2:30 PM CLINIC OTHER CAMPUS REPOSITORY HNO ID: [id number] Author: Mendez (Keely Martin Service: Hospital Medicine Author Type: Resident Type: Discharge Summaries Filed: 08/23/2017 2:32 PM Note Text: Attestation signed by Max Peterson at 09/04/2017 9:23 AM (Updated) House Medicine Service Attending Attestation I evaluated the patient and personally participated in their discharge. Please note that great than thirty minutes was spent arranging for the successful discharge of this patient. Please feel free to contact me with questions or concerns. Max Peterson MD [phone] (Phone) [phone] (Pager) DISCHARGE SUMMARY PATIENT NAME: Hoa Sánchez ADMISSION DATE: 08/21/2017 DISCHARGE DATE: 08/23/2017 ATTENDING PHYSICIAN: Sasha Nguyen REASON FOR HOSPITALIZATION: Fall DIAGNOSIS: Active Problems: Hypokalemia Resolved Problems: * No resolved hospital problems. * Ruled Out OPERATIONS DURING HOSPITALIZATION: None PROCEDURES DURING HOSPITALIZATION: No procedures performed HOSPITAL COURSE: Patient is 67 YOF with pmhx of a. Fib s/p ablation, CHF, syncope, asthma, HPL who presents after a fall. The patient underwent a CT scan of the brain, spine, and extension/flexion imaging which was negative for any acute process. Trauma evaluated the patient who felt she was stable and required no further intervention. Given the patient's complaints of significant neck pain she was evaluated by neurosurgery. As the patient's imaging was negative she was treated supportively with a soft cervical collar to be worn when the patient is walking and active or at rest if it provided comfort. The patient was found to have low K+ on admission which was aggressively replaced. At the time of discharge the patient's K+ was stable around 4-4.5 with 80meq total of daily K+ replacement (40 twice per day) to be continued at discharge. The patient was instructed to follow up with her primary care doctor early next week for a re-check where dose could be adjusted and a proper interval for monitoring could be established. The patient initially presented with a slight metabolic alkalosis which resolved with IVF. During her admission the patient had stable low blood pressure (100/60 at the time of discharge) and she was counseled on the importance of good fluid intake. Patient was seen and evaluated by PT/OT who felt she would be appropriate for home. She was continued on her home medications for RLS, schizotypical disorder, asthma, and CHF. At the time of discharge patient was felt to be stable for home with f/u with her PCP. LABS AND PROCEDURES PENDING AT DISCHARGE: No pending results. CONSULTING TEAMS DURING HOSPITALIZATION: Trauma, Neurosurgery PATIENT CONDITION AT DISCHARGE: Stable DISCHARGE DISPOSITION: Home/Self Care Discharge Physical Exam: VITAL SIGNS: BP 100/60 Pulse 80 Temp 36.7 ?C (98.1 ?F) (Oral) Resp 18 Ht 160 cm (5' 3) Wt 100.5 kg (221 lb 9.6 oz) SpO2 96% BMI 39.25 kg/m2 GENERAL: Alert, no distress, cooperative LUNGS: Lungs clear to auscultation, Good diaphragmatic excursion CARDIAC: Normal S1 and S2; no rubs, murmurs, or gallops ABDOMEN: Abdomen soft, non-tender, BS normal, No masses or organomegaly EXTREMITIES: Extremities normal, no deformities, edema, clubbing or skin discoloration. Good capillary refill., No ulcers NEURO: Gait normal. Reflexes normal and symmetric. Sensation grossly intact, Cranial nerves II-XII intact INFORMATION PROVIDED TO PATIENT: (To pull info documented from the DC Instruct Orderset Complete O/S First): Information on Hypokalemia DISCHARGE MEDICATION: Current Discharge Medication List CONTINUE these medications which have CHANGED potassium chloride ER (K-DUR, KLOR-CON) 40 mEq Take 40 mEq by mouth twice daily. Qty: 60 tablet Refills: 0 CONTINUE these medications which have NOT CHANGED meclizine (ANTIVERT) 12.5 mg Take 12.5 mg by mouth twice daily. Qty: 10 tablet Refills: 0 diclofenac sodium (VOLTAREN) 2 g Apply 2 g to affected area four times daily. Qty: 3 Tube Refills: 2 Associated Diagnoses:Primary osteoarthritis of both knees; Fibromyalgia cycloSPORINE (RESTASIS) 1 Drop Use 1 Drop in both eyes every 12 hours. Cholecalciferol (Vitamin D3) 2,000 Units Take 2,000 Units by mouth once daily. mirtazapine orally disintegrating (REMERON SOLTAB) 15 mg Take 15 mg by mouth daily at bedtime. traMADol (ULTRAM) 50 mg Take 50 mg by mouth every 6 hours as needed for Pain. promethazine (PHENERGAN) 25 mg Take 25 mg by mouth every 8 hours as needed for Nausea/Vomiting. PEG 400-propylene glycol (SYSTANE) 1 Drop Use 1 Drop in both eyes four times daily. metoprolol tartrate, short acting, (LOPRESSOR) 25 mg tablet take 1/2 tablet by mouth twice a day Qty: 90 tablet Refills: 3 Ipratropium [place] (ATROVENT) 1 [place] Use 1 [place] in the nose once daily. vit B1 [id number] 1 tablet Take 1 tablet by mouth once daily. ferrous sulfate 325 mg Take 325 mg by mouth daily with breakfast. Cyanocobalamin-Cobamamide 1 tablet Dissolve 1 tablet under the tongue once each week. nitroglycerin sublingual (NITROQUICK) 0.4 mg Dissolve 0.4 mg under the tongue as needed for Chest Pain. If no pain relief call 911. Qty: 30 tablet Refills: 0 rOPINIRole Hydrochloride 3 mg Take 3 mg by mouth twice daily. Qty: 60 tablet Refills: 11 topiramate (TOPAMAX) 50 mg Take 50 mg by mouth twice daily. Qty: 60 tablet Refills: 5 montelukast (SINGULAIR) 10 mg tablet take 1 tablet by mouth once daily Qty: 30 tablet Refills: 6 SYMBICORT 160-4.5 mcg/actuation inhaler inhale 2 puffs by mouth twice a day Qty: 10.2 Inhaler Refills: 11 PROAIR HFA 90 mcg/actuation inhaler inhale 2 puffs by mouth every 4 hours if needed Qty: 8.5 Inhaler Refills: 3 cetirizine (ZyrTEC) 10 mg Take 10 mg by mouth daily at bedtime. Qty: 30 tablet Refills: 11 multivitamin 1 tablet Take 1 tablet by mouth once daily. LYRICA 200 mg capsule take 1 capsule by mouth twice a day Qty: 180 capsule Refills: 1 ondansetron (ZOFRAN) 4 mg Take 4 mg by mouth every 8 hours as needed for Nausea/Vomiting. Qty: 10 tablet Refills: 3 EPIPEN 2-AZIZA 0.3 mg Inject 0.3 mg intramuscularly as directed. clonazePAM (KlonoPIN) 0.5 mg Take 0.5 mg by mouth twice daily as needed. PRISTIQ 50 mg Take 50 mg by mouth once daily. Nebulizer and Compressor For Neb 1 Device 1 Device as needed. Use as directed. Qty: 1 Device Refills: 0 SPIRIVA WITH HANDIHALER 18 mcg Inhale 18 mcg as instructed once daily. desonide (TRIDESILON) 1 application Apply 1 application to affected area as needed. Associated Diagnoses:Uncomplicated asthma, unspecified asthma severity; PAPA (obstructive sleep apnea) Omeprazole 40 mg Take 40 mg by mouth once daily. Associated Diagnoses:Uncomplicated asthma, unspecified asthma severity; PAPA (obstructive sleep apnea) fluticasone (FLONASE) 1 [place]ogue Use 1 [place] in each nostril daily at bedtime. Qty: 1 Bottle Refills: 11 Associated Diagnoses:Uncomplicated asthma, unspecified asthma severity; PAPA (obstructive sleep apnea) FUTURE APPOINTMENTS: [facility] TIME OF CARE (Use first blank if not applicable): TIME OF CARE: Discharge Management: I personally spent greater than 30 minutes involved in the discharge management of this patient. SIGNATURE: Mendez Martin MD PATIENT NAME: Hoa Sánchez DATE: August 23, 2017 TIME: 2:31 PM PAGER/CONTACT #: [phone] CASE MANAGEM Observed: 08/23/2017 Status: COMPLETED Source: [place] 12:03 PM [facility] REPOSITORY HNO ID: [id number] Author: Tram LimRn) ERIKA Serrano Service: Care Management Author Type: Registered Nurse Type: Care Mgt Progress Note Filed: 08/23/2017 12:04 PM Note Text: CARE MANAGEMENT PROGRESS NOTE SERVICE DATE: 08/23/2017 SERVICE TIME: 12:03 PM LOS: 2 days Chart reviewed, plan for pt. To be discharged to home with DEVELOPMENT ENG possibly tomorrow. SIGNATURE: Tram Serrano RN PATIENT NAME: Hoa Sánchez DATE: August 23, 2017 TIME: 12:03 PM PAGER/CONTACT #: [phone] NURSING PROG Observed: 08/23/2017 Status: COMPLETED Source: [place] 10:49 AM [facility] REPOSITORY HNO ID: [id number] Author: Evelyn LimRn) ERIKA Liao Service: (none) Author Type: Registered Nurse Type: Nursing Progress Note Filed: 08/23/2017 10:49 AM Note Text: Dr martin aware of bp 100/60 HEMOGRAM Collected: 08/23/2017 Status: F Source: [facility] 5:00 AM HEALTH SYSTEM REPOSITORY TYPE CODE TESTS RESULT OUT OF REFERENCE UNITS RANGE LAB WBC(LOINC) 3.98-10.04 thou/cmm WBC 6.55 LAB RBC(LOINC) 3.93-5.22 mil/cmm Low RBC 3.65 LAB HGB(LOINC) 11.2-15.7 g/dL Low Hgb 10.8 LAB HCT(LOINC) 34.1-44.9 % Hct 34.6 LAB MCV(LOINC) 79.4-94.8 fl MCV 94.8 LAB MCH(LOINC) 25.6-32.2 pg MCH 29.6 LAB MCHC(LOINC) 31.6-34.8 % Low MCHC 31.2 LAB RDW(LOINC) 11.7-14.4 % High RDW 15.2 LAB RDWSD(LOINC 36.4-46.3 fl ) High RDW SD 53.2 LAB PLT(LOINC) 182-369 thou/cmm Platelet 188 LAB MPV(LOINC) 9.4-12.3 fl MPV 11.8 Performed By: #### CBC1 #### [place] [address] BASIC PANEL Collected: 08/23/2017 Status: F Source: [facility] 5:00 AM [facility] SYSTEM REPOSITORY TYPE CODE TESTS RESULT OUT OF REFERENCE UNITS RANGE LAB NA(LOINC) 136-145 mEq/L Sodium Blood 145 LAB K(LOINC) 3.5-5.1 mEq/L Potassium Blood 4.2 LAB CL(LOINC) 98-107 mEq/L Chloride High Blood 112 LAB CO2(LOINC) 21-32 mEq/L CO2 Blood 30 LAB GLU(LOINC) 70-99 mg/dL Glucose Blood 87 LAB BUN(LOINC) 7-18 mg/dL BUN Blood 14 LAB CREA(LOINC 0.51-0.95 mg/dL ) Creatinine Blood 0.82 LAB CA(LOINC) 8.5-10.1 mg/dL Low Calcium Blood 8.2 LAB ANGAP(LOIN 8-16 C) Low Anion Gap 7 Performed By: #### P8 #### [place] [address] MDRD GFR Collected: 08/23/2017 Status: F Source: [facility] 5:00 [facility] SYSTEM REPOSITORY TYPE CODE TESTS RESULT OUT OF RANGE REFERENCE UNITS LAB GFRFN(LOINC >60mL/min/1.73m ) 2 eGFR >60 Result Comment: If the patient is , multiply the result by 1.210. Performed By: #### GFR #### [facility] [address] [place] [id number] OBSOLETE Observed: 08/23/2017 Status: COMPLETED Source: [place] 12:00 AM CLINIC OTHER CAMPUS REPOSITORY Refill (AGCARDPOB) ANABELHOA M ([id number]) 1950 F Date Time Provider Department 08/23/17 NAOMI HERMOSILLO (GISSEL) AGCARDPOB During your visit today, we recorded the following information about you: Alexa Addison LPN 08/23/2017 10:24 AM Signed Pharmacy electronically requesting refills as follows: Refused Prescriptions Disp Refills metOLAzone (ZAROXOLYN) 5 mg tablet [Pharmacy Med Name: METOLAZONE 5 MG TABLET] 10 tablet 1 Sig: take 1 tablet by mouth 30 MINUTES BEFORE FUROSEMIDE EVERY SATURDAY AND SATURDAY BELEM: No Medication D/C'd on 08/05/2017 in ED. Please review and advise. Alexa Addison LPN Allergies As of Date: 08/23/2017 Noted Allergy Reaction VICODIN (HYDROCODONE-ACETAMINOPHE*12/26/2016 14 - Other: See Comments Comments: Passed out Shortness of breath. Date Reviewed: 08/21/2017 Reviewed by: Autumn (Rn) ERIKA Greenberg - Fully Assessed Reason for Visit: Refill Request [94] Prescriptions as of 08/23/2017 Sig: MECLIZINE 12.5 MG TABLET Take 1 tablet by mouth twice * DICLOFENAC 1 % TOPICAL GEL Apply 2 g to affected area fo* POTASSIUM CHLORIDE ER 10 MEQ * Take 4 tablets by mouth once * CYCLOSPORINE 0.05 % EYE DROPS* Use 1 Drop in both eyes every* CHOLECALCIFEROL (VITAMIN D3) * Take 1 capsule by mouth once * MIRTAZAPINE 15 MG DISINTEGRAT* Take 15 mg by mouth daily at * TRAMADOL 50 MG TABLET Take 50 mg by mouth every 6 h* PROMETHAZINE 25 MG TABLET Take 25 mg by mouth every 8 h* PEG 400-PROPYLENE GLYCOL 0.4 * Use 1 Drop in both eyes four * METOPROLOL TARTRATE 25 MG TAB* take 1/2 tablet by mouth twic* IPRATROPIUM BROMIDE 0.03 % NA* Use 1 Aquebogue in the nose once * [id number]-* Take 1 tablet by mouth once d* FERROUS SULFATE 325 MG (65 MG* Take 1 tablet by mouth daily * CYANOCOBALAMIN (B12)-COBAMAMI* Dissolve 1 tablet under the t* NITROGLYCERIN 0.4 MG SUBLINGU* Dissolve 1 tablet under the t* ROPINIROLE 3 MG TABLET Take 1 tablet by mouth twice * TOPIRAMATE 50 MG TABLET Take 1 tablet by mouth twice * MONTELUKAST 10 MG TABLET take 1 tablet by mouth once d* SYMBICORT 160 MCG-4.5 MCG/ACT* inhale 2 puffs by mouth twice* PROAIR HFA 90 MCG/ACTUATION A* inhale 2 puffs by mouth every* CETIRIZINE 10 MG TABLET Take 1 tablet by mouth daily * MULTIVITAMIN TABLET Take 1 tablet by mouth once d* LYRICA 200 MG CAPSULE take 1 capsule by mouth twice* ONDANSETRON HCL 4 MG TABLET Take 1 tablet by mouth every * EPIPEN 2-AZIZA 0.3 MG/0.3 ML IN* Inject 0.3 mg intramuscularly* CLONAZEPAM 0.5 MG TABLET Take 0.5 mg by mouth twice da* PRISTIQ 50 MG TABLET,EXTENDED* Take 50 mg by mouth once chris* NEBULIZER AND COMPRESSOR 1 Device as needed. Use as di* SPIRIVA WITH HANDIHALER 18 MC* Inhale 18 mcg as instructed o* DESONIDE 0.05 % TOPICAL CREAM Apply 1 application to affect* OMEPRAZOLE 40 MG CAPSULE,MARCELLE* Take 40 mg by mouth once chris* FLUTICASONE 50 MCG/ACTUATION * Use 1 [place] in each nostril d* Problem List As Of Date 08/23/2017 Noted Resolved PAPA (obstructive sleep apnea) [G47.33] INVALID FOR* Uncomplicated asthma [J45.909] INVALID FOR* Moderate persistent asthma without complication*INVALID FOR* Vocal cord dysfunction [J38.3] INVALID FOR* Non morbid obesity [E66.9] INVALID FOR* Allergic rhinitis due to pollen [J30.1] INVALID FOR* Allergic rhinitis due to house dust mite [J30.8*INVALID FOR* Allergic rhinitis due to animal hair and dander*INVALID FOR* Allergic conjunctivitis [H10.10] INVALID FOR* Diastolic heart failure (HCC) [I50.30] Pain of right upper arm [M79.621] INVALID FOR* Rotator cuff syndrome [M75.100] INVALID FOR* Paroxysmal a-fib (HCC) [I48.0] More... CHF (congestive heart failure) (HCC) [I50.9] More... Benign paroxysmal positional vertigo [H81.10] Chest pain [R07.9] More... Chronic diastolic CHF (congestive heart failure*INVALID FOR* Prolapsed cervical intervertebral disc [M50.20] OA (osteoarthritis) of knee [M17.10] More... Fibromyalgia [M79.7] More... Complete tear of right rotator cuff [M75.121] INVALID FOR* Abnormal EKG [R94.31] INVALID FOR* Hypokalemia [E87.6] INVALID FOR*08/08/2017 Primary localized osteoarthrosis of right shoul*INVALID FOR* Postmenopausal [Z78.0] INVALID FOR* Osteoporosis screening [Z13.820] INVALID FOR* Hypokalemia [E87.6] INVALID FOR* Encounter Status:Closed by NAOMI HERMOSILLO CNP on 08/23/17 THERAPY NT Observed: 08/22/2017 Status: COMPLETED Source: [place] 2:20 PM CLINIC OTHER CAMPUS REPOSITORY O ID: [id number] Author: Shanti Garces Service: Physical Therapy Author Type: Physical Therapist Type: Therapy (PT/OT/Speech/Resp) Filed: 08/22/2017 2:24 PM Note Text: Physical Therapy Evaluation SERVICE DATE: 08/22/2017 SERVICE TIME: 1345 to 1515 ROOM: [place] [address] Recommended Discharge Disposition: Home PT Recommendations to Nursing: With assist of 1 person (walk in the halls) PT 6 Clicks Score: 22 Precautions/Activity Restrictions: Fall Risk;Spine Precaution/Activity Restriction Comments: C-collar brace when OOB/with activity ASSESSMENT : Patient presents with a medically stable condition and presents at baseline level of functional mobility required for safe discharge home. The patient does not require further acute care physical therapy intervention during this hospital admission. Patient is moving well in the halls and will be safe for home at discharge. Tolerated Full Session Physical Therapy Problem List: Education Deficit;Safety Deficits;Functional Mobility Impairment Patient /Caregiver Goals: Go Home Goals for Plan of Care: Transfer supine to/from sit with: Independent Transfer sit to/from stand with: Independent Ambulate with: Independent Distance: 50 Rehab Potential: Excellent PLAN: Treatment Frequency (times per week): Discontinue Therapy Services Reasons Therapy Services Discontinued: Goals met Plan of Care developed with: Patient TREATMENT INTERVENTIONS: Therapy Diagnosis: Unsteadiness on feet Interventions Provided: Evaluation;Therapeutic Activity (56770) $ Evaluation-Low (46201) Billed Units: 1 unit Therapeutic Activity (20418) Treatment Minutes: 10 1 unit Skilled Intervention(s): Instructed patient in log roll technique Instructed patient in supine to sit pushing with upper extremities to sit up Instruction in sit to and from stand technique with proper hand placement and body positioning at edge of bed/chair Reviewed spine safety and importance of not moving head/neck when she is out of the brace. Total Timed Code Treatment Minutes: 10 Total Treatment Time (minutes): 30 FUNCTIONAL G CODE: PT 6 Clicks Score: 22 (08/22/17 134) Mobility: Walking and Moving Around Current Status (G8978): CJ (08/22/17 134) Mobility: Walking and Moving Around Goal Status (G8979): CI (08/22/17 1345) Based on clinical assessment and the score on the 6 Clicks Functional Assessment Tool, the G code and corresponding severity modifiers are documented above. SUBJECTIVE: Current Hospital Course: Chart reviewed; low sodium, fall in bathroom, wear c collar when OOB. Patient Report: Patient is feeling good but has not walked in the halls. She is aware of wearing the brace. Home Environment Patient Lives With: Self/Alone Assistance Available: None Entry To Home: No Stairs;Elevator (apt building) Number Of Stairs To Bed/Bath: 0 Tub/Shower Type: tub shower Prior Functional Level: Within Functional Limits OBJECTIVE: CURRENT FUNCTIONAL STATUS: Current Functional Mobility Assist Level Additional Information Rolling Independent Supine to Sit Independent Sit to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 for drug interactions or drug related problems:Yes The patient was counseled on the medication(s) listed below and was given the opportunity to ask questions regarding indication, dosage, side effects and drug interactions READINESS TO LEARN COGNITIVE ABILITY:Alert and oriented MOTIVATION TO LEARN:Interested FAMILY SUPPORT:Unable to assess - Family not present INSTRUCTION PROVIDED TO:Patient PATIENT LEARNS BEST BY:Multiple Methods FACTORS AFFECTING LEARNING:None PHYSICAL LIMITATIONS AFFECTING LEARNING:None LEARNING RESPONSE PATIENT / FAMILY RESPONSE:Verbalizes understanding of: Accurate knowledge of prescribed medication prior to discharge. The correct action to take if medication dose is missed. The side effects associated with the medication that warrant a call to the physician. OC GHOSH, PHARMACIST August 08, 2017 6:08 PM Medication List START taking these medications Cholecalciferol (Vitamin D3) 2,000 unit Cap Take 1 capsule by mouth once daily. CHANGE how you take these medications cholestyramine 4 gram packet Commonly known as: QUESTRAN Take 1 Packet by mouth once daily. What changed: - when to take this - additional instructions cycloSPORINE 0.05 % ophthalmic emulsion Commonly known as: RESTASIS Use 1 Drop in both eyes every 12 hours. What changed: - how much to take - how to take this - when to take this potassium chloride ER 10 mEq tablet Commonly known as: K-DUR, KLOR-CON Take 4 tablets by mouth once daily. What changed: - medication strength - Another medication with the same name was removed. Continue taking this medication, and follow the directions you see here. promethazine 25 mg tablet Commonly known as: PHENERGAN What changed: Another medication with the same name was removed. Continue taking this medication, and follow the directions you see here. CONTINUE taking these medications B-12 PLUS 5,000-100 mcg Subl Generic drug: Cyanocobalamin-Cobamamide cetirizine 10 mg tablet Commonly known as: ZyrTEC Take 1 tablet by mouth daily at bedtime. clonazePAM 0.5 mg tablet Commonly known as: KlonoPIN desonide 0.05 % cream Commonly known as: TRIDESILON diclofenac sodium 1 % topical gel Commonly known as: VOLTAREN Apply 2 g to affected area four times daily. EPIPEN 2-AZIZA 0.3 mg/0.3 mL auto-injector Generic drug: EPINEPHrine ferrous sulfate 325 mg (65 mg iron) tablet Take 1 tablet by mouth daily with breakfast. fluticasone 50 mcg/actuation nasal spray Commonly known as: FLONASE Use 1 [place] in each nostril daily at bedtime. Ipratropium Delmar 0.03 % nasal spray Commonly known as: ATROVENT Use 1 [place] in the nose once daily. LYRICA 200 mg capsule Generic drug: Pregabalin take 1 capsule by mouth twice a day metoprolol tartrate (short acting) 25 mg tablet Commonly known as: LOPRESSOR take 1/2 tablet by mouth twice a day mirtazapine orally disintegrating 15 mg disintegrating tablet Commonly known as: REMERON SOLTAB montelukast 10 mg tablet Commonly known as: SINGULAIR take 1 tablet by mouth once daily multivitamin tablet Nebulizer and Compressor For Neb Rasheed 1 Device as needed. Use as directed. nitroglycerin sublingual 0.4 mg SL tablet Commonly known as: NITROQUICK Dissolve 1 tablet under the tongue as needed for Chest Pain. If no pain relief call 911. Omeprazole 40 mg capsule ondansetron 4 mg tablet Commonly known as: ZOFRAN Take 1 tablet by mouth every 8 hours as needed for Nausea/Vomiting. PRISTIQ 50 mg 24 hr tablet Generic drug: desvenlafaxine ER PROAIR HFA 90 mcg/actuation inhaler Generic drug: albuterol HFA inhale 2 puffs by mouth every 4 hours if needed rOPINIRole Hydrochloride 3 mg tablet Commonly known as: REQUIP Take 1 tablet by mouth twice daily. SPIRIVA WITH HANDIHALER 18 mcg inhalation capsule Generic drug: tiotropium SYMBICORT 160-4.5 mcg/actuation inhaler Generic drug: budesonide-formoterol inhale 2 puffs by mouth twice a day SYSTANE (PROPYLENE GLYCOL) 0.4-0.3 % ophthalmic solution Generic drug: PEG 400-propylene glycol topiramate 50 mg tablet Commonly known as: TOPAMAX Take 1 tablet by mouth twice daily. traMADol 50 mg tablet Commonly known as: ULTRAM vit B1 [id number] mg Tab Take 1 tablet by mouth once daily. STOP taking these medications furosemide 80 mg tablet Commonly known as: LASIX metOLAzone 5 mg tablet Commonly known as: ZAROXOLYN vitamin D3-vitamin K2 (MK4) 1,000-100 unit-mcg Tab Where to Get Your Medications Information about where to get these medications is not yet available ! Ask your nurse or doctor about these medications - Cholecalciferol (Vitamin D3) 2,000 unit Cap - cycloSPORINE 0.05 % ophthalmic emulsion - potassium chloride ER 10 mEq tablet CNDS Observed: 08/08/2017 Status: COMPLETED Source: [place] 5:22 PM CLINIC OTHER CAMPUS REPOSITORY [facility] ID: [id number] Author: Sunny French Service: Hospital Medicine Author Type: Resident Type: Discharge Summaries Filed: 08/08/2017 5:24 PM Note Text: Attestation signed by Kirk Garza at 08/19/2017 10:21 AM I saw and evaluated the patient with med team on AM rounds on 08/08/17. Discussed case with the resident and agree with resident's findings and plan as documented in the resident's note. Kirk Garza MD DISCHARGE SUMMARY PATIENT NAME: Hoa Sánchez ADMISSION DATE: 08/05/2017 DISCHARGE DATE: 08/08/2017 ATTENDING PHYSICIAN: Kirk Garza REASON FOR HOSPITALIZATION: hypokalemia, hyponatremia, hypotension, metabolic alkalosis 2/2 lasix overuse DIAGNOSIS: hypokalemia, hyponatremia, hypotension, metabolic alkalosis 2/2 lasix overuse OPERATIONS DURING HOSPITALIZATION: None PROCEDURES DURING HOSPITALIZATION: No procedures performed HOSPITAL COURSE: Patient was came to the ED from her PCP office as she was found to be hypotensive with systolic BP in the 80s. Patients labs were significant for severe hypokalemia, hyponatremia, and metabolic alkalosis. Patient has had prior admissions in the last 4 months for this same problem. She was diagnosed with diastolic heart failure a few years ago, and has been taking 80 mg of lasix. In March, she had bariatric surgery and has lost 80 lbs over the last 3 months. An Echo was repeated which showed EF of 60%, no valvular abnormalities, no wall motion abnormalities, no diastolic dysfunction, and no pulmonary HTN. Her potassium was replaced and is 3.3 on discharge. Patient will take oral 40 meq daily and follow- up with her PCP. There may be a component of decreased absorption of K+ 2/2 her bariatric surgery. We will hold off on lasix as the patient no longer has a true indication for it with her lack of heart failure. Allowing her to be off lasix, and replacing her PO K+, her PCP will be able to titrate her potassium now that confounding factors of lasix will be out of the picture. Patient felt better symptomatically and was discharged in stable condition. LABS AND PROCEDURES PENDING AT DISCHARGE: No pending results. CONSULTING TEAMS DURING HOSPITALIZATION: None PATIENT CONDITION AT DISCHARGE: Stable DISCHARGE DISPOSITION: Home/Self Care Discharge Physical Exam: VITAL SIGNS: BP 81/58 Pulse 73 Temp 36.9 ?C (98.4 ?F) (Oral) Resp 20 Ht 162.6 cm (5' 4.02) Wt 93.9 kg (207 lb) SpO2 96% BMI 35.51 kg/m2 GENERAL: AOx3, pleasant, responds to all questions approp HEENT: EOMI, PERRLA, sclera white, dry MM, no thrush, neck supple, no JVD, no LAD CARDIO: RRR, no murmur LUNGS: CTAB, no wheeze, no crackles ABDOMEN: soft, obese, translational scar from prior surgery, ND, NT, BS+ EXTREMITIES: trace bilateral pedal edema, no cyanosis, no clubbing, < 3 sec cap refill, 2+ peripheral pulses NEURO: GRADY, sensations grossly intact, CN2-12 intact DISCHARGE MEDICATION: Current Discharge Medication List CONTINUE these medications which have CHANGED potassium chloride ER (K-DUR, KLOR-CON) 40 mEq Take 40 mEq by mouth once daily. Qty: 30 tablet Refills: 2 CONTINUE these medications which have NOT CHANGED mirtazapine orally disintegrating (REMERON SOLTAB) 15 mg Take 15 mg by mouth daily at bedtime. cycloSPORINE (RESTASIS) 0.05 % ophthalmic emulsion traMADol (ULTRAM) 50 mg Take 50 mg by mouth every 6 hours as needed for Pain. promethazine (PHENERGAN) 25 mg Take 25 mg by mouth every 8 hours as needed for Nausea/Vomiting. PEG 400-propylene glycol (SYSTANE) 1 Drop Use 1 Drop in both eyes four times daily. metoprolol tartrate, short acting, (LOPRESSOR) 25 mg tablet take 1/2 tablet by mouth twice a day Qty: 90 tablet Refills: 3 Ipratropium Delmar (ATROVENT) 1 Aquebogue Use 1 [place] in the nose once daily. cholestyramine (QUESTRAN) 4 g Take 4 g by mouth once daily. vit B1 [id number] 1 tablet Take 1 tablet by mouth once daily. vitamin D3-vitamin K2 (MK4) 2,000 Units Take 2,000 Units by mouth once daily. Cyanocobalamin-Cobamamide 1 tablet Dissolve 1 tablet under the tongue once each week. nitroglycerin sublingual (NITROQUICK) 0.4 mg Dissolve 0.4 mg under the tongue as needed for Chest Pain. If no pain relief call 911. Qty: 30 tablet Refills: 0 rOPINIRole Hydrochloride 3 mg Take 3 mg by mouth twice daily. Qty: 60 tablet Refills: 11 topiramate (TOPAMAX) 50 mg Take 50 mg by mouth twice daily. Qty: 60 tablet Refills: 5 montelukast (SINGULAIR) 10 mg tablet take 1 tablet by mouth once daily Qty: 30 tablet Refills: 6 diclofenac sodium (VOLTAREN) 2 g Apply 2 g to affected area four times daily. Qty: 3 Tube Refills: 2 Associated Diagnoses:Uncomplicated asthma, unspecified asthma severity; PAPA (obstructive sleep apnea) SYMBICORT 160-4.5 mcg/actuation inhaler inhale 2 puffs by mouth twice a day Qty: 10.2 Inhaler Refills: 11 PROAIR HFA 90 mcg/actuation inhaler inhale 2 puffs by mouth every 4 hours if needed Qty: 8.5 Inhaler Refills: 3 cetirizine (ZyrTEC) 10 mg Take 10 mg by mouth daily at bedtime. Qty: 30 tablet Refills: 11 multivitamin 1 tablet Take 1 tablet by mouth once daily. LYRICA 200 mg capsule take 1 capsule by mouth twice a day Qty: 180 capsule Refills: 1 ondansetron (ZOFRAN) 4 mg Take 4 mg by mouth every 8 hours as needed for Nausea/Vomiting. Qty: 10 tablet Refills: 3 clonazePAM (KlonoPIN) 0.5 mg Take 0.5 mg by mouth twice daily as needed. PRISTIQ 50 mg Take 50 mg by mouth once daily. SPIRIVA WITH HANDIHALER 18 mcg Inhale 18 mcg as instructed once daily. desonide (TRIDESILON) 1 application Apply 1 application to affected area as needed. Associated Diagnoses:Uncomplicated asthma, unspecified asthma severity; PAPA (obstructive sleep apnea) Omeprazole 40 mg Take 40 mg by mouth once daily. Associated Diagnoses:Uncomplicated asthma, unspecified asthma severity; PAPA (obstructive sleep apnea) fluticasone (FLONASE) 1 [place] Use 1 [place] in each nostril daily at bedtime. Qty: 1 Bottle Refills: 11 Associated Diagnoses:Uncomplicated asthma, unspecified asthma severity; PAPA (obstructive sleep apnea) ferrous sulfate 325 mg Take 325 mg by mouth daily with breakfast. EPIPEN 2-AZIZA 0.3 mg Inject 0.3 mg intramuscularly as directed. Nebulizer and Compressor For Neb 1 Device 1 Device as needed. Use as directed. Qty: 1 Device Refills: 0 STOP taking these medications metOLAzone (ZAROXOLYN) 5 mg tablet Comments: Reason for Stopping: metOLAzone (ZAROXOLYN) 5 mg Comments: Reason for Stopping: furosemide (LASIX) 80 mg Comments: Reason for Stopping: FUTURE APPOINTMENTS: Follow Up with PCP: Mae Freeman TIME OF CARE (Use first blank if not applicable): TIME OF CARE: Discharge Management: I personally spent greater than 30 minutes involved in the discharge management of this patient. SIGNATURE: Sunny French MD PATIENT NAME: Hoa Sánchez DATE: August 08, 2017 TIME: 5:23 PM PAGER/CONTACT #: [phone] HEMOGRAM Collected: 08/08/2017 Status: F Source: [facility] 6:25 AM HEALTH SYSTEM REPOSITORY TYPE CODE TESTS RESULT OUT OF REFERENCE UNITS RANGE LAB WBC(LOINC) 3.98-10.04 thou/cmm WBC 5.91 LAB RBC(LOINC) 3.93-5.22 mil/cmm RBC 4.18 LAB HGB(LOINC) 11.2-15.7 g/dL Hgb 12.4 LAB HCT(LOINC) 34.1-44.9 % Hct 38.0 LAB MCV(LOINC) 79.4-94.8 fl MCV 90.9 LAB MCH(LOINC) 25.6-32.2 pg MCH 29.7 LAB MCHC(LOINC) 31.6-34.8 % MCHC 32.6 LAB RDW(LOINC) 11.7-14.4 % High RDW 14.6 LAB RDWSD(LOINC 36.4-46.3 fl ) High RDW SD 48.9 LAB PLT(LOINC) 182-369 thou/cmm Platelet 194 LAB MPV(LOINC) 9.4-12.3 fl MPV 11.4 Performed By: #### CBC1 #### [place] [address] BASIC PANEL Collected: 08/08/2017 Status: F Source: [facility] 6:[facility] REPOSITORY TYPE CODE TESTS RESULT OUT OF REFERENCE UNITS RANGE LAB NA(LOINC) 136-145 mEq/L Sodium Blood 141 LAB K(LOINC) 3.5-5.1 mEq/L Low Potassium Blood 3.3 LAB CL(LOINC) 98-107 mEq/L Chloride Blood 105 LAB CO2(LOINC) 21-32 mEq/L CO2 Blood 31 LAB GLU(LOINC) 70-99 mg/dL Glucose Blood 88 LAB BUN(LOINC) 7-18 mg/dL BUN High Blood 21 LAB CREA(LOINC 0.51-0.95 mg/dL ) Creatinine Blood 0.94 LAB CA(LOINC) 8.5-10.1 mg/dL Low Calcium Blood 8.3 LAB ANGAP(LOIN 8-16 C) Anion Gap 8 Performed By: #### P8 #### [place] [address] MDRD GFR Collected: 08/08/2017 Status: F Source: [facility] 6:25 AM HEALTH SYSTEM REPOSITORY TYPE CODE TESTS RESULT OUT OF RANGE REFERENCE UNITS LAB GFRFN(LOINC >60mL/min/1.73m ) 2 eGFR 59.53 Result Comment: If the patient is , multiply the result by 1.210. Performed By: #### GFR #### [facility] [address] [place], [place] [address] CASE MANAGEM Observed: 08/07/2017 Status: COMPLETED Source: [place] 2:20 PM CLINIC OTHER CAMPUS REPOSITORY HNO ID: [id number] Author: Tram LimRn) ERIKA Serrano Service: Care Management Author Type: Registered Nurse Type: Care Mgt Progress Note Filed: 08/07/2017 2:41 PM Note Text: CARE MANAGEMENT: ASSESSMENT AND DISCHARGE PLAN SERVICE DATE: 08/07/2017 SERVICE TIME: 2:20 PM PRIMARY CARE PHYSICIAN: Mae Freeman ADMISSION STATUS: Inpatient POTENTIAL DISCHARGE PLANS Passport Patient/Winery Cellar Hand Stated Goals: home Health Insurance: Medicare, Medicaid Living Arrangement: Home Lives With: Alone Financial Resources: Retired Primary Contact: Extended Emergency Contact Information Primary Emergency Contact: Linda Lino pic5 Relation: Daughter Secondary Emergency Contact: Brigitte Carl Relation: Other Supportive: Yes, Unable to assess at this time Other Important Patient Contacts: None CAREGIVER ASSESSMENT: Caregiver is ready, willing and able to meet the patient's needs as recommended by the inter-professional team? Yes Patient's transition needs and plan for meeting these needs: Passport DEVELOPMENT ENG Does the patient have an acute stroke diagnosis, or has the patient had a stroke during this admission? No ADVANCE DIRECTIVES: Does Patient Have Advance Directives? No, Patient refused Does Patient Have Concerns About Advance Directives? No PRIOR TO ADMISSION: Baseline Mental Status: Alert AND Oriented, Person, Place , Time and Situation Functional Status: Independent Does Patient Currently Receive Any Community Services or Home Care? None passport-DEVELOPMENT ENG 2 hours a day/3 days a week Equipment Prior to Admission: Cane - Straight Tub bench/chair HEALTH: Health Issues Impacting Discharge Plan: None Health Literacy Issues: No PSYCHOSOCIAL: Is the Patient Psychosocially Complex? No Family/Patient Understanding of Illness/Diagnosis: yes Medication Adherence: Do you forget to take your medications? I do not forget to take my medication Have you ever stopped taking medications because you felt worse? None of the time Have you ever taken less of your medication than what was prescribed by your doctor? None of the time In the past 3 months, have you had issues obtaining one or more of your medications? None of the time Are you interested in bedside delivery of your medications? No Food Concerns: In the Last Month, Have You had Trouble Getting Food? No trouble getting food During the Last Month, Have You Worried Whether Your Food Would Run Out Before You Had Enough Money to Buy More? No Psychosocial Needs: None UTILIZATION: Last Admission Date: Previous admit date: 06/12/2017 Is this Within the Past 30 days? No Has the Patient Been in a Senior Care Facility in the Past 30 days? No FREEDOM OF CHOICE EXPLAINED: N/A HANDOFF COMMUNICATION: Keenan [place]iedo ext.[phone] Pt. Lives in an apt., bed/bath on same floor, no steps to enter apt. Pt. Drives to grocery store and Dr. Johnson Has DEVELOPMENT ENG-KEVON through [facility], left Keenan a message, 3 days a week, 2 hours a day. SIGNATURE: Tram Serrano RN PATIENT NAME: Hoa Sánchez DATE: August 07, 2017 TIME: 2:20 PM PAGER/CONTACT [phone] PROGRESS Observed: 08/07/2017 Status: COMPLETED Source: [place] 11:24 AM CLINIC OTHER CAMPUS REPOSITORY O ID: [id number] Author: Sunny French Service: Hospital Medicine Author Type: Resident Type: Progress Notes Filed: 08/07/2017 11:34 AM Note Text: Attestation signed by Kirk Garza at 08/19/2017 10:21 AM I saw and evaluated the patient with med team on AM rounds on 08/07/17. Discussed case with the resident and agree with resident's findings and plan as documented in the resident's note. Kirk Garza MD [facility] DAILY PROGRESS NOTE SERVICE DATE: 08/07/2017 SERVICE TIME: 11:26 AM INTERVAL HISTORY: Patient states she is still feeling somewhat better, but still has overall fatigue/weakness. States that her K+ takes time to fix last time as well. Complaints of some constipation. No complaints of nausea/vomiting, diarrhea, SOB, CP, abdominal pain, dysuria or fever. MEDICATIONS: Current hospital medications: potassium chloride 40 mEq oral powder (KLOR-CON) 40 mEq ORAL TID mirtazapine orally disintegrating 15 mg tab(s) (REMERON SOLTAB) 15 mg ORAL AT BEDTIME diclofenac 1 % topical gel (VOLTAREN) 2 g TOPICAL QID PRN desvenlafaxine ER 50 mg tab(s) (PRISTIQ) 50 mg ORAL DAILY capsaicin 0.025 % cream (ZOSTRIX) TOPICAL TID famotidine 20 mg tab(s) (PEPCID) 20 mg ORAL BID magnesium hydroxide 400 mg/5 mL 15 mL (MOM) 15 mL ORAL DAILY PRN clonazePAM 0.5 mg tab(s) (KlonoPIN) 0.5 mg ORAL BID PRN Ipratropium [place] 1 [place] nasal spray (ATROVENT) 1 [place] NASAL DAILY pregabalin 200 mg cap(s) (LYRICA) 200 mg ORAL BID montelukast 10 mg tab(s) (SINGULAIR) 10 mg ORAL DAILY pantoprazole DR 40 mg tab(s) (PROTONIX) 40 mg ORAL DAILY albuterol HFA 90 mcg/actuation 2 Puff (PROVENTIL HFA, VENTOLIN HFA) 2 Puff INHALATION q 4 HR rOPINIRole 3 mg tab(s) (REQUIP) 3 mg ORAL BID topiramate 50 mg tab(s) (TOPAMAX) 50 mg ORAL BID enoxaparin 40 mg injection (LOVENOX) 40 mg SUBCUTANEOUS DAILY perflutren lipid microspheres 1.1 mg/mL 1.3 mL injection (DEFINITY) 1.3 mL INTRAVENOUS PRN(NO DISPENSE) HOME MEDICATIONS: mirtazapine orally disintegrating (REMERON SOLTAB) 15 mg disintegrating tablet Take 15 mg by mouth daily at bedtime. cycloSPORINE (RESTASIS) 0.05 % ophthalmic emulsion potassium chloride ER (K-DUR, KLOR-CON) 20 mEq tablet Take 20 mEq by mouth four times daily. With food traMADol (ULTRAM) 50 mg tablet Take 50 mg by mouth every 6 hours as needed for Pain. promethazine (PHENERGAN) 25 mg tablet Take 25 mg by mouth every 8 hours as needed for Nausea/Vomiting. PEG 400-propylene glycol (SYSTANE, PROPYLENE GLYCOL,) 0.4- 0.3 % ophthalmic solution Use 1 Drop in both eyes four times daily. metoprolol tartrate, short acting, (LOPRESSOR) 25 mg tablet take 1/2 tablet by mouth twice a day metOLAzone (ZAROXOLYN) 5 mg tablet take 1 tablet by mouth 30 MINUTES BEFORE FUROSEMIDE EVERY SATURDAY AND SATURDAY Ipratropium [place] (ATROVENT) 0.03 % nasal spray Use 1 [place] in the nose once daily. cholestyramine (QUESTRAN) 4 gram packet Take 1 Packet by mouth once daily. metOLAzone (ZAROXOLYN) 5 mg tablet Take 1 tablet by mouth every Saturday and Saturday. (taken 30 minutes before furosemide) vit B1 [id number] [id number] mg tab Take 1 tablet by mouth once daily. vitamin D3-vitamin K2, MK4, 1,000-100 unit-mcg tab Take 2,000 Units by mouth once daily. Cyanocobalamin-Cobamamide (B-12 PLUS) 5,000-100 mcg subl Dissolve 1 tablet under the tongue once each week. furosemide (LASIX) 80 mg tablet Take 80 mg by mouth once daily. nitroglycerin sublingual (NITROQUICK) 0.4 mg SL tablet Dissolve 1 tablet under the tongue as needed for Chest Pain. If no pain relief call 911. rOPINIRole Hydrochloride (REQUIP) 3 mg tablet Take 1 tablet by mouth twice daily. topiramate (TOPAMAX) 50 mg tablet Take 1 tablet by mouth twice daily. montelukast (SINGULAIR) 10 mg tablet take 1 tablet by mouth once daily diclofenac sodium (VOLTAREN) 1 % topical gel Apply 2 g to affected area four times daily. SYMBICORT 160-4.5 mcg/actuation inhaler inhale 2 puffs by mouth twice a day PROAIR HFA 90 mcg/actuation inhaler inhale 2 puffs by mouth every 4 hours if needed cetirizine (ZYRTEC) 10 mg tablet Take 1 tablet by mouth daily at bedtime. multivitamin tablet Take 1 tablet by mouth once daily. LYRICA 200 mg capsule take 1 capsule by mouth twice a day ondansetron (ZOFRAN) 4 mg tablet Take 1 tablet by mouth every 8 hours as needed for Nausea/Vomiting. clonazePAM (KLONOPIN) 0.5 mg tablet Take 0.5 mg by mouth twice daily as needed. PRISTIQ 50 mg 24 hr tablet Take 50 mg by mouth once daily. SPIRIVA WITH HANDIHALER 18 mcg inhalation capsule Inhale 18 mcg as instructed once daily. desonide (TRIDESILON) 0.05 % cream Apply 1 application to affected area as needed. Omeprazole 40 mg capsule Take 40 mg by mouth once daily. fluticasone (FLONASE) 50 mcg/actuation nasal spray Use 1 [place] in each nostril daily at bedtime. potassium chloride ER (KLOR-CON M20) 20 mEq tablet Take 2 tablets by mouth once daily. ferrous sulfate 325 mg (65 mg iron) tablet Take 1 tablet by mouth daily with breakfast. promethazine (PHENERGAN) 12.5 mg tablet Take 12.5 mg by mouth once daily. EPIPEN 2-AZIZA 0.3 mg/0.3 mL auto-injector Inject 0.3 mg intramuscularly as directed. Nebulizer and Compressor For [employer] rasheed 1 Device as needed. Use as directed. PHYSICAL EXAM: 08/06/17203808/06/17220608/07/1710 08/07/17 0612 BP: 93/58 (!) 99/44 127/70 Pulse: 67 (!) 57 Resp: 18 16 Temp: 36.7 ?C (98.1 ?F) 36.8 ?C (98.2 ?F) TempSrc: Oral Oral SpO2: 96% 97% Weight: 93.9 kg (207 lb) Height: INTAKE/OUTPUT No intake or output data in the 24 hours ending 08/07/17 1126 GENERAL: AOx3, pleasant, responds to all questions approp HEENT: EOMI, PERRLA, sclera white, dry MM, no thrush, neck supple, no JVD, no LAD CARDIO: RRR, no murmur LUNGS: CTAB, no wheeze, no crackles ABDOMEN: soft, obese, translational scar from prior surgery, ND, NT, BS+ EXTREMITIES: trace bilateral pedal edema, no cyanosis, no clubbing, < 3 sec cap refill, 2+ peripheral pulses NEURO: GRADY, sensations grossly intact, CN2-12 intact LAB DATA: Recent Labs 08/06/17 0305 WBC 7.66 RBC 3.99 HB 11.8 HCT 36.0 MCV 90.2 MCH 29.6 MCHC 32.8 PLT 203 MPV 11.7 GLUC 108* BUN 32* CREAT 1.10* NA 137 K 2.7* CHLOR 97* CO2 34* CA 7.8* MG 2.5 ASSESSMENT AND PLAN: Impression: Ms. Sánchez is a 67F with a PMHx of HFpEF (54% EF on cath in 04/09), BPPV, h/o atrial fibrillation s/p ablation, PAPA, HTN, HLD, RLS, obesity, who presented to the ED with lightheadedness, dizziness for the past 3 days. ? 1. Hypotension-- resolved with IVF, most likely 2/2 lasix - Received 1L NS in the ED; repeat BP 102/55 - Patient seems volume resuscitated at this time, will replace K+ orally for now ? 2. Hypokalemia -- most likely 2/2 lasix - K+ level less than yesterday; some concern for absorption issues 2/2 gastric bypass. Patient may need home potassium supplementation regardless of lasix - We will continue to try oral K+, as we hope to transition to this on discharge - Will schedule K-dur K+ 40 meq TID ? 3. Hyponatremia -- resolved with IVF, most likely 2/2 lasix ? 4. Metabolic Alkalosis -- most likely 2/2 lasix; improving - Improving; continue to monitor ? 5. JESUSITA -- most likely pre-renal etiology; improving - Monitor Cr with AM BMP - No need for fluids at this time, patient can tolerate adequete PO ? 6. H/o diastolic Heart Failure -- currently not in exacerbation - Will hold patients home metoprolol 12.5 mg BID 2/2 hypotension; can consider restarting in the AM if patients BP continues to improve - Recheck Echo -- last Echo 2015 with stage 1 DD, heart cath in 03/2017 without comment on diastolic dysfunction - Patient in Echo today will a/w results ? 7. HTN 8. PAPA 9. Asthma - mild intermittent - not in exacerbation - Continue with home inhalers ? 10. Restless Leg syndrome - Continue with home ropinirole 11. Depression - Restarted patients home medications 12. Morbid Obesity SIGNATURE: Sunny French MD PATIENT NAME: Hoa Sánchez DATE: August 07, 2017 TIME: 11:26 AM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 Order(s):metoprolol tartrate, short acting, (LOPRESSOR) 25 mg tablettake 1/2 tablet by mouth twice a dayDisp: 90 tabletRfl: 3 Prescriptions as of 07/21/2017 Sig: METOPROLOL TARTRATE 25 MG TAB* take 1/2 tablet by mouth twic* METOLAZONE 5 MG TABLET take 1 tablet by mouth 30 MIN* IPRATROPIUM BROMIDE 0.03 % NA* Use 1 [place] in the nose once * CHOLESTYRAMINE (WITH SUGAR) 4* Take 1 Packet by mouth once d* METOLAZONE 5 MG TABLET Take 1 tablet by mouth every * POTASSIUM CHLORIDE ER 20 MEQ * Take 2 tablets by mouth once * [id number]-* Take 1 tablet by mouth once d* FERROUS SULFATE 325 MG (65 MG* Take 1 tablet by mouth daily * CHOLECALCIFEROL (VIT D3) 1,00* Take 2,000 Units by mouth onc* CYANOCOBALAMIN (B12)-COBAMAMI* Dissolve 1 tablet under the t* FUROSEMIDE 80 MG TABLET Take 80 mg by mouth once chris* PROMETHAZINE 12.5 MG TABLET Take 12.5 mg by mouth once da* NITROGLYCERIN 0.4 MG SUBLINGU* Dissolve 1 tablet under the t* ROPINIROLE 3 MG TABLET Take 1 tablet by mouth twice * TOPIRAMATE 50 MG TABLET Take 1 tablet by mouth twice * MONTELUKAST 10 MG TABLET take 1 tablet by mouth once d* DICLOFENAC 1 % TOPICAL GEL Apply 2 g to affected area fo* SYMBICORT 160 MCG-4.5 MCG/ACT* inhale 2 puffs by mouth twice* PROAIR HFA 90 MCG/ACTUATION A* inhale 2 puffs by mouth every* CETIRIZINE 10 MG TABLET Take 1 tablet by mouth daily * MULTIVITAMIN TABLET Take 1 tablet by mouth once d* LYRICA 200 MG CAPSULE take 1 capsule by mouth twice* ONDANSETRON HCL 4 MG TABLET Take 1 tablet by mouth every * EPIPEN 2-AZIZA 0.3 MG/0.3 ML IN* Inject 0.3 mg intramuscularly* CLONAZEPAM 0.5 MG TABLET Take 0.5 mg by mouth twice da* PRISTIQ 50 MG TABLET,EXTENDED* Take 50 mg by mouth once chris* NEBULIZER AND COMPRESSOR 1 Device as needed. Use as di* SPIRIVA WITH HANDIHALER 18 MC* Inhale 18 mcg as instructed o* DESONIDE 0.05 % TOPICAL CREAM Apply 1 application to affect* OMEPRAZOLE 40 MG CAPSULE,MARCELLE* Take 40 mg by mouth once chris* FLUTICASONE 50 MCG/ACTUATION * Use 1 [place] in each nostril d* Problem List As Of Date 07/21/2017 Noted Resolved PAPA (obstructive sleep apnea) [G47.33] INVALID FOR* Uncomplicated asthma [J45.909] INVALID FOR* Moderate persistent asthma without complication*INVALID FOR* Vocal cord dysfunction [J38.3] INVALID FOR* Non morbid obesity [E66.9] INVALID FOR* Allergic rhinitis due to pollen [J30.1] INVALID FOR* Allergic rhinitis due to house dust mite [J30.8*INVALID FOR* Allergic rhinitis due to animal hair and dander*INVALID FOR* Allergic conjunctivitis [H10.10] INVALID FOR* Diastolic heart failure (HCC) [I50.30] Pain of right upper arm [M79.621] INVALID FOR* Rotator cuff syndrome [M75.100] INVALID FOR* Paroxysmal a-fib (HCC) [I48.0] More... CHF (congestive heart failure) (HCC) [I50.9] More... Benign paroxysmal positional vertigo [H81.10] Chest pain [R07.9] More... Chronic diastolic CHF (congestive heart failure*INVALID FOR* Prolapsed cervical intervertebral disc [M50.20] OA (osteoarthritis) of knee [M17.10] More... Fibromyalgia [M79.7] More... Complete tear of right rotator cuff [M75.121] INVALID FOR* Abnormal EKG [R94.31] INVALID FOR* Prescriptions ordered this encounter Disp Refills Start End METOPROLOL TARTRATE 25 MG TABLET 90 t* 3 07/22/2017 Sig: take 1/2 tablet by mouth twice a day Medications Discontinued During This Encounter metoprolol tartrate, short acting, (* 30 t* 6 10/11/2016 07/22/2017 Route: ORAL Sig: Take 0.5 tablets by mouth twice daily. Disc: Reason for discontinue is not on file. Encounter Status:Closed by MARTINEZ BISHOP on 07/22/17 ALLERGIES ALLERGIES DATE TYPE / CODE NAME / CODE REACTION SEVERITY SOURCE 06/20/2018 Drug hydrocodone/F STOPS MY HEART Unknown [facility] Allergy/4160 [id number]([facility] [address]240(SNOMED ORM) Repository CT) 06/20/2018 Drug acetaminophen STOPS MY HEART Unknown [facility] Allergy/4160 /[id number]( Hospital [address]78(SNOMED XNORM) Repository CT) 06/04/2018 Drug No Known Unknown [facility] Allergy/4160 Allergies/F00 Hospital [address]953(SNOMED 4634449(RXNOR Repository CT) M) 12/26/2016 DRUG/[id number] HYDROCODONE-A OTHER: SEE C [facility] 03(SNOMED CETAMINOPHEN Other [place]) Repository Drug Vicodin/3413( Unknown [facility] Allergy/4160 RXNORM) Hospital [address](SNOMED Repository CT) NG/[id number] HYDROCODONE-A [facility]SNOMED CT[facility] ENCOUNTERS ENCOUNTERS ADMIT/DISCHARGE ACCOUNT NUMBER ADMITTING ENCOUNTER LOCATION SOURCE CLASS 07/16/2018 [id number] BEDDELL, Ambulatory Building:[facility] Repository 06/27/2018 [id number] Ambulatory [address] [place] [address] Repository 06/26/2018 [id number] Ambulatory [address] [place] [address] Repository 06/25/2018 [id number] Ambulatory [address] [place] [address] Repository 06/24/2018 [id number] Ambulatory [address] [place] [address] Repository 06/20/2018/06/21/20 [id number] Emergency Jesus Jesus [facility] ding:ED Repository 06/18/2018/06/18/20 [id number] Emergency [address] ding:ED Repository 06/12/2018 [id number] Ambulatory [facility] MEDICAL Repository CENTERBuildi ng:AGPOB1 06/04/2018/06/05/20 [id number] Emergency [address] ding:ED Repository 05/18/2018 [id number] Ambulatory BMSBuilding: [facility] Repository 05/17/2018/05/20/20 [id number] Tereletsky, Inpatient [facility] [address] ding:ICURoom Repository : [id number]: 1 05/17/2018 [id number] Tereletsky, Ambulatory BMSBuilding: [facility] BMS.[facility] Repository 05/17/2018 [id number] Tereletsky, Ambulatory BMSBuilding: [facility] BMS.[facility] Repository 05/17/2018 [id number] Tereletsky, Ambulatory BMSBuilding: [facility] BMS.CF.[facility] Repository 05/17/2018 [id number] Tereletsky, Ambulatory BMSBuilding: Jesus [facility]o BMS.[facility] Repository 05/17/2018 [id number] Tereletsky, Ambulatory BMSBuilding: Jesus Garo BMS.CF.[facility] Repository 05/17/2018 [id number] Tereletsky, Ambulatory BMSBuilding: [facility] BMS.CF.[facility] Repository 05/17/2018 [id number] Tereletsky, Ambulatory BMSBuilding: [facility] BMS.[facility] Repository 05/14/[id number] [facility] Repository 05/14/2018/05/14/20 [id number] Ambulatory [address] MEDICAL Repository CENTERBuildi ng:AKECHO 04/30/2018 [id number] Ambulatory [facility] Repository 04/16/[id number] [facility] Repository 04/16/2018/04/16/20 [id number] Ambulatory [address] MEDICAL Repository CENTERBuildi ng:AKLPB 04/16/2018/04/16/20 [id number] Ambulatory [address] Other [place] Repository 04/16/2018/04/16/20 [id number] Ambulatory LAYLARON [place] [address] MEDICAL Repository CENTERBuildi ng:AGCARDPOB 04/14/2018 [id number] Ambulatory [facility] Repository 04/14/2018 [id number] Ambulatory DESTINY [facility] MEDICAL Repository CENTERBuildi ng:AGCARDPOB 04/07/2018 [id number] Ambulatory [facility] Repository 03/31/2018 [id number] Ambulatory [facility] Repository 03/24/2018 [id number] Ambulatory [facility] Repository 02/11/2018/02/12/20 [id number] Ambulatory [address] Repository 02/11/2018/02/12/20 [id number] Ambulatory DESTINY [address] MEDICAL Repository CENTERBuildi ng:AKXRS 02/11/2018/02/12/20 [id number] Ambulatory [address] Other [place] Repository 02/11/2018/02/12/20 [id number] Ambulatory DESTINY [address] MEDICAL Repository CENTERBuildi ng:AKXRS 02/11/2018/02/12/20 [id number] Ambulatory [address] Repository 02/11/2018/02/12/20 [id number] Ambulatory DESTINY [place] MEDICAL Repository CENTERBuildi ng:AGRHEUHWN 02/05/2018 [id number] Emergency [facility]in[facility] EDRoom: System [id number]: Repository [id number] 02/04/2018 [id number] Ambulatory DESTINY [facility] MEDICAL Repository CENTERBuildi ng:AKNESL 01/27/2018 [id number] Emergency Buildin[facility] EDRoom: System [id number]: Repository [id number] 01/16/2018 [id number] Ambulatory DESTINY [facility] MEDICAL Repository CENTERBuildi ng:AKCLB 12/19/2017/12/20/19 [id number] Ambulatory [address] Repository 12/19/2017/12/20/19 [id number] Ambulatory AK[place] [address] MEDICAL Repository CENTERBuildi ng:AGPOB1 12/12/2017 [id number] Ambulatory DESTINY [facility] MEDICAL Repository CENTERBuildi ng:AGPOB1 12/05/2017 [id number] Ambulatory ARJOANNA [facility] MEDICAL Repository CENTERBuildi ng:AKCLB 12/04/2017 [id number] Ambulatory ARJOANNA [facility] MEDICAL Repository CENTERBuildi ng:AKCLB 11/12/2017 [id number] Inpatient [facility] Encounter T3Room: System [id number]: Repository [id number] 11/11/2017 [id number] Emergency [facility]in[facility] EDRoom: System [id number]: Repository [id number] 11/08/2017/11/11/19 [id number] VALLURI, Inpatient [address] Other [place] Repository 11/08/2017/11/11/19 [id number] VALLUME, Inpatient ARJOANNA [place] [address] M.D Encounter [facility] Repository INDIAN MOUNDBuildi nRoom: 7102Bed: 02 11/06/2017/11/07/19 [id number] Emergency [address] Repository 11/06/2017/11/07/19 [id number] Emergency [address] MEDICAL Repository INDIAN MOUNDBuildi ng:AKEDRoom: EDBed: 29 10/18/2017/10/22/19 [id number] Ambulatory [address] Main [place] Repository 10/15/[id number] [facility] Repository 10/15/2017/10/16/19 [id number] Ambulatory [address] MEDICAL Repository CENTERBuildi ng:AKHFC 10/01/[id number] [facility] Repository 10/01/2017/10/02/19 [id number] Ambulatory ARJOANNA [address] MEDICAL Repository CENTERBuildi ng:AKXRGN 10/01/2017/10/02/19 [id number] Ambulatory ARRON [address] MEDICAL Repository CENTERBuildi ng:AKXRCT 10/01/[id number] [facility] Repository 09/25/2017 [id number] Ambulatory [facility] Other [place] Repository 09/25/2017 [id number] Ambulatory LAYLARON [facility] MEDICAL Repository INDIAN MOUNDBuildi ng:AKXRC 09/24/2017/09/25/19 [id number] Ambulatory [address] Other [place] Repository 09/24/2017/09/25/19 [id number] Ambulatory LAYLARON [address] MEDICAL Repository INDIAN MOUNDBuildi ng:AGCARDPOB 09/20/2017/09/24/19 [id number] Ambulatory [address] Main [place] Repository 09/12/2017/09/13/19 [id number] Ambulatory [address] Other [place] Repository 09/12/2017/09/13/19 [id number] Ambulatory ARJOANNA [address] MEDICAL Repository INDIAN MOUNDBuildi ng:AGPOB1 08/30/2017/08/31/19 [id number] Emergency [address] Other [place] Repository 08/30/2017/08/31/19 [id number] Emergency [address] MEDICAL Repository INDIAN MOUNDBuildi ng:AKEDRoom: EDBed: 08/29/2017 [id number] Ambulatory [facility] Other [place] Repository 08/29/2017/08/30/19 [id number] Ambulatory DESTINY [address] MEDICAL Repository INDIAN MOUNDBuildi ng:AKXRBD 08/28/2017 [id number] Ambulatory [facility] Repository 08/28/2017 [id number] Ambulatory [facility] Repository 08/21/2017/08/24/19 [id number] SASHA NGUYEN Inpatient [address] Other [place] Repository 08/21/2017/08/24/19 [id number] SASHA NGUYEN Inpatient [place] [address] Encounter [facility] MEDICAL Repository INDIAN MOUNDBuildi nRoom: 2116Bed: 08/20/2017 [id number] Ambulatory [facility] Repository 08/15/2017/08/15/19 [id number] Emergency [address] Other [place] Repository 08/15/2017/08/15/19 [id number] Emergency [address] MEDICAL Repository INDIAN MOUNDBuildi ng:AKEDRoom: EDBed: 23 08/13/2017/08/13/19 [id number] Ambulatory [address] Other [place] Repository 08/13/2017/08/13/19 [id number] Ambulatory [address] MEDICAL Repository INDIAN MOUNDBuild ng:AGRHEUHWN 08/05/2017/08/08/19 [id number] BUDDY, Inpatient Pearson 18 JEFF CHRISTINA Encounter [facility] Other [place] Repository 08/05/2017/08/08/19 [id number] BUDDY, Inpatient [place] [address] JEFF L Encounter [facility] MEDICAL Repository INDIAN MOUNDBuildi nRoom: 2119Bed: 08/01/2017/08/01/19 [id number] Ambulatory [address] Other [place] Repository 08/01/2017/08/01/19 [id number] [address]ulatory [address]AGPOB1 PAYERS PAYERS ENCOUNTER GUARANTOR PAYER SUBSCRIBER SOURCE 07/16/2018 [facility] TALKINGTONDOB: Insurance:MEDICARE TALK[place]DOB: [facility] PART B [facility] [id number] Repository A4 CANO Number: A4 [place], [place] [id number] [place], [place] [address]Zcq: (448) Date:1958-06-24P [facility] [address]Xjc: () [address]KLNFAPWKQ, [place] [phone] () [address]WP: 07/16/2018 Secondary [facility] Insurance:[facility] TALKINGTONDOB: [facility] Number: [id number] Repository [id number] A4 CANO Date:7926-72-63[place], [place] [address] [address]Tel: (861) [place] [address]WP: [phone] () () 06/27/2018 [facility] TALKINGTONDOB: Insurance:MedicarePol TALKINGTONDOB: [facility] cy Number: [id number] [id number] [place] Date:Plan Name:Lisseth Garg4Wjaswantstsrinivas, [place] [address]Mai: (878) [phone]: (HP) [phone] () 06/27/2018 [facility] Insurance:MedicarePoli TALKINGTONDOB: Hospitals cy Number: [id number] Repository [id number] [address] Date:Plan Name:Lisseth [facility] [address]Fzk: () 06/27/2018 [facility] Insurance:[place] TALKINGTONDOB: [facility] [id number] Repository HealthPolicy Number: [address] [id number] A-[place], [place] Date:Plan Name:Health [address]Jwu: () 06/26/2018 [facility] TALK[place]DOB: Insurance:[facility] TALK[place]DOB: Hospitals 1950 anPolicy Number: [id number] Repository 619Effective Date:Plan Name:Health 06/25/2018 [facility] TALK[place]DOB: Insurance:[facility] T[place]DOB: Hospitals 1950 anPolicy Number: [id number] Repository 619Effective Date:Plan Name:Health 06/24/2018 [facility] TALKINGTONDOB: Insurance:[facility] T[place]DOB: Hospitals 1950 anPolicy Number: [id number] Repository 619Effective Date:Plan Name:Health 06/20/2018 [facility] [id number] Insurance:MEDICARE TALK[place]DOB: [facility] PART A BPolicy Number: [id number] [address] [id number] Repository [address]Kjl: (330) Date:2018-06-20 [phone] (HP) 06/20/2018 Secondary HOA Hensley Jesus Insurance:[facility] TALKINGTONDOB: [facility] [id number] Hospital Number: Repository [id number] Date:3927-55-92JM[address] [address]DF: 06/20/2018 Tertiary NOT GIVENUNK [place] Insurance:SELF PAY [facility] Number: Effective Repository Date:2018-06-20 06/18/2018 HOA Hensley Primary HOA Hensley [place] [id number] Insurance:MEDICARE TALK[place]DOB: [facility] STAPT PART A BPolicy Number: [id number] [address] [id number] Repository [address]Vrx: (330) Date:2018-06-18 [phone] (HP) 06/18/2018 Secondary HOA Hensley [place] Insurance:[facility] TALKINGTONDOB: [facility] [id number] Hospital Number: Repository [id number] Date:0026-41-97QM [address] [address]LA: 06/18/2018 Tertiary NOT GIVENUNK [place] Insurance:SELF PAY [facility] Number: Effective Repository Date:2018-06-18 06/12/2018 HOA Hensley Primary [facility] TALKINGTONDOB: Insurance:MEDICARE A TALK[place]DOB: Health System E AND BPolicy Number: [id number] Repository [address] [id number] [address] [place] [address] Date: [address]Xiy: (HP) 06/12/2018 Secondary HOA Hensley [facility] [facility] Insurance:[facility]ARE [facility] TALKINGTONDOB: Health System MEDICAID ONLYPolicy [id number] Repository Number: [id number] Date: 06/04/2018 HOA Hensley Primary HOA Hensley [place] [id number] Insurance:MEDICARE TALK[place]DOB: [facility] [address] PART A BPolicy Number: [id number] [address] [id number] Repository [address]Enn: 00 Date:2018-06-04 () 06/04/2018 Secondary HOA Hensley Jesus Insurance:[facility] TALKINGTONDOB: [facility] [id number] Hospital Number: Repository [id number] Date:8678-52-68PZ [address] [address]XU: 06/04/2018 Tertiary NOT GIVENUNK Jesus Insurance:SELF PAY [facility] Number: Effective Repository Date:2018-06-04 05/18/2018 HOA Hensley Primary HOA Hensley Jesus [id number] Insurance:MEDICARE [place]DOB: [facility] [address] PART A BPolicy Number: [id number] [id number] Repository [address]Iin: 00 Date:2018-05-17 () 05/18/2018 Secondary HOA Hensley [place] Insurance:[facility] TALKINGTONDOB: [facility] [id number] Hospital Number: Repository [id number] Date:8695-49-16KX [address] [address]OQ: 05/18/2018 Tertiary NOT GIVENUNK [place] Insurance:SELF PAY [facility] Number: Effective Repository Date:2018-05-18 05/17/2018 HOA Primary HOA Lee [id number] Insurance:MEDICARE TALK[place]DOB: [facility] YOAN PART A BPolicy Number: [id number] Repository [place] [address]Ucc: Date:2018-05-17 () 05/17/2018 Secondary HOA Jesus Insurance:[facility] TALKINGTONDOB: [facility] [id number] Hospital Number: Repository [id number] Date:0504-85-65AM[address] [address]LE: 05/17/2018 Tertiary NOT GIVENUNK [place] Insurance:SELF PAY [facility] Number: Effective Repository Date:2018-05-17 05/17/2018 HOA Hensley Primary HAO Hensley Jesus [id number] Insurance:MEDICARE [place]DOB: Community [address] PART A BPolicy Number: [id number] [id number] Repository [address]Rla: 00 Date:2018-05-17 () 05/17/2018 Secondary HOA Hensley Jesus Insurance:[facility] TALKINGTONDOB: [facility] [id number] Hospital Number: Repository [id number] Date:7551-67-51WB [address] [place] [address]CY: 05/17/2018 Tertiary NOT GIVENUNK [place] Insurance:SELF PAY [facility] Number: Effective Repository Date:2018-05-17 05/17/2018 HOA Hensley Primary HOA Hensley Jesus [id number] Insurance:MEDICARE [place]DOB: Community [address] PART A BPolicy Number: [id number] [id number] Repository [address]Zyi: 00 Date:2018-05-17 () 05/17/2018 Secondary HOA Hensley Jesus Insurance:[facility] TALKINGTONDOB: [facility] [id number] Hospital Number: Repository [id number] Date:1068-90-09RG [address] [address]PN: 05/17/2018 Tertiary NOT GIVENUNK [place] Insurance:SELF PAY [facility] Number: Effective Repository Date:2018-05-17 05/17/2018 HOA Primary HOA Lee [id number] Insurance:[facility]ARE [facility] TALKINGTONDOB: Community YOAN *IN [facility] [id number] Hospital [place], Number: Repository de [address]Yfo: [id number] Date:3793-18-87NC [address] () [address] [place] [address]BT: 05/17/2018 Secondary NOT GIVENUNK [place] Insurance:SELF PAY [facility] Number: Effective Repository Date:2018-05-17 05/17/2018 HOA M Primary HOA M Jesus [id number] Insurance:MEDICARE [place]DOB: [facility] [address] PART A BPolicy Number: [id number] [id number] Repository [address]Tfp: 00 Date:2018-05-17 () 05/17/2018 Secondary HOA M Jesus Insurance:[facility] TALKINGTONDOB: [facility] [id number] Hospital Number: Repository [id number] Date:2809-84-23NC [address] [address]KR: 05/17/2018 Tertiary NOT GIVENUNK [place] Insurance:SELF PAY [facility] Number: Effective Repository Date:2018-05-17 05/17/2018 HOA Primary HOA Jesus [id number] Insurance:MEDICARE [place]DOB: Community YOAN PART A BPolicy Number: [id number] [id number] Repository [place] [address]Vsd: Date:2018-05-17 () 05/17/2018 Secondary HOA [place] Insurance:[facility] TALKINGTONDOB: [facility] [id number] Hospital Number: Repository [id number] Date:2730-38-06UE[address] [address]YG: 05/17/2018 Tertiary NOT GIVENUNK Jesus Insurance:SELF PAY [facility] Number: Effective Repository Date:2018-05-17 05/17/2018 HOA Primary HOA [place] [id number] Insurance:MEDICARE [place]DOB: Community YOAN PART A BPolicy Number: [id number] Hospital [id number] Repository [place] [address]Dpv: Date:2018-05-17 () 05/17/2018 Secondary HOA Jesus Insurance:[facility] TALKINGTONDOB: [facility] [id number] Hospital Number: Repository [id number] Date:4483-39-25AZ[address] [address]RQ: 05/17/2018 Tertiary NOT GIVENUNK Jesus Insurance:SELF PAY [facility] Number: Effective Repository Date:2018-05-17 05/17/2018 HOA Hensley Primary HOA Hensley [place] [id number] Insurance:MEDICARE T[place]DOB: [facility] PART A BPolicy Number: [id number] Hospital 4[place], [place] [id number] Repository [address]Uwg: 00 Date:2018-05-17 (HP) 05/17/2018 Secondary HOA Hensley [place] Insurance:[facility] TALKINGTONDOB: [facility] [id number] Hospital Number: Repository [id number] Date:7221-81-58JX [address] [address]VG: 05/17/2018 Tertiary NOT GIVENUNK [place] Insurance:SELF PAY [facility] Number: Effective Repository Date:2018-05-17 05/14/2018 HOA Hensley Primary [facility]A [facility] TALKINGTONDOB: Insurance:MEDICARE A [place]DOB: Health System AND BPolicy Number: [id number] Repository [facility] [id number] 4[facility] [place] Date: [address]Fzx: (HP) 05/14/2018 Secondary HOA Azevedoron [facility] Insurance:[facility] TALKINGTONDOB: Health System MEDICAID [facility] [id number] Repository Number: [id number] Date: 04/30/2018 Hoa Hensley Primary [facility] TalkingtonDOB: Insurance:United Talk[place]DOB: [facility] [id number] Repository [facility] Number: Effective [place], [place] Date: [address]Ybs: (HP) 04/30/2018 Secondary [facility] Insurance:United Talk[place]DOB: System [facility] [id number] Repository Number: Effective Date: 04/16/2018 HOA Hensley Primary HOA [facility] TALKINGTONDOB: Insurance:MEDICARE A [place]DOB: Health System AND BPolicy Number: [id number] Repository [address] [id number] 4[place], [place] Date: [address]Pse: (HP) 04/16/2018 Secondary HOA [facility] Insurance:[facility] TALK[place]DOB: Health System MEDICAID ONLYPolicy [id number] Repository Number: [id number] Date: 04/16/2018 HOA Hensley Primary HOA [facility] TALKINGTONDOB: Insurance:MEDICARE A [place]DOB: Health System AND BPolicy Number: [id number] Repository [address] [id number] 4[place], [place] Date: [address]Ltn: () 04/16/2018 Secondary HOA [facility] Insurance:[facility] T[place]DOB: Health System MEDICAID ONLYPolicy [id number] Repository Number: [id number] Date: 04/14/2018 Hoa Hensley Primary [facility] TalkingtonDOB: Insurance:MedicarePoli [place]DOB: System cy Number: Effective [id number] Repository [address]: , [place] [address]Dya: () 04/14/2018 Secondary [facility] Insurance:MedicarePoli [place]DOB: System cy Number: Effective [id number] Repository Date: 04/14/2018 Tertiary [facility] Insurance:[place] Talk[place]DOB: System HealthcarePoly [id number] Repository Number: Effective Date: 04/14/2018 HOA Hensley Primary [facility]A [facility] TALKINGTONDOB: Insurance:MEDICARE A [place]DOB: Health System E AND BPolicy Number: [id number] Repository DEBI BERUMEN [id number] [address], [place] Date: [address]Fzu: (HP) 04/14/2018 Secondary HOA [facility] Insurance:[facility] T[place]DOB: Health System MEDICAID ONLYPolicy [id number] Repository Number: [id number] Date: 04/07/2018 Hoa Hensley Primary [facility] Talk[place]DOB: Insurance:MedicarePoli [place]DOB: System cy Number: Effective [id number] Repository [address]: [place], [place] [address]Ler: (HP) 03/31/2018 Hoa Hensley Primary [facility]a [facility] TalkingtonDOB: Insurance:MedicaidPoli [place]DOB: System cy Number: Effective [id number] Repository [address] Date: [address] [place] [address]Bme: (HP) 03/24/2018 Hoa Hensley Primary [facility] Talk[place]DOB: Insurance:MedicarePoli [place]DOB: System cy Number: Effective [id number] Repository [address] Date: [place], [place] [address]Lch: (HP) 03/24/2018 Secondary [facility] Insurance:MedicarePoli [place]DOB: System cy Number: Effective [id number] Repository Date: 03/24/2018 Tertiary [facility] Insurance:[place]DOB: System HealthcarePolicy [id number] Repository Number: Effective Date: 02/11/2018 HOA Hensley Primary [facility]A [facility] TALKINGTONDOB: Insurance:MEDICARE A [place]DOB: Health System E AND BPolicy Number: [id number] Repository [address] [id number] [address] [place] [address] Date: [address]Lgh: (HP) 02/11/2018 Secondary HOA [facility] Insurance:[facility] T[place]DOB: Health System MEDICAID ONLYPolicy [id number] Repository Number: [id number] Date: 02/11/2018 HOA Hensley Primary [facility]A [facility] TALKINGTONDOB: Insurance:MEDICARE A [place]DOB: Health System E AND BPolicy Number: [id number] Repository [address] [id number] [address], [place] Date: [address]Znp: (HP) 02/11/2018 Secondary HOA [facility] Insurance:[facility] T[place]DOB: Health System MEDICAID ONLYPoly [id number] Repository Number: [id number] Date: 02/11/2018 HOA Hensley Primary [facility]A [facility] TALK[place]DOB: Insurance:MEDICARE A [place]DOB: Health System E AND BPolicy Number: [id number] Repository [address] [id number] [address], [place] Date: [address]Upd: (HP) 02/11/2018 Secondary HOA [facility] Insurance:[facility] T[place]DOB: Health System MEDICAID [facility] [id number] Repository Number: [id number] Date: 02/05/2018 Hoa Hensley Primary [facility] [place]DOB: Insurance:[place]DOB: [facility] [id number] Repository [address] Number: Effective Unit Date: [address], [place] [address]Eii: (HP) 02/05/2018 Secondary [facility] Insurance:[place]DOB: System HealthcarePoly [id number] Repository Number: Effective Date: 02/04/2018 HOA Hensley Primary [facility]A [facility] TALKINGTONDOB: Insurance:MEDICARE A [place]DOB: Health System E AND BPolicy Number: [id number] Repository [address] [id number] [place], [place] Date: [address]Jwe: (HP) 02/04/2018 Secondary HOA [facility] Insurance:[facility] T[place]DOB: Health System MEDICAID ONLYPolicy [id number] Repository Number: [id number] Date: 01/27/2018 Hoa Hensley Primary [facility] Talk[place]DOB: Insurance:MedicarePoli [place]DOB: System cy Number: Effective [id number] Repository [address] Date: [address], [place] [address]Ypc: (HP) 01/27/2018 Secondary [facility] Insurance:MedicarePoli [place]DOB: System cy Number: Effective [id number] Repository Date: 01/27/2018 Tertiary [facility] Insurance:[place]DOB: [facility] [id number] Repository Number: Effective Date: 01/16/2018 HOA Hensley Primary [facility]A [facility] TALK[place]DOB: Insurance:MEDICARE A [place]DOB: Health System E AND BPolicy Number: [id number] Repository [address] [id number] 110[place], [place] Date: [address]Ceu: (HP) 01/16/2018 Secondary HOA [facility] Insurance:[facility] T[place]DOB: Health System MEDICAID ONLYPolicy [id number] Repository Number: [id number] Date: 12/19/2017 HOA Hensley Primary [facility]A [facility] TALK[place]DOB: Insurance:MEDICARE A [place]DOB: Health System E AND BPolicy Number: [id number] Repository [address] [id number] [place], [place] Date: [address]Nrp: (HP) 12/19/2017 Secondary [facility]A [facility] Insurance:[facility] [place]DOB: Health System MEDICAID ONLYPolicy [id number] Repository Number: [id number] Date: 12/12/2017 HOA Hensley Primary [facility]A [facility] TALK[place]DOB: Insurance:MEDICARE A [place]DOB: Health System E AND BPolicy Number: [id number] Repository [address] [id number] [address], [place] Date: [address]Tow: (HP) 12/12/2017 Secondary [facility]A [facility] Insurance:[facility] [place]DOB: Health System MEDICAID ONLYPoly [id number] Repository Number: [id number] Date: 12/05/2017 HOA Hensley Primary [facility]A [facility] TALK[place]DOB: Insurance:MEDICARE A [place]DOB: Health System E AND BPolicy Number: [id number] Repository [address] [id number] [place], [place] Date: [address]Act: (HP) 12/05/2017 Secondary [facility]A [facility] Insurance:[facility] T[place]DOB: Health System MEDICAID ONLYPoly [id number] Repository Number: [id number] Date: 12/04/2017 HOA Hensley Primary [facility]A [facility] TALK[place]DOB: Insurance:MEDICARE A [place]DOB: Health System E AND BPolicy Number: [id number] Repository [address] [id number] [address], [place] Date: [address]Bmh: (HP) 12/04/2017 Secondary [facility]A [facility] Insurance:[facility] T[place]DOB: Health System MEDICAID ONLYPoly [id number] Repository Number: [id number] Date: 11/12/2017 Hoa Hensley Primary [facility] [place]DOB: Insurance:MedicarePoli [place]DOB: System cy Number: Effective [id number] Repository [address] Date: [address], [place] [address]Jkk: (HP) 11/12/2017 Secondary [facility] Insurance:MedicarePoli [place]DOB: System cy Number: Effective [id number] Repository Date: 11/12/2017 Tertiary [facility] Insurance:United [place]DOB: System HealthcarePolicy [id number] Repository Number: Effective Date: 11/11/2017 Hoa Hensley Primary [facility] Talk[place]DOB: Insurance:MedicarePoli [place]DOB: System cy Number: Effective [id number] Repository [address] Date: [address], [place] [address]Gqx: (HP) 11/11/2017 Secondary [facility] Insurance:MedicarePoli [place]DOB: System cy Number: Effective [id number] Repository Date: 11/11/2017 Tertiary [facility] Insurance:United [place]DOB: System HealthcarePolicy [id number] Repository Number: Effective Date: 11/08/2017 HOA Hensley Primary [facility] TALK[place]DOB: Insurance:MEDICARE A [place]DOB: Health System E AND BPolicy Number: [id number] Repository [address] [id number] [address] [place] [address] Date: [address]Nmu: (HP) 11/08/2017 Secondary [facility]A [facility] Insurance:[facility] T[place]DOB: Health System MEDICAID ONLYPoly [id number] Repository Number: [id number] Date: 11/06/2017 HOA Hensley Primary [facility]A [facility] TALK[place]DOB: Insurance:MEDICARE A [place]DOB: Health System E AND BPolicy Number: [id number] Repository [address] [id number] [address] [place] [address] Date: [address]Vzm: (HP) 11/06/2017 Secondary [facility]A [facility] Insurance:[facility] T[place]DOB: Health System MEDICAID ONLYPoly [id number] Repository Number: [id number] Date: 10/15/2017 HOA Hensley Primary [facility]A [facility] TALK[place]DOB: Insurance:MEDICARE A [place]DOB: Health System E AND BPolicy Number: [id number] Repository [address] [id number] [address], [place] Date: [address]Rhb: (HP) 10/15/2017 Secondary [facility]A [facility] Insurance:[facility] T[place]DOB: Health System MEDICAID ONLYPoly [id number] Repository Number: [id number] Date: 10/01/2017 HOA Hensley Primary HOA [facility] TALKINGTONDOB: Insurance:MEDICARE A [place]DOB: Health System E AND BPolicy Number: [id number] Repository [address] [id number] [address], [place] Date: [address]Uke: (HP) 10/01/2017 Secondary [facility]A [facility] Insurance:[facility] T[place]DOB: Health System [facility] [id number] Repository Number: [id number] Date: 10/01/2017 HOA Ayden Primary [facility]A [facility] TALK[place]DOB: Insurance:MEDICARE A [place]DOB: Health System E AND BPolicy Number: [id number] Repository [address] [id number] [address], [place] Date: [address]Niz: (HP) 10/01/2017 Secondary [facility]A [facility] Insurance:[facility] T[place]DOB: Health System MEDICAID ONLYPolsaint [facility] [id number] Repository Number: [id number] Date: 09/25/2017 HOA Ayden Primary [facility]A [facility] TALK[place]DOB: Insurance:MEDICARE A [place]DOB: Health System E AND BPolicy Number: [id number] Repository [address] [id number] [address], [place] Date: [address]Xln: (HP) 09/25/2017 Secondary [facility]A [facility] Insurance:[facility] T[place]DOB: Health System MEDICAID ONLYPoly [id number] Repository Number: [id number] Date: 09/24/2017 HOA Hensley Primary [facility]A [facility] TALK[place]DOB: Insurance:MEDICARE A [place]DOB: Health System E AND BPolicy Number: [id number] Repository [address] [id number] [place], [place] Date: [address]Tnf: (HP) 09/24/2017 Secondary [facility] Insurance:[facility] [place] [id number] Repository Number: [id number] Date: 09/12/2017 [facility]A [facility] Primary [facility] [place]OB: Insurance:MEDICARE A [place]OB: Health System E AND BPolicy Number: [id number] Repository [address] [id number] [address], [place] Date: [address]Cyc: (HP) 09/12/2017 Secondary [facility] Insurance:[facility] [place]OB: [facility] [id number] Repository Number: [id number] Date: 08/30/2017 HOA [facility] Primary [facility] [place]OB: Insurance:MEDICARE A [place]OB: Health System E AND BPolicy Number: [id number] Repository [address] [id number] [address], [place] Date: [address]Xwg: (HP) 08/30/2017 Secondary [facility] Insurance:[facility] [place]OB: [facility] [id number] Repository Number: [id number] Date: 08/29/2017 HOA M Primary [facility] [place]OB: Insurance:MEDICARE A [place]OB: Health System E AND BPolicy Number: [id number] Repository [address] [id number] [address] Date: [address]Xhk: (HP) 08/29/2017 Secondary [facility] Insurance:[facility] [place]OB: Health System MEDICAID ONLYPolicy [id number] Repository Number: [id number] Date: 08/28/2017 [facility] Primary [facility] [place]OB: Insurance:United [place]OB: System HealthcarePolicy [id number] Repository [address] Number: Effective Unit Date: [address] [place] [address] [id number]: (HP) 08/28/2017 Secondary [facility] Insurance:MedicarePoli [place]DOB: System cy Number: Effective [id number] Repository Date: 08/28/2017 Tertiary [facility] Insurance:MedicarePoli [place]DOB: System cy Number: Effective [id number] Repository Date: 08/28/2017 Tertiary [facility] Insurance:United [place]OB: System HealthcarePolicy [id number] Repository Number: Effective Date: 08/28/2017 [facility] Primary [facility] [place]OB: Insurance:MedicarePoli [place]DOB: System cy Number: Effective [id number] Repository [address] Date: [address] [place] [address] 85[address]Kry: (HP) 08/28/2017 Secondary [facility] Insurance:MedicarePoli [place]DOB: System cy Number: Effective [id number] Repository Date: 08/28/2017 Tertiary [facility] Insurance:United [place]OB: System HealthcarePolicy [id number] Repository Number: Effective Date: 08/21/2017 [facility] Primary [facility] [place]OB: Insurance:MEDICARE A [place]DOB: Health System E AND BPolicy Number: [id number] Repository [address] [id number] [address] [place] [address] Date: 38[address]Zrs: (HP) 08/21/2017 Secondary [facility] Insurance:[facility] [place]OB: Health System MEDICAID ONLYPolicy [id number] Repository Number: [id number] Date: 08/20/2017 [facility] Primary [facility] [place]OB: Insurance:MedicarePoli [place]DOB: System cy Number: Effective [id number] Repository [address] Date: [address] [place] [address] 14877Xtt: (HP) 08/20/2017 Secondary [facility] Insurance:MedicarePoli [place]DOB: System cy Number: Effective [id number] Repository Date: 08/20/2017 Tertiary [facility] Insurance:[place]OB: [facility] [id number] Repository Number: Effective Date: 08/15/2017 HOA [facility] Primary [facility] [place]OB: Insurance:MEDICARE A [place]DOB: Health System E AND BPolicy Number: [id number] Repository [address] [id number] [address] [place] [address] Date: [address]51[address]Bfw: (HP) 08/15/2017 Secondary [facility] Insurance:[facility] [place]OB: [facility] [id number] Repository Number: [id number] Date: 08/13/2017 HOA [facility] Primary [facility] [place]OB: Insurance:MEDICARE A [place]DOB: Health System E AND BPolicy Number: [id number] Repository [address] [id number] [address] [place] [address] Date: 23404Mhl: (HP) 08/13/2017 Secondary [facility] [place] [facility] Insurance:[facility] [place]OB: Health System MEDICAID ONLYPoly [id number] Repository Number: [id number] Date: 08/05/2017 HOA [facility] Primary [facility] [place]OB: Insurance:MEDICARE A [place]DOB: Health System E AND BPolicy Number: [id number] Repository [address] [id number] [address], [place] Date: [address]Zor: () 08/05/2017 Secondary [facility] Insurance:[facility] [place]OB: [facility] [id number] Repository Number: [id number] Date: 08/01/2017 HOA Hensley Primary [facility] [place]OB: Insurance:MEDICARE A [place]DOB: Health System E AND BPolicy Number: [id number] Repository [address] [id number] [address], [place] Date: [address]Lco: () 08/01/2017 Secondary [facility] Insurance:[facility] [place]OB: [facility] [id number] Repository Number: [id number] Date:
== END 2018-06-05 02:53 | disposition home or self-care (01) ==
PROVIDERS: Emergency Provider Emergency Medicine
DX: R45.851 Suicidal ideations (principal); E87.6 Hypokalemia; F41.9 Anxiety disorder, unspecified; F32.9 Major depressive disorder, single episode, unspecified; Z79.899 Other long term (current) drug therapy
CPT/HCPCS: 80048; 80307; 80320; 85025; 99285; G0480

== ENCOUNTER 2018-06-18 20:32 | Emergency (ER) | payer MEDICARE, MEDICAID, SELFPAY ==
[2018-06-18 20:33] VITALS: BP 124/86; PULSE 81; RESP 20; TEMP 36.7; O2SAT 99; BMI 29.8
--- NOTE | 2018-06-18 21:19 | CT_ITS ---
STUDY: CT CERVICAL SPINE WITHOUT CONTRAST REASON FOR EXAM: Female, 68 years old. Fall. Loss of consciousness. RADIATION DOSAGE (If Supplied By Facility): CTDIvol = ( 18.70 ) mGy, DLP = ( 351.38 ) mGycm TECHNIQUE: High resolution transaxial imaging was performed without contrast material. Sagittal and coronal images were reconstructed. Individualized dose optimization techniques were used for this CT. COMPARISON: None FINDINGS: Normal craniovertebral junction. There are degenerative changes of the anterior atlantoaxial articulation. Normal odontoid process. There is straightening of the normal cervical lordosis. There is anterior fusion of C5-C6. The plate and screws are intact. C2-3: Normal endplates. Normal disc height and morphology. Normal central canal and intervertebral neuroforamina. C3-4: Normal endplates. Normal disc height and morphology. Normal central canal and intervertebral neuroforamina. C4-5: Normal endplates. Normal disc height and morphology. Normal central canal and intervertebral neuroforamina. C5-6: There is fusion of the disc space. There are mild degenerative changes of the facet joints. Normal central canal. There is mild narrowing of the intervertebral neuroforamina. C6-7: There is marked loss of disc height with endplate spondylosis. There is facet and uncovertebral joint degenerative change Normal central canal. There is narrowing of the intervertebral neuroforamina. C7-T1: There is loss of disc height with minimal anterolisthesis of C7 on T1. There is no facet joint subluxation. There is mild facet degenerative changes. Normal central canal and intervertebral neuroforamina. Normal visualized soft tissue structures. Normal lung apices. CT/Spine Cervical without Contras IMPRESSION: 1. Anterior fusion of C5-6. 2. Degenerative changes at C6-7. 3. No acute fracture or subluxation. Electronically Signed: Seth Daniel DO at 22:25 EST Tel [phone], Service support ,
--- NOTE | 2018-06-18 21:19 | CT_ITS ---
STUDY: CT BRAIN WITHOUT CONTRAST REASON FOR EXAM: Female, 68 years old. Fall. RADIATION DOSAGE (If Supplied By Facility): CTDIvol = ( 44.99 ) mGy, DLP = ( 762.36 ) mGycm TECHNIQUE: Transaxial CT imaging of the brain was performed without administration of intravenous contrast material. Individualized dose optimization techniques were used for this CT. COMPARISON: None. FINDINGS: Normal soft tissue structures. There is hyperostosis frontalis internus. Normal size ventricles and extra-axial spaces for the patient's age. Normal white matter tracts of the cerebral hemispheres. There are small punctate calcifications of the basal ganglia which are seen in the aging brain as a normal variant. Normal brainstem. There is mild cerebellar atrophy. There is no intracranial hemorrhage. There are no findings of an acute ischemic infarction. Normal visualized paranasal sinuses. CT/Brain/Head without Contrast IMPRESSION: No acute intracranial process. Electronically Signed: Cayla Em MD at 22:13 EST Tel , Service support ,
[2018-06-18 21:33] VITALS: RESP 18
[2018-06-18] MEDS: Acetaminophen 500 MG Tablet 1000 MG PO (21:34)
--- NOTE | 2018-06-18 22:32 | ED.DCSUM_ITS ---
- ER Visit Summary Date of Service: 06/18/18 Chief Complaint: Fall History of Present Illness: The patient is a 68 F who presents after a fall. She states that she fell asleep because she has been up for 36 hours. She fell and hit her head. She claims of head, face, neck and back pain. She has a history of chronic neck and back pain. She is supposed to take Lyrica but she does not take it at home. Was brought in by EMS on a backboard and c-collar but she self extricated from both of these apparatuses Physical Examination: Vital signs are reviewed. HEENT exam reveals a right eyebrow hematoma. Her neck is nontender. She self extricated from the c- collar. Heart is regular rate and rhythm. Lungs are clear bilaterally. Abdomen soft nontender. Extremities reveal no edema or trauma. Neurologic exam is at baseline. GCS 15. Test Results: CAT scan of the head and cervical spine revealed no acute findings Emergency Department Course and Treatment: Patient was given Tylenol. She is complaining of right shoulder and low back pain. These areas had no tenderness. I do not feel she requires x-rays. She will continue to follow-up with her PCP Treatment Plan: [] Disposition: Discharge Impression: Facial contusion, neck pain This note was generated with [employer] dictation software. It may contain incorrect words, spelling, and punctuation that were not noted in review of the chart prior to signing ED Disposition - Plan for ED Patient: Chief Complaint: Fall Referrals: Care Physician,No Primary [Primary Care Provider] -
--- NOTE | 2018-06-18 22:32 | ED.DEP ---
ED Disposition - Plan for ED Patient: Disposition: Home or Assisted Living Chief Complaint: Fall Instructions: ED Mechanical Fall Referrals: Care Physician,No Primary [Primary Care Provider] -
[2018-06-18 22:41] VITALS: BP 109/76; PULSE 68; RESP 18; O2SAT 97
== END 2018-06-18 23:41 | disposition home or self-care (01) ==
PROVIDERS: Emergency Provider Emergency Medicine
DX: S00.11XA Contusion of right eyelid and periocular area, initial encounter (principal); M54.2 Cervicalgia; M54.5 Low back pain; G89.29 Other chronic pain; M25.511 Pain in right shoulder; R40.2410 Glasgow coma scale score 13-15, unspecified time; W19.XXXA Unspecified fall, initial encounter; Y93.9 Activity, unspecified; Y92.9 Unspecified place or not applicable; F32.9 Major depressive disorder, single episode, unspecified; Z79.899 Other long term (current) drug therapy
CPT/HCPCS: 70450; 72125; 99284; J7030

== ENCOUNTER 2018-06-20 22:22 | Emergency (ER) | payer MEDICARE, MEDICAID, SELFPAY ==
[2018-06-20 22:24] VITALS: BP 100/67; PULSE 84; RESP 16; TEMP 37.3; O2SAT 95; BMI 26.4
--- NOTE | 2018-06-20 22:44 | EKG12_ITS ---
Test Reason : Blood Pressure : / mmHG Vent. Rate : 067 BPM Atrial Rate : 067 BPM P-R Int : 180 ms QRS Dur : 094 ms QT Int : 404 ms P-R-T Axes : 063 -36 023 degrees QTc Int : 426 ms Normal sinus rhythm Possible Left atrial enlargement Left axis deviation Low voltage QRS Poor R wave progression Abnormal ECG Confirmed by ALEJANDRA ROBLES, OMERO ([id number]), deputy editor in chief AZAM MCGRATH ([id number]) on 06/23/2018 12:34:34 PM Referred By: SINDY Confirmed By:OMERO ROBERTS MD
[2018-06-20 23:10] LABS: Anion Gap 8 (5-15); BUN 19 mg/dL (7-18); BUN/Creat Ratio 20.3 RATIO (10-20); Calcium,Total 8.5 mg/dL (8.5-10.1); Chloride 105 mmol/L (98-107); Creatinine, Serum 0.93 mg/dL (0.55-1.02); EST Glomerular Filtration Rate 64 mL/min (>60); Est Glom Filt Rate - Afr Amer 77 mL/min (>60); Estimated Creatinine Clearance 48.56 ml/min; Glucose 108 mg/dL (74-106); Potassium 3.7 mmol/L (3.5-5.1); Sodium Level 140 mmol/L (136-145)
[2018-06-20 23:11] LABS: Absolute Lymphocyte Count 1.79 X10^3/ul (0.83-4.51); Absolute Neutrophil Count 4.9 X10^3/uL (2.0-7.7); Basophil# 0.04 X10^3/uL; Basophil% 0.6 % (0-1); Eosinophil# 0.12 X10^3/uL; Eosinophils% 1.7 % (0-5); Hematocrit 36.7 % (37-47); Lymphocyte # 1.79 X10^3/ul (4.0); Lymphocyte % 24.6 % (19-41); Mean Corp Hgb Conc 32.7 g/gl (32-36); Mean Corpuscular Hgb 29.5 pg (27.0-32.0); Mean Corpuscular Volume 90.2 fL (81-99); Mean Platelet Vol. 10.5 fl (6.2-12.0); Monocyte# 0.37 X10^3/uL; Monocyte% 5.1 % (0-10); Neutrophil # 4.94 X10^3/uL (2.7-7.7); Neutrophil % 67.9 % (47-70); Platelet Count 222 K/mm3 (150-450); RBC Distribution Width CV 14.3 % (11.6-14.6); RBC Distribution Width SD 46.4 fl (35.1-43.9); Red Blood Count 4.07 M/mm3 (4.2-5.4); White Blood Count 7.3 K/mm3 (4.4-11.0)
[2018-06-20 23:17] LABS: POSITIVE COUNT NO; POSITIVE DIFFERENTIAL NO; POSITIVE MORPHOLOGY NO
[2018-06-20 23:26] LABS: Alcohol, Blood (Medical)-Serum < 3.0 mg/dL
[2018-06-20 23:46] LABS: Amphetamine Urine VISTA NEGATIVE (<1000 ng/mL); Barbiturate Urine VISTA NEGATIVE (< 200 ng/mL); Benzodiazepine Urine VISTA NEGATIVE (< 200 ng/mL); Cocaine Urine VISTA NEGATIVE (< 300 ng/mL); Ecstacy Urine VISTA NEGATIVE (< 500 ng/mL); Methadone Urine VISTA NEGATIVE (< 300 ng/mL); PCP Urine VISTA NEGATIVE (< 25 ng/mL); THC Urine VISTA NEGATIVE (< 50 ng/mL); Vista UDS pH Range 5
[2018-06-21] VITALS (9 sets, daily range): BP systolic 92–98; BP diastolic 42–60; PULSE 63–72; RESP 16–18; TEMP 36.7; O2SAT 93–97
--- NOTE | 2018-06-21 00:06 | ED.VISSUMM ---
- ER Visit Summary Date of Service: 06/21/18 Chief Complaint: I am just mad. History of Present Illness: The patient is a 68 F who was brought in due to suicidal ideations. History is limited because she states I do not want to talk about it. And would not really provide any further history to me. However per the police she had made suicidal statements through text to her daughter. She had expressed suicidal ideation with intent to overdose. She was recently hospitalized for intentional overdose which led to intubation and ICU admission. She has been seen once since that time for depression. She denies recent medical illness such as fevers chest pain shortness of breath vomiting diarrhea. She states she is here because my daughter has a big mouth. Physical Examination: Afebrile vitals are unremarkable Moist mucous membranes Heart regular rate and rhythm Lungs clear Abdomen soft Alert Patient appears depressed and has a blunted affect Test Results: EKG shows normal sinus rhythm. CBC BMP normal. Urine drug screen negative. Alcohol negative. Emergency Department Course and Treatment: Given patient's recent history of life-threatening overdose and reports to police of suicidal ideation with intent to overdose I do not believe she will be safe for discharge. She will be evaluated by crisis but will require psychiatric hospitalization. Treatment Plan: [] Disposition: Transfer pending crisis evaluation Impression: Suicidal ideation This note was generated with [employer] dictation software. It may contain incorrect words, spelling, and punctuation that were not noted in review of the chart prior to signing ED Disposition - Plan for ED Patient: Chief Complaint: Suicidal Referrals: Care Physician,No Primary [Primary Care Provider] -
--- NOTE | 2018-06-21 00:07 | ED.RN ---
CRISIS CALLED IN, ESTELLE IS [employer]AGE T[employer], SHE IS GOING TO [facility] AND WILL BE HERE WHEN DONE THERE
--- NOTE | 2018-06-21 02:29 | ED.RN ---
SITTER REMAINS AT THE BEDSIDE.PT REMAINS AWAKE AND TALKING TO STAFF.
--- NOTE | 2018-06-21 06:01 | ED.RN ---
no morning medication give to patient because she refuses to allow nursing staff to confirm home medications
== END 2018-06-21 07:51 ==
PROVIDERS: Emergency Provider Emergency Medicine
DX: R45.851 Suicidal ideations (principal); F32.9 Major depressive disorder, single episode, unspecified; Z79.899 Other long term (current) drug therapy
CPT/HCPCS: 80048; 80307; 80320; 85025; 93005; 99284; G0480

== ENCOUNTER 2018-10-31 07:26 | Emergency (ER) | payer MEDICARE, MEDICAID, SELFPAY ==
[2018-10-31 07:28] VITALS: BP 98/58; PULSE 67; RESP 17; TEMP 36.8; O2SAT 99; BMI 26.2
--- NOTE | 2018-10-31 07:29 | CT_ITS ---
STUDY: CT BRAIN WITHOUT CONTRAST REASON FOR EXAM: Female, 68 years old. History of fall. RADIATION DOSAGE (If Supplied By Facility): CTDIvol = ( 60.81 ) mGy, DLP = ( 1067.08 ) mGycm TECHNIQUE: Transaxial CT imaging of the brain was performed without administration of intravenous contrast material. Individualized dose optimization techniques were used for this CT. COMPARISON: Comparison is made with prior examination dated June 18, 2019. FINDINGS: Normal soft tissue structures. There is hyperostosis frontalis internus. There is mild cerebral atrophy with widening of the extra-axial spaces and ventricular dilatation. Normal white matter tracts of the cerebral hemispheres. There are small punctate calcifications of the basal ganglia which are seen in the aging brain as a normal variant. Normal brainstem. There is mild cerebellar atrophy. There is no intracranial hemorrhage. There are no findings of an acute ischemic infarction. Mucosal thickening of the maxillary sinus bilaterally. CT/Brain/Head without Contrast IMPRESSION: Chronic involutional changes of the brain. Electronically Signed: Otto Chowdary, at 9:49 EDT , Service support ,
--- NOTE | 2018-10-31 07:30 | EKG12_ITS ---
Test Reason : SYNCOPE Blood Pressure : / mmHG Vent. Rate : 065 BPM Atrial Rate : 065 BPM P-R Int : 162 ms QRS Dur : 096 ms QT Int : 442 ms P-R-T Axes : 057 -14 028 degrees QTc Int : 459 ms Normal sinus rhythm Normal ECG Confirmed by LETICIA MINA ([id number]), managing editor ANTONIO ESCALANTE ([id number]) on 11/03/2018 2:00:52 PM Referred By: JENNY Confirmed By:LETICIA MINA
--- NOTE | 2018-10-31 07:31 | ED.VISSUMM ---
- ER Visit Summary Date of Service: 10/31/18 Chief Complaint: Syncopal episode History of Present Illness: The patient is a 68 F presents to the emergency department after syncopal episode. Patient states she is been in her normal state of health. She had a right shoulder replacement done about a month ago at [facility]. She states that she set her alarm because she had appoint with her counselor this morning. She states she got up and felt hungry. She states she went to her kitchen to get a pair. She became very lightheaded and felt as if she was going to pass out. She states she then did pass out. She struck her right knee, her right shoulder, and hit her head. She was unable to stand and ambulate because of pain in the knee. She denies chest pain. She denies short of breath. She is had no exertional dyspnea orthopnea. She denies weight gain. Patient does have a history of recurrent syncope but states she has not passed out in about a year. Physical Examination: Vital signs reviewed General: Well-nourished, well-developed Head: Normocephalic, atraumatic Eyes: Pupils equal and reactive, extraocular muscles intact Neck, supple, no lymphadenopathy Heart: Regular rate and rhythm Respiratory: No distress, clear bilaterally Abdomen: Soft, nontender, nondistended, no peritoneal signs Back: Nontender Extremities: Right shoulder incision is clean, dry, and intact. Mild tenderness palpation. No erythema. No edema. Right knee has small effusion. Difficulty with range of motion. Skin: Normal color no rash Neuro: Alert and oriented, no focal or lateralizing deficits Test Results: [] Emergency Department Course and Treatment: The patient does have a history of prior syncope. She has had no chest pain or shortness of breath. The patient does take metaxalone once weekly. She took a dose yesterday. She also took 80 of Lasix yesterday. She has no history of heart failure, but takes it for peripheral edema since her weight loss. I do feel that this is all secondary to orthostasis and hypotension. EKG was obtained which showed sinus rhythm without acute ischemia. Labs are relatively unremarkable except for hypokalemia which patient does have significant history of. This is replaced orally. Patient underwent imaging. CT the head was unremarkable. X-rays of the shoulder and knee were also unremarkable. Her pain was addressed. With volume resuscitation, repeat blood pressure was 120/67. She was feeling improved. The patient was able to ambulate and felt steady on her feet. She will be given 2 days of analgesics for acute pain control. She wants to attempt outpatient therapy and I feel this is reasonable. Again, I feel this is all because of dehydration. The patient will be discharged home. Treatment Plan: [] Disposition: Discharge Impression: 1. Dehydration 2. Syncope 3. Knee contusion This note was generated with Infinite [employer] dictation software. It may contain incorrect words, spelling, and punctuation that were not noted in review of the chart prior to signing ED Disposition - Plan for ED Patient: Disposition: Home or Assisted Living Instructions: ED Hypotension Orthostatic, ED Syncope Vasovagal Prescriptions: Oxycodone HCl/Acetaminophen [Percocet 5/325] 1 tab PO Q6H PRN PRN 2 Days #6 tab PRN Reason: Pain Referrals: [facility] Doctor,Out of [Primary Care Provider] -
[2018-10-31 08:00] VITALS: BP 101/70; PULSE 66; RESP 17; O2SAT 99
[2018-10-31 08:07] VITALS: BP 87/58; BP 88/63; PULSE 65; PULSE 66
[2018-10-31 08:16] LABS: Absolute Lymphocyte Count 2.32 X10^3/ul (0.83-4.51); Absolute Neutrophil Count 2.6 X10^3/uL (2.0-7.7); Basophil# 0.01 X10^3/uL; Basophil% 0.2 % (0-1); Eosinophil# 0.17 X10^3/uL; Eosinophils% 3.1 % (0-5); Hematocrit 33.1 % (37-47); Hemoglobin 10.6 g/dl (12.0-15.0); Lymphocyte # 2.32 X10^3/ul (4.0); Lymphocyte % 42.4 % (19-41); Mean Corpuscular Hgb 27.2 pg (27.0-32.0); Mean Corpuscular Volume 85.1 fL (81-99); Mean Platelet Vol. 9.6 fl (6.2-12.0); Monocyte# 0.37 X10^3/uL; Monocyte% 6.8 % (0-10); Neutrophil # 2.59 X10^3/uL (2.7-7.7); Neutrophil % 47.3 % (47-70); Platelet Count 253 K/mm3 (150-450); RBC Distribution Width CV 15.1 % (11.6-14.6); Red Blood Count 3.89 M/mm3 (4.2-5.4); White Blood Count 5.5 K/mm3 (4.4-11.0)
[2018-10-31] MEDS: 0.9% Normal Saline 1,000 ML 1000 ML IV (08:19)
[2018-10-31] MEDS: Ondansetron 4 MG/2 ML Vial IV (08:19)
[2018-10-31] MEDS: fentaNYL 100 MCG/2 ML Ampul 50 MCG IV (08:20)
[2018-10-31 08:21] LABS: POSITIVE COUNT NO; POSITIVE DIFFERENTIAL NO; POSITIVE MORPHOLOGY NO
[2018-10-31 08:25] LABS: ALB/GLOB Ratio 0.8 RATIO (0.9-2.4); AST(SGOT) 25 U/L (15-37); Alanine Aminotransfer ALT/SGPT 22 U/L (13-56); Albumin, Serum 3.4 g/dL (3.2-5.0); Alkaline Phosphatase 132 U/L (45-117); Anion Gap 9 (5-15); BUN 14 mg/dL (7-18); BUN/Creat Ratio 16.7 RATIO (10-20); Calcium,Total 8.6 mg/dL (8.5-10.1); Chloride 100 mmol/L (98-107); Creatinine, Serum 0.84 mg/dL (0.55-1.02); EST Glomerular Filtration Rate 72 mL/min (>60); Est Glom Filt Rate - Afr Amer 87 mL/min (>60); Estimated Creatinine Clearance 53.76 ml/min; Glucose 105 mg/dL (74-106); Protein, Total 7.4 g/dL (6.4-8.2); Sodium Level 142 mmol/L (136-145)
--- NOTE | 2018-10-31 08:37 | RAD_ITS ---
STUDY: X-RAY - RIGHT KNEE REASON FOR EXAM: Female, 68 years old. Pain following a fall. TECHNIQUE: 4 view(s) of the knee. COMPARISON: None. FINDINGS: Normal visualized distal femur. Normal visualized proximal tibia and fibula. Normal proximal tibiofibular articulation. The patient status post total knee replacement. There is good alignment. Small joint effusion. Soft tissue swelling. RAD/Knee 4 or More Views IMPRESSION: Total knee replacement. Small joint effusion. Soft tissue swelling. Electronically Signed: Otto Chowdary, at 9:16 EDT , Service support ,
--- NOTE | 2018-10-31 08:49 | RAD_ITS ---
STUDY: X-RAY - RIGHT SHOULDER REASON FOR EXAM: Female, 68 years old. Pain following a fall. TECHNIQUE: 4 view(s) of the shoulder. COMPARISON: None. FINDINGS: The patient is status post right reverse shoulder replacement. There is good alignment. No evidence of fracture or dislocation. There is degenerative arthrosis of the acromioclavicular joint without inferior osseous spur formation. Normal acromion. Normal humeral head and visualized proximal humerus. There is periarticular soft tissue calcification consistent with a calcific tendinitis. Normal visualized pulmonary apex. RAD/Shoulder min 2 Views IMPRESSION: Status post right shoulder replacement. Focal calcification overlying the greater tuberosity suggestive of a calcific tendinitis. Electronically Signed: Otto Chowdary, at 9:17 EDT , Service support ,
[2018-10-31] MEDS: Acetaminophen 500 MG Tablet 1000 MG PO (09:27)
[2018-10-31 09:35] VITALS: BP 120/67; PULSE 67; RESP 20
--- NOTE | 2018-10-31 11:59 | CASEMGMT ---
Social Work: Spoke with patient in ED room #6. Per ED staff, patient needs a ride home from the ED. Patient states that she usually uses [employer] for transportation. TC to [facility], spoke with Alecia. Alecia states that patient will need to call the [employer] line through patients insurance, [facility] Community Plan. This SW explained to patient that she will need to call [facility] herself. This SW provided patient with the phone number and a portable phone to make the phone call. PLAN: Patient to return home with transportation provided by Anna ([facility] [employer]). NERI Morgan
[2018-10-31] MEDS: oxyCODONE 5 MG Tablet PO (12:30)
[2018-10-31 12:46] VITALS: BP 105/52; PULSE 66; RESP 17; O2SAT 96
== END 2018-10-31 12:49 | disposition home or self-care (01) ==
PROVIDERS: Emergency Provider Emergency Medicine
DX: R55 Syncope and collapse (principal); E86.0 Dehydration; I95.1 Orthostatic hypotension; S80.01XA Contusion of right knee, initial encounter; E87.6 Hypokalemia; W19.XXXA Unspecified fall, initial encounter; Y93.9 Activity, unspecified; Y92.9 Unspecified place or not applicable; F32.9 Major depressive disorder, single episode, unspecified; Z96.611 Presence of right artificial shoulder joint; Z79.899 Other long term (current) drug therapy
CPT/HCPCS: 70450; 73030; 73564; 80053; 85025; 93005; 96361; 96374; 96375; 99285; J7030; A4216; J2405

== ENCOUNTER 2019-04-17 16:12 | Emergency (ER) | payer MEDICARE, MEDICAID, SELFPAY ==
[2019-04-17 16:13] VITALS: BP 113/64; PULSE 85; RESP 17; TEMP 36.9; O2SAT 98; BMI 23.5
--- NOTE | 2019-04-17 16:58 | EKG12_ITS ---
Test Reason : DYSRHYTHMIA Blood Pressure : / mmHG Vent. Rate : 069 BPM Atrial Rate : 069 BPM P-R Int : 182 ms QRS Dur : 102 ms QT Int : 392 ms P-R-T Axes : 067 -46 067 degrees QTc Int : 420 ms Normal sinus rhythm Left axis deviation Nonspecific T wave abnormality Abnormal ECG Confirmed by SHARMAINE ROBLES, KANDIS ([id number]), copy editor ANTONIO ESCALANTE ([id number]) on 04/21/2019 11:25:37 AM Referred By: ERWIN Confirmed By:KANDIS SCHMID MD
--- NOTE | 2019-04-17 16:59 | ED.VIS.GEN ---
History of Present Illness Chief Complaint: Dizziness Detail of Chief Complaint: Needs fluids Informant: Patient Onset: Today Narrative: Patient states that she went to see her PCP this morning who was at access point. She states she told her doctor that she was dizzy this morning and had a syncopal episode. Orthostatic vital signs were found to be abnormal and advised the patient to come the emergency room to get IV fluids. Patient states she did take a dose of Lasix last night and was up urinating frequently. Joint takes Lasix once every 10 days or so. She denies having palpitations prior to her syncopal episode. Currently her only complaint is nausea. Past Medical History - Allergies and Home Meds Allergies/Adverse Reactions: Allergies acetaminophen [From Vicodin] Allergy (Verified 04/17/19 16:13) STOPS MY HEART hydrocodone [From Vicodin] Allergy (Verified 04/17/19 16:13) STOPS MY HEART Primary Care Physician: Reynaldo Styles,Out of [NON-STAFF] - 5-7 Days Prior records reviewed: Yes Past Medical History: - - Reviewed Surgical History: hysterectomy, tonsillectomy, - - Bilateral total knee replacement, right rotator cuff repair, lysis of adhesions, hernia repair, gastric bypass, cholecystectomy, cardiac ablation, C5-C6 back fusion, C5/C6 neck fusion. Smoking Status: Never smoker - Family History Maternal Family History: Reports: - - Patient intubated, unable to obtain family history. Paternal Family History: Reports: - - Patient intubated, unable to obtain family history. Review of Systems General: Denies: Chills, Fever Eyes: Denies: Visual changes - bilaterally ENT: Denies: Bilateral ear pain Cardiovascular: Denies: Chest pain Respiratory: Denies: Dyspnea Gastrointestinal: Reports: Nausea Genitourinary: Denies: Dysuria Musculoskeletal: Reports: Arthralgias - Hip and buttock pain from fall. Denies: Myalgias Skin: Denies: Rash, Wounds Neurological: Denies: Headache, Weakness, Parasthesia Hematologic: Denies: Easy bruising Allergy: Denies: Uticaria Physical Exam Vital Signs/Narrative: Vital Signs Temp Pulse Resp BP Pulse Ox 04/17/19 16:13 98.4 F 85 17 113/64 98 Inital Vital Signs reviewed: Yes General: Well nourished, Well developed Head: Normocephalic ENT: Moist mucous membranes Neck: Supple Cardiovascular: Regular rate, Regular rhythm Respiratory: No distress, CTA bilaterally Abdomen: Soft, Nontender, Normal bowel sounds Extremities: No edema Skin: Normal color, No rash Neurological: Alert, Oriented x3 Psychological: Normal affect Diagnostic/Tx/Re-eval Laboratory Results 04/17/19 04/17/19 17:20 17:20 WBC 5.5 RBC 4.55 Hgb 12.1 Hct 38.6 MCV 84.8 MCH 26.6 L MCHC 31.3 L RDW Std Deviation 50.6 H RDW Coeff of Elie 16.3 H Plt Count 207 MPV 10.1 Immature Gran % (Auto) 0.200 Neut % (Auto) 54.2 Lymph % (Auto) 38.8 [place] % (Auto) 5.9 Eos % (Auto) 0.5 Baso % (Auto) 0.4 Absolute Neuts (auto) 3.0 Absolute Lymphs (auto) 2.12 Nucleated RBC % 0 Sodium 140 Potassium 3.2 L Chloride 99 Carbon Dioxide 34.0 H Anion Gap 7 BUN 26 H Creatinine 0.92 Estim Creat Clear Calc 49.09 Est GFR (MDRD) Af Amer 78 Est GFR (MDRD) Non-Af 64 BUN/Creatinine Ratio 28.2 H Glucose 112 H Calcium 9.0 - EKG Initial EKG Interpretation: Sinus Rhythm - Sinus at 69 with no acute ischemia. - Medical Decision Making Patient was given a liter of IV fluids here. She was given p.o. potassium replacement and a prescription for 3 additional days. Patient does feel improved. She will follow-up with her primary care physician. ED Disposition - Plan for ED Patient: Disposition: Home or Assisted Living Diagnosis: Dehydration, Hypokalemia Instructions: DEHYDRATION (7y-Adult), Hypokalemia Prescriptions: Potassium Chloride 40 meq PO DAILY #3 days Prescription Printed Referrals: [facility] Doctor,Out of [NON-STAFF] - 5-7 Days
[2019-04-17] MEDS: 0.9% Normal Saline 1,000 ML 1000 ML IV (17:18)
[2019-04-17] MEDS: Ondansetron 4 MG/2 ML Vial IV (17:26)
[2019-04-17 17:28] LABS: Absolute Lymphocyte Count 2.12 X10^3/uL (0.83-4.51); Basophil# 0.02 X10^3/uL; Basophil% 0.4 % (0-1); Eosinophil# 0.03 X10^3/uL; Eosinophils% 0.5 % (0-5); Hematocrit 38.6 % (37-47); Hemoglobin 12.1 g/dL (12.0-15.0); Lymphocyte # 2.12 X10^3/ul (4.0); Lymphocyte % 38.8 % (19-41); Mean Corp Hgb Conc 31.3 g/dL (32-36); Mean Corpuscular Hgb 26.6 pg (27.0-32.0); Mean Corpuscular Volume 84.8 fL (81-99); Mean Platelet Vol. 10.1 fl (6.2-12.0); Monocyte# 0.32 X10^3/uL; Monocyte% 5.9 % (0-10); NRBC Flagged by Analyzer 0 % (0-5); Neutrophil # 2.97 X10^3/uL (2.7-7.7); Neutrophil % 54.2 % (47-70); Platelet Count 207 K/mm3 (150-450); RBC Distribution Width CV 16.3 % (11.6-14.6); RBC Distribution Width SD 50.6 fl (35.1-43.9); Red Blood Count 4.55 M/mm3 (4.2-5.4); White Blood Count 5.5 K/mm3 (4.4-11.0)
[2019-04-17 17:46] LABS: Anion Gap 7 (5-15); BUN 26 mg/dL (7-18); BUN/Creat Ratio 28.2 RATIO (10-20); Chloride 99 mmol/L (98-107); Creatinine, Serum 0.92 mg/dL (0.55-1.02); EST Glomerular Filtration Rate 64 mL/min (>60); Est Glom Filt Rate - Afr Amer 78 mL/min (>60); Estimated Creatinine Clearance 49.09 ml/min; Glucose 112 mg/dL (74-106); Potassium 3.2 mmol/L (3.5-5.1); Sodium Level 140 mmol/L (136-145)
[2019-04-17 18:20] VITALS: PULSE 65; O2SAT 100
[2019-04-17 19:47] VITALS: BP 109/69; PULSE 63; RESP 16; O2SAT 97
--- NOTE | 2019-04-17 19:52 | CM.ED ---
Social Work Consult: Transportation Informant: Heidy, RN Met with patient in room. Patient stating to not have transportation to home. Patient stating to be attempting to contact patient friend that brought patient to the ED but they are not answering. Patient stating to be aware that patient has transportation services through patient insurance. Patient requesting for this healthcare social worker to assist with setting up transportation to home through insurance. Telephone call to [facility] transportation. Transportation established. Ride will be at [facility] around 9:00p Notified patient of all above information. Stephanie POLLOCK, RAMA
== END 2019-04-17 19:55 | disposition home or self-care (01) ==
PROVIDERS: Emergency Provider Emergency Medicine
DX: E86.0 Dehydration (principal); E87.6 Hypokalemia; R11.0 Nausea; Z79.899 Other long term (current) drug therapy; Z98.84 Bariatric surgery status; Z96.653 Presence of artificial knee joint, bilateral
CPT/HCPCS: 80048; 85025; 93005; 96361; 96374; 99285; J7030; J2405

== ENCOUNTER → 2019-07-23 11:40 | Outpatient (CLI) | payer MEDICARE, MEDICAID, SELFPAY ==
--- NOTE | 2019-07-23 11:47 | RAD_ITS ---
STUDY: X-RAY CHEST REASON FOR EXAM: Female, 69 years old. COUGH X 4 MONTHS. CHF HX OF AUTOIMMUNE DISEASE. TECHNIQUE: PA and lateral views of the chest. COMPARISON: May 17, 2018. FINDINGS: The lungs are clear and expanded. There is no demonstrated pleural abnormality. Normal size heart. Normal mediastinum and kat. Normal visualized pulmonary arteries. Normal visualized aortic arch and descending thoracic aorta. There are diffuse degenerative changes of the visualized thoracic spine. There is postoperative change in the cervical spine. There is right shoulder replacement. There are surgical clips in the upper abdomen. RAD/Chest PA and Lateral IMPRESSION: Degenerative changes, as described above. No demonstrated acute cardiopulmonary process. Electronically Signed: Narayan Zhong MD at 14:03 EST , Service support ,
== END ==
DX: I50.32 Chronic diastolic (congestive) heart failure (principal)
CPT/HCPCS: 71046

== ENCOUNTER → 2020-11-29 10:36 | Outpatient (CLI) | payer MEDICARE, MEDICAID, SELFPAY ==
--- NOTE | 2020-11-29 10:50 | BD_ITS ---
STUDY: DUAL ENERGY X-RAY ABSORPTIOMETRY / DXA REASON FOR EXAM: Female, 70 years old. M85.89. The patient is postmenopausal. TECHNIQUE: Bone Mineral Density (BMD) measurements of lumbar spine and bilateral hips were obtained. COMPARISON: None. FINDINGS: Lumbar Spine (L1-L4): g/cm2 (1.294) / T-score (1.0) / Z-score (2.7) Findings are suggestive of normal bone density with a low fracture risk. Left Femur Total: g/cm2 (0.822) / T-score (-1.5) / Z-score (0.0) Left Femoral Neck: g/cm2 (0.778) / T-score (-1.9) / Z-score (-0.2) Right Femur Total: g/cm2 (0.762) / T-score (-2.0) / Z-score (-0.5) Right Femoral Neck: g/cm2 (0.742) / T-score (-2.1) / Z-score (-0.5) BD/Dexa Bone Density Study IMPRESSION: The patient is considered osteopenic as outlined below according to World Junior Organization (WHO) criteria with a high fracture risk. Reference Information: The T-score is the number of standard deviations above or below the standard which is normal for young adults at their peak bone mineral density. The World Health Organization (WHO) interprets the T-scores as follows: Above -1 Normal bone density Between -1 and -2.5 Osteopenia Equal to / or below -2.5 Osteoporosis As a practical clinical guideline, osteopenia may be graded as follows: Mild -1 through -1.5 Moderate -1.6 through -2.0 Severe -2.1 through -2.4 The Z-score is the number of standard deviations above or below age-matched controls. A Z-score of less than -1.5 would be considered abnormal. References: 1. NIH Osteoporosis and Related Bone Diseases www osteo.org 2. International Society for Clinical Densitometry www iscd.org 3. National Osteoporosis Foundation www nof.org Electronically Signed: Otto Chowdary MD at 14:55 EDT , Service support ,
== END ==
DX: M85.89 Other specified disorders of bone density and structure, multiple sites (principal)
CPT/HCPCS: 77080